=== PATIENT | female | born 1940 | race Caucasian/White ===

== ENCOUNTER → 2016-07-06 | Outpatient (CLI) | payer OTHER, BC ==
[~2016-07-06] MED LIST: ATEN-173 PO; CHOL100027 PO; COEN1CAP17 PO; DIGE1CAP10 PO; LEVO50TA6 PO; MISCCAP80 PO; MULT-506 PO; RSTOPS OPB; VITA1CAP11 PO; ZINC1CAP PO; [UNRECOGNIZED DRUG - CODE] PO; [UNRECOGNIZED DRUG - OTHER] PO
[2016-07-06 17:01] LABS: BASO % 0.8 %; BASO ABS # 0.05 K/uL (0-0.2); COMPLETE YES; EOS % 2.9 %; HEMATOCRIT 38.3 % (37-47); IG% 0.2 %; LYMPH % 19.5 %; LYMPH ABS # 1.28 K/uL (1.2-3.4); MEAN CELL VOLUME 90.3 fL (80-100); MEAN CORPUSCULAR HEMOGLOBIN 29.2 pg (25-34); MEAN CORPUSCULAR HGB CONC 32.4 g/dl (32-36); MEAN PLATELET VOLUME 9.8 fL (7.4-10.4); MONO % 15.1 %; NEUT % 61.5 %; PLATELET COUNT 394 K/uL (130-400); RED BLOOD COUNT 4.24 M/uL (4.2-5.4); WHITE BLOOD COUNT 6.56 K/uL (4.8-10.8)
[2016-07-06 17:23] LABS: ALB/GLOB RATIO 0.8 (0.9-2); ALT/SGPT 21 U/L (12-78); AST/SGOT 19 U/L (15-37); BLOOD UREA NITROGEN 15 mg/dl (7-18); BUN/CREATININE RATIO 18.8 (10-20); CALCIUM 9.3 mg/dl (8.5-10.1); CARBON DIOXIDE 30 mmol/L (21-32); CHLORIDE 106 mmol/L (98-107); CREATININE 0.82 mg/dl (0.60-1.20); GLUCOSE 83 mg/dl (70-99); MAGNESIUM 2.5 mg/dl (1.8-2.4); POTASSIUM 4.2 mmol/L (3.5-5.1); SODIUM 142 mmol/L (136-145)
[2016-07-06 17:25] LABS: ALKALINE PHOSPHATASE 103 U/L (45-117); FERRITIN 13.7 ng/ml (8.0-388.0)
== END | disposition home or self-care (01) ==
LOC: C.LABBC 14:47
PROVIDERS: ATTEND Internal Medicine
DX: K14.6 Glossodynia (principal)

== ENCOUNTER → 2016-10-31 | Outpatient (CLI) | payer OTHER, BC ==
--- NOTE | 2016-10-31 10:48 | DIAGNOSTIC IMAGING REPORT ---
ULTRASOUND BILATERAL LOWER EXTREMITY VENOUS CLINICAL HISTORY: Leg pain. Cramps. COMPARISON STUDY: Bilateral lower extremity venous ultrasound dated 07/05/2011. TECHNIQUE: Real-time, grayscale, and color Doppler sonography of the deep veins of the right and left lower extremity was performed from the inguinal crease to the calf. Compression and augmentation were utilized. FINDINGS: There is no sonographic evidence of deep venous thrombosis identified in the right or left lower extremity. The common femoral, superficial femoral, and popliteal veins are patent and normally compressible bilaterally. The greater saphenous vein and the profunda femoris vein at the junction with the common femoral vein are clear in both legs. The visualized calf veins are patent bilaterally. IMPRESSION: There is no sonographic evidence of deep venous thrombosis identified in the right or left lower extremity. Electronically signed by: Black Cancino M.D. 10/31/2016 10:47 AM Dictated Date/Time: 10/31/2016 10:46 AM
== END | disposition home or self-care (01) ==
LOC: C.ULTR 09:57
PROVIDERS: ATTEND Podiatrist
DX: I70.293 Other atherosclerosis of native arteries of extremities, bilateral legs (principal); R25.2 Cramp and spasm; M79.604 Pain in right leg; M79.605 Pain in left leg

== ENCOUNTER → 2016-11-06 | Outpatient (CLI) | payer OTHER, BC ==
--- NOTE | 2016-11-06 15:59 | DIAGNOSTIC IMAGING REPORT ---
BILATERAL LOWER EXTREMITY VENOUS DOPPLER TO EVALUATE FOR REFLUX CLINICAL HISTORY: Bilateral leg edema. COMPARISON STUDY: Bilateral lower extremity venous Doppler October 31, 2016. FINDINGS: No reflux was identified by sonography within either lower extremity. No deep venous thrombus was identified within either lower extremity. IMPRESSION: 1. No reflux identified within either lower extremity. 2. No deep venous thrombus within the bilateral lower extremities. Electronically signed by: Curtis Sanchez M.D. 11/06/2016 3:58 PM Dictated Date/Time: 11/06/2016 3:57 PM
== END | disposition home or self-care (01) ==
LOC: C.ULTR 15:03
PROVIDERS: ATTEND Internal Medicine
DX: R60.0 Localized edema (principal)

== ENCOUNTER → 2016-11-15 | Outpatient (CLI) | payer OTHER, BC ==
[2016-11-15 14:07] VITALS: BP 116/71; PULSE 72; TEMP 37.2; O2SAT 95
--- NOTE | 2016-11-15 16:36 | Radiation Oncology Follow-Up ---
Radiation Oncology Follow-Up Date of Visit Nov 15, 2016. 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 Neely in regards to the radiation cystitis. He referred her to nephrology and she has been seen and had testing performed. She has a scant amount of spotting from the perineal area. She denies any gross hematuria. She denies bleeding with bowel movements. She previously was seen by Dr. Gallo and 2014. The telangiectasia was noted. There was thickening of the anal area anterior referred her to Dr. Singh who performed a biopsy which was benign. With the finding of the telangiectasia Dr. Gallo had discussed hyperbaric oxygen therapy with her. Information was given to her for review on how this procedure is completed. She is followed by Dr. Zamudio and medical oncology. She has iron deficiency anemia and was given iron infusions. With this treatment she did feel improved with less lethargy. 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 After her last visit one year ago was recommended that she is Aquaphor on a regular basis to help protect the perianal and perineal tissue. She has been doing this and feels that she has had much less bleeding from the areas of telangiectasia. Allergies Coded Allergies: Gluten (Verified Allergy, Unknown, unknown, 03/02/16) Iodinated Contrast Media (Verified Allergy, Unknown, RASH TO "CT SCAN DYE ", 03/02/16) Ciprofloxacin (Verified Adverse Reaction, Intermediate, GI UPSET, 03/02/16 ) Home Medications Scheduled Atenolol (Tenormin), 25 MG PO DAILY Calcium W/ Magnesium (Jacky/Mag), 1 TAB PO DAILY Cholecalciferol (Vitamin D 1000 Unit), 5,000 INTER.UNIT PO DAILY Coenzyme Q10 (Ubidecarenone) (Co Q 10), 100 MG PO DAILY Cyclosporine (Restasis Eye Drops), 1 DROP OPB BID Digestive Enzymes (Digestive Enzyme), 1 PO DAILY Iodine (Iodine Strong), 2 DROP PO DAILY Levothyroxine Sodium (Levothyroxine Sodium), 50 MCG PO DAILY Multivitamin (Multivitamin), 2 TAB PO DAILY Probiotic Product (Probiotic), PO DAILY Vitamin A ([id number]), 1 CAP PO DAILY Zinc Sulfate (Zinc Sulfate), 220 MG PO HS Review of Systems Gastrointestinal: Symptoms: WNL GI Comments: Constipation is worse enemy;Takes magnesium at HS to help w/ this; Oral: Symptoms: No Problems Other Oral Symptoms: Tongue inflammed - saw oral surgeon - glossitis - mouth rinses ineffective; Respiratory: Symptoms: WNL Urinary: Symptoms: WNL Comments: Doesn't ignore urge to void;unable to go longer than 2 hrs betw'n voids; Skin: Symptoms: No Problems Other Skin Symptoms: Pt denies any skin issues in her silvia area. Physical Exam Vital Signs Date Time Temp Pulse Resp B/P (MAP) Pulse Ox O2 Delivery O2 Flow Rate FiO2 11/15/16 14:07 37.2 72 16 116/71 95 Pain: Pain Onset: few yrs Pain Duration: gets worse at times Side: Right Pain Location: ankle Patient Pain Scale: 0 - 10 Initial Pain Intensity: 0.0 Pain Description: Aching Additional Comments: has a bone spur Fatigue: None General Appearance: no apparent distress, + thin Eyes: normal inspection, EOMI ENT: normal ENT inspection, hearing grossly normal Neck: no adenopathy Respiratory/Chest: lungs clear, no respiratory distress, no accessory muscle use Cardiovascular: regular rate, rhythm, no gallop, no murmur Abdomen: normal bowel sounds, non tender, soft, no organomegaly, + pertinent finding (no adenopathy of the groins) Anal / Rectum: Perineal area reveals perianal telangiectasia. There are no open ulcerations. The telangiectasia extends to the introitus. There are no rectal masses and no rectal bleeding. Extremities: no pedal edema Neurologic/Psychiatric: no motor/sensory deficits, alert, normal mood/affect Skin: warm/dry Assessment & Plan Plan: We once again discussed using the Aquaphor on a regular basis. She should avoid toilet paper and use adult wipes to prevent irritation to the telangiectasia. She did request a referral to another urologist for discussion of the radiation cystitis. An appointment was made for her to see Dr. Caicedo. She'll see him 11/30/2016. We will await his recommendations for further follow-up or treatment. Total Time In Follow-Up I spent 25 minutes speaking to the patient performing examination. I spent 15 minutes reviewing information in completing this note. Copy To Constantine Padilla M.D.; Amaury Zamudio M.D.; Abilio Caicedo M.D.
== END | disposition home or self-care (01) ==
LOC: C.ONC 13:39
PROVIDERS: ATTEND Physician Assistant Medical
DX: Z08 Encounter for follow-up examination after completed treatment for malignant neoplasm (principal); Z92.3 Personal history of irradiation; Z85.048 Personal history of other malignant neoplasm of rectum, rectosigmoid junction, and anus

== ENCOUNTER → 2016-11-30 | Outpatient (CLI) | payer OTHER, BC | END | disposition home or self-care (01) | LOC: C.PATHSPEC 14:37 | PROVIDERS: ATTEND Urology | DX: J47.9 Bronchiectasis, uncomplicated (principal); R31.29 Other microscopic hematuria; L57.0 Actinic keratosis; R60.0 Localized edema ==

== ENCOUNTER 2016-12-06 18:35 | Emergency (ER) | payer OTHER, BC ==
[~2016-12-06] VITALS: Ht 162.6 cm; Wt 50.9 kg
[2016-12-06 18:49] VITALS: BP 147/89; PULSE 70; TEMP 36.9; O2SAT 96; Ht 162.6 cm; Wt 50.9 kg
== END 2016-12-06 19:44 | disposition left against medical advice (07) ==
LOC: C.EDB 18:37
DX: Z53.21 Procedure and treatment not carried out due to patient leaving prior to being seen by health care provider (principal)

== ENCOUNTER → 2016-12-20 | Day surgery (SDC) | payer OTHER, BC ==
[2016-12-20] VITALS (9 sets, daily range): BP systolic 84–149; BP diastolic 52–91; PULSE 55–74; TEMP 36.4; O2SAT 95–100; Ht 160 cm; Wt 50.0 kg
[~2016-12-20] VITALS: Ht 160 cm; Wt 50.0 kg
[~2016-12-20] MED LIST changes: +FENTANYL CITRATE INJ 50 MCG/1 ML 2 ML VIAL ONE; +LIDOCAINE HCL 2% 2 ML VIAL (20MG/ML) ONE; +PROPOFOL IV EMULSION 10 MG/ML 20 ML VIAL IV ONE
--- NOTE | 2016-12-20 08:27 | Discharge Instructions ---
Discharge Instructions Procedure Procedure Date: Dec 20, 2016. Reason for Visit: Mitral Valve Prolapse;* To Do*Notified Ane. Discharge Discharge Date: Dec 20, 2016. Discharge Diagnosis: Tricuspid valve lesion Last Recorded Wt (Kilograms): 50 Anesthesia Post Anesthesia Instructions: If you have had General Anesthesia or IV Sedation: * Do not drive today. * Resume driving when surgeon permits. * Do not make important decisions or sign legal documents today. * Call surgeon for: 1. Temperature elevations greater than 101 degrees F. 2. Uncontrollable pain. 3. Excessive bleeding. 4. Persistent nausea and vomiting. 5. Medication intolerance (nausea, vomiting or rash). * For nausea and vomiting use only clear liquids such as: tea, soda, bouillon until nausea subsides, then gradually increase diet as tolerated. * If you have any concerns or questions, call your surgeon's office. If physician is unavailable and it is an emergency, call 911 or go to the nearest emergency room. Instructions Activity Recommendations: limitations as noted below Recommended Home Diet: resume previous diet Allergies: Coded Allergies: Gluten (Verified Allergy, Unknown, unknown, 12/06/16) Iodinated Contrast Media (Verified Allergy, Unknown, RASH TO "CT SCAN DYE ", 12/06/16) Ciprofloxacin (Verified Adverse Reaction, Intermediate, GI UPSET, 12/06/16) Provider Instructions ACTIVITY RECOMMENDATIONS: Resume activities as tolerated with no limitations unless specified. __ No lifting over __ pounds for 24 hours. __ Do not engage in vigorous exercise, sexual activity, or sports for 24 hours. __ Do not drive or operate any motorized equipment for 24 hours. __ You may return to work/school tomorrow. __ Nothing to eat or drink until gag reflex returns. __ No HOT or WARM liquids for __ hours. __ Avoid "scratchy" foods such as potato chips or pretzels for 24 hours following procedure. SPECIAL CARE: If you experience coughing up or vomiting of blood, contact Dr Bosch Follow Up Follow-up with: Dr Bosch's office as scheduled [place] Recommendations: Call your doctor if: * Temperature above 101 degrees * Pain not relieved by pain medicine ordered * There is increased drainage or redness from any incision * You have any unanswered questions or concerns. Your Doctors Instructions noted above were prepared by provider Ash Bosch. Patient Signature Section: Patient Instructions Signature Page Maryellen Flores Patient (or Guardian) Signature/Date: I have read and understand the instructions given to me by my caregivers. Caregiver/RN/Doctor Signature/Date: The above-named patient and/or guardian has received patient instructions on this date. + Original Patient Signature Page (only) stays with chart. Please make copy for patient.
--- NOTE | 2016-12-20 09:28 | Anesthesiology Progress Note ---
Anesthesia Post Op Note Date & Time Dec 20, 2016 at 09:28 Vital Signs Pain Intensity: 0 Vital Signs Past 12 Hours Date Time Temp Pulse Resp B/P (MAP) Pulse Ox O2 Delivery O2 Flow Rate FiO2 12/20/16 09:00 60 18 146/72 (96) 97 Room Air 12/20/16 08:45 58 18 147/68 (94) 96 Room Air 12/20/16 08:35 59 18 140/69 (92) 96 Room Air 12/20/16 08:25 58 18 133/70 (91) 97 Room Air 12/20/16 08:15 60 18 138/74 (95) 97 Room Air 12/20/16 08:05 74 16 110/65 97 Room Air 12/20/16 08:05 64 18 112/69 (83) 99 Room Air 12/20/16 08:00 74 16 126/70 97 Room Air 12/20/16 07:55 57 16 84/52 99 Nasal Cannula 4 12/20/16 07:50 55 16 95/58 100 Nasal Cannula 4 12/20/16 07:45 56 16 140/73 100 Nasal Cannula 4 12/20/16 07:40 73 16 123/75 95 Nasal Cannula 4 12/20/16 07:35 71 16 147/91 100 Nasal Cannula 4 12/20/16 07:00 36.4 74 16 149/83 99 Room Air Notes Mental Status: alert / awake / arousable, participated in evaluation Pt Amnestic to Procedure: Yes Nausea / Vomiting: adequately controlled Pain: adequately controlled Airway Patency, RR, SpO2: stable & adequate BP & HR: stable & adequate Hydration State: stable & adequate Anesthetic Complications: no major complications apparent
[2016-12-20 09:41] LABS: BASO % 0.6 %; BASO ABS # 0.04 K/uL (0-0.2); HEMATOCRIT 39.2 % (37-47); IG% 0.3 %; LYMPH % 13.6 %; LYMPH ABS # 0.88 K/uL (1.2-3.4); MEAN CELL VOLUME 95.4 fL (80-100); MEAN CORPUSCULAR HEMOGLOBIN 32.8 pg (25-34); MEAN CORPUSCULAR HGB CONC 34.4 g/dl (32-36); MEAN PLATELET VOLUME 9.6 fL (7.4-10.4); MONO % 15.4 %; NEUT % 68.1 %; PLATELET COUNT 289 K/uL (130-400); RED BLOOD COUNT 4.11 M/uL (4.2-5.4); WHITE BLOOD COUNT 6.48 K/uL (4.8-10.8)
[2016-12-20 10:08] LABS: BUN/CREATININE RATIO 25.3 (10-20); CALCIUM 9.2 mg/dl (8.5-10.1); CREATININE 0.7 mg/dl (0.60-1.20); POTASSIUM 4.2 mmol/L (3.5-5.1)
[2016-12-20 10:11] LABS: ALB/GLOB RATIO 0.8 (0.9-2)
[2016-12-20 10:16] LABS: COMPLETE YES; HYPERSEGMENTED POLYS 1+; TOXIC GRANULATION 1+
--- NOTE | 2016-12-20 12:26 | TEE ---
*NOTICE TO RECEIVING [employer] This information is strictly Confidential and protected under [place] law. [place] law prohibits you from making any further disclosure of this information unless further disclosure is expressly permitted by the written consent of the person to whom it pertains or is authorized by law. A general authorization for the release of medical or other information is not sufficient for this purpose. Hospital accepts no responsibility if the information is made available to any other person, INCLUDING THE PATIENT. Interpretation Summary * Name: RAÚL RIVERA V Study Date: 12/20/2016 07:12 AM * HR: 79 * : 1940 (M/d/yyyy) Gender: Female Height: 63 in * Age: 76 yrs Ethnicity: [place] Weight: 110 lb * Ordering Physician: Ash Bosch MD, FACC * Referring Physician: Ash Bosch MD, FACC * Performed By: Yumiko Guzman RCS * * Reason For Study: Tricuspid Anomaly * BSA: 1.5 m2 * -- Conclusions -- * There is a 0.9 cm pedunculated mass attached to the atrial side of the posterior leaflet of tricuspid valve * There is mild to moderate tricuspid regurgitation. * The left ventricle is normal in size. * There is normal left ventricular wall thickness. * The left ventricular wall motion is normal. * Ejection Fraction = 60-65%. Procedure Details * The transesophageal portion of this study was personally supervised by the undersigned interpreting physician. * NEMO Probe #3 was utilized for procedure. Start Time: 0700 Probe Insert Time: 07 End Time: 0755 * The study was performed in Cardiac Catheterization Lab. * Time out was conducted by the physician, nurse, and proced tech with positive identification of patient and procedure. * Informed consent for Transesophageal Echocardiogram was obtained prior to the procedure. * An intravenous line was placed. A topical anesthetic agent was used for oropharangeal anesthesia. A bite block was inserted. * Sedation performed by the anesthesia department. * The patient's vital signs, including blood pressure, heart rate, pulse oximetry and cardiac rhythm were monitored throughout the procedure . * The posterior oropharynx was anesthetized using a topical anesthetic spray. A bite guard was inserted. * A multifrequency, multiplane transesopheageal echocardiographic endoscope was inserted and manipulated in the standard fashion to achieve multiplane views. * The transesophageal probe was passed without difficulty. * The patient tolerated the procedure well without evidence of orophangeal or esophageal trauma. * A 2D transesophageal echocardiogram with spectral and color flow Doppler was performed. * Contrast injection with agitated saline was performed. Left Ventricle * The left ventricle is normal in size. * There is normal left ventricular wall thickness. * Ejection Fraction = 60-65%. * The left ventricular wall motion is normal. Right Ventricle * There is normal right ventricular wall thickness. Atria * The left atrial size is normal. * Borderline right atrial enlargement. * The interatrial septum is intact with no evidence for an atrial septal defect. * Injection of contrast documented no interatrial shunt. Mitral Valve * The mitral valve anatomy is normal. * There is no mitral valve stenosis. * There is trace mitral regurgitation. Tricuspid Valve * There is a 0.9 cm pedunculated mass attached to the atrial side of the posterior leaflet of tricuspid valve * There is mild to moderate tricuspid regurgitation. Aortic Valve * The aortic valve is trileaflet. * No hemodynamically significant valvular aortic stenosis. * There is no significant aortic regurgitation. Pulmonic Valve * The pulmonic valve is normal in structure and function. Great Vessels * The aortic root is normal size. * Mild atherosclerotic plaque(s) in the descending aorta. Pericardium * There is no pericardial effusion. Right Ventricle * The right ventricular wall motion is normal.
== END | disposition home or self-care (01) ==
LOC: C.CATH 06:36
PROVIDERS: ATTEND Internal Medicine Cardiovascular Disease
DX: I34.1 Nonrheumatic mitral (valve) prolapse (principal); D50.9 Iron deficiency anemia, unspecified; I07.9 Rheumatic tricuspid valve disease, unspecified

== ENCOUNTER → 2017-03-12 | Outpatient (CLI) | payer OTHER, BC ==
[~2017-03-12] MED LIST changes: -CHOL100027 PO; -FENTANYL CITRATE INJ 50 MCG/1 ML 2 ML VIAL ONE; -LIDOCAINE HCL 2% 2 ML VIAL (20MG/ML) ONE; -PROPOFOL IV EMULSION 10 MG/ML 20 ML VIAL IV ONE; -VITA1CAP11 PO
[2017-03-12 10:55] LABS: ALLEN TEST POS (POS); ARTERIAL BLOOD GAS BASE EXCESS 4.3 mEq/L (-9-1.8); ARTERIAL BLOOD GAS HCO3 29 mmol/L (19-24); ARTERIAL BLOOD GAS PO2 89 mm/Hg (80-95); ARTERIAL BLOOD GAS pH 7.44 (7.35-7.45); O2 ADMINISTRATION ROOM AIR
== END | disposition home or self-care (01) ==
LOC: C.LAB 10:33
PROVIDERS: ATTEND Physician Assistant
DX: I07.9 Rheumatic tricuspid valve disease, unspecified (principal); R00.2 Palpitations; I34.1 Nonrheumatic mitral (valve) prolapse; D50.9 Iron deficiency anemia, unspecified

== ENCOUNTER → 2017-04-08 | Outpatient (CLI) | payer OTHER, BC ==
[2017-04-08 17:10] LABS: BASO % 1.4 %; BASO ABS # 0.09 K/uL (0-0.2); COMPLETE YES; EOS % 6.8 %; HEMATOCRIT 32.2 % (37-47); IG% 1.7 %; LYMPH % 18.1 %; LYMPH ABS # 1.17 K/uL (1.2-3.4); MEAN CELL VOLUME 99.1 fL (80-100); MEAN CORPUSCULAR HEMOGLOBIN 30.8 pg (25-34); MEAN CORPUSCULAR HGB CONC 31.1 g/dl (32-36); MEAN PLATELET VOLUME 9.2 fL (7.4-10.4); MONO % 19.2 %; NEUT % 52.8 %; PLATELET COUNT 739 K/uL (130-400); RED BLOOD COUNT 3.25 M/uL (4.2-5.4); WHITE BLOOD COUNT 6.45 K/uL (4.8-10.8)
[2017-04-08 17:28] LABS: BLOOD UREA NITROGEN 23 mg/dl (7-18); BUN/CREATININE RATIO 19.9 (10-20); CALCIUM 9.4 mg/dl (8.5-10.1); CARBON DIOXIDE 36 mmol/L (21-32); CHLORIDE 90 mmol/L (98-107); CREATININE 1.17 mg/dl (0.60-1.20); GLUCOSE 98 mg/dl (70-99); POTASSIUM 3.9 mmol/L (3.5-5.1); SODIUM 131 mmol/L (136-145)
== END | disposition home or self-care (01) ==
LOC: C.LABBC 15:26
PROVIDERS: ATTEND Nurse Practitioner
DX: E87.1 Hypo-osmolality and hyponatremia (principal); I34.1 Nonrheumatic mitral (valve) prolapse; I07.9 Rheumatic tricuspid valve disease, unspecified; D50.0 Iron deficiency anemia secondary to blood loss (chronic)

== ENCOUNTER → 2017-04-17 | Outpatient (CLI) | payer OTHER, BC ==
[~2017-04-17] MED LIST changes: +WARF2.5T8 PO; +WARF5TAB7 PO
[2017-04-17 16:48] LABS: BASO % 1.2 %; BASO ABS # 0.07 K/uL (0-0.2); EOS % 6.2 %; EOS ABS # 0.36 K/uL (0-0.5); HEMATOCRIT 36.9 % (37-47); HEMOGLOBIN 11.4 g/dL (12.0-16.0); IG# 0.02 K/uL (0.00-0.02); LYMPH % 18.4 %; LYMPH ABS # 1.07 K/uL (1.2-3.4); MEAN CORPUSCULAR HEMOGLOBIN 30.9 pg (25-34); MEAN CORPUSCULAR HGB CONC 30.9 g/dl (32-36); MEAN PLATELET VOLUME 9.4 fL (7.4-10.4); MONO % 12.9 %; MONO ABS # 0.75 K/uL (0.11-0.59); NEUT ABS # 3.56 K/uL (1.4-6.5); PLATELET COUNT 496 K/uL (130-400); RED CELL DISTRIBUTION WIDTH CV 15.9 % (11.5-14.5); RED CELL DISTRIBUTION WIDTH SD 57.4 fL (36.4-46.3); WHITE BLOOD COUNT 5.83 K/uL (4.8-10.8)
[2017-04-17 16:55] LABS: BLOOD UREA NITROGEN 19 mg/dl (7-18); CALCIUM 9.7 mg/dl (8.5-10.1); CARBON DIOXIDE 27 mmol/L (21-32); CREATININE 0.74 mg/dl (0.60-1.20); GLUCOSE 89 mg/dl (70-99); POTASSIUM 4.8 mmol/L (3.5-5.1); SODIUM 137 mmol/L (136-145)
== END | disposition home or self-care (01) ==
LOC: C.LABBC 12:45
PROVIDERS: ATTEND Physician Assistant Medical
DX: I48.0 Paroxysmal atrial fibrillation (principal); J84.9 Interstitial pulmonary disease, unspecified

== ENCOUNTER → 2017-04-23 | Outpatient (CLI) | payer OTHER, BC ==
[2017-04-23 18:02] LABS: BLOOD UREA NITROGEN 23 mg/dl (7-18); CALCIUM 9.5 mg/dl (8.5-10.1); CARBON DIOXIDE 31 mmol/L (21-32); CREATININE 1.08 mg/dl (0.60-1.20); GLUCOSE 105 mg/dl (70-99); POTASSIUM 4.3 mmol/L (3.5-5.1); SODIUM 137 mmol/L (136-145)
== END | disposition home or self-care (01) ==
LOC: C.LABBC 15:07
PROVIDERS: ATTEND Physician Assistant Medical
DX: I48.0 Paroxysmal atrial fibrillation (principal); J84.9 Interstitial pulmonary disease, unspecified

== ENCOUNTER → 2017-05-03 | Outpatient (CLI) | payer OTHER, BC ==
[~2017-05-03] MED LIST changes: -WARF2.5T8 PO; -WARF5TAB7 PO
[2017-05-03 17:03] LABS: BLOOD UREA NITROGEN 27 mg/dl (7-18); CALCIUM 9.5 mg/dl (8.5-10.1); CARBON DIOXIDE 30 mmol/L (21-32); GLUCOSE 100 mg/dl (70-99); POTASSIUM 4.2 mmol/L (3.5-5.1); SODIUM 138 mmol/L (136-145)
== END | disposition home or self-care (01) ==
LOC: C.LABBC 14:53
PROVIDERS: ATTEND Physician Assistant
DX: I48.0 Paroxysmal atrial fibrillation (principal)

== ENCOUNTER → 2017-08-26 | Outpatient (CLI) | payer OTHER, BC ==
[2017-08-26 13:55] LABS: ALBUMIN 3.4 gm/dl (3.4-5.0); ALT/SGPT 21 U/L (12-78); AST/SGOT 20 U/L (15-37); BLOOD UREA NITROGEN 24 mg/dl (7-18); CALCIUM 8.7 mg/dl (8.5-10.1); CARBON DIOXIDE 29 mmol/L (21-32); CREATININE 0.86 mg/dl (0.60-1.20); GLUCOSE 73 mg/dl (70-99); POTASSIUM 4.2 mmol/L (3.5-5.1); SODIUM 139 mmol/L (136-145)
[2017-08-26 14:03] LABS: ALKALINE PHOSPHATASE 75 U/L (45-117); TOTAL PROTEIN 7.5 gm/dl (6.4-8.2)
== END | disposition home or self-care (01) ==
LOC: C.LABBC 09:58
PROVIDERS: ATTEND Physician Assistant Medical
DX: E03.9 Hypothyroidism, unspecified (principal)

== ENCOUNTER → 2017-11-12 | Outpatient (CLI) | payer OTHER, BC ==
[~2017-11-12] MED LIST changes: +WARF2.5T8 PO; +WARF5TAB7 PO
[2017-11-12 14:05] VITALS: BP 117/79; PULSE 89; TEMP 36.7; O2SAT 100
--- NOTE | 2017-11-12 17:35 | Radiation Oncology Follow-Up ---
Radiation Oncology Follow-Up Date of Visit Nov 12, 2017. 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 It is felt that this is secondary to her radiation cystitis. She also has issues with frequent loose bowel movements. She did have constipation while hospitalized. This was likely due to narcotics. She recently underwent surgery for valve replacement. She had a recheck visit with gastroenterology in regards to the radiation proctitis in June. There is discussion of hyperbaric oxygen therapy. He was felt that this would likely not help with the anal stenosis. He had recommended Desitin for the perianal telangiectasia. She did not care for the smell of the Desitin. She went back to using Aquaphor. Allergies Coded Allergies: Gluten (Verified Allergy, Unknown, unknown, 09/10/17) Iodinated Contrast Media (Verified Allergy, Unknown, RASH TO "CT SCAN DYE ", 09/10/17) Ciprofloxacin (Verified Adverse Reaction, Intermediate, GI UPSET, 09/10/17) Home Medications Scheduled Atenolol (Tenormin), 25 MG PO DAILY Calcium W/ Magnesium (Jacky/Mag), 1 TAB PO DAILY Coenzyme Q10 (Ubidecarenone) (Co Q 10), 100 MG PO DAILY Cyclosporine (Restasis Eye Drops), 1 DROP OPB BID Digestive Enzymes (Digestive Enzyme), 1 PO DAILY Iodine (Iodine Strong), 2 DROP PO DAILY Levothyroxine Sodium (Levothyroxine Sodium), 50 MCG PO DAILY Multivitamin (Multivitamin), 2 TAB PO DAILY Probiotic Product (Probiotic), PO DAILY Warfarin Sod (Jantoven), 5 MG PO 2XWK Warfarin Sod (Jantoven), 2.5 MG PO 5XWK Zinc Sulfate (Zinc Sulfate), 220 MG PO HS Review of Systems Gastrointestinal: GI Comments: occ loose stools and occ consipation, occ perianal bleeding Oral: Symptoms: No Problems Respiratory: Symptoms: WNL Urinary: Symptoms: Incontinence, Nocturia Comments: urinates every 2- 3 hrs during the day, nocturia 2 - 3 Skin: Other Skin Symptoms: "lower legs have circulation problems " Physical Exam Vital Signs Date Time Temp Pulse Resp B/P (MAP) Pulse Ox O2 Delivery O2 Flow Rate FiO2 11/12/17 14:05 36.7 89 16 117/79 100 Fatigue: None General Appearance: no apparent distress Eyes: normal inspection, EOMI ENT: normal ENT inspection, hearing grossly normal Respiratory/Chest: lungs clear, no respiratory distress, no accessory muscle use Cardiovascular: regular rate, rhythm, no gallop, no murmur Abdomen: non tender, soft, no organomegaly Anal / Rectum: Perianal telangiectasia with anal stenosis. There are no anal masses. There is no anal tenderness. Extremities: no pedal edema Neurologic/Psychiatric: no motor/sensory deficits, alert, normal mood/affect Skin: warm/dry Pain Management Patient Reports Pain: No Side: Bilateral Patient Preferred Pain Scale: 0 - 10 Initial Pain Intensity: 0.0 Pain Management Plan She denies pain therefore requires no pain management. Laboratory Laboratory Results: not applicable Pathology Pathology Results: not applicable Imaging Imaging Studies: not applicable Assessment & Plan Plan: We discussed measures that can be taken to help with regularity of the bowel and to avoid constipation. I have asked her to use Metamucil one half scoop daily. If this helps it could be increased to 1 scoop per day. She will use Aquaphor or vitamin E ointment to the perianal region. We discussed the hyperbaric oxygen therapy. I will make contact with the wound care clinic to see if she would qualify. If she does qualify she will need clearance by cardiology before undergoing treatment. We discussed quality of life in regards to how these symptoms are affecting her. She stated she would consider hyperbaric oxygen therapy. She is going to first try the Metamucil to see if this helps with bowel regulation. Return to culture her after I speak with the wound care clinic in regards to hyperbaric oxygen therapy. Total Time In Follow-Up I spent 25 minutes speaking to the patient in performing examination. I spent 15 minutes reviewing information and completing this note. Copy To Shar Gallo M.D.; Constantine Padilla M.D.; Amaury Zamudio M.D.; Abilio Caicedo M.D.
== END | disposition home or self-care (01) ==
LOC: C.ONC 13:39
PROVIDERS: ATTEND Physician Assistant Medical
DX: Z08 Encounter for follow-up examination after completed treatment for malignant neoplasm (principal); Z92.3 Personal history of irradiation; Z85.048 Personal history of other malignant neoplasm of rectum, rectosigmoid junction, and anus

== ENCOUNTER 2021-06-01 05:27 | Inpatient (IN) ==
--- NOTE | 2021-06-01 05:40 | Emergency Department Note ---
Impression & Plan Hyponatremia ADMIT ED Provider Note HPI: The patient is an 80-year-old female with history of diastolic heart failure, paroxysmal atrial fibrillation, on Coumadin, who comes into the emergency department today with a chief complaint of generalized weakness and generalized illness for the past 2 to 3 days. Patient states that 3 days ago she also had an episode of vomiting. Patient is a poor historian overall, states that she has had some myalgias, generalized weakness. On arrival here to the ED the patient is hemodynamically stable, she is saturating well on room air, she is frail-appearing but in no acute distress on my initial evaluation. ROS: -General: Generalized weakness -GI: Recent episode of vomiting *10 point review systems was conducted and is otherwise negative unless stated above *Outpatient medications and allergy history reviewed PE: General: Frail-appearing, alert, NAD HEENT: Normocephalic, atraumatic Eyes: Extraocular eye movement is intact, no scleral erythema Pulmonary: Clear to auscultation bilaterally, no wheezing Cardio: Regular rate and rhythm GI: Abdomen is soft, nontender : No suprapubic tenderness MSK: No evidence of trauma or malformation of the extremities, no edema Skin: No evidence of rash Neuro: Alert, no focal deficits 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 Bilateral radiopaque renal calculi. No evidence of obstructive renal calculi or signs of dilatation. Postsurgical changes adjacent to the stomach, incompletely visualized. Suspected splenosis. No gross evidence of bowel obstruction. Consider contrast-enhanced imaging. Bilateral pleural effusions with cardiomegaly which may be due to volume overload. Given dependent bronchiectasis, most prominent in the right middle lobe, and consolidation, superimposed chronic infection is also suspected. Acute on chronic infection not excluded. Radiologist: Alexander Slade MD EKG: Rate: 78 Rhythm: Normal sinus rhythm Intervals: Within normal limits Time: 0538 ST changes: No ST elevation Medical Decision Making: Patient presented to the emergency department with generalized weakness, IV was established, lab work ordered, patient was given IV fluid bolus shortly after arrival. Lab work shows evidence of leukocytosis greater than 15,000, procalcitonin is markedly elevated at 31, chest x-ray does not show any obvious pneumonia, urinalysis does not show any evidence of infection. Hemoglobin is 11.7 which appears to be the patient's baseline, she is noted to have thrombocytopenia at 63 which also appears to be new. No acute kidney injury, patient does have an elevated BUN at 35. Blood cultures were drawn in the ED, patient was initiated on broad-spectrum antibiotics with vancomycin and cefepime given elevated white blood cell count as well as elevated procalcitonin without a obvious source. Patient's daughter later arrived at the bedside, states that the patient had some nausea and an episode of vomiting on Saturday, I did obtain CT imaging of the abdomen that does not show any evidence of any obvious acute surgical pathology, no evidence of small bowel obstruction, this had to be obtained without IV contrast secondary to contrast allergy. Patient's electrolytes are significant for hypochloremia as well as hyponatremia at 122. Patient is noted to be in torsemide. I suspect this might be the source of the patient's hyponatremia. She was given some IV fluids here in the ED. Given her generalized weakness and frailty in addition to these findings, I do think she would benefit from admission. Patient's daughter at the bedside is in agreement to this. Diagnosis: 1. Hyponatremia 2. Generalized weakness 3. Uremia 4. Nausea 5. Leukocytosis 6. Elevated procalcitonin 7. Thrombocytopenia Disposition: Admission Richard Perez DO Emergency Medicine Past Med/Surg History Medical History Anxiety H/O pericarditis (~2007) Hepatic cyst HTN (hypertension) Hx of basal cell carcinoma Hyperlipidemia LDL goal <100 Hypothyroidism Iron deficiency anemia due to chronic blood loss iron infusions currently Lipodermatosclerosis Lumbar spinal stenosis Mild cognitive impairment with memory loss Alert and oriented x3 Mitral valve prolapse syndrome Osteoporosis, unspecified Paroxysmal atrial fibrillation family unaware, denies cardioversion. Follows with Dr Bosch. 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 [facility] Weight loss Surgical History H/O basal cell carcinoma excision [facility] H/O cardiac catheterization family denies (denies any stents) H/O splenectomy r/t a large attached cyst H/O squamous cell carcinoma excision removed at the [facility] History of back surgery lumbar area History of colonoscopy History of open heart surgery (~2016) removal of tricupsid valve mass ([facility]) S/P cholecystectomy S/P splenectomy Family History Mother Cancer Colorectal cancer Father Heart disease Stroke Denies family history of Ovarian cancer Prostate cancer Myocardial infarction Breast cancer Social History (Updated 03/06/21 @ 15:21 by Hiwot Pollard) Smoking Status: Never smoker Tobacco Type: Cigarettes Second Hand Exposure: No; Hx Alcohol Use: No Hx Substance Use: No Preferred Language: Maltese Communication Ability: Effective Visual Impairment: Limited Hearing Ability: Normal Massotherapist Required: No Beliefs That Will Affect Care: None marital status: Current Living Situation: Spouse and Family current occupational status: retired How many Children do You have: 3 Feels Safe at Home: Yes Childhood Exposure to Second-Hand Smoke: No caffeine: Yes Dental Care, Regularly: Yes Physical Activity Frequency: Does not Exercise Seatbelt Use: always Sunscreen Use: No Assistive Devices: Glasses, Walker and Wheelchair Allergies Allergies Allergy/AdvReac Type Severity Reaction Status Date / Time gluten Allergy Unknown unknown Verified 06/01/21 07:36 Iodinated Contrast Media Allergy Unknown RASH TO Verified 06/01/21 07:36 "CT SCAN DYE" Cipro AdvReac Intermediate GI UPSET Verified 09/10/17 06:43 ciprofloxacin AdvReac Intermediate GI UPSET Verified 06/01/21 07:36 Home Meds Home Medications Medication Instructions Recorded Confirmed coenzyme Q10 100 mg capsule 100 mg PO QAM 11/19/18 06/01/21 Lactobacillus 1 cap PO QAM cap 01/15/19 06/01/21 acidophilus-Bifidobac.animalis 31 billion cell capsule multivitamin (Multiple Vitamins) 2 tab PO QAM tab 01/15/19 06/01/21 warfarin 2.5 mg tablet 2.5 mg PO UD tab 01/19/20 06/01/21 cholecalciferol (vitamin D3) 4,000 unit PO QAM ml 02/26/20 06/01/21 zinc sulfate 50 mg zinc (220 mg) 50 mg PO WK cap 09/01/20 06/01/21 capsule torsemide 20 mg tablet 10 - 20 mg PO QAM tab 11/17/20 06/01/21 cyanocobalamin (vitamin B-12) 2,500 mcg PO QAM 02/10/21 06/01/21 2,500 mcg chewable tablet iodine 150 mcg tablet 0 mcg PO DAILY 06/01/21 06/01/21 phytonadione (vitamin K1) 1 mg/0.5 0 mg PO DAILY 06/01/21 06/01/21 mL injection solution (vitamin K) Previous Rx's Medication Instructions Recorded levothyroxine 50 mcg tablet 50 mcg PO QAM #60 tab 02/13/21 atenolol 25 mg tablet See Rx Instructions .ROUTE 03/27/21 .COMPLEX #90 tablet Results & Data (ED) Vital Signs Vital Signs - 24 hr 06/01/21 05:59 06/01/21 06:28 06/01/21 06:57 Temperature 36.7 C Temperature Source Oral Pulse Rate 78 Pulse Rate [Finger] 78 78 Respiratory Rate 20 20 Respiratory Effort / Characteristics Non-Labored Respiratory Depth Normal Blood Pressure 113/72 Blood Pressure [Right Arm] 113/72 130/80 Blood Pressure Mean 85 Blood Pressure Mean [Right Arm] 85 96 Blood Pressure Position Sitting Blood Pressure Position [Right Arm] Sitting Lying Pulse Oximetry 94 96 96 Oxygen Delivery Method Room Air Room Air Room Air Oxygen Flow Rate 0 Sepsis Recent Fever Within 48 Hours No Sepsis New/Unexplained Change in Mental Status N/A Sepsis Action Taken by Nursing No Action Required 06/01/21 07:03 06/01/21 07:05 Temperature Temperature Source Pulse Rate Pulse Rate [Finger] 74 Respiratory Rate 20 Respiratory Effort / Characteristics Non-Labored Respiratory Depth Normal Blood Pressure Blood Pressure [Right Arm] 130/80 Blood Pressure Mean Blood Pressure Mean [Right Arm] 96 Blood Pressure Position Blood Pressure Position [Right Arm] Pulse Oximetry 96 96 Oxygen Delivery Method Room Air Room Air Oxygen Flow Rate Sepsis Recent Fever Within 48 Hours Sepsis New/Unexplained Change in Mental Status Sepsis Action Taken by Nursing Laboratory Data Result diagrams: 06/01/21 05:38 06/01/21 05:38 Lab Results 06/01/21 06/01/21 06/01/21 Range/Units 05:38 05:38 05:38 WBC 15.73 H (4.8-10.8) K/uL RBC 3.69 L (4.2-5.4) M/uL Hgb 11.7 L (12.0-16.0) g/dL Hct 33.7 L (37-47) % MCV 91.3 (80-100) fL MCH 31.7 (25-34) pg MCHC 34.7 (32-36) g/dL RDW Std Deviation 53.9 H (36.4-46.3) fL RDW Coeff of Janet 16.1 H (11.5-14.5) % Plt Count 63 L (130-400) K/uL MPV 11.2 H (7.4-10.4) fL Immature Gran % (Auto) 1.0 % Neut % (Auto) 84.0 % Lymph % (Auto) 11.4 % [place] % (Auto) 3.4 % Eos % (Auto) 0.1 % Baso % (Auto) 0.1 % Neut # (Auto) 13.22 H (1.4-6.5) K/uL Lymph # (Auto) 1.80 (1.2-3.4) K/uL [place] # (Auto) 0.54 (0.11-0.59) K/uL Eos # (Auto) 0.01 (0-0.5) K/uL Baso # (Auto) 0.01 (0-0.2) K/uL Immature Gran # (Auto) 0.15 H (0.00-0.02) K/uL Absolute Nucleated RBC 0.04 H (0-0) K/uL Nucleated RBC % (auto) 0.3 % Platelet Estimate Decreased L (Normal) Echinocytes 1+ PT 13.7 H (9.0-12.0) Seconds INR 1.4 H (0.9-1.1) APTT 38.2 H (21.0-31.0) Seconds PTT Ratio 1.5 Sodium 122 L (136-145) mmol/L Potassium 4.7 (3.5-5.1) mmol/L Chloride 87 L (98-107) mmol/L Carbon Dioxide 26 (21-32) mmol/L Anion Gap 9 (3-11) BUN 35 H (6-23) mg/dl Creatinine 0.96 (0.6-1.2) mg/dl Est Cr Clr Drug Dosing 36.1 ml/min Est GFR ( Amer) 63.8 ml/min Est GFR (Non-Af Amer) 55.1 ml/min BUN/Creatinine Ratio 36.5 H (10-20) Glucose 111 H (70-99(Fasting)) mg/dl Lactate (0.4-2.0) mmol/L Calcium 10.2 H (8.5-10.1) mg/dl Magnesium 1.8 (1.7-2.4) mg/dl Total Bilirubin 1.5 H (0.2-1.0) mg/dl AST 39 (13-39) U/L ALT 28 (7-52) U/L Alkaline Phosphatase 175 H (34-104) U/L Troponin I 0.04 (0-0.04) ng/ml Total Protein 6.7 (6.0-8.3) gm/dl Albumin 3.3 L (3.4-5.0) gm/dl Globulin 3.4 (2.5-4.0) gm/dl Albumin/Globulin Ratio 1.0 (0.9-2) Procalcitonin (0-0.5) ng/ml Urine Color Urine Appearance (Clear) Urine pH (4.5-7.5) Ur Specific [place] (1.000-1.030) Urine Protein (Negative) Urine Glucose (UA) (Negative) Urine Ketones (Negative) Urine Blood (Negative) Urine Nitrite (Negative) Urine Bilirubin (Negative) Urine Urobilinogen (Negative) Ur Leukocyte Esterase (Negative) Urine WBC (Auto) (0-5) /hpf Urine RBC (Auto) (0-4) /hpf U Hyaline Cast (Auto) (0-5) /lpf U Epithel Cells (Auto) (0-5) /lpf Urine Bacteria (Auto) (Negative) Urine Yeast SARS-CoV-2, RNA, NAAT (NEGATIVE) 06/01/21 06/01/21 06/01/21 Range/Units 05:38 05:38 07:04 WBC (4.8-10.8) K/uL RBC (4.2-5.4) M/uL Hgb (12.0-16.0) g/dL Hct (37-47) % MCV (80-100) fL MCH (25-34) pg MCHC (32-36) g/dL RDW Std Deviation (36.4-46.3) fL RDW Coeff of Janet (11.5-14.5) % Plt Count (130-400) K/uL MPV (7.4-10.4) fL Immature Gran % (Auto) % Neut % (Auto) % Lymph % (Auto) % [place] % (Auto) % Eos % (Auto) % Baso % (Auto) % Neut # (Auto) (1.4-6.5) K/uL Lymph # (Auto) (1.2-3.4) K/uL [place] # (Auto) (0.11-0.59) K/uL Eos # (Auto) (0-0.5) K/uL Baso # (Auto) (0-0.2) K/uL Immature Gran # (Auto) (0.00-0.02) K/uL Absolute Nucleated RBC (0-0) K/uL Nucleated RBC % (auto) % Platelet Estimate (Normal) Echinocytes PT (9.0-12.0) Seconds INR (0.9-1.1) APTT (21.0-31.0) Seconds PTT Ratio Sodium (136-145) mmol/L Potassium (3.5-5.1) mmol/L Chloride (98-107) mmol/L Carbon Dioxide (21-32) mmol/L Anion Gap (3-11) BUN (6-23) mg/dl Creatinine (0.6-1.2) mg/dl Est Cr Clr Drug Dosing ml/min Est GFR ( Amer) ml/min Est GFR (Non-Af Amer) ml/min BUN/Creatinine Ratio (10-20) Glucose (70-99(Fasting)) mg/dl Lactate 1.2 (0.4-2.0) mmol/L Calcium (8.5-10.1) mg/dl Magnesium (1.7-2.4) mg/dl Total Bilirubin (0.2-1.0) mg/dl AST (13-39) U/L ALT (7-52) U/L Alkaline Phosphatase (34-104) U/L Troponin I (0-0.04) ng/ml Total Protein (6.0-8.3) gm/dl Albumin (3.4-5.0) gm/dl Globulin (2.5-4.0) gm/dl Albumin/Globulin Ratio (0.9-2) Procalcitonin 31.24 H (0-0.5) ng/ml Urine Color Urine Appearance (Clear) Urine pH (4.5-7.5) Ur Specific [place] (1.000-1.030) Urine Protein (Negative) Urine Glucose (UA) (Negative) Urine Ketones (Negative) Urine Blood (Negative) Urine Nitrite (Negative) Urine Bilirubin (Negative) Urine Urobilinogen (Negative) Ur Leukocyte Esterase (Negative) Urine WBC (Auto) (0-5) /hpf Urine RBC (Auto) (0-4) /hpf U Hyaline Cast (Auto) (0-5) /lpf U Epithel Cells (Auto) (0-5) /lpf Urine Bacteria (Auto) (Negative) Urine Yeast SARS-CoV-2, RNA, NAAT NEGATIVE (NEGATIVE) 06/01/21 Range/Units Unknown WBC (4.8-10.8) K/uL RBC (4.2-5.4) M/uL Hgb (12.0-16.0) g/dL Hct (37-47) % MCV (80-100) fL MCH (25-34) pg MCHC (32-36) g/dL RDW Std Deviation (36.4-46.3) fL RDW Coeff of Janet (11.5-14.5) % Plt Count (130-400) K/uL MPV (7.4-10.4) fL Immature Gran % (Auto) % Neut % (Auto) % Lymph % (Auto) % [place] % (Auto) % Eos % (Auto) % Baso % (Auto) % Neut # (Auto) (1.4-6.5) K/uL Lymph # (Auto) (1.2-3.4) K/uL [place] # (Auto) (0.11-0.59) K/uL Eos # (Auto) (0-0.5) K/uL Baso # (Auto) (0-0.2) K/uL Immature Gran # (Auto) (0.00-0.02) K/uL Absolute Nucleated RBC (0-0) K/uL Nucleated RBC % (auto) % Platelet Estimate (Normal) Echinocytes PT (9.0-12.0) Seconds INR (0.9-1.1) APTT (21.0-31.0) Seconds PTT Ratio Sodium (136-145) mmol/L Potassium (3.5-5.1) mmol/L Chloride (98-107) mmol/L Carbon Dioxide (21-32) mmol/L Anion Gap (3-11) BUN (6-23) mg/dl Creatinine (0.6-1.2) mg/dl Est Cr Clr Drug Dosing ml/min Est GFR ( Amer) ml/min Est GFR (Non-Af Amer) ml/min BUN/Creatinine Ratio (10-20) Glucose (70-99(Fasting)) mg/dl Lactate (0.4-2.0) mmol/L Calcium (8.5-10.1) mg/dl Magnesium (1.7-2.4) mg/dl Total Bilirubin (0.2-1.0) mg/dl AST (13-39) U/L ALT (7-52) U/L Alkaline Phosphatase (34-104) U/L Troponin I (0-0.04) ng/ml Total Protein (6.0-8.3) gm/dl Albumin (3.4-5.0) gm/dl Globulin (2.5-4.0) gm/dl Albumin/Globulin Ratio (0.9-2) Procalcitonin (0-0.5) ng/ml Urine Color Yellow Urine Appearance Clear (Clear) Urine pH 5.5 (4.5-7.5) Ur Specific [place] 1.012 (1.000-1.030) Urine Protein 1+ H (Negative) Urine Glucose (UA) Negative (Negative) Urine Ketones Negative (Negative) Urine Blood 1+ H (Negative) Urine Nitrite Negative (Negative) Urine Bilirubin Negative (Negative) Urine Urobilinogen Negative (Negative) Ur Leukocyte Esterase Negative (Negative) Urine WBC (Auto) 1-5 (0-5) /hpf Urine RBC (Auto) 5-10 H (0-4) /hpf U Hyaline Cast (Auto) 1-5 (0-5) /lpf U Epithel Cells (Auto) 10-20 H (0-5) /lpf Urine Bacteria (Auto) Negative (Negative) Urine Yeast Not Reportable SARS-CoV-2, RNA, NAAT (NEGATIVE) Administered Medications Discontinued Medications Sodium Chloride (Nss 1000ml) 1,000 mls @ 999 mls/hr IV .Q1H1M [facility] Stop: 06/01/21 06:45 Last Admin: 06/01/21 05:57 Dose: 999 mls/hr Documented by: [id number] Cefepime HCl (Maxipime) 2,000 mg in 20 mls @ 5 mls/min IV NOW STA; Protocol Stop: 06/01/21 07:21 Last Admin: 06/01/21 07:59 Dose: 5 mls/min Documented by: [id number] Imaging Data Radiologist's Impression: Chest X-Ray 06/01/21 05:36 XR chest 1V portable CLINICAL HISTORY: SEPSIS COMPARISON STUDY: Chest radiograph November 29, 2020. FINDINGS: There is no pneumothorax. Small bilateral pleural effusions are noted. Moderate cardiomegaly is present. Interstitial thickening has developed. There are bibasilar opacities. S-shaped scoliosis of the thoracolumbar spine is incidentally noted. IMPRESSION: Interstitial pulmonary edema and small bilateral pleural effusions and asso ciated bibasilar opacities that likely reflect atelectasis. ACT 112: Negative or not required by law. Electronically signed by: Curtis Sanchez M.D. 06/01/2021 7:02 AM Abdomen/Pelvis CT 06/01/21 05:37 CT abd pelvis wo con CLINICAL HISTORY: eval for SBO, N/V TECHNIQUE: Helical axial images of the abdomen and pelvis were obtained. Automated dose lowering techniques and/or adjustment according to patient size were utilized for this exam. This exam was performed without intravenous contrast. COMPARISON: Comparison is made to CT abdomen pelvis 11/27/2015 FINDINGS: Lower chest: Bilateral pleural effusions are seen. Interstitial opacities are seen in the lung bases. Liver: Hepatomegaly is seen on the liver measures 17 mm at the mid clavicular line Gallbladder and biliary tree: Patient is status post cholecystectomy. No intra- or extrahepatic biliary ductal dilation. Pancreas: Unremarkable, no focal lesions. Spleen: A normal spleen is not seen. There are multiple nodular masses which may represent splenules. Adrenals: Unremarkable. Kidneys and ureters: The right kidney is again noted to be located in the right lower quadrant. A large left renal cyst is seen. A hyperdense exophytic lesion is seen on the left which may represent a proteinaceous/hemorrhagic cyst. Nonobstructive nephrolithiasis bilaterally. Bladder: Unremarkable. Reproductive organs: Unremarkable. Bowel: Postsurgical changes are seen adjacent to the stomach, incompletely visualized. There is no evidence of bowel obstruction. Lymph nodes Retroperitoneal: Unremarkable. Mesenteric: Unremarkable. Pelvic: Unremarkable. Peritoneum: Normal. Vessels: Atherosclerotic calcifications are seen. Abdominal wall: Unremarkable. Bones: Degenerative changes in the visualized spine. Scoliosis is seen in the spine. Chronic appearing compression deformity of L4. IMPRESSION: No evidence of bowel obstruction. Bilateral nonobstructive nephrolithiasis is seen. Hepatomegaly is noted. Postsurgical changes are seen, incompletely evaluated due to noncontrast technique. ACT 112: Negative or not required by law. Electronically signed by: Jm Velasquez M.D. 06/01/2021 7:[address] 06/01/21 06:56 CT head/brain wo con CLINICAL HISTORY: AMS Technique: Contiguous axial CT images of the head were acquired from the base of the skull to the vertex without intravenous contrast administration. Images were viewed in brain, subdural and bone windows. Automated dose lowering techniques and/or adjustment according to patient size were utilized for this exam. Comparison: Comparison is made to CT head 03/02/2016 Findings: Areas of decreased attenuation are present in the periventricular and sub cortical white matter bilaterally consistent with small vessel ischemic disease. Generalized cerebral atrophy with commensurate enlargement of the ventricles, sulci, and cisterns is also present. There is no acute intracranial hemorrhage or evidence of acute territorial infarction. No shift of the midline structures, mass effect, or extra-axial abnormalities are shown. Atherosclerotic calcifications are present in the intracranial segments of the internal carotid arteries. Imaged portions of the paranasal sinuses and mastoid air cells are clear. The orbits appear normal. There are no acute fractures of the calvaria or scalp swelling. Impression: No acute intracranial hemorrhage, no evidence of acute territorial infarction or other acute intracranial disease process. ACT 112: Negative or not required by law. Electronically signed by: Jm Velasquez M.D. 06/01/2021 7:56 AM Discharge Plan Visit Data Chief Complaint: Weakness Stated Complaint: GENERALIZED WEAKNESS ED Provider: Richard Perez Discharge Problem: Hyponatremia Forms Stand Alone Forms: My [facility] Prescriptions Prescriptions: No Action coenzyme Q10 100 mg capsule 100 mg PO QAM RF: 0 zinc sulfate 50 mg zinc (220 mg) capsule 50 mg PO WK RF: 0 warfarin 2.5 mg tablet 2.5 mg PO UD RF: 0 cholecalciferol (vitamin D3) 50 mcg/drop (2, 000 unit/drop) drops 4,000 unit PO QAM RF: 0 levothyroxine 50 mcg tablet 50 mcg PO QAM Qty: 60 RF: 3 atenolol 25 mg tablet See Rx Instructions .ROUTE .COMPLEX Qty: 90 RF: 3 multivitamin [Multiple Vitamins] tablet 2 tab PO QAM RF: 0 Lacto.acidophilus-Bif.animalis 31 billion cell capsule 1 cap PO QAM RF: 0 torsemide 20 mg tablet 10 - 20 mg PO QAM RF: 0 cyanocobalamin (vitamin B-12) 2,500 mcg tablet,chewable 2,500 mcg PO QAM RF: 0 vitamin K 1 mg/0.5 mL Solution 0 mg PO DAILY RF: 0 iodine 150 mcg Tablet 0 mcg PO DAILY RF: 0 Referrals Referrals: Constantine Padilla MD [Primary Care Provider] -
[2021-06-01] MEDS ORDERED: SODIUM CHLORIDE 0.9% 1000ML 1,000 ML IV SCH (05:45)
[2021-06-01 06:23] LABS: INR 1.4 (0.9-1.1); Partial Thromboplastin Ratio 1.5; Partial Thromboplastin Time 38.2 Seconds (21.0-31.0); Prothrombin Time 13.7 Seconds (9.0-12.0)
[2021-06-01 06:27] LABS: Troponin I 0.04 ng/ml (0-0.04)
[2021-06-01 06:39] LABS: Albumin Level 3.3 gm/dl (3.4-5.0); BUN Creatinine Ratio 36.5 (10-20); Bilirubin,Total 1.5 mg/dl (0.2-1.0); Calcium 10.2 mg/dl (8.5-10.1); Creatinine Clr Calc Pharmacy 36.1 ml/min; Est GFR (African American) 63.8 ml/min; Est GFR (Non-African American) 55.1 ml/min; Globulin 3.4 gm/dl (2.5-4.0); Magnesium 1.8 mg/dl (1.7-2.4); Potassium 4.7 mmol/L (3.5-5.1); Total Protein 6.7 gm/dl (6.0-8.3)
--- NOTE | 2021-06-01 07:03 | XRay Report ---
XR chest 1V portable CLINICAL HISTORY: SEPSIS COMPARISON STUDY: Chest radiograph November 29, 2020. FINDINGS: There is no pneumothorax. Small bilateral pleural effusions are noted. Moderate cardiomegal y is present. Interstitial thickening has developed. There are bibasilar opacities. S-shaped scoliosi s of the thoracolumbar spine is incidentally noted. IMPRESSION: Interstitial pulmonary edema and small bilateral pleural effusions and associated bibasilar opacities that likely reflect atelectasis. ACT 112: Negative or not required by law. Electronically signed by: Curtis Sanchez M.D. 06/01/2021 7:02 AM
[2021-06-01 07:10] LABS: Appearance Urine Clear (Clear); Bacteria Urine Automated Negative (Negative); Bilirubin Urine Negative (Negative); Blood Urine 1+ (Negative); Color Urine Yellow; Glucose Urine UA Negative (Negative); Ketones Urine Negative (Negative); Leukocyte Esterase Urine Negative (Negative); Nitrite Urine Negative (Negative); Protein Urine 1+ (Negative); Specific Gravity Urine 1.012 (1.000-1.030); Urobilinogen Urine Negative (Negative); pH Urine 5.5 (4.5-7.5)
[2021-06-01 07:11] LABS: Hematocrit (blood only) 33.7 % (37-47); Hemoglobin 11.7 g/dL (12.0-16.0); Mean Corpuscular Hemoglobin 31.7 pg (25-34); Mean Corpuscular Hgb Conc 34.7 g/dL (32-36); Mean Corpuscular Volume 91.3 fL (80-100); Mean Platelet Volume 11.2 fL (7.4-10.4); Nucleated RBC # (auto) 0.04 K/uL (0-0); Nucleated RBC % (auto) 0.3 %; Platelet Count 63 K/uL (130-400); RDW Coefficient of Variation 16.1 % (11.5-14.5); RDW Standard Deviation 53.9 fL (36.4-46.3); Red Blood Count 3.69 M/uL (4.2-5.4); White Blood Count 15.73 K/uL (4.8-10.8)
[2021-06-01 07:12] LABS: Basophils # (auto) 0.01 K/uL (0-0.2); Basophils % (auto) 0.1 %; Echinocytes 1+; Eosinophils # (auto) 0.01 K/uL (0-0.5); Eosinophils % (auto) 0.1 %; Immature Granulocytes # (auto) 0.15 K/uL (0.00-0.02); Lymphocytes % (auto) 11.4 %; Monocytes # (auto) 0.54 K/uL (0.11-0.59); Monocytes % (auto) 3.4 %; Neutrophils # (auto) 13.22 K/uL (1.4-6.5); Platelet Estimate Decreased (Normal)
[2021-06-01] MEDS ORDERED: VANCOMYCIN CONSULT ACTIVE PRN ×3 (07:18→14:14)
[2021-06-01] MEDS ORDERED: CEFEPIME 2,000 MG/20 ML VIAL IV STA (07:18)
[2021-06-01] MEDS ORDERED: VANCOMYCIN HCL 750 MG in SODIUM CHLORIDE 0.9% 500 ML IV SCH (07:30)
--- NOTE | 2021-06-01 07:40 | CT Scan Report ---
CT abd pelvis wo con CLINICAL HISTORY: eval for SBO, N/V TECHNIQUE: Helical axial images of the abdomen and pelvis were obtained. Automated dose lowering tech niques and/or adjustment according to patient size were utilized for this exam. This exam was perfor med without intravenous contrast. COMPARISON: Comparison is made to CT abdomen pelvis 11/27/2015 FINDINGS: Lower chest: Bilateral pleural effusions are seen. Interstitial opacities are seen in the lung bases . Liver: Hepatomegaly is seen on the liver measures 17 mm at the mid clavicular line Gallbladder and biliary tree: Patient is status post cholecystectomy. No intra- or extrahepatic bilia ry ductal dilation. Pancreas: Unremarkable, no focal lesions. Spleen: A normal spleen is not seen. There are multiple nodular masses which may represent splenules. Adrenals: Unremarkable. Kidneys and ureters: The right kidney is again noted to be located in the right lower quadrant. A lar ge left renal cyst is seen. A hyperdense exophytic lesion is seen on the left which may represent a p roteinaceous/hemorrhagic cyst. Nonobstructive nephrolithiasis bilaterally. Bladder: Unremarkable. Reproductive organs: Unremarkable. Bowel: Postsurgical changes are seen adjacent to the stomach, incompletely visualized. There is no ev idence of bowel obstruction. Lymph nodes Retroperitoneal: Unremarkable. Mesenteric: Unremarkable. Pelvic: Unremarkable. Peritoneum: Normal. Vessels: Atherosclerotic calcifications are seen. Abdominal wall: Unremarkable. Bones: Degenerative changes in the visualized spine. Scoliosis is seen in the spine. Chronic appearin g compression deformity of L4. IMPRESSION: No evidence of bowel obstruction. Bilateral nonobstructive nephrolithiasis is seen. Hepatomegaly is n oted. Postsurgical changes are seen, incompletely evaluated due to noncontrast technique. ACT 112: Negative or not required by law. Electronically signed by: Jm Velasquez M.D. 06/01/2021 7:39 AM
--- NOTE | 2021-06-01 07:57 | CT Scan Report ---
CT head/brain wo con CLINICAL HISTORY: AMS Technique: Contiguous axial CT images of the head were acquired from the base of the skull to the jalyn jacki without intravenous contrast administration. Images were viewed in brain, subdural and [facility]. Automated dose lowering techniques and/or adjustment according to patient size were utilized for this exam. Comparison: Comparison is made to CT head 03/02/2016 Findings: Areas of decreased attenuation are present in the periventricular and subcortical white matter bilate rally consistent with small vessel ischemic disease. Generalized cerebral atrophy with commensurate e nlargement of the ventricles, sulci, and cisterns is also present. There is no acute intracranial hem orrhage or evidence of acute territorial infarction. No shift of the midline structures, mass effect, or extra-axial abnormalities are shown. Atherosclerotic calcifications are present in the intracran ial segments of the internal carotid arteries. Imaged portions of the paranasal sinuses and mastoid air cells are clear. The orbits appear normal. There are no acute fractures of the calvaria or scalp swelling. Impression: No acute intracranial hemorrhage, no evidence of acute territorial infarction or other acute intracra nial disease process. ACT 112: Negative or not required by law. Electronically signed by: Jm Velasquez M.D. 06/01/2021 7:56 AM
--- NOTE | 2021-06-01 08:39 | History & Physical Report ---
Date of Service June 01, 2021 History of Present Illness Primary Care Provider: Constantine Padilla MD Allergies Allergy/AdvReac Type Severity Reaction Status Date / Time gluten Allergy Unknown unknown Verified 06/01/21 07:36 Iodinated Contrast Media Allergy Unknown RASH TO Verified 06/01/21 07:36 "CT SCAN DYE" Cipro AdvReac Intermediate GI UPSET Verified 09/10/17 06:43 ciprofloxacin AdvReac Intermediate GI UPSET Verified 06/01/21 07:36 Home Medications Medication Instructions Recorded Confirmed Type coenzyme Q10 100 mg capsule 100 mg PO QAM 11/19/18 06/01/21 History Lactobacillus 1 cap PO QAM cap 01/15/19 06/01/21 History acidophilus-Bifidobac.animalis 31 billion cell capsule multivitamin (Multiple Vitamins) 2 tab PO QAM tab 01/15/19 06/01/21 History warfarin 2.5 mg tablet 2.5 mg PO UD tab 01/19/20 06/01/21 History cholecalciferol (vitamin D3) 4,000 unit PO QAM ml 02/26/20 06/01/21 History zinc sulfate 50 mg zinc (220 mg) 50 mg PO WK cap 09/01/20 06/01/21 History capsule torsemide 20 mg tablet 10 - 20 mg PO QAM tab 11/17/20 06/01/21 History cyanocobalamin (vitamin B-12) 2,500 mcg PO QAM 02/10/21 06/01/21 History 2,500 mcg chewable tablet levothyroxine 50 mcg tablet 50 mcg PO QAM #60 tab 02/13/21 06/01/21 Rx atenolol 25 mg tablet See Rx Instructions .ROUTE 03/27/21 06/01/21 Rx .COMPLEX #90 tablet iodine 150 mcg tablet 0 mcg PO DAILY 06/01/21 06/01/21 History phytonadione (vitamin K1) 1 mg/0.5 0 mg PO DAILY 06/01/21 06/01/21 History mL injection solution (vitamin K) Past Med/Surg History Medical History Anxiety H/O pericarditis (~2007) Hepatic cyst HTN (hypertension) Hx of basal cell carcinoma Hyperlipidemia LDL goal <100 Hypothyroidism Iron deficiency anemia due to chronic blood loss iron infusions currently Lipodermatosclerosis Lumbar spinal stenosis Mild cognitive impairment with memory loss Alert and oriented x3 Mitral valve prolapse syndrome Osteoporosis, unspecified Paroxysmal atrial fibrillation family unaware, denies cardioversion. Follows with Dr Bosch. 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[facility] Hemphill Weight loss Surgical History H/O basal cell carcinoma excision MOHS H/O cardiac catheterization family denies (denies any stents) H/O splenectomy r/t a large attached cyst H/O squamous cell carcinoma excision removed at the [facility] History of back surgery lumbar area History of colonoscopy History of open heart surgery (~2016) removal of tricupsid valve mass ([facility]) S/P cholecystectomy S/P splenectomy Family History Mother Cancer Colorectal cancer Father Heart disease Stroke Denies family history of Ovarian cancer Prostate cancer Myocardial infarction Breast cancer Social History (Updated 03/06/21 @ 15:21 by Hiwot Pollard) Smoking Status: Never smoker Tobacco Type: Cigarettes Second Hand Exposure: No; Hx Alcohol Use: No Hx Substance Use: No Preferred Language: Polish Communication Ability: Effective Visual Impairment: Limited Hearing Ability: Normal Sales Inspector Required: No Beliefs That Will Affect Care: None marital status: Current Living Situation: Spouse and Family current occupational status: retired How many Children do You have: 3 Feels Safe at Home: Yes Childhood Exposure to Second-Hand Smoke: No caffeine: Yes Dental Care, Regularly: Yes Physical Activity Frequency: Does not Exercise Seatbelt Use: always Sunscreen Use: No Assistive Devices: Glasses, Walker and Wheelchair Results & Data Results & Data ([facility]) Vital Signs (Past 12 Hours) Vital Signs Temp Pulse Pulse Resp BP BP Pulse Ox 06/01/21 07:05 96 06/01/21 07:03 74 20 130/80 96 06/01/21 06:57 96 06/01/21 06:28 78 20 130/80 96 06/01/21 05:59 36.7 C 78 78 20 113/72 113/72 94 PG Care Time/CCT Total # of Minutes Spent Total Time Spent with Patient: Total time spent is greater than 50% in coordination of care (as documented) at patient's floor/unit and/or counseling patient: Coding
[2021-06-01 09:37] LABS: Toxic Vacuolation 1+
[2021-06-01] MEDS ORDERED: LACTATED RINGER'S 1,000 ML IV ONE (10:26)
[2021-06-01] MEDS ORDERED: VANCOMYCIN HCL 1,250 MG in SODIUM CHLORIDE 0.9% 250 ML IV STA (10:51)
--- NOTE | 2021-06-01 11:01 | History & Physical Report ---
Date of Service June 01, 2021 Assessment & Plan (1) Sepsis: Plan: Sepsis with evidence of organ dysfunction - Suspected source at this time on DDX remains ENT vs. endocarditis vs. abdominal - WBC 15, PCT 32, NLR 19:1- predominantly neutrophilia - Platelet count low with schistocytes as well as toxic vacuoles - CRP 17 - DIC labs pending - Continue Vancomycin, transition to Zosyn for anaerobic coverage until source better identified - Blood cultures pending - Urine culture pending - CT scan soft tissue neck and face evaluate for mastoid tenderness and/or tooth abscess - Crystalloid bolus x2 for euvolemia - MAPS >65 - UO >30ml/hr - follow biomarkers (2) Thrombocytopenia: Plan: Likely sepsis induced thrombocytopenia however may include ITP/TTP - with rare schistocytes on peripheral smear - D-dimer, FDP, Fibrinogen- pending - Hold anticoagulation - HGB 10.6 (baseline 11-12) - Hematology consult placed (3) Paroxysmal atrial fibrillation: Plan: Currently NSR is on Coumadin - due to her radiation proctitis she remains on low dose Coumadin and daily vitamin K 1mg - Hold for now with likely sepsis induced thrombocytopenia/DIC (4) CHF (congestive heart failure): Plan: HFpEF - not an acute exacerbation at this time - Volume resuscitate as above (5) Hyponatremia: Plan: Acute 122 - appears hypovolemic hyponatremia at this time - Continue to replete and follow (6) 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- [facility] - with tricuspid stenosis - ECHO pending read (7) Mitral regurgitation: Plan: Mitral prolapse listed in history - ECHOs perfomred noting mitral regurge- mild - as above systollic murmur - ECHO pending read (8) Radiation cystitis: Plan: Chronic - follow (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 (10) HTN (hypertension): Plan: Hold atenolol - follow hemodynamics with sepsis (11) Lumbar spinal stenosis: Plan: L4 decompression fracture chronic (12) Iron deficiency anemia: Plan: chronic - has had low ferritin and iron studies in the past requiring Venofer infusions in 2012 - She is also on B12 oral History of Present Illness Primary Care Provider: Constantine Padilla MD 80 YOF with pat medical history of: 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 She comes to the EMD accompanied by her daughter whom she lives with. The patient has generalized complaints of fatigue, weakness, nausea and vomiting, and diarrhea, discomfort behind her ear. The patient symptom of nausea occurred on Saturday following eating some yogurt, she then had a vomiting episode that she had just thrown up her yogurt, no blood and minimal bile reported by daughter. She continued to not eat much, but her daughter was able to attempt to keep her hydrated with water, sports drinks, and occasional shakes. On Saturday she experienced diarrhea x 1 episode that was brown and liquid in nature without any abdominal pain or discomfort. The patient is normally incontinent of both stool and urine chronically, so this has not been an acute change. Her daughter had also been checking her temperature periodically and noted tmax 99.5 yesterday. Patient also complaining of right sided neck/ear pain and back pain, the back pain per the daughter is normal for her and she goes to the chiropractor for this. The patient was seen at dentist ~ week ago for fracturing tooth with pain- she thinks it was tooth #16. Oral evaluation she does have discomfort at the upper left and lower left center of her mouth, without erythema, purulence, or drainage. She did not receive any abx prior or after visit. In the EMD the patient had routine labs drawn, to include blood cultures, pct, urine analysis, PT/PTT/INR, and lactate. Her laboratory workup revealed leukocytosis, with elevated NLR, Lactate of 1.2 and elevated PCT of 31.24. Bilirubin of 1.5, thrombocytopenia of 63 (normally she is 170-200). Peripheral smear was sent and was notified that she did have rare schistocytes. Added on D-dimer, FDP, fibrin split products. BMP she is hyponatremic, with mild elevation in BUN She had CXR, CT head, CT abdomen and pelvis performed. ECHO is being done at this time. This revealed enlarged liver, normal biliary duct s/p cholecystectomy, bilateral nonobstructive nephrolithiasis, and chronic L4 compression deformity. CXR with interstitial pulmonary edema and small pleural effusions. Patient meets criteria for sepsis without shock, will continue Vancomycin and add Zosyn coverage for anaerobic for empiric coverage at this until source is identified. Admit to ICU for close following of her platelet count, and infectious biomarkers, evolution of sepsis. Luque placed to assist with monitoring urine output for renal perfusion, follow her MAPS. Patient has had her COVID vaccine and her COVID test on admission is: NEGATIVE Allergies Allergy/AdvReac Type Severity Reaction Status Date / Time gluten Allergy Unknown unknown Verified 06/01/21 07:36 Iodinated Contrast Media Allergy Unknown RASH TO Verified 06/01/21 07:36 "CT SCAN DYE" Cipro AdvReac Intermediate GI UPSET Verified 09/10/17 06:43 ciprofloxacin AdvReac Intermediate GI UPSET Verified 06/01/21 07:36 Home Medications Medication Instructions Recorded Confirmed Type coenzyme Q10 100 mg capsule 100 mg PO QAM 11/19/18 06/01/21 History Lactobacillus 1 cap PO QAM cap 01/15/19 06/01/21 History acidophilus-Bifidobac.animalis 31 billion cell capsule multivitamin (Multiple Vitamins) 2 tab PO QAM tab 01/15/19 06/01/21 History warfarin 2.5 mg tablet 2.5 mg PO UD tab 01/19/20 06/01/21 History cholecalciferol (vitamin D3) 4,000 unit PO QAM ml 02/26/20 06/01/21 History zinc sulfate 50 mg zinc (220 mg) 50 mg PO WK cap 09/01/20 06/01/21 History capsule torsemide 20 mg tablet 10 - 20 mg PO QAM tab 11/17/20 06/01/21 History cyanocobalamin (vitamin B-12) 2,500 mcg PO QAM 02/10/21 06/01/21 History 2,500 mcg chewable tablet levothyroxine 50 mcg tablet 50 mcg PO QAM #60 tab 02/13/21 06/01/21 Rx atenolol 25 mg tablet See Rx Instructions .ROUTE 03/27/21 06/01/21 Rx .COMPLEX #90 tablet iodine 150 mcg tablet 0 mcg PO DAILY 06/01/21 06/01/21 History phytonadione (vitamin K1) 1 mg/0.5 0 mg PO DAILY 06/01/21 06/01/21 History mL injection solution (vitamin K) Past Med/Surg History Medical History (Updated 06/01/21 @ 16:44 by Nando Cooper MD) Anxiety Bacteremia H/O pericarditis (~2007) Hepatic cyst HTN (hypertension) Hx of basal cell carcinoma Hyperlipidemia LDL goal <100 Hypothyroidism Iron deficiency anemia due to chronic blood loss iron infusions currently Lipodermatosclerosis Lumbar spinal stenosis Mild cognitive impairment with memory loss Alert and oriented x3 Mitral valve prolapse syndrome Osteoporosis, unspecified Paroxysmal atrial fibrillation family unaware, denies cardioversion. Follows with Dr Bosch. 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 [facility] Weight loss Surgical History H/O basal cell carcinoma excision MOHS H/O cardiac catheterization family denies (denies any stents) H/O splenectomy r/t a large attached cyst H/O squamous cell carcinoma excision removed at the anus History of back surgery lumbar area History of colonoscopy History of open heart surgery (~2016) removal of tricupsid valve mass (S) S/P cholecystectomy S/P splenectomy Family History Mother Cancer Colorectal cancer Father Heart disease Stroke Denies family history of Ovarian cancer Prostate cancer Myocardial infarction Breast cancer Social History Smoking Status: Never smoker Tobacco Type: Cigarettes Second Hand Exposure: No; Hx Alcohol Use: No Hx Substance Use: No Preferred Language: Turkmen Communication Ability: Effective Visual Impairment: Limited Hearing Ability: Normal 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: No Beliefs That Will Affect Care: None marital status: Current Living Situation: Spouse and Family current occupational status: retired How many Children do You have: 3 Other Information That Helps Us Care for You: No Feels Safe at Home: Yes Safety Concerns: Feels Safe At This Time Childhood Exposure to Second-Hand Smoke: No caffeine: Yes Dental Care, Regularly: Yes Physical Activity Frequency: Does not Exercise Seatbelt Use: always Sunscreen Use: No Assistive Devices: Glasses, Walker and Wheelchair Review of Systems Review of Systems: REVIEW OF SYSTEMS: Constitutional: (+) fever, No sweats or chills Eyes: No diplopia, no worsening or blurred vision ENT:(+) tooth pain, normal hearing, no trouble swallowing Respiratory: No cough, sputum, dyspnea at rest or on exertion Cardiovascular: No chest pain, tightness or palpitations Abdomen: (+) nausea/vomitting/diarrhea, No pain, constipation Musculoskeletal: (+) back neck/joint pain, No calf pain, swelling Neurologic: (+) generalized weakness, No numbness/tingling, or balance problems Psychiatric: No anxiety or depression Skin: No rash or itch Physical Exam Physical Exam: PHYSICAL EXAM: General: awake, alert, fatigued chronically and acutely ill appearing Head: Normocephalic, atraumatic ENT: PERRLA, EOMI, mucous membranes very dry Neuro: AAO x 2, speech clear and appropriate, strength intact bilaterally 5/5, sensation intact and equal all extremities and dermatomes, she has good flexor and extensor strenght of her feet and calves, but unable to hold legs up, able to fire her quadriceps, pain left leck and mastoid Chest: equal rise and fall of the chest, no accessory muscle use, no heaves or thrills, decreased in her bases, scattered crackels Cardiac: Regular rate and rhythm, telemetry reviewed, skin warm dry, cap refill <3 seconds, peripheral pulses +2 no JVD, diastolic and systolic murmur heard best at LSB and PMI, GI: NABS x 4 quadrants, soft, nontender to palpation, no rebound, guarding or tenderness : Spontaneously incontinent, luque placed Extremities: Normal inspection, no peripheral edema or erythema, calfs nontende r to palpation Psych: Normal mood and affect Skin: old sacral healed decub and mild anal excoriation Results & Data Results & Data ([facility]) Vital Signs (Past 12 Hours) Vital Signs Temp Pulse Pulse Resp BP BP Pulse Ox 06/01/21 07:05 96 06/01/21 07:03 74 20 130/80 96 06/01/21 06:57 96 06/01/21 06:28 78 20 130/80 96 06/01/21 05:59 36.7 C 78 78 20 113/72 113/72 94 Laboratory Results Abnormal lab results 06/01/21 06/01/21 06/01/21 Range/Units 05:38 05:38 05:38 WBC 15.73 H (4.8-10.8) K/uL RBC 3.69 L (4.2-5.4) M/uL Hgb 11.7 L (12.0-16.0) g/dL Hct 33.7 L (37-47) % RDW Std Deviation 53.9 H (36.4-46.3) fL RDW Coeff of Janet 16.1 H (11.5-14.5) % Plt Count 63 L (130-400) K/uL MPV 11.2 H (7.4-10.4) fL Neut # (Auto) 13.22 H (1.4-6.5) K/uL Immature Gran # (Auto) 0.15 H (0.00-0.02) K/uL Absolute Nucleated RBC 0.04 H (0-0) K/uL Platelet Estimate Decreased L (Normal) PT 13.7 H (9.0-12.0) Seconds INR 1.4 H (0.9-1.1) APTT 38.2 H (21.0-31.0) Seconds Sodium 122 L (136-145) mmol/L Chloride 87 L (98-107) mmol/L BUN 35 H (6-23) mg/dl BUN/Creatinine Ratio 36.5 H (10-20) Glucose 111 H (70-99(Fasting)) mg/dl Calcium 10.2 H (8.5-10.1) mg/dl Total Bilirubin 1.5 H (0.2-1.0) mg/dl Alkaline Phosphatase 175 H (34-104) U/L Albumin 3.3 L (3.4-5.0) gm/dl Procalcitonin (0-0.5) ng/ml Urine Protein (Negative) Urine Blood (Negative) Urine RBC (Auto) (0-4) /hpf U Epithel Cells (Auto) (0-5) /lpf 06/01/21 06/01/21 06/01/21 Range/Units 05:38 10:59 Unknown WBC (4.8-10.8) K/uL RBC (4.2-5.4) M/uL Hgb (12.0-16.0) g/dL Hct (37-47) % RDW Std Deviation (36.4-46.3) fL RDW Coeff of Janet (11.5-14.5) % Plt Count (130-400) K/uL MPV (7.4-10.4) fL Neut # (Auto) (1.4-6.5) K/uL Immature Gran # (Auto) (0.00-0.02) K/uL Absolute Nucleated RBC 0.02 H (0-0) K/uL Platelet Estimate (Normal) PT (9.0-12.0) Seconds INR (0.9-1.1) APTT (21.0-31.0) Seconds Sodium (136-145) mmol/L Chloride (98-107) mmol/L BUN (6-23) mg/dl BUN/Creatinine Ratio (10-20) Glucose (70-99(Fasting)) mg/dl Calcium (8.5-10.1) mg/dl Total Bilirubin (0.2-1.0) mg/dl Alkaline Phosphatase (34-104) U/L Albumin (3.4-5.0) gm/dl Procalcitonin 31.24 H (0-0.5) ng/ml Urine Protein 1+ H (Negative) Urine Blood 1+ H (Negative) Urine RBC (Auto) 5-10 H (0-4) /hpf U Epithel Cells (Auto) 10-20 H (0-5) /lpf Diagnostic Findings Chest X-Ray 06/01/21 05:36 XR chest 1V portable CLINICAL HISTORY: SEPSIS COMPARISON STUDY: Chest radiograph November 29, 2020. FINDINGS: There is no pneumothorax. Small bilateral pleural effusions are noted. Moderate cardiomegaly is present. Interstitial thickening has developed. There are bibasilar opacities. S-shaped scoliosis of the thoracolumbar spine is incidentally noted. IMPRESSION: Interstitial pulmonary edema and small bilateral pleural effusions and associated bibasilar opacities that likely reflect atelectasis. ACT 112: Negative or not required by law. Electronically signed by: Curtis Sanchez M.D. 06/01/2021 7:02 AM Abdomen/Pelvis CT 06/01/21 05:37 CT abd pelvis wo con CLINICAL HISTORY: eval for SBO, N/V TECHNIQUE: Helical axial images of the abdomen and pelvis were obtained. Automated dose lowering techniques and/or adjustment according to patient size were utilized for this exam. This exam was performed without intravenous contrast. COMPARISON: Comparison is made to CT abdomen pelvis 11/27/2015 FINDINGS: Lower chest: Bilateral pleural effusions are seen. Interstitial opacities are seen in the lung bases. Liver: Hepatomegaly is seen on the liver measures 17 mm at the mid clavicular line Gallbladder and biliary tree: Patient is status post cholecystectomy. No intra- or extrahepatic biliary ductal dilation. Pancreas: Unremarkable, no focal lesions. Spleen: A normal spleen is not seen. There are multiple nodular masses which may represent splenules. Adrenals: Unremarkable. Kidneys and ureters: The right kidney is again noted to be located in the right lower quadrant. A large left renal cyst is seen. A hyperdense exophytic lesion is seen on the left which may represent a proteinaceous/hemorrhagic cyst. Nonobstructive nephrolithiasis bilaterally. Bladder: Unremarkable. Reproductive organs: Unremarkable. Bowel: Postsurgical changes are seen adjacent to the stomach, incompletely visualized. There is no evidence of bowel obstruction. Lymph nodes Retroperitoneal: Unremarkable. Mesenteric: Unremarkable. Pelvic: Unremarkable. Peritoneum: Normal. Vessels: Atherosclerotic calcifications are seen. Abdominal wall: Unremarkable. Bones: Degenerative changes in the visualized spine. Scoliosis is seen in the spine. Chronic appearing compression deformity of L4. IMPRESSION: No evidence of bowel obstruction. Bilateral nonobstructive nephrolithiasis is seen. Hepatomegaly is noted. Postsurgical changes are seen, incompletely evaluated due to noncontrast technique. ACT 112: Negative or not required by law. Electronically signed by: Jm Velasquez M.D. 06/01/2021 7:[address] 06/01/21 06:56 CT head/brain wo con CLINICAL HISTORY: AMS Technique: Contiguous axial CT images of the head were acquired from the base of the skull to the vertex without intravenous contrast administration. Images were viewed in brain, subdural and bone windows. Automated dose lowering techniques and/or adjustment according to patient size were utilized for this exam. Comparison: Comparison is made to CT head 03/02/2016 Findings: Areas of decreased attenuation are present in the periventricular and subcortical white matter bilaterally consistent with small vessel ischemic disease. Generalized cerebral atrophy with commensurate enlargement of the ventricles, sulci, and cisterns is also present. There is no acute intracranial hemorrhage or evidence of acute territorial infarction. No shift of the midline structures, mass effect, or extra-axial abnormalities are shown. Atherosclerotic calcifications are present in the intracranial segments of the internal carotid arteries. Imaged portions of the paranasal sinuses and mastoid air cells are clear. The orbits appear normal. There are no acute fractures of the calvaria or scalp swelling. Impression: No acute intracranial hemorrhage, no evidence of acute territorial infarction or other acute intracranial disease process. ACT 112: Negative or not required by law. Electronically signed by: Jm Velasquez M.D. 06/01/2021 7:56 AM Medications Administered Vancomycin HCl 1,250 mg/ (Sodium Chloride) 275 mls @ 200 mls/hr IV NOW STA Stop: 06/01/21 12:13 Last Admin: 06/01/21 11:18 Dose: 200 mls/hr Documented by: [id number] Discontinued Medications Sodium Chloride (Nss 1000ml) 1,000 mls @ 999 mls/hr IV .Q1H1M SUMMER Stop: 06/01/21 06:45 Last Infusion: 06/01/21 10:00 Dose: 0 mls/hr Documented by: [id number] Admin: 06/01/21 05:57 Dose: 999 mls/hr Documented by: [id number] Cefepime HCl (Maxipime) 2,000 mg in 20 mls @ 5 mls/min IV NOW STA; Protocol Stop: 06/01/21 07:21 Last Admin: 06/01/21 07:59 Dose: 5 mls/min Documented by: [id number] Lactated Ringer's (Lr) 1,000 mls @ 999 mls/hr IV .Q1H1M ONE Stop: 06/01/21 11:26 Last Admin: 06/01/21 10:54 Dose: 999 mls/hr Documented by: [id number] Home Medications coenzyme Q10 100 mg capsule 100 mg PO QAM 11/19/18 [History Confirmed 06/01/21] Lactobacillus acidophilus-Bifidobac.animalis 31 billion cell capsule 1 cap PO QAM cap 01/15/19 [History Confirmed 06/01/21] multivitamin (Multiple Vitamins) 2 tab PO QAM tab 01/15/19 [History Confirmed 06/01/21] warfarin 2.5 mg tablet 2.5 mg PO UD tab 01/19/20 [History Confirmed 06/01/21] cholecalciferol (vitamin D3) 4,000 unit PO QAM ml 02/26/20 [History Confirmed 06/01/21] zinc sulfate 50 mg zinc (220 mg) capsule 50 mg PO WK cap 09/01/20 [History Confirmed 06/01/21] torsemide 20 mg tablet 10 - 20 mg PO QAM tab 11/17/20 [History Confirmed 06/01/21] cyanocobalamin (vitamin B-12) 2,500 mcg chewable tablet 2,500 mcg PO QAM 02/10/21 [History Confirmed 06/01/21] levothyroxine 50 mcg tablet 50 mcg PO QAM #60 tab 02/13/21 [Rx Confirmed 06/01/21] atenolol 25 mg tablet See Rx Instructions .ROUTE .COMPLEX #90 tablet 03/27/21 [Rx Confirmed 06/01/21] iodine 150 mcg tablet 0 mcg PO DAILY 06/01/21 [History Confirmed 06/01/21] phytonadione (vitamin K1) 1 mg/0.5 mL injection solution (vitamin K) 0 mg PO DAILY 06/01/21 [History Confirmed 06/01/21] Active Medications Vancomycin HCl 1,250 mg/ (Sodium Chloride) 275 mls @ 200 mls/hr IV NOW STA Stop: 06/01/21 12:13 Last Admin: 06/01/21 11:18 Dose: 200 mls/hr Documented by: Miscellaneous Information (Vancomycin Consult Active) 1 ea N/A UD PRN PRN Reason: Consult Stop: 07/01/21 07:17 ECG Additional Comments: Normal sinus rhythm Possible Left atrial enlargement Borderline ECG When compared with ECG of 02-MAR-2016 18:10, No significant change was found Code Status & VTE Plan Code Status CODE: Full for now- daughter wants to talk with rest of family VTE: SCDS, Coumadin on hold with thrombocytopenia VTE Prophylaxis Plan VTE Prophylaxis will be ordered: Yes Supervising Physician Co-Signing Physician Notes PROPOSAL MANAGER WRITER Supervision note: I have personally seen and examined the patient and discussed and verified the ortega points of the history and physical along with the plan with NIESHA Courtney with the following exceptions and/or additions: Patient presents with weakness, one episode of nausea and vomiting, and fever. Found to have sepsis, severe hyponatremia, and thrombocytopenia, normal urinalysis, negative lactate, significantly elevated procalcitonin, mildly elevated total bilirubin, leukocytosis, on initial evaluation. Chest x-ray without pneumonia, CT abdomen/pelvis without definitive source of infection, CT head negative. She was afebrile initially, vital signs stable. Shortly after admission, her blood cultures almost immediately returned positive for gram-positive cocci growing in chains. The patient did have recent dental procedure and has severe gum disease and very poor dentition with cracked teeth. When I saw the patient, she was fairly lethargic but did wake up briefly to answer a few questions. Her son was at the bedside and did most of the talking as far as history goes. History and ROS reviewed as above. Vitals reviewed Gen: Thin, lethargic, did wake up briefly and answer a few short questions, NAD HEENT: Anicteric sclerae, EOMI CV: RRR 3/6 diastolic murmur heard at the left sternal border, nl S1S2 Pulm: Diminished at the bases bilaterally, otherwise clear Abd: +BS soft NT ND no masses or hernias Ext: No edema, 2+ DP pulses Skin: No rashes, warm/dry Neuro: Moves all extremities Laboratory values and radiology studies reviewed, ECG reviewed 80-year-old female here with sepsis without shock, septicemia, and likely with endocarditis given known mass on tricuspid valve and history of tricuspid valve annuloplasty. Also with acute metabolic encephalopathy And thrombocytopenia with likely sepsis induced coagulopathy -Admit to ICU for close monitoring -Fortunately hemodynamically stable at this time-not requiring pressors Hold home atenolol and torsemide -Not requiring oxygen, chest x-ray with mild atelectasis and pleural effusions. CT of neck and face without signs of infection, however there is a 5 mm spiculated nodule seen in the right upper lobe-we will need chest CT when more stable -Continue broad-spectrum antibiotics with IV vancomycin and Zosyn for now, follow blood cultures, repeat blood cultures in 24 hours -Will likely need NEMO -Consider infectious disease consultation -Should have oral surgery consultation after her condition stabilizes -Follow CBC, coags, await hematology consultation, but if sepsis induced coagulopathy-continue to treat sepsis as above -Hold home Coumadin and low-dose vitamin K -For hyponatremia, continue volume resuscitation with LR and serial BMPs, sodium is already rising appropriately PG Care Time/CCT Total # of Minutes Spent Total Time Spent with Patient: Total time spent is greater than 50% in coordination of care (as documented) at patient's floor/unit and/or counseling patient: Coding Level of Care Code 64797 Initial Inpt Care Lvl 3 Diagnoses Sepsis A41.9 Hyponatremia E87.1 Radiation cystitis N30.40 Radiation proctitis K62.7 HTN (hypertension) I10 Lumbar spinal stenosis M48.061 Paroxysmal atrial fibrillation I48.0 Tricuspid valve mass I07.8 Mitral regurgitation I34.0 Thrombocytopenia D69.6 CHF (congestive heart failure) I50.9 Iron deficiency anemia D50.9
[2021-06-01 11:14] LABS: Mean Corpuscular Hgb Conc 34.5 g/dL (32-36); Nucleated RBC # (auto) 0.02 K/uL (0-0); Nucleated RBC % (auto) 0.1 %
[2021-06-01 11:33] LABS: Hematocrit (blood only) 30.7 % (37-47); Hemoglobin 10.6 g/dL (12.0-16.0); Mean Corpuscular Hemoglobin 31.3 pg (25-34); Mean Corpuscular Volume 90.6 fL (80-100); Mean Platelet Volume 11.1 fL (7.4-10.4); Platelet Count 49 K/uL (130-400); RDW Coefficient of Variation 16.1 % (11.5-14.5); RDW Standard Deviation 53.5 fL (36.4-46.3); Red Blood Count 3.39 M/uL (4.2-5.4); White Blood Count 19.71 K/uL (4.8-10.8)
[2021-06-01 11:35] LABS: ALC (manual) 0.16 K/uL (1.2-3.4); ANC (manual) 18.23 K/uL (1.4-6.5); Echinocytes 1+; Lymphocytes # (manual) 0.16 K/uL (1.2-3.4); Lymphocytes % (manual) 0.8 %; Monocytes # (manual) 1.32 K/uL (0.11-0.59); Monocytes % (manual) 6.7 %; Neutrophils # (manual) 18.23 K/uL (1.4-6.5); Neutrophils % (manual) 92.5 %; Toxic Vacuolation 2+
[2021-06-01 11:37] LABS: C Reactive Protein 17.21 mg/dl (0-0.5); Calcium 9.2 mg/dl (8.5-10.1); Creatinine Clr Calc Pharmacy 43.3 ml/min; Est GFR (African American) 79.6 ml/min; Est GFR (Non-African American) 68.7 ml/min; Potassium 4.4 mmol/L (3.5-5.1)
[2021-06-01 12:20] LABS: Fibrinogen 287 mg/dl (184-400)
[2021-06-01 12:22] LABS: D Dimer 13860 ug/L FEU (0-500)
[2021-06-01] MEDS ORDERED: PIPERACILL/TAZOBAC CONSULT ACTIVE PRN ×2 (12:24→14:14)
[2021-06-01] MEDS ORDERED: PIPERACILLIN/TAZOBACTAM 3.375 GM in DEXTROSE 5% 100 ML/100 ML BAG IV STA (12:29)
[2021-06-01] MEDS ORDERED: ICU PROTOCOL FOR HYPERGLYCEMIA PRN (14:14)
[2021-06-01] MEDS ORDERED: POLYETHYLENE (MIRALAX) 17 GM PACK PO PRN (14:14)
--- NOTE | 2021-06-01 14:26 | CT Scan Report ---
CT soft tissue neck wo con CLINICAL HISTORY: eval sepsis source mandbile/teeth COMPARISON STUDY: No previous studies for comparison. CT DOSE: 251.06 mGycm TECHNIQUE: Standard CT of the Neck was performed without IV contrast. A dose lowering technique was utilized adhering to the principles of ALARA. FINDINGS: Salivary glands: Parotid and submandibular salivary glands are within normal limits. The thyroid gland is also within normal limits. Lymph nodes: There are no pathologically enlarged lymph nodes. There is no evidence for soft tissue mass within the neck bilaterally. Airway: The cervical airway is widely patent. The epiglottis and aryepiglottic folds are normal bila terally. The vocal cords are symmetric bilaterally. Vascular structures: No gross vascular abnormalities are seen. Paranasal sinuses:The imaged paranasal sinuses are clear. Osseous structures: No acute osseous abnormalities are identified. Lung apices: There is a 5 mm spiculated nodule involving the right upper lobe. CT of the entire chest is recommended for further evaluation. IMPRESSION: 1. Negative limited noncontrast CT of the soft tissues of neck. 2. However, there is evidence for a 5 mm spiculated nodule within the right upper lobe. CT of the ent adria chest is recommended for further evaluation. ACT 112: Negative or not required by law. Electronically signed by: Koko Joseph M.D. 06/01/2021 2:25 PM
--- NOTE | 2021-06-01 14:33 | CT Scan Report ---
CT facial bones wo con CLINICAL HISTORY: eval septic source. Concern for dental abscess. TECHNIQUE: Multidetector row helical CT of the maxillofacial bones was performed without administrati on of intravenous contrast, and processed with bone and soft tissue algorithms. Coronal and sagittal reformations were obtained. Automated dose lowering techniques and/or adjustment according to patient size were utilized for this exam. Comparison: None available at the time of this dictation. FINDINGS: Nasal bones are normal. The mandible is intact. Streak artifact from dental amalgam limits evaluation , however no definite periapical abscess is seen. The temporomandibular joints are anatomically align ed. Pterygoid plates are intact. Zygomatic arches are intact. The globes are normal and symmetric, without proptosis, obvious disruption or lens dislocation. Ther e is no orbital radiopaque foreign body. The orbital stevens are intact. The retrobulbar fat is without evidence of disruption. Extraocular muscles are normal and symmetric. Optic nerve sheath complexes are normal in course and caliber. Imaged portions of the paranasal sinuses and mastoid air cells are clear. IMPRESSION: Limited evaluation due to dental amalgam, however no evidence of periapical abscess is seen. ACT 112: Negative or not required by law. Electronically signed by: Jm Velasquez M.D. 06/01/2021 2:32 PM
--- NOTE | 2021-06-01 14:38 | XCELERA ---
[id number]
[2021-06-01 14:39] LABS: Mean Corpuscular Hgb Conc 34.5 g/dL (32-36); Nucleated RBC # (auto) 0.02 K/uL (0-0); Nucleated RBC % (auto) 0.1 %
[2021-06-01 14:41] LABS: Hematocrit (blood only) 29.6 % (37-47); Hemoglobin 10.2 g/dL (12.0-16.0); Mean Corpuscular Hemoglobin 31.1 pg (25-34); Mean Corpuscular Volume 90.2 fL (80-100); Mean Platelet Volume 10.9 fL (7.4-10.4); Platelet Count 44 K/uL (130-400); RDW Coefficient of Variation 15.9 % (11.5-14.5); RDW Standard Deviation 52.6 fL (36.4-46.3); Red Blood Count 3.28 M/uL (4.2-5.4); White Blood Count 18.48 K/uL (4.8-10.8)
[2021-06-01] MEDS: LACTATED RINGER'S 1,000 ML IV SCH ×2 (14:53→23:55)
[2021-06-01 14:57] LABS: BUN Creatinine Ratio 39.2 (10-20); Calcium 8.9 mg/dl (8.5-10.1); Creatinine Clr Calc Pharmacy 43.7 ml/min; Est GFR (African American) 80.8 ml/min; Est GFR (Non-African American) 69.7 ml/min; Potassium 4.4 mmol/L (3.5-5.1)
--- NOTE | 2021-06-01 15:00 | Pharmacy Report ---
Pharmacy Vanc AUC Short Note - Date of Service June 01, 2021 - Assessment & Plan Assessment 80 year old F receiving Vancomycin for treatment of sepsis (ENT vs. endocarditis vs. abdominal). Pertinent microbiologic data includes: Blood cultures growing gram positive cocci in chains. Urine culture pending. Plan Vancomycin * AUC/KARISSA is the preferred PK/PD target for vancomycin * AUC guided dosing is effective and associated with decreased risk of nephrotoxicity compared to traditional trough targets * Vanc 1250mg x 1 (~21mg/kg) * Vanc 1250mg q24h * Trough level of 15.9 mcg/mL is predicted to achieve target AUC/KARISSA of 400-600 mg/L.hr and may be associated with a 11 % risk of nephrotoxicity * Plan to check random level in 1-2 days if patient remains on Vanc. Pharmacy will continue to follow and will adjust dose/frequency as necessary. Thank you.
[2021-06-01 15:21] LABS: ALC (manual) 0.17 K/uL (1.2-3.4); ANC (manual) 16.24 K/uL (1.4-6.5); Dohle Bodies 2+; Howell-Jolly Bodies 1+; Lymphocytes # (manual) 0.17 K/uL (1.2-3.4); Lymphocytes % (manual) 0.9 %; Monocytes # (manual) 1.59 K/uL (0.11-0.59); Monocytes % (manual) 8.6 %; Myelocytes # (manual) 0.48 K/uL (0-0); Myelocytes % (manual) 2.6 %; Neutrophils # (manual) 16.24 K/uL (1.4-6.5); Neutrophils % (manual) 87.9 %; Polychromasia 1+; Schistocytes 1+; Target Cells 1+; Toxic Granulation 1+; Toxic Vacuolation 2+
--- NOTE | 2021-06-01 16:48 | Critical Care Consultation ---
Date of Consultation June 01, 2021 Assessment & Plan (1) Bacteremia: (2) Sepsis: (3) Thrombocytopenia: Neurologic: No issues at present Pulmonary: Saturating 91% on room air. Small effusions noted bilaterally. Cardiovascular: History of diastolic heart failure atrial fibrillation. Will hold anticoagulation at this time given thrombocytopenia. History of tricuspid papillary fibroblastoma which appears unchanged per cardiology based on echo from today. Gastrointestinal: N.p.o. Renal: Monitor urine output closely. Gentle hydration. Hyponatremia likely from poor p.o. intake. Infectious disease: Cultures growing gram-positive cocci. Source unclear. Concern for possible bacteremia. Continue vancomycin and Zosyn at this time. CT neck, face and abdomen without obvious signs of infectious etiology Hematologic: Thrombocytopenia likely related to sepsis coagulopathy. No evidence of DIC at this time. 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 Her son is in the room with her today in the ICU. ICU was consulted due to concerns of DIC and potential for decompensation. Patient apparently had a low-grade temperature of 99.5 yesterday. She was complaining of right-sided neck and ear pain notes that she recently fractured a tooth. Blood cultures have yielded gram-positive cocci in 4 out of 4 bottles. Currently on vancomycin and Zosyn. Allergies Allergy/AdvReac Type Severity Reaction Status Date / Time gluten Allergy Unknown unknown Verified 06/01/21 07:36 Iodinated Contrast Media Allergy Unknown RASH TO Verified 06/01/21 07:36 "CT SCAN DYE" Cipro AdvReac Intermediate GI UPSET Verified 09/10/17 06:43 ciprofloxacin AdvReac Intermediate GI UPSET Verified 06/01/21 07:36 Home Medications Medication Instructions Recorded Confirmed Type coenzyme Q10 100 mg capsule 100 mg PO QAM 11/19/18 06/01/21 History Lactobacillus 1 cap PO QAM cap 01/15/19 06/01/21 History acidophilus-Bifidobac.animalis 31 billion cell capsule multivitamin (Multiple Vitamins) 2 tab PO QAM tab 01/15/19 06/01/21 History warfarin 2.5 mg tablet 2.5 mg PO UD tab 01/19/20 06/01/21 History cholecalciferol (vitamin D3) 4,000 unit PO QAM ml 02/26/20 06/01/21 History zinc sulfate 50 mg zinc (220 mg) 50 mg PO WK cap 09/01/20 06/01/21 History capsule torsemide 20 mg tablet 10 - 20 mg PO QAM tab 11/17/20 06/01/21 History cyanocobalamin (vitamin B-12) 2,500 mcg PO QAM 02/10/21 06/01/21 History 2,500 mcg chewable tablet levothyroxine 50 mcg tablet 50 mcg PO QAM #60 tab 02/13/21 06/01/21 Rx atenolol 25 mg tablet See Rx Instructions .ROUTE 03/27/21 06/01/21 Rx .COMPLEX #90 tablet iodine 150 mcg tablet 0 mcg PO DAILY 06/01/21 06/01/21 History phytonadione (vitamin K1) 1 mg/0.5 0 mg PO DAILY 06/01/21 06/01/21 History mL injection solution (vitamin K) Patient History Medical History (Updated 06/01/21 @ 16:44 by Nando Cooper MD) Anxiety Bacteremia H/O pericarditis (~2007) Hepatic cyst HTN (hypertension) Hx of basal cell carcinoma Hyperlipidemia LDL goal <100 Hypothyroidism Iron deficiency anemia due to chronic blood loss iron infusions currently Lipodermatosclerosis Lumbar spinal stenosis Mild cognitive impairment with memory loss Alert and oriented x3 Mitral valve prolapse syndrome Osteoporosis, unspecified Paroxysmal atrial fibrillation family unaware, denies cardioversion. Follows with Dr Bosch. Radiation proctitis SBO (small bowel obstruction) hx - no surgery intervention Scoliosis deformity of spine Sepsis Sleep apnea 2lpm via n/c at HS Squamous cell carcinoma of anal skin Tricuspid valve mass (~2016) with removal at [facility] Weight loss Surgical History H/O basal cell carcinoma excision MOHS H/O cardiac catheterization family denies (denies any stents) H/O splenectomy r/t a large attached cyst H/O squamous cell carcinoma excision removed at the anus History of back surgery lumbar area History of colonoscopy History of open heart surgery (~2017) removal of tricupsid valve mass ([facility]) S/P cholecystectomy S/P splenectomy Family History Mother Cancer Colorectal cancer Father Heart disease Stroke Denies family history of Ovarian cancer Prostate cancer Myocardial infarction Breast cancer Social History Smoking Status: Never smoker Tobacco Type: Cigarettes Second Hand Exposure: No; Hx Alcohol Use: No Hx Substance Use: No Preferred Language: Kazakh Communication Ability: Effective Visual Impairment: Limited Hearing Ability: Normal Psychological Operations Specialist Required: No Beliefs That Will Affect Care: None marital status: Current Living Situation: Spouse and Family current occupational status: retired How many Children do You have: 3 Other Information That Helps Us Care for You: No Feels Safe at Home: Yes Safety Concerns: Feels Safe At This Time Childhood Exposure to Second-Hand Smoke: No caffeine: Yes Dental Care, Regularly: Yes Physical Activity Frequency: Does not Exercise Seatbelt Use: always Sunscreen Use: No Assistive Devices: Glasses, Walker and Wheelchair Review of Systems Review of Systems: All systems reviewed & are unremarkable except as noted in HPI & below Physical Exam Physical Exam: Constitutional: Elderly and frail appearing female laying in the ICU bed. No significant distress. Eyes: Pupils are equal round and reactive to light. Conjunctivae are normal. Anicteric sclera. Ears nose, mouth and throat: Oral mucosa is dry. Neck: Trachea is midline. Visual inspection is normal. Respiratory: Diminished lung sounds bilaterally. Cardiovascular: Regular rate and rhythm. No murmurs. No edema. Gastrointestinal: Normal bowel sounds, soft, nontender and nondistended. No hepatosplenomegaly noted. Musculoskeletal: No cyanosis. Patient is able to move all extremities. . Skin: No rashes, warm dry and intact. Neurologic: No obvious focal neurological deficits seen. Psychiatric: Alert and oriented x3 with a euthymic affect. Results & Data Results & Data ([facility]) Vital Signs (Past 12 Hours) Vital Signs Temp Pulse Pulse Resp BP BP Pulse Ox 06/01/21 14:30 76 20 91 06/01/21 14:19 38.8 C H 76 19 104/62 91 06/01/21 14:14 38.8 C H 76 06/01/21 14:13 104/62 06/01/21 14:10 105/67 06/01/21 12:30 81 80 23 101/70 93 06/01/21 12:00 83 25 H 92 06/01/21 11:30 82 24 95 06/01/21 11:00 83 28 H 94 06/01/21 10:30 84 25 H 95 06/01/21 10:00 82 25 H 06/01/21 09:30 82 25 H 06/01/21 09:00 83 25 H 06/01/21 08:30 83 23 94 06/01/21 08:03 86 22 90 06/01/21 07:05 96 06/01/21 07:03 74 20 130/80 96 06/01/21 06:57 96 06/01/21 06:28 78 20 130/80 96 06/01/21 05:59 36.7 C 78 78 20 113/72 113/72 94 Coding Level of Care Code 30910 Inpt Consult Level 4 Diagnoses Bacteremia R78.81 Sepsis A41.9 Thrombocytopenia D69.6
[2021-06-01] MEDS: PIPERACILLIN/TAZOBACTAM 3.375 GM in DEXTROSE 5% 100 ML IV SCH (18:13)
[2021-06-01 20:58] LABS: BUN Creatinine Ratio 34.5 (10-20); Creatinine Clr Calc Pharmacy 39.7 ml/min; Est GFR (African American) 71.9 ml/min; Potassium 4.1 mmol/L (3.5-5.1)
[2021-06-02] MEDS: PIPERACILLIN/TAZOBACTAM 3.375 GM in DEXTROSE 5% 100 ML IV SCH ×2 (01:26→10:48)
[2021-06-02] MEDS: LEVOTHYROXINE SODIUM 50 MCG TABLET PO SCH (05:51)
[2021-06-02 06:36] LABS: Mean Corpuscular Hgb Conc 34.5 g/dL (32-36)
[2021-06-02 07:04] LABS: Albumin Level 2.6 gm/dl (3.4-5.0); BUN Creatinine Ratio 34.1 (10-20); Bilirubin Direct 0.6 mg/dl (0-0.2); Bilirubin,Total 1.6 mg/dl (0.2-1.0); C Reactive Protein 16.47 mg/dl (0-0.5); Calcium 8.5 mg/dl (8.5-10.1); Creatinine Clr Calc Pharmacy 42.1 ml/min; Est GFR (African American) 77.2 ml/min; Est GFR (Non-African American) 66.6 ml/min; Magnesium 1.6 mg/dl (1.7-2.4); Total Protein 5.5 gm/dl (6.0-8.3)
[2021-06-02 07:15] LABS: Hematocrit (blood only) 30.4 % (37-47); Hemoglobin 10.5 g/dL (12.0-16.0); Mean Corpuscular Hemoglobin 31.3 pg (25-34); Mean Corpuscular Volume 90.5 fL (80-100); Platelet Count 49 K/uL (130-400); RDW Standard Deviation 52.8 fL (36.4-46.3); Red Blood Count 3.36 M/uL (4.2-5.4); White Blood Count 18.25 K/uL (4.8-10.8)
[2021-06-02 07:32] LABS: ALC (manual) 0.31 K/uL (1.2-3.4); ANC (manual) 16.17 K/uL (1.4-6.5); Acanthocytes 1+; Basophils # (manual) 0.16 K/uL (0-0.2); Basophils % (manual) 0.9 %; Lymphocytes # (manual) 0.31 K/uL (1.2-3.4); Lymphocytes % (manual) 1.7 %; Metamyelocytes # (manual) 0.16 K/uL (0-0); Metamyelocytes % (manual) 0.9 %; Monocytes # (manual) 1.28 K/uL (0.11-0.59); Myelocytes # (manual) 0.16 K/uL (0-0); Myelocytes % (manual) 0.9 %; Neutrophils # (manual) 16.17 K/uL (1.4-6.5); Neutrophils % (manual) 88.6 %; Target Cells 1+
[2021-06-02 08:11] LABS: INR 1.6 (0.9-1.1)
[2021-06-02] MEDS: LACTATED RINGER'S 1,000 ML IV SCH ×3 (08:50→23:06)
--- NOTE | 2021-06-02 09:02 | Consultation Report ---
HEMATOLOGY CONSULTATION DATE OF SERVICE: 06/02/2021. REASON FOR CONSULTATION: Thrombocytopenia. HISTORY OF PRESENT ILLNESS: The patient is a pleasant 80-year-old female with remote history of squa mous cell carcinoma of the anus, status post chemoradiation in 2006, now has a multitude of other med ical problems including cardiac and hematologic issues, particularly chronic anemia. The patient had complained of fatigue, weakness, nausea and vomiting with associated diarrhea. She had been consumi ng yogurt on the day of admission, which resulted in a vomiting episode. The patient had also underg one pretty extensive dental procedure about a week prior to admission to hospital. Upon presentation , there was great suspicion for underlying sepsis without shock. She was started on broad spectrum a ntibiotics. Apparently yesterday she had become more obtunded and confused. Her platelet count had dropped precipitously with concern of perhaps DIC or TTP. I reviewed smears from both yesterday and this morning and really could appreciate 1 or 2 schistocytes, but certainly not consistent with overt TTP. Blood cultures are positive for bacteria (gram-positive cocci). The patient follows with Dr. Amaury Zamudio at [facility] for remote history of squamous cell carcinoma of the anus as well as chronic anemia. PAST MEDICAL HISTORY: Significant for squamous cell carcinoma of the anus, obstructive sleep apnea, scoliosis, radiation proctitis, paroxysmal atrial fibrillation, osteoporosis, mitral valve prolapse, mild cognitive impairment with memory loss. Lumbar spinal stenosis, iron deficiency anemia due to ch ronic blood loss, hypothyroidism, hyperlipidemia, history of basal cell carcinoma of skin, hypertensi on, history of pericarditis, anxiety and prior history of bacteremia. PAST SURGICAL HISTORY: Includes splenectomy, cholecystectomy, open heart surgery in 2017 to remove t ricuspid valve mass, history of colonoscopy, history of back surgery, cardiac catheterization. MEDICATIONS PRIOR TO ADMISSION: Include coenzyme Q10 100 mg p.o. daily, multivitamin 2 tablets p.o. q.a.m., warfarin 2.5 mg p.o. as directed, cholecalciferol 4000 units p.o. daily, zinc sulfate 50 mg p .o. q. weekly, torsemide 10-20 mg p.o. daily, levothyroxine 50 mcg p.o. q.a.m., atenolol 25 mg p.o. d aily. ALLERGIES: CIPROFLOXACIN AND IV CONTRAST DYE WELL GLUTEN. FAMILY HISTORY: Mother suffered from colorectal cancer. Father of cardiovascular disease. SOCIAL HISTORY: The patient lives with her spouse. She is , retired. Nonsmoker. Negative f or alcohol or illicit drugs. REVIEW OF SYSTEMS: As per HPI. PHYSICAL EXAMINATION: GENERAL: Very pleasant 80-year-old female, awake, alert and appropriate, in no acute distress. VITAL SIGNS: Temperature 36.5, pulse 78, respiratory rate 16, blood pressure 101/61. SKIN: Warm, dry, noncyanotic without petechia, rash or ecchymosis. HEENT: Atraumatic, normocephalic. Eyes: PERRLA, EOMI. Nares: Patent without rhinorrhea or dischar ge. Throat is clear. Tongue is midline. Dentition in very poor repair. NECK: Supple without JVD or thyromegaly. HEART: Regular rate and rhythm. No clicks, rubs, murmurs or gallops. LUNGS: Clear to auscultation bilaterally. ABDOMEN: Soft, nontender, nondistended. EXTREMITIES: No clubbing, cyanosis or edema. NEUROLOGIC: She is awake, alert and oriented x3. Cranial nerves grossly intact. LABORATORY DATA: WBC count 18,250, hemoglobin 10.5, platelet count 49,000, absolute neutrophils 16,1 70. D-dimer 13,860. Sodium 128, potassium 4.0, chloride 96, carbon dioxide 22, creatinine 0.82, BUN 28, total bilirubin 1.6, magnesium 1.6, direct bilirubin 0.6. C-reactive protein 16.47, albumin 2.6 . IMPRESSION: 1. Thrombocytopenia. 2. Bacteremia/sepsis. 3. Altered mental status. 4. Chronic normocytic, normochromic anemia. PLAN: I have been asked to consult on this patient, who is a very pleasant 80-year-old female who pr esented with septic-like symptomatology. Blood cultures are positive for gram-positive cocci and it yet to be identified. The patient remains on broad-spectrum antibiotics. Apparently yesterday she w as admitted, she was quite obtunded and there was concern for possible TTP. Peripheral smear x2 were reviewed, both yesterday's and today's. Could not appreciate an abundance of schistocytes. She has a very high D-dimer, which is indeterminate. There is no radiographic evidence of thrombosis at pre sent. Her platelet count not surprisingly fell precipitously; however, believe has hit dar, yester day 46,000, today 49,000. Her mental status was actually quite good at bedside today and trust with further appropriate antibiotics and general care, she will recover spontaneously. The patient has ch ronic anemia and sees Dr. Amaury Zamudio as an outpatient with history of squamous cell carcinoma of th e anus. Perhaps arrange for an expedient post-hospital followup with him upon discharge. Monitor pe ripheral counts daily until discharge. Continue medical care as prescribed, otherwise. Thank you very much for allowing me to participate in her care. If you have any questions or concern s, I will be diamond driller over the weekend. Job ID: [id number]
[2021-06-02] MEDS: VANCOMYCIN HCL 1,250 MG in SODIUM CHLORIDE 0.9% 250 ML IV SCH (10:49)
[2021-06-02 11:04] LABS: Howell-Jolly Bodies Occasional
--- NOTE | 2021-06-02 11:06 | Hospitalist Progress Note ---
Date of Service June 02, 2021 Assessment & Plan (1) Septicemia: Plan: Presented with fevers, leukocytosis, generalized weakness, and shortly after admission started growing Streptococcus species in her blood cultures Blood pressures remained stable Also with sepsis induced thrombocytopenia and coagulopathy With very poor dentition and recent dental procedure 1 week prior to admission- likely source of bacteremia With large known tricuspid mass and history of tricuspid valvular annuloplasty- at risk for infective endocarditis CT face and neck without evidence of abscess or infection Procalcitonin and CRP markedly elevated and now trending downward -Initially treated with vancomycin and Zosyn-now transition to vancomycin along with ceftriaxone as per ID recommendations -Follow repeat blood cultures every 48 hours until negative -Check MRI of the brain for septic emboli -Check CT of the chest given spiculated nodule seen on CT of the face and neck as well as to look for septic emboli -Consult cardiology to see about NEMO as recommended by ID-cardiology does not recommend NEMO unless cultures are persistently positive -Daughter also reports patient has a history of not being able to undergo a NEMO at the [facility] as they were unable to pass the probe -Could treat empirically for infective endocarditis For 6 weeks with IV antibiotics -Consult OMFS to see about dental extractions while here on IV antibiotics, start chlorhexidine mouthwash twice daily -Continue to monitor for metastatic complications of infective endocarditis -Tylenol as needed for fevers -Continue LR at 100 mL/h for volume resuscitation -Continue to monitor labs with CBC, CMP, magnesium, phosphorus, CRP, procalcitonin (2) Thrombocytopenia: Plan: Likely sepsis induced thrombocytopenia, have since ruled out ITP/TTP - with rare schistocytes on peripheral smear - D-dimer elevated, FDP elevated, Fibrinogen normal, INR elevated Platelets nadired at 46 and are now increasing -Continue to hold home anticoagulation Appreciate hematology consultation Follow CBC -Continue to treat sepsis as above (3) Hyponatremia: Plan: Acute 122 on arrival now improved up to 128 with volume resuscitation - appears hypovolemic hyponatremia at this time -Continue LR Follow BMP Holding home torsemide (4) CHF (congestive heart failure): Plan: HFpEF - not an acute exacerbation at this time - Volume resuscitate as above (5) Hypomagnesemia: Plan: Magnesium low at 1.6 Replaced with 3 g IV magnesium sulfate Follow level in the morning (6) Paroxysmal atrial fibrillation: Plan: Currently NSR is on Coumadin - due to her radiation proctitis she remains on low dose Coumadin and daily vitamin K 1mg - Hold for now with likely sepsis induced thrombocytopenia/DIC (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- [facility] - ECHO with tricuspid mass unchanged from previous in size Appreciate cardiology consultation (8) Mitral regurgitation: Plan: Mitral prolapse listed in history - ECHOs performed noting mitral regurg- mild (9) Radiation cystitis: Plan: Chronic - follow (10) Radiation proctitis: Plan: Chronic as above (11) HTN (hypertension): Plan: Hold atenolol - follow hemodynamics with sepsis (12) Lumbar spinal stenosis: Plan: L4 decompression fracture chronic (13) Iron deficiency anemia: Plan: chronic - has had low ferritin and iron studies in the past requiring Venofer infusions in 2012 - She is also on B12 oral -Follows with hematology/oncology, Dr. Zamudio at [facility] (14) Hypothyroidism: Plan: TSH normal 2.9 in 02/2021 -Continue home levothyroxine Plan: DVT prophylaxis-SCDs, holding home Coumadin for thrombocytopenia and coagu lopathy, follow INR Disposition-downgrade from ICU to PCU Admission and Anticipated Discharge Date Admission Date: June 01, 2021 Subjective Patient is out of bed to chair and more alert today but still fairly lethargic. She does respond to questioning but remains somewhat confused. She did require use of soft restraints last night as she was pulling at her lines. She is able to tell me where she is and oriented to year, month, but not correct on the day. She understands and repeats back to me that she has sepsis and bacteria in her blood. She denies headache. Denies chest pain or shortness of breath. I discussed her care with the manager harbor as well as the electric screw driver operator and the air conditioning supervisor. There is no evidence of bleeding from anywhere. Review of Systems Review of Systems: All systems reviewed & are unremarkable except as noted in HPI & below denies headache; says zamzam green neck pain but that is a salvage determiner issue Physical Exam Constitutional: WD/WN, vitals as above Eyes: PERRL, conjunctivae normal, anicteric sclerae ENMT: Mouth: + gingival abnormality, + poor dentition and + chipped teeth Neck: trachea midline, no thyromegaly Respiratory: normal respiratory effort, lungs clear to auscultation Cardiovascular: Rate/Rhythm: regular rate and regular rhythm Heart Sounds: + murmur (3/6 diastolic murmur at left border) Chest (Breasts): Chest: normal inspection of chest Gastrointestinal (Abdomen): normal bowel sounds, soft, nontender, no hepatosplenomegaly Musculoskeletal: Extremities: extremities normal to inspection; no cyanosis and no clubbing Skin: no rashes, warm and dry (no splinter hemorrhages) Neurologic: moves all extremities and awake; no focal motor deficits Psychiatric: Orientation: alert, oriented to person, oriented to place ([facility] oriented to time (year and month, but not date) and cooperative Eye Contact: + fair eye contact is confused at times, slow to speak and answer questions Genitourinary: Chilel in place Lymphatic: no lymphedema Results & Data Results & Data ([facility]) Vital Signs (Past 12 Hours) Vital Signs Temp Pulse Resp BP Pulse Ox 06/02/21 08:00 37.1 C 81 92 06/02/21 04:00 78 16 101/61 91 06/02/21 03:30 75 23 95 06/02/21 03:00 76 25 H 123/60 90 06/02/21 02:30 80 21 89 L 06/02/21 02:00 79 23 107/60 93 06/02/21 01:30 81 29 H 92 06/02/21 01:00 83 14 113/65 94 06/02/21 00:30 83 25 H 92 06/02/21 00:00 86 26 H 108/65 94 06/01/21 23:30 36.5 C 85 24 94 06/01/21 23:07 88 25 H 126/69 93 Laboratory Results 06/02/21 06/02/21 06/02/21 Range/Units 17:35 06:06 05:51 WBC (4.8-10.8) K/uL RBC (4.2-5.4) M/uL Hgb (12.0-16.0) g/dL Hct (37-47) % MCV (80-100) fL MCH (25-34) pg MCHC (32-36) g/dL RDW Std Deviation (36.4-46.3) fL RDW Coeff of Janet (11.5-14.5) % Plt Count (130-400) K/uL Neutrophils % (Manual) % Lymphocytes % (Manual) % Monocytes % (Manual) % Basophils % (Manual) % Metamyelocytes % (Man) % Myelocytes % (Man) % Neutrophils # (Manual) (1.4-6.5) K/uL Total Absolute Neuts (1.4-6.5) K/uL Lymphocytes # (Manual) (1.2-3.4) K/uL Total Abs Lymphocytes (1.2-3.4) K/uL Monocytes # (Manual) (0.11-0.59) K/uL Basophils # (Manual) (0-0.2) K/uL Metamyelocytes # (Man) (0-0) K/uL Myelocytes # (Manual) (0-0) K/uL Target Cells Lobo-Olar Bodies Acanthocytes (Spur) PT (9.0-12.0) Seconds INR (0.9-1.1) Sodium 126 L 128 L (136-145) mmol/L Potassium 3.6 4.0 (3.5-5.1) mmol/L Chloride 96 L 96 L (98-107) mmol/L Carbon Dioxide 23 22 (21-32) mmol/L Anion Gap 7 10 (3-11) BUN 26 H 28 H (6-23) mg/dl Creatinine 0.77 0.82 (0.6-1.2) mg/dl Est Cr Clr Drug Dosing 44.8 42.1 ml/min Est GFR ( Amer) 83.3 77.2 ml/min Est GFR (Non-Af Amer) 71.9 66.6 ml/min BUN/Creatinine Ratio 33.8 H 34.1 H (10-20) Glucose 161 H 94 (70-99(Fasting)) mg/dl Calcium 8.5 8.5 (8.5-10.1) mg/dl Magnesium 1.6 L (1.7-2.4) mg/dl Total Bilirubin 1.6 H (0.2-1.0) mg/dl Direct Bilirubin 0.6 H (0-0.2) mg/dl AST 25 (13-39) U/L ALT 19 (7-52) U/L Alkaline Phosphatase 127 H (34-104) U/L C-Reactive Protein 16.47 H (0-0.5) mg/dl Total Protein 5.5 L (6.0-8.3) gm/dl Albumin 2.6 L (3.4-5.0) gm/dl Procalcitonin 13.27 H (0-0.5) ng/ml 06/02/21 06/02/21 06/01/21 Range/Units 05:51 05:51 10:59 WBC 18.25 H (4.8-10.8) K/uL RBC 3.36 L (4.2-5.4) M/uL Hgb 10.5 L (12.0-16.0) g/dL Hct 30.4 L (37-47) % MCV 90.5 (80-100) fL MCH 31.3 (25-34) pg MCHC 34.5 (32-36) g/dL RDW Std Deviation 52.8 H (36.4-46.3) fL RDW Coeff of Janet 16.0 H (11.5-14.5) % Plt Count 49 L (130-400) K/uL Neutrophils % (Manual) 88.6 % Lymphocytes % (Manual) 1.7 % Monocytes % (Manual) 7.0 % Basophils % (Manual) 0.9 % Metamyelocytes % (Man) 0.9 % Myelocytes % (Man) 0.9 % Neutrophils # (Manual) 16.17 H (1.4-6.5) K/uL Total Absolute Neuts 16.17 H (1.4-6.5) K/uL Lymphocytes # (Manual) 0.31 L (1.2-3.4) K/uL Total Abs Lymphocytes 0.31 L (1.2-3.4) K/uL Monocytes # (Manual) 1.28 H (0.11-0.59) K/uL Basophils # (Manual) 0.16 (0-0.2) K/uL Metamyelocytes # (Man) 0.16 H (0-0) K/uL Myelocytes # (Manual) 0.16 H (0-0) K/uL Target Cells 1+ Lobo-Olar Bodies Occasional Acanthocytes (Spur) 1+ PT 16.0 H (9.0-12.0) Seconds INR 1.6 H (0.9-1.1) Sodium (136-145) mmol/L Potassium (3.5-5.1) mmol/L Chloride (98-107) mmol/L Carbon Dioxide (21-32) mmol/L Anion Gap (3-11) BUN (6-23) mg/dl Creatinine (0.6-1.2) mg/dl Est Cr Clr Drug Dosing ml/min Est GFR ( Amer) ml/min Est GFR (Non-Af Amer) ml/min BUN/Creatinine Ratio (10-20) Glucose (70-99(Fasting)) mg/dl Calcium (8.5-10.1) mg/dl Magnesium (1.7-2.4) mg/dl Total Bilirubin (0.2-1.0) mg/dl Direct Bilirubin (0-0.2) mg/dl AST (13-39) U/L ALT (7-52) U/L Alkaline Phosphatase (34-104) U/L C-Reactive Protein (0-0.5) mg/dl Total Protein (6.0-8.3) gm/dl Albumin (3.4-5.0) gm/dl Procalcitonin (0-0.5) ng/ml PG Care Time/CCT Total # of Minutes Spent Total Time Spent with Patient: Total time spent is greater than 50% in coordination of care (as documented) at patient's floor/unit and/or counseling patient: Coding Level of Care Code 31567 Subseq Hosp Care Lvl 3 Diagnoses Thrombocytopenia D69.6 Paroxysmal atrial fibrillation I48.0 CHF (congestive heart failure) I50.9 Hyponatremia E87.1 Tricuspid valve mass I07.8 Mitral regurgitation I34.0 Radiation cystitis N30.40 Radiation proctitis K62.7 HTN (hypertension) I10 Lumbar spinal stenosis M48.061 Iron deficiency anemia D50.9 Septicemia A41.9 Hypothyroidism E03.9 Hypomagnesemia E83.42
--- NOTE | 2021-06-02 11:08 | Cardiology Consultation ---
Date of Consultation June 02, 2021 Assessment & Plan (1) Sepsis: (2) Bacteremia: (3) Squamous cell carcinoma of perianal region: (4) Radiation cystitis: (5) Tricuspid valve mass: The patient is currently clinically stable. She has plenty of sources for a strep bacteremia. As outlined in the HPI, I reviewed her hospital echocardiogram as well as her previous echocardiogram completed in 2020 through our clinic. The tricuspid valve mass is essentially unchanged. I do not believe any additional imaging would provide any additional information. Obviously she needs to be on antibiotics long-term. If she continues to spike fevers and/or has positive blood cultures well being treated with antibiotics then a transesophageal echocardiogram or other imaging may be helpful. Given the complexity of her case, you may want to consider a telemedicine ID consult. History of Present Illness Attending Physician: Marium Pratt MD History of Present Illness This is a very complex 80-year-old female who was admitted with sepsis with blood cultures growing out streptococcal species. 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 She has a history of a tricuspid valve annular mass that was resected in 2016 with placement of a tricuspid annuloplasty ring. 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 Also according to our records there is clear evidence of a reoccurrence of this mass which was clearly identified on a transthoracic echocardiogram completed through our clinic in 2020. The patient had an echocardiogram completed here which again shows the tricuspid annular mass which is quite impressive and mobile. It does suggest a vegetation however, I reviewed this echocardiogram as well as the one completed in 2020, the appearance of this mobile mass around the tricuspid annulus is frankly unchanged. The remainder the echocardiogram is also essentially unchanged. 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 Surgery complicated by hepatic laceration requiring 2nd surgery repair 2.Cardiac catheterization July 2014 with normal coronaries, normal pulmonary pressures. 3.History of right ventricular fistula. 4.Chronic iron-deficiency anemia, chronic rectal bleeding on anticoagulation 5.History of rectal carcinoma status post partial small bowel obstructions September and November 2015. 6.Kyphoscoliosis. 7. Recurrent tricuspid valve annular mass 8. Right heart failure , chronic venous stasis secondary to tricuspid valve stenosis/ insufficiency 9. History of paroxysmal atrial fibrillation Allergies Allergy/AdvReac Type Severity Reaction Status Date / Time gluten Allergy Unknown unknown Verified 06/01/21 07:36 Iodinated Contrast Media Allergy Unknown RASH TO Verified 06/01/21 07:36 "CT SCAN DYE" Cipro AdvReac Intermediate GI UPSET Verified 09/10/17 06:43 ciprofloxacin AdvReac Intermediate GI UPSET Verified 06/01/21 07:36 Home Medications Medication Instructions Recorded Confirmed Type coenzyme Q10 100 mg capsule 100 mg PO QAM 11/19/18 06/01/21 History Lactobacillus 1 cap PO QAM cap 01/15/19 06/01/21 History acidophilus-Bifidobac.animalis 31 billion cell capsule multivitamin (Multiple Vitamins) 2 tab PO QAM tab 01/15/19 06/01/21 History warfarin 2.5 mg tablet 2.5 mg PO UD tab 01/19/20 06/01/21 History cholecalciferol (vitamin D3) 4,000 unit PO QAM ml 02/26/20 06/01/21 History zinc sulfate 50 mg zinc (220 mg) 50 mg PO WK cap 09/01/20 06/01/21 History capsule torsemide 20 mg tablet 10 - 20 mg PO QAM tab 11/17/20 06/01/21 History cyanocobalamin (vitamin B-12) 2,500 mcg PO QAM 02/10/21 06/01/21 History 2,500 mcg chewable tablet levothyroxine 50 mcg tablet 50 mcg PO QAM #60 tab 02/13/21 06/01/21 Rx atenolol 25 mg tablet See Rx Instructions .ROUTE 03/27/21 06/01/21 Rx .COMPLEX #90 tablet iodine 150 mcg tablet 0 mcg PO DAILY 06/01/21 06/01/21 History phytonadione (vitamin K1) 1 mg/0.5 0 mg PO DAILY 06/01/21 06/01/21 History mL injection solution (vitamin K) Patient History Medical History Anxiety Bacteremia H/O pericarditis (~2007) Hepatic cyst HTN (hypertension) Hx of basal cell carcinoma Hyperlipidemia LDL goal <100 Hypothyroidism Iron deficiency anemia due to chronic blood loss iron infusions currently Lipodermatosclerosis Lumbar spinal stenosis Mild cognitive impairment with memory loss Alert and oriented x3 Mitral valve prolapse syndrome Osteoporosis, unspecified Paroxysmal atrial fibrillation family unaware, denies cardioversion. Follows with Dr Bosch. 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 [facility] [place] Weight loss Surgical History H/O basal cell carcinoma excision MOHS H/O cardiac catheterization family denies (denies any stents) H/O splenectomy r/t a large attached cyst H/O squamous cell carcinoma excision removed at the anus History of back surgery lumbar area History of colonoscopy History of open heart surgery (~2016) removal of tricupsid valve mass ([facility]) S/P cholecystectomy S/P splenectomy Family History Mother Cancer Colorectal cancer Father Heart disease Stroke Denies family history of Ovarian cancer Prostate cancer Myocardial infarction Breast cancer Social History Smoking Status: Never smoker Tobacco Type: Cigarettes Second Hand Exposure: No; Hx Alcohol Use: No Hx Substance Use: No Preferred Language: Venezuelan Communication Ability: Effective Visual Impairment: Limited Hearing Ability: Normal 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 All other 10 point review of systems are negative. Physical Exam Physical Exam: General: no acute distress and stated age Head: normocephalic, no masses, lesions, tenderness or abnormalities Eyes: conjunctiva are pink and non-injected, sclera clear Neck: supple, no adenopathy, no bruits, normal jugular venous pulse, no hepatojugular reflux Chest: normal shape and normal respiratory effort Lungs: clear to auscultation and percussion Cardiac Exam: - regular rate & rhythm, no murmurs gallops or rubs - normal S1, normal S2 Pulses: 2(+) throughout Abdomen: abdomen soft, non-tender, no abnormal masses and no hepatosplenomegaly Musculoskeletal: no gait disturbance, no joint inflammation, no deforming arthritis Extremities: no edema and no cyanosis Neuro: grossly normal exam Results & Data ([facility]) Vital Signs (Past 12 Hours) Vital Signs Temp Pulse Resp BP Pulse Ox 06/02/21 08:00 37.1 C 81 92 06/02/21 04:00 78 16 101/61 91 06/02/21 03:30 75 23 95 06/02/21 03:00 76 25 H 123/60 90 06/02/21 02:30 80 21 89 L 06/02/21 02:00 79 23 107/60 93 06/02/21 01:30 81 29 H 92 06/02/21 01:00 83 14 113/65 94 06/02/21 00:30 83 25 H 92 06/02/21 00:00 86 26 H 108/65 94 06/01/21 23:30 36.5 C 85 24 94 Laboratory Results Laboratory Results - last 24 hr 06/01/21 06/01/21 06/01/21 10:59 11:41 11:41 WBC RBC Hgb Hct MCV MCH MCHC RDW Std Deviation RDW Coeff of Janet Plt Count MPV Absolute Nucleated RBC Nucleated RBC % (auto) Neutrophils % (Manual) Lymphocytes % (Manual) Monocytes % (Manual) Basophils % (Manual) Metamyelocytes % (Man) Myelocytes % (Man) Neutrophils # (Manual) Total Absolute Neuts Lymphocytes # (Manual) Total Abs Lymphocytes Monocytes # (Manual) Basophils # (Manual) Metamyelocytes # (Man) Myelocytes # (Manual) Toxic Granulation Toxic Vacuolation Dohle Bodies Polychromasia Target Cells Lobo-[place] Bodies Occasional Acanthocytes (Spur) Schistocytes Haptoglobin PT INR Fibrinogen 287 Fibrin Degrad Products >40 H D-Dimer 61886 H* Sodium Potassium Chloride Carbon Dioxide Anion Gap BUN Creatinine Est Cr Clr Drug Dosing Est GFR ( Amer) Est GFR (Non-Af Amer) BUN/Creatinine Ratio Glucose Lactate Calcium Magnesium Total Bilirubin Direct Bilirubin AST ALT Alkaline Phosphatase Lactate Dehydrogenase C-Reactive Protein Total Protein Albumin Procalcitonin Nasal Screen MRSA (PCR) Blood Type Antibody Screen 06/01/21 06/01/21 06/01/21 14:18 14:18 14:18 WBC RBC Hgb Hct MCV MCH MCHC RDW Std Deviation RDW Coeff of Janet Plt Count MPV Absolute Nucleated RBC Nucleated RBC % (auto) Neutrophils % (Manual) Lymphocytes % (Manual) Monocytes % (Manual) Basophils % (Manual) Metamyelocytes % (Man) Myelocytes % (Man) Neutrophils # (Manual) Total Absolute Neuts Lymphocytes # (Manual) Total Abs Lymphocytes Monocytes # (Manual) Basophils # (Manual) Metamyelocytes # (Man) Myelocytes # (Manual) Toxic Granulation Toxic Vacuolation Dohle Bodies Polychromasia Target Cells [place]obo-[place] Bodies Acanthocytes (Spur) Schistocytes Haptoglobin Pending PT INR Fibrinogen Fibrin Degrad Products D-Dimer Sodium Potassium Chloride Carbon Dioxide Anion Gap BUN Creatinine Est Cr Clr Drug Dosing Est GFR ( Amer) Est GFR (Non-Af Amer) BUN/Creatinine Ratio Glucose Lactate 0.8 Calcium Magnesium Total Bilirubin Direct Bilirubin AST ALT Alkaline Phosphatase Lactate Dehydrogenase C-Reactive Protein Total Protein Albumin Procalcitonin Nasal Screen MRSA (PCR) Blood Type A Positive Antibody Screen NEGATIVE 06/01/21 06/01/21 06/01/21 14:24 14:24 14:24 WBC 18.48 H RBC 3.28 L Hgb 10.2 L Hct 29.6 L MCV 90.2 MCH 31.1 MCHC 34.5 RDW Std Deviation 52.6 H RDW Coeff of Janet 15.9 H Plt Count 44 L MPV 10.9 H Absolute Nucleated RBC 0.02 H Nucleated RBC % (auto) 0.1 Neutrophils % (Manual) 87.9 Lymphocytes % (Manual) 0.9 Monocytes % (Manual) 8.6 Basophils % (Manual) Metamyelocytes % (Man) Myelocytes % (Man) 2.6 Neutrophils # (Manual) 16.24 H Total Absolute Neuts 16.24 H Lymphocytes # (Manual) 0.17 L Total Abs Lymphocytes 0.17 L Monocytes # (Manual) 1.59 H Basophils # (Manual) Metamyelocytes # (Man) Myelocytes # (Manual) 0.48 H Toxic Granulation 1+ Toxic Vacuolation 2+ Dohle Bodies 2+ Polychromasia 1+ Target Cells 1+ Lobo-[place] Bodies 1+ Acanthocytes (Spur) Schistocytes 1+ Haptoglobin PT INR Fibrinogen Fibrin Degrad Products D-Dimer Sodium 126 L Potassium 4.4 Chloride 95 L Carbon Dioxide 26 Anion Gap 5 BUN 31 H Creatinine 0.79 Est Cr Clr Drug Dosing 43.7 Est GFR ( Amer) 80.8 Est GFR (Non-Af Amer) 69.7 BUN/Creatinine Ratio 39.2 H Glucose 105 H Lactate Calcium 8.9 Magnesium Total Bilirubin Direct Bilirubin AST ALT Alkaline Phosphatase Lactate Dehydrogenase 253 H C-Reactive Protein Total Protein Albumin Procalcitonin Nasal Screen MRSA (PCR) Blood Type Antibody Screen 06/01/21 06/01/21 06/02/21 14:36 20:21 05:51 WBC 18.25 H RBC 3.36 L Hgb 10.5 L Hct 30.4 L MCV 90.5 MCH 31.3 MCHC 34.5 RDW Std Deviation 52.8 H RDW Coeff of Janet 16.0 H Plt Count 49 L MPV Absolute Nucleated RBC Nucleated RBC % (auto) Neutrophils % (Manual) 88.6 Lymphocytes % (Manual) 1.7 Monocytes % (Manual) 7.0 Basophils % (Manual) 0.9 Metamyelocytes % (Man) 0.9 Myelocytes % (Man) 0.9 Neutrophils # (Manual) 16.17 H Total Absolute Neuts 16.17 H Lymphocytes # (Manual) 0.31 L Total Abs Lymphocytes 0.31 L Monocytes # (Manual) 1.28 H Basophils # (Manual) 0.16 Metamyelocytes # (Man) 0.16 H Myelocytes # (Manual) 0.16 H Toxic Granulation Toxic Vacuolation Dohle Bodies Polychromasia Target Cells 1+ [place]obo-[place] Bodies Acanthocytes (Spur) 1+ Schistocytes Haptoglobin PT INR Fibrinogen Fibrin Degrad Products D-Dimer Sodium 126 L Potassium 4.1 Chloride 93 L Carbon Dioxide 26 Anion Gap 7 BUN 30 H Creatinine 0.87 Est Cr Clr Drug Dosing 39.7 Est GFR ( Amer) 71.9 Est GFR (Non-Af Amer) 62.0 BUN/Creatinine Ratio 34.5 H Glucose 100 H Lactate Calcium 9.0 Magnesium Total Bilirubin Direct Bilirubin AST ALT Alkaline Phosphatase Lactate Dehydrogenase C-Reactive Protein Total Protein Albumin Procalcitonin Nasal Screen MRSA (PCR) Negative Blood Type Antibody Screen 06/02/21 06/02/21 06/02/21 05:51 05:51 06:06 WBC RBC Hgb Hct MCV MCH MCHC RDW Std Deviation RDW Coeff of Janet Plt Count MPV Absolute Nucleated RBC Nucleated RBC % (auto) Neutrophils % (Manual) Lymphocytes % (Manual) Monocytes % (Manual) Basophils % (Manual) Metamyelocytes % (Man) Myelocytes % (Man) Neutrophils # (Manual) Total Absolute Neuts Lymphocytes # (Manual) Total Abs Lymphocytes Monocytes # (Manual) Basophils # (Manual) Metamyelocytes # (Man) Myelocytes # (Manual) Toxic Granulation Toxic Vacuolation Dohle Bodies Polychromasia Target Cells [place]obo-[place] Bodies Acanthocytes (Spur) Schistocytes Haptoglobin PT 16.0 H INR 1.6 H Fibrinogen Fibrin Degrad Products D-Dimer Sodium 128 L Potassium 4.0 Chloride 96 L Carbon Dioxide 22 Anion Gap 10 BUN 28 H Creatinine 0.82 Est Cr Clr Drug Dosing 42.1 Est GFR ( Amer) 77.2 Est GFR (Non-Af Amer) 66.6 BUN/Creatinine Ratio 34.1 H Glucose 94 Lactate Calcium 8.5 Magnesium 1.6 L Total Bilirubin 1.6 H Direct Bilirubin 0.6 H AST 25 ALT 19 Alkaline Phosphatase 127 H Lactate Dehydrogenase C-Reactive Protein 16.47 H Total Protein 5.5 L Albumin 2.6 L Procalcitonin 13.27 H Nasal Screen MRSA (PCR) Blood Type Antibody Screen Medications Administered Current Inpatient Medications Acetaminophen (Acetaminophen 325 Mg Tab) 650 mg PO Q4H PRN PRN Reason: Pain or Fever Stop: 07/01/21 14:13 Chlorhexidine Gluconate (Chlorhexidine Gluconate 0.12% 480 Ml) 15 ml MT BID [facility] Stop: 07/02/21 11:14 Lactated Ringer's (Lr) 1,000 mls @ 100 mls/hr IV .Q10H [facility] Stop: 07/01/21 13:14 Last Admin: 06/02/21 08:50 Dose: 100 mls/hr Documented by: Vancomycin HCl 1,250 mg/ (Sodium Chloride) 275 mls @ 200 mls/hr IV Q24H [facility]; Protocol Stop: 06/04/21 09:59 Last Admin: 06/02/21 10:49 Dose: 200 mls/hr Documented by: Magnesium Sulfate/Dextrose (Magnesium Sulfate / D5w) 1 gm in 100 mls @ 50 mls/hr IV Q2H [facility] Stop: 06/02/21 16:44 Levothyroxine Sodium (Levothyroxine Sodium 50 Mcg Tablet) 50 mcg PO DAILYBB [facility] Stop: 07/02/21 06:29 Last Admin: 06/02/21 05:51 Dose: 50 mcg Documented by: Miscellaneous Information (Vancomycin Consult Active) 1 ea N/A UD PRN PRN Reason: Consult Stop: 07/01/21 14:13 Polyethylene Glycol (Polyethylene (Miralax) 17 Gm Pack) 17 gm PO DAILY PRN PRN Reason: Constipation Stop: 07/01/21 14:13
--- NOTE | 2021-06-02 11:11 | Critical Care Progress Note ---
Date of Service June 02, 2021 Assessment & Plan (1) Bacteremia: (2) Sepsis: (3) Thrombocytopenia: Plan: Neurologic: No issues at present Pulmonary: Saturating 91% on room air. Small effusions noted bilaterally. Cardiovascular: History of diastolic heart failure atrial fibrillation. Will hold anticoagulation at this time given thrombocytopenia. History of tricuspid papillary fibroblastoma which appears unchanged per cardiology based on echo from today. Gastrointestinal: Advance diet as tolerated. Renal: Monitor urine output closely. Gentle hydration. Hyponatremia likely from poor p.o. intake. Infectious disease: Cultures growing gram-positive cocci. Source unclear. Concern for possible bacteremia. Continue vancomycin and Zosyn at this time. CT neck, face and abdomen without obvious signs of infectious etiology. Possible endocarditis. Hematologic: Thrombocytopenia likely related to sepsis coagulopathy. No evidence of DIC at this time. Thrombocytopenia improving. Endocrine: Monitor for signs of hypoglycemia and hyperglycemia VTE prophylaxis: SCDs CODE STATUS: Full Discussed on multidisciplinary rounds. Disposition: Downgrade to telemetry bed. Admission and Anticipated Discharge Date Admission Date: June 01, 2021 Subjective No issues overnight. Hemodynamically stable. Review of Systems Review of Systems: All systems reviewed & are unremarkable except as noted in HPI & below Physical Exam Physical Exam: Constitutional: Elderly and frail appearing female laying in the ICU bed. No significant distress. Eyes: Pupils are equal round and reactive to light. Conjunctivae are normal. Anicteric sclera. Ears nose, mouth and throat: Oral mucosa is dry. Neck: Trachea is midline. Visual inspection is normal. Respiratory: Diminished lung sounds bilaterally. Cardiovascular: Regular rate and rhythm. No murmurs. No edema. Gastrointestinal: Normal bowel sounds, soft, nontender and nondistended. No hepatosplenomegaly noted. Musculoskeletal: No cyanosis. Patient is able to move all extremities. . Skin: No rashes, warm dry and intact. Neurologic: No obvious focal neurological deficits seen. Psychiatric: Alert and oriented x3 with a euthymic affect. Results & Data Results & Data ([facility]) Vital Signs (Past 12 Hours) Vital Signs Temp Pulse Resp BP Pulse Ox 06/02/21 08:00 37.1 C 81 92 06/02/21 04:00 78 16 101/61 91 06/02/21 03:30 75 23 95 06/02/21 03:00 76 25 H 123/60 90 06/02/21 02:30 80 21 89 L 06/02/21 02:00 79 23 107/60 93 06/02/21 01:30 81 29 H 92 06/02/21 01:00 83 14 113/65 94 06/02/21 00:30 83 25 H 92 06/02/21 00:00 86 26 H 108/65 94 06/01/21 23:30 36.5 C 85 24 94 Coding Level of Care Code 08238 Subseq Hosp Care Lvl 2 Diagnoses Bacteremia R78.81 Sepsis A41.9 Thrombocytopenia D69.6
[2021-06-02] MEDS: MAGNESIUM SULFATE / D5W 1 GM/100 ML BAG IV SCH ×3 (12:11→16:15)
[2021-06-02] MEDS ORDERED: PIPERACILL/TAZOBAC CONSULT ACTIVE PRN (12:25)
[2021-06-02] MEDS: CHLORHEXIDINE GLUCONATE 0.12% 480 ML MT SCH ×2 (13:15→21:01)
[2021-06-02] MEDS ORDERED: cefTRIAXone SODIUM 1,000 MG in DEXTROSE 5% 50 ML IV SCH (18:00)
[2021-06-02 18:03] LABS: BUN Creatinine Ratio 33.8 (10-20); Calcium 8.5 mg/dl (8.5-10.1); Creatinine Clr Calc Pharmacy 44.8 ml/min; Est GFR (African American) 83.3 ml/min; Est GFR (Non-African American) 71.9 ml/min; Potassium 3.6 mmol/L (3.5-5.1)
--- NOTE | 2021-06-02 18:06 | CT Scan Report ---
CT chest diagnostic wo con CLINICAL HISTORY: lung nodule,endocarditis TECHNIQUE: Multidetector row helical CT of the chest was performed. Coronal and sagittal reformations were obtained. Automated dose lowering techniques and/or adjustment according to patient size were u tilized for this exam. Comparison: Comparison is made to CT chest 06/25/2014 FINDINGS: Lungs and pleura: Moderate bilateral pleural effusions are seen with underlying atelectasis. No suspi cious pulmonary nodules are seen. Heart and pericardium: There is cardiomegaly without evidence of pericardial effusion. Vessels: The ascending aorta is dilated measuring 47 mm. Mediastinum and ekaterina: Unremarkable. Chest wall and lower neck: Unremarkable. Abdomen: Unremarkable. Bones: Unremarkable. IMPRESSION: 1. Bilateral pleural effusions with underlying atelectasis. No evidence of abnormal nodule or septic embolus in this patient with history of endocarditis. 2. Cardiomegaly is seen. Ascending aortic aneurysm is unchanged. ACT 112: Negative or not required by law. Electronically signed by: Jm Velasquez M.D. 06/02/2021 6:04 PM
[2021-06-02] MEDS ORDERED: GADOBUTROL 65ML VIAL IV ONE (20:39)
--- NOTE | 2021-06-02 21:02 | Magnetic Resonance Report ---
MR brain wo/w con CLINICAL HISTORY: endocarditis, assess for septic emboli to brain TECHNIQUE: Multiplanar and multisequence MR images of the brain were obtained prior to and following administration of gadolinium contrast. Comparison: None available at the time of this dictation. FINDINGS: No abnormal restricted diffusion is identified. Foci of T2 and FLAIR hyperintensity are noted in the paraventricular areas consistent with chronic small vessel ischemic disease. Ex vacuo ventriculomegal y and sulcal enlargement is noted compatible with diffuse encephalomalacia. There is no evidence of a cute intraparenchymal hemorrhage. No extra axial fluid collections are seen. There are no masses, mas s effect, or midline shift. No abnormal enhancement is seen. The corpus callosum, pituitary gland, a nd cerebellar tonsils appear grossly unremarkable. Flow voids of the major intracranial arterial vessels are identified. No septic emboli are seen. IMPRESSION: No acute abnormalities. ACT 112: Negative or not required by law. Electronically signed by: Jm Velasquez M.D. 06/02/2021 9:01 PM
[2021-06-02] MEDS: ACETAMINOPHEN 325 MG TAB PO PRN (23:06)
--- NOTE | 2021-06-02 23:53 | Electrocardiogram Report ---
Test Reason : Blood Pressure : / mmHG Vent. Rate : 078 BPM Atrial Rate : 078 BPM P-R Int : 184 ms QRS Dur : 082 ms QT Int : 366 ms P-R-T Axes : 074 061 075 degrees QTc Int : 417 ms Normal sinus rhythm Possible Left atrial enlargement Borderline ECG When compared with ECG of 02-MAR-2016 18:10, No significant change was found Confirmed by Daniel Wells ([id number]) on 06/02/2021 11:52:28 PM Referred By: REFERRED SELF Confirmed By:Daniel Wells
[2021-06-03] MEDS: LEVOTHYROXINE SODIUM 50 MCG TABLET PO SCH (05:31)
[2021-06-03 08:53] LABS: Prothrombin Time 19.2 Seconds (9.0-12.0)
[2021-06-03 09:04] LABS: Hematocrit (blood only) 30.5 % (37-47); Hemoglobin 10.8 g/dL (12.0-16.0); Mean Corpuscular Hemoglobin 31.3 pg (25-34); Mean Corpuscular Hgb Conc 35.4 g/dL (32-36); Mean Corpuscular Volume 88.4 fL (80-100); Mean Platelet Volume 11.4 fL (7.4-10.4); Platelet Count 75 K/uL (130-400); RDW Coefficient of Variation 15.8 % (11.5-14.5); RDW Standard Deviation 51.2 fL (36.4-46.3); Red Blood Count 3.45 M/uL (4.2-5.4); White Blood Count 23.83 K/uL (4.8-10.8)
[2021-06-03 09:05] LABS: ANC (manual) 20.92 K/uL (1.4-6.5); Acanthocytes 1+; Basophils # (manual) 0.21 K/uL (0-0.2); Basophils % (manual) 0.9 %; Howell-Jolly Bodies 1+; Metamyelocytes # (manual) 0.21 K/uL (0-0); Metamyelocytes % (manual) 0.9 %; Monocytes # (manual) 1.86 K/uL (0.11-0.59); Monocytes % (manual) 7.8 %; Myelocytes # (manual) 0.62 K/uL (0-0); Myelocytes % (manual) 2.6 %; Neutrophils # (manual) 20.92 K/uL (1.4-6.5); Neutrophils % (manual) 87.8 %; Target Cells 1+
[2021-06-03 09:19] LABS: Albumin Level 2.7 gm/dl (3.4-5.0); BUN Creatinine Ratio 33.3 (10-20); Bilirubin Direct 0.3 mg/dl (0-0.2); Bilirubin,Total 1.2 mg/dl (0.2-1.0); C Reactive Protein 12.3 mg/dl (0-0.5); Calcium 8.5 mg/dl (8.5-10.1); Creatinine Clr Calc Pharmacy 51.3 ml/min; Est GFR (Non-African American) 81.1 ml/min; Magnesium 2.1 mg/dl (1.7-2.4); Potassium 3.7 mmol/L (3.5-5.1); Total Protein 5.6 gm/dl (6.0-8.3)
[2021-06-03] MEDS: LACTATED RINGER'S 1,000 ML IV SCH (09:25)
--- NOTE | 2021-06-03 09:52 | Oral/Maxillofacial Consult ---
Date of Consultation June 03, 2021 Assessment & Plan (1) Periodontal pocketing: (2) Poor oral hygiene: History of Present Illness Reason for Consultation: evaluate teeth as source of infection Attending Physician: Juan M Pedroza MD History of Present Illness Oral Maxillofacial Surgery Exam Present Complaint: Evaluate mouth for dental issues and possible intervention ie extractions of # 15 and 16 80-year-old female here with sepsis without shock, septicemia, and likely with endocarditis given known mass on tricuspid valve and history of tricuspid valve annuloplasty. Also with acute metabolic encephalopathy And thrombocytopenia with likely sepsis induced coagulopathy On broad-spectrum antibiotics with IV vancomycin and Zosyn , follow blood cultures, repeat blood cultures in 24 hr Should have oral surgery consultation after her condition stabilizes Oral Exam: Finding--No tender gingival tissues noted, no swelling, no dental pain, loose or abscessed teeth. She does have significant periodontal pathology which is chronic in nature with deep pocket formation and bone loss.By history she went to her dentist last week for an examination. The dentist noted bone loss associated with # 15 and 16, was refereed to oral surgeon Dr Hernandez for extraction. The appointment is for early June. Imaging: I reviewed the CT scan and noted the bone loss. No bony lesions or evidence of any root cysts --general periodontal dx. Sinus clear Soft tissue: floor of the mouth, tongue, hard/soft palate, posterior pharyngeal area all with in normal limits, no pathology or abnormal findings noted. No lesions noted that require follow up or Bx. Oral Care: Overall oral care is very poor I would strongly suggest that Mrs Flores be given a tooth brush and accommodations for her to brush her teeth at bedside at least 2 x a day. She will need some supervision from staff to accomplish this. The use of Peridex 2 x a day is also suggested. Occlusion: Class I TMJ exam: No pop, clicking, pain, good ROM, No history of TMJ injury or dysfunction Periodontal exam: Chronic gingival tissue is present with food accumulation. Strong evidence of chronic periodontal pathology with bone loss and deep pockets.. Head/Neck exam: Neck is supple, some what limited ROM, Able to extend and flex neck with some difficulty, no masses, no abnormalities, no airway issues, no evidence of sleep apnea. Treatment Plan: She has a consult with Dr Hernandez Juwan for evaluation in early June. The plan is at least extraction of 15 and 16. I would be more then happy to preform these extractions while she is in the hospital once her medical condition is stable. This can be done in the OR with anesthesia. Depending on her response to current therapy the decision would be to extract the indicated teeth while in the hospital vs her getting this done as an outpatient. PLEASE LET ME KNOW IF YOU FEEL GETTING THE EXTRACTIONS DONE ONCE SHE IS STABLE IS PREFERRED OVER DISCHARGE AND HAVING THE TREATMENT IN THE FUTURE AN OUTPATIENT. Allergies Allergy/AdvReac Type Severity Reaction Status Date / Time gluten Allergy Unknown unknown Verified 06/01/21 07:36 Iodinated Contrast Media Allergy Unknown RASH TO Verified 06/01/21 07:36 "CT SCAN DYE" Cipro AdvReac Intermediate GI UPSET Verified 09/10/17 06:43 ciprofloxacin AdvReac Intermediate GI UPSET Verified 06/01/21 07:36 Home Medications Medication Instructions Recorded Confirmed Type coenzyme Q10 100 mg capsule 100 mg PO QAM 11/19/18 06/01/21 History Lactobacillus 1 cap PO QAM cap 01/15/19 06/01/21 History acidophilus-Bifidobac.animalis 31 billion cell capsule multivitamin (Multiple Vitamins) 2 tab PO QAM tab 01/15/19 06/01/21 History warfarin 2.5 mg tablet 2.5 mg PO UD tab 01/19/20 06/01/21 History cholecalciferol (vitamin D3) 4,000 unit PO QAM ml 02/26/20 06/01/21 History zinc sulfate 50 mg zinc (220 mg) 50 mg PO WK cap 09/01/20 06/01/21 History capsule torsemide 20 mg tablet 10 - 20 mg PO QAM tab 11/17/20 06/01/21 History cyanocobalamin (vitamin B-12) 2,500 mcg PO QAM 02/10/21 06/01/21 History 2,500 mcg chewable tablet levothyroxine 50 mcg tablet 50 mcg PO QAM #60 tab 02/13/21 06/01/21 Rx atenolol 25 mg tablet See Rx Instructions .ROUTE 03/27/21 06/01/21 Rx .COMPLEX #90 tablet iodine 150 mcg tablet 0 mcg PO DAILY 06/01/21 06/01/21 History phytonadione (vitamin K1) 1 mg/0.5 0 mg PO DAILY 06/01/21 06/01/21 History mL injection solution (vitamin K) Patient History Medical History Anxiety Bacteremia H/O pericarditis (~2007) Hepatic cyst HTN (hypertension) Hx of basal cell carcinoma Hyperlipidemia LDL goal <100 Hypothyroidism Iron deficiency anemia due to chronic blood loss iron infusions currently Lipodermatosclerosis Lumbar spinal stenosis Mild cognitive impairment with memory loss Alert and oriented x3 Mitral valve prolapse syndrome Osteoporosis, unspecified Paroxysmal atrial fibrillation family unaware, denies cardioversion. Follows with Dr Bosch. 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 [facility] [place] Weight loss Surgical History H/O basal cell carcinoma excision MOHS H/O cardiac catheterization family denies (denies any stents) H/O splenectomy r/t a large attached cyst H/O squamous cell carcinoma excision removed at the anus History of back surgery lumbar area History of colonoscopy History of open heart surgery (~2016) removal of tricupsid valve mass ([facility]) S/P cholecystectomy S/P splenectomy Family History Mother Cancer Colorectal cancer Father Heart disease Stroke Denies family history of Ovarian cancer Prostate cancer Myocardial infarction Breast cancer Social History Smoking Status: Never smoker Tobacco Type: Cigarettes Second Hand Exposure: No; Hx Alcohol Use: No Hx Substance Use: No Preferred Language: Bruneian Communication Ability: Effective Visual Impairment: Limited Hearing Ability: Normal Jive Developer Required: No Beliefs That Will Affect Care: None marital status: Current Living Situation: Spouse and Family current occupational status: retired How many Children do You have: 3 Other Information That Helps Us Care for You: No Feels Safe at Home: Yes Safety Concerns: Feels Safe At This Time Childhood Exposure to Second-Hand Smoke: No caffeine: Yes Dental Care, Regularly: Yes Physical Activity Frequency: Does not Exercise Seatbelt Use: always Sunscreen Use: No Assistive Devices: Glasses and Oxygen - Continuous Results & Data ([facility]) Vital Signs (Past 12 Hours) Vital Signs Temp Pulse Pulse Resp BP Pulse Ox 06/03/21 08:07 36.6 C 79 20 118/67 90 06/03/21 03:37 36.3 C L 76 20 98/59 L 91 06/03/21 00:34 36.6 C 93 H 20 101/65 93 06/03/21 00:00 81 PG Care Time/CCT Total # of Minutes Spent Total Time Spent with Patient: Total time spent is greater than 50% in coordination of care (as documented) at patient's floor/unit and/or counseling patient: reviewed the chart, CT scan Coding Level of Care Code 84467 Initial Inpt Care Lvl 3 Diagnoses Periodontal pocketing K05.5 Poor oral hygiene Z91.89
[2021-06-03] MEDS: CHOLECALCIFEROL 1,000 UNITS 25 MCG TAB PO SCH (10:11)
[2021-06-03] MEDS: ADVANCED PROBIOTIC 1250 MG CAPSULE PO SCH (10:11)
[2021-06-03] MEDS: CYANOCOBALAMIN (B-12) 2,500 MCG TABLET SCH (10:11)
[2021-06-03] MEDS: MULTIVITAMIN TAB PO SCH (10:11)
[2021-06-03] MEDS: CHLORHEXIDINE GLUCONATE 0.12% 480 ML MT SCH ×2 (10:12→20:20)
[2021-06-03] MEDS: cefTRIAXone SODIUM 1,000 MG in DEXTROSE 5% 50 ML IV SCH ×2 (11:45→20:20)
[2021-06-03] MEDS: ACETAMINOPHEN 325 MG TAB PO PRN ×2 (12:35→20:26)
[2021-06-03] MEDS: VANCOMYCIN HCL 1,250 MG in SODIUM CHLORIDE 0.9% 250 ML IV SCH (12:35)
--- NOTE | 2021-06-03 12:35 | Hospitalist Progress Note ---
Date of Service June 03, 2021 Assessment & Plan (1) Septicemia: Plan: Suspected early stye risk for infective endocarditis with known tricuspid mass with group B strep blood cultures Presented with fevers, leukocytosis, generalized weakness Blood pressures remained stable Also with sepsis induced thrombocytopenia and coagulopathy With very poor dentition and recent dental procedure 1 week prior to admission- likely source of bacteremia With large known tricuspid mass and history of tricuspid valvular annuloplasty- at risk for infective endocarditis CT face and neck without evidence of abscess or infection Procalcitonin and CRP markedly elevated and now trending downward -Initially treated with vancomycin and Zosyn-now transition to vancomycin along with ceftriaxone as per ID recommendations - increased ceftriaxone dose today to cover for infective endocarditis -Follow repeat blood cultures every 48 hours until negative -Brain MRI with no acute abnormalities -Repeat CT chest without contrast showing no abnormal nodule or septic emboli -Appreciate cardiology consult, discussed with Dr. Sanchez and not recommending NEMO at this time but will empirically treat for infective endocarditis for 6 weeks of IV antibiotics -Appreciate OMS consult and performing tooth extraction during inpatient admission while on IV antibiotics appears reasonable however will need to see if insurance authorization able to approve this - stop IV fluids and patient eating and drinking well and usually on torsemide at home therefore at risk of pulmonary edema (2) Thrombocytopenia: Plan: Likely sepsis induced thrombocytopenia, have since ruled out ITP/TTP - with rare schistocytes on peripheral smear - D-dimer elevated, FDP elevated, Fibrinogen normal, INR elevated Platelets nadired at 46 and are now increasing -Continue to hold home anticoagulation Appreciate hematology consultation Follow CBC -Continue to treat sepsis as above (3) Hyponatremia: Plan: Acute 122 on arrival now improved up to 131 with volume resuscitation - appears hypovolemic hyponatremia at this time ?secondary to torsemide use in setting of infective endocarditis Follow BMP Holding home torsemide (4) CHF (congestive heart failure): Plan: HFpEF - not an acute exacerbation at this time - Volume resuscitate as above (5) Hypomagnesemia: Plan: Magnesium low at 1.6 Replaced with 3 g IV magnesium sulfate Resolved (6) Paroxysmal atrial fibrillation: Plan: Currently NSR is on Coumadin - due to her radiation proctitis she remains on low dose Coumadin and daily vitamin K 1mg - Hold for now with likely sepsis induced thrombocytopenia/DIC - repeat INR daily (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- [facility] - ECHO with tricuspid mass unchanged from previous in size Appreciate cardiology consultation (8) Mitral regurgitation: Plan: Mitral prolapse listed in history - ECHOs performed noting mitral regurg- mild (9) Radiation cystitis: Plan: Chronic - follow (10) Radiation proctitis: Plan: Chronic as above (11) HTN (hypertension): Plan: Hold atenolol in setting of low normal BP - follow hemodynamics with sepsis (12) Lumbar spinal stenosis: Plan: L4 decompression fracture chronic (13) Iron deficiency anemia: Plan: chronic - has had low ferritin and iron studies in the past requiring Venofer infusions in 2012 - She is also on B12 oral -Follows with hematology/oncology, Dr. Zamudio at [facility] (14) Hypothyroidism: Plan: TSH normal 2.9 in 02/2021 -Continue home levothyroxine Plan: DVT prophylaxis-SCDs, holding home Coumadin for thrombocytopenia and coagulopathy, follow INR Disposition-continue on med/tele Admission and Anticipated Discharge Date Admission Date: June 01, 2021 Subjective Patient seen in the morning and afternoon. In the morning she was sitting in the chair having a lot of back pain especially in her neck and left chest She reports having this intermittently chronically. Worse on palpation. No radiation. She has been working with physical therapy this morning and she relates it to this. In the afternoon she appeared much more relaxed. No pain. Discussed care with her son. Group B strep growing in aerobic and anaerobic bottles 2 out of 2 on admission. No growth and repeat cultures after 24 hours. Afebrile. Discussed with Dr. Sanchez and recommending covering for infective endocarditis due to known vegetation she is at high risk. NEMO would only be needed to assess whether she requires surgery and she is a poor surgical candidate in general therefore recommend antibiotic therapy regardless. Review of Systems Review of Systems: All systems reviewed & are unremarkable except as noted in Subjective Physical Exam Constitutional: WD/WN, vitals as above ENMT: Mouth: + gingival abnormality, + poor dentition and + chipped teeth Neck: trachea midline, no thyromegaly Respiratory: normal respiratory effort, lungs clear to auscultation Cardiovascular: Rate/Rhythm: regular rate and regular rhythm Heart Sounds: + murmur (diastolic) Gastrointestinal (Abdomen): normal bowel sounds, soft, nontender, no hepatosplenomegaly Musculoskeletal: Extremities: extremities normal to inspection; no cyanosis and no clubbing Skin: no rashes, warm and dry (no splinter hemorrhages) Neurologic: moves all extremities and awake; no focal motor deficits Psychiatric: Orientation: alert, oriented to person, oriented to place, oriented to time (year and month) and cooperative Results & Data Results & Data ([facility]) Vital Signs (Past 12 Hours) Vital Signs Temp Pulse Pulse Resp BP Pulse Ox Pulse Ox 06/03/21 12:18 36.5 C 89 20 116/69 90 06/03/21 11:04 73 06/03/21 08:07 36.6 C 79 20 118/67 90 06/03/21 08:00 91 06/03/21 03:37 36.3 C L 76 20 98/59 L 91 PG Care Time/CCT Total # of Minutes Spent Total Time Spent with Patient: Total time spent is greater than 50% in coordination of care (as documented) at patient's floor/unit and/or counseling patient: Coding Level of Care Code 41184 Subseq Hosp Care Lvl 2 Diagnoses Septicemia A41.9 Thrombocytopenia D69.6 Hyponatremia E87.1 CHF (congestive heart failure) I50.9 Hypomagnesemia E83.42 Paroxysmal atrial fibrillation I48.0 Tricuspid valve mass I07.8 Mitral regurgitation I34.0 Radiation cystitis N30.40 Radiation proctitis K62.7 HTN (hypertension) I10 Lumbar spinal stenosis M48.061 Iron deficiency anemia D50.9 Hypothyroidism E03.9
--- NOTE | 2021-06-03 15:48 | Cardiology Progress Note ---
Date of Service June 03, 2021 Assessment & Plan (1) Septicemia: (2) Tricuspid valve mass: Plan: Patient with history of tricuspid valve repair, annuloplasty ring, removal of tricuspid valve papillary fibroelastoma (pathology report describing papillary fibroelastoma findings dated 03/19/2017 in the [facility] medical record, reviewed personally today, 06/03/2021). In 2018, on repeat surveillance transthoracic study she had been found to have a recurrent mobile tricuspid valve mass adherent to the septal aspect of the annuloplasty ring. At the time this was observed, blood cultures x2 were obtained within the [facility] system (08/24/2017, with no growth). The patient has been treated with anticoagulation in the meantime with thoughts that the echodensity was a recurrent fibroblastoma or thrombus. Is been difficult to maintain adequate anticoagulation however due to recurrent rectal bleeding, with recent INR measurements performed from March, until 05/23/2021 in the range of 1.36-1.7. Patient now presents with sepsis syndrome, group B beta strep noted on 2 of 2 blood cultures 06/01/2021. Possible oral source with 2 questionable teeth. Patient is currently on Rocephin and vancomycin. Sensitivities suggest that the bacteria is sensitive to both of these agents. Repeat cultures drawn 06/02/2021 - thus far. Urine cultures negative. The patient's transthoracic echocardiogram reveals findings similar to her past transesophageal echocardiogram performed at this institution in 2018 and serial transthoracic studies. She has also had repeat studies at [facility]. At present, I do not think that proceeding with a NEMO would change our treatment, as I would recommend that long-term antibiotic therapy likely indicated because of her predisposing heart valve condition. She is not a candidate for repeat surgical intervention. Agree with plan to proceed with extraction of teeth 15 and 16 when stabilized, and her platelet count has trended up from 49K yesterday to 75K today which is good news. Coumadin on hold, INR currently 2. At present, if at all feasible we will try to continue her anticoagulation. Although contraindicated with left-sided endocarditis, given her history, I think would be prudent to continue anticoagulation when her platelet count allows. Case discussed with Dr Pedroza by phone. Admission and Anticipated Discharge Date Admission Date: June 01, 2021 Subjective Patient seen in follow up. Patient's primary orderlies teacher is Dr Bosch of our practice, however, I am acquainted with her case, as I had performed a transesophageal echocardiogram on the patient in 2018, shortly after the recurrent tricuspid valve mass was noted on follow-up transthoracic echocardiogram. The patient is frail and weak. At the time of my assessment at the bedside, a nurse was actually brushing her teeth for her as she was unable to use her arm sufficiently to maneuver the toothbrush. Physical Exam Physical Exam: Temp Pulse Resp BP Pulse Ox 36.4 C L 78 20 110/71 98 06/03/21 15:23 06/03/21 15:23 06/03/21 15:23 06/03/21 15:23 06/03/21 15:23 Constitutional: + ill appearing and + cachectic Respiratory: normal respiratory effort, lungs clear to auscultation Cardiovascular: Rate/Rhythm: regular rhythm Heart Sounds: no murmur Extremities: no edema Gastrointestinal (Abdomen): normal bowel sounds, soft, nontender, no hepatosplenomegaly Results & Data ([facility]) Vital Signs (Past 12 Hours) Vital Signs Temp Pulse Pulse Resp BP Pulse Ox Pulse Ox 06/03/21 15:23 36.4 C L 78 20 110/71 98 06/03/21 12:18 36.5 C 89 20 116/69 90 06/03/21 11:04 73 06/03/21 08:07 36.6 C 79 20 118/67 90 06/03/21 08:00 91
[2021-06-04] MEDS: ACETAMINOPHEN 325 MG TAB PO PRN ×3 (06:01→18:30)
[2021-06-04] MEDS: LEVOTHYROXINE SODIUM 50 MCG TABLET PO SCH (06:02)
[2021-06-04] MEDS: ADVANCED PROBIOTIC 1250 MG CAPSULE PO SCH (07:59)
[2021-06-04] MEDS: CHOLECALCIFEROL 1,000 UNITS 25 MCG TAB PO SCH (07:59)
[2021-06-04] MEDS: MULTIVITAMIN TAB PO SCH (07:59)
[2021-06-04] MEDS: CHLORHEXIDINE GLUCONATE 0.12% 480 ML MT SCH ×2 (07:59→20:37)
[2021-06-04] MEDS: CYANOCOBALAMIN (B-12) 2,500 MCG TABLET SCH (07:59)
[2021-06-04] MEDS ORDERED: VANCOMYCIN TROUGH ONE (09:30)
[2021-06-04] MEDS: cefTRIAXone SODIUM 1,000 MG in DEXTROSE 5% 50 ML IV SCH ×2 (09:49→22:48)
[2021-06-04] MEDS: VANCOMYCIN HCL 1,250 MG in SODIUM CHLORIDE 0.9% 250 ML IV SCH (10:22)
[2021-06-04 10:29] LABS: Prothrombin Time 19.3 Seconds (9.0-12.0)
[2021-06-04 10:36] LABS: Hematocrit (blood only) 30.8 % (37-47); Hemoglobin 10.7 g/dL (12.0-16.0); Mean Corpuscular Hemoglobin 31.1 pg (25-34); Mean Corpuscular Hgb Conc 34.7 g/dL (32-36); Mean Corpuscular Volume 89.5 fL (80-100); Mean Platelet Volume 11.4 fL (7.4-10.4); Platelet Count 130 K/uL (130-400); RDW Coefficient of Variation 15.9 % (11.5-14.5); RDW Standard Deviation 51.9 fL (36.4-46.3); Red Blood Count 3.44 M/uL (4.2-5.4); White Blood Count 25.14 K/uL (4.8-10.8)
[2021-06-04 10:44] LABS: BUN Creatinine Ratio 37.7 (10-20); Calcium 8.6 mg/dl (8.5-10.1); Est GFR (African American) 97.8 ml/min; Est GFR (Non-African American) 84.4 ml/min; Magnesium 1.9 mg/dl (1.7-2.4); Potassium 3.9 mmol/L (3.5-5.1)
[2021-06-04 10:59] LABS: ALC (manual) 0.23 K/uL (1.2-3.4); ANC (manual) 23.58 K/uL (1.4-6.5); Eosinophils # (manual) 0.23 K/uL (0-0.5); Eosinophils % (manual) 0.9 %; Howell-Jolly Bodies Occasional; Lymphocytes # (manual) 0.23 K/uL (1.2-3.4); Lymphocytes % (manual) 0.9 %; Metamyelocytes # (manual) 0.23 K/uL (0-0); Metamyelocytes % (manual) 0.9 %; Monocytes # (manual) 0.88 K/uL (0.11-0.59); Monocytes % (manual) 3.5 %; Neutrophils # (manual) 23.58 K/uL (1.4-6.5); Neutrophils % (manual) 93.8 %; Target Cells 1+
--- NOTE | 2021-06-04 13:01 | Hospitalist Progress Note ---
Date of Service June 04, 2021 Assessment & Plan (1) Septicemia: Plan: Suspected early stye risk for infective endocarditis with known tricuspid mass with group B strep blood cultures Presented with fevers, leukocytosis, generalized weakness Blood pressures remained stable Also with sepsis induced thrombocytopenia and coagulopathy With very poor dentition and recent dental procedure 1 week prior to admission- likely source of bacteremia With large known tricuspid mass and history of tricuspid valvular annuloplasty- at risk for infective endocarditis CT face and neck without evidence of abscess or infection Procalcitonin and CRP markedly elevated and now trending downward -Initially treated with vancomycin and Zosyn-now transition to vancomycin along with ceftriaxone as per ID recommendations - increased ceftriaxone dose to cover for infective endocarditis -Brain MRI with no acute abnormalities -Repeat CT chest without contrast showing no abnormal nodule or septic emboli -Appreciate cardiology consult, discussed with Dr. Sanchez and not recommending NEMO at this time but will empirically treat for infective endocarditis for 6 weeks of IV antibiotics -Appreciate OMS consult and performing tooth extraction during inpatient admission while on IV antibiotics appears reasonable however will need to see if insurance authorization able to approve this -Neck pain concerning for meningitis however multiple days of antibiotics at this point and given intermittent nature and no confusion this appears unlikely. -Repeat blood cultures negative. Plan on PICC vs. US guided line tomorrow depending on final course of antibiotics (no ID cover today). (2) Thrombocytopenia: Plan: Likely sepsis induced thrombocytopenia, have since ruled out ITP/TTP - with rare schistocytes on peripheral smear - D-dimer elevated, FDP elevated, Fibrinogen normal, INR elevated Platelets nadired at 46 and are now increasing -Continue to hold home anticoagulation Appreciate hematology consultation Follow CBC -Continue to treat sepsis as above (3) Hyponatremia: Plan: Acute 122 on arrival now improved up to 131 with volume resuscitation - appears hypovolemic hyponatremia at this time ?secondary to torsemide use in setting of infective endocarditis Follow BMP Holding home torsemide (4) CHF (congestive heart failure): Plan: HFpEF - not an acute exacerbation at this time - Volume resuscitate as above (5) Hypomagnesemia: Plan: Magnesium low at 1.6 Replaced with 3 g IV magnesium sulfate Resolved (6) Paroxysmal atrial fibrillation: Plan: Currently NSR is on Coumadin - due to her radiation proctitis she remains on low dose Coumadin and daily vitamin K 1mg - Hold for now with likely sepsis induced thrombocytopenia/DIC - repeat INR daily (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- [facility] - ECHO with tricuspid mass unchanged from previous in size Appreciate cardiology consultation (8) Mitral regurgitation: Plan: Mitral prolapse listed in history - ECHOs performed noting mitral regurg- mild (9) Radiation cystitis: Plan: Chronic - follow (10) Radiation proctitis: Plan: Chronic as above (11) HTN (hypertension): Plan: Hold atenolol in setting of low normal BP - follow hemodynamics with sepsis (12) Lumbar spinal stenosis: Plan: L4 decompression fracture chronic (13) Iron deficiency anemia: Plan: chronic - has had low ferritin and iron studies in the past requiring Venofer infusions in 2012 - She is also on B12 oral -Follows with hematology/oncology, Dr. Zamudio at [facility] (14) Hypothyroidism: Plan: TSH normal 2.9 in 02/2021 -Continue home levothyroxine Plan: VTE prophylaxis-SCDs, holding home Coumadin for thrombocytopenia and coagulopathy, follow INR Disposition-continue on med/tele Admission and Anticipated Discharge Date Admission Date: June 01, 2021 Subjective Having a lot of neck pain today in the afternoon. Previously told me she has had this for years but on discussion with her daughter today this appears to related to her current illness. No associated headache. Associated left shoulder pain but not radiating down all limbs. Appears to be intermittent. No fever or chills. Review of Systems Review of Systems: All systems reviewed & are unremarkable except as noted in Subjective Physical Exam Constitutional: WD/WN, vitals as above ENMT: Mouth: + gingival abnormality, + poor dentition and + chipped teeth Neck: trachea midline, no thyromegaly Respiratory: normal respiratory effort, lungs clear to auscultation Cardiovascular: Rate/Rhythm: regular rate and regular rhythm Heart Sounds: + murmur (diastolic) Gastrointestinal (Abdomen): normal bowel sounds, soft, nontender, no hepatosplenomegaly Musculoskeletal: Extremities: extremities normal to inspection; no cyanosis and no clubbing Skin: no rashes, warm and dry (no splinter hemorrhages) Neurologic: moves all extremities and awake; no focal motor deficits Psychiatric: Orientation: alert, oriented to person, oriented to place, oriented to time (year and month) and cooperative Results & Data Results & Data ([facility]) Vital Signs (Past 12 Hours) Vital Signs Temp Pulse Pulse Resp BP Pulse Ox 06/04/21 12:18 36.5 C 89 18 118/66 93 06/04/21 10:01 87 06/04/21 06:59 36.4 C L 86 18 102/60 96 06/04/21 04:00 37.1 C 87 22 108/69 92 PG Care Time/CCT Total # of Minutes Spent Total Time Spent with Patient: Total time spent is greater than 50% in coordination of care (as documented) at patient's floor/unit and/or counseling patient: Coding Level of Care Code 22914 Subseq Hosp Care Lvl 2 Diagnoses Septicemia A41.9 Thrombocytopenia D69.6 Hyponatremia E87.1 CHF (congestive heart failure) I50.9 Hypomagnesemia E83.42 Paroxysmal atrial fibrillation I48.0 Tricuspid valve mass I07.8 Mitral regurgitation I34.0 Radiation cystitis N30.40 Radiation proctitis K62.7 HTN (hypertension) I10 Lumbar spinal stenosis M48.061 Iron deficiency anemia D50.9 Hypothyroidism E03.9
--- NOTE | 2021-06-04 13:35 | Cardiology Progress Note ---
Date of Service June 04, 2021 Assessment & Plan (1) Septicemia: (2) Tricuspid valve mass: Plan: Patient with history of tricuspid valve repair, annuloplasty ring, removal of tricuspid valve papillary fibroelastoma (pathology report describing papillary fibroelastoma findings dated 03/19/2017 in the [facility] medical record, reviewed personally today, 06/03/2021). In 2018, on repeat surveillance transthoracic study she had been found to have a recurrent mobile tricuspid valve mass adherent to the septal aspect of the annuloplasty ring. At the time this was observed, blood cultures x2 were obtained within the [facility] system (08/24/2017, with no growth). Remains on Rocephin and vancomycin. Recommend empiric terminal clerk antibiotic therapy. Pt not an operative candidate for repeat TV surgical intervention. Admission and Anticipated Discharge Date Admission Date: June 01, 2021 Pa Graves is seen in cardiology follow up. Ongoing generalized weakness noted. Telemetry reveals SR in the 70s. Physical Exam Physical Exam: Temp Pulse Resp BP Pulse Ox 36.5 C 89 18 118/66 93 06/04/21 12:18 06/04/21 12:18 06/04/21 12:18 06/04/21 12:18 06/04/21 12:18 Constitutional: + cachectic Respiratory: normal respiratory effort, lungs clear to auscultation Cardiovascular: Rate/Rhythm: regular rate and regular rhythm Heart Sounds: no murmur Extremities: no edema Gastrointestinal (Abdomen): normal bowel sounds, soft, nontender, no hepatosplenomegaly Neurologic: Generalized weakness, no focal deficist Results & Data ([facility]) Vital Signs (Past 12 Hours) Vital Signs Temp Pulse Pulse Resp BP Pulse Ox 06/04/21 12:18 36.5 C 89 18 118/66 93 06/04/21 10:01 87 06/04/21 06:59 36.4 C L 86 18 102/60 96 06/04/21 04:00 37.1 C 87 22 108/69 92 Laboratory Results Coagulation INR 2.0 06/04/21 Range/Units 09:48 PT 19.3 H (9.0-12.0) Seconds CBC 06/04/21 Range/Units 09:48 WBC 25.14 H (4.8-10.8) K/uL RBC 3.44 L (4.2-5.4) M/uL Hgb 10.7 L (12.0-16.0) g/dL Hct 30.8 L (37-47) % Plt Count 130 D (130-400) K/uL Comprehensive Metabolic Panel 06/04/21 Range/Units 09:48 Sodium 132 L (136-145) mmol/L Potassium 3.9 (3.5-5.1) mmol/L Chloride 101 (98-107) mmol/L Carbon Dioxide 25 (21-32) mmol/L BUN 23 (6-23) mg/dl Creatinine 0.61 (0.6-1.2) mg/dl Glucose 116 H (70-99(Fasting)) mg/dl Calcium 8.6 (8.5-10.1) mg/dl Intake and Output 06/03/21 06/04/21 06/04/21 22:59 06:59 14:59 Intake Total 175 / 1687.167 100 / 1687.167 325 / 325 Balance 175 / 1687.167 100 / 1687.167 325 / 325 Intake: IV 75 / 1097.167 50 / 1097.167 325 / 325 Vancomycin HCl 1,250 mg In 75 / 275 275 / 275 Sodium Chloride 0.9% 250 ml @ 200 mls/hr IV Q24H [facility] Rx#: [id number] cefTRIAXone SODIUM 1,000 mg In 50 / 100 50 / 50 Dextrose 5% 50 ml @ 100 mls/hr IV Q12H [facility] Rx#:[id number] Oral 100 / 590 50 / 590 Other: Weight 61 kg Diagnostic Findings Repeat Blood cultures 06/02/20, no growth thus far
--- NOTE | 2021-06-04 13:44 | Pharmacy Report ---
Pharmacy Vanc AUC Short Note - Date of Service June 04, 2021 - Assessment & Plan Assessment 80 year old F receiving vancomycin and ceftriaxone for the treatment of penicillin susceptible group B beta strep bacteremia, possible endocarditis. * history of tricuspid valvular annuloplasty * ID consulted * Day # 4 of antimicrobial therapy Plan Vancomycin * Current dose : 1250 mg IV q24h * Trough level drawn today resulted at 14.2 mcg/mL. AUC/KARISSA estimated to be ~450 mg/L.hr * Will slightly increase dose to achieve AUC/KARISSA at higher end of target range (400-600) for IE * Start 1500 mg IV q 24h * Estimated AUC/KARISSA at steady state: 543 mg/L.hr * Estimated trough at steady state: 15 mg/L * Probability of nephrotoxicity: 10% * If continued, will repeat level in 48-72 hours Ceftriaxone - continue 1g IV every 12 hours (can likely transition to 2g IV q24h on discharge) Pharmacy will continue to follow and will adjust dose/frequency as necessary. Thank you.
[2021-06-04] MEDS: LIDOCAINE 5% 1 PATCH TD SCH (17:23)
[2021-06-05] MEDS: LEVOTHYROXINE SODIUM 50 MCG TABLET PO SCH (05:58)
[2021-06-05] MEDS: LIDOCAINE 5% 1 PATCH TD SCH (07:51)
[2021-06-05] MEDS: ADVANCED PROBIOTIC 1250 MG CAPSULE PO SCH (07:51)
[2021-06-05] MEDS: CYANOCOBALAMIN (B-12) 2,500 MCG TABLET SCH (07:51)
[2021-06-05] MEDS: MULTIVITAMIN TAB PO SCH (07:51)
[2021-06-05] MEDS: ACETAMINOPHEN 325 MG TAB PO PRN (07:51)
[2021-06-05] MEDS: CHOLECALCIFEROL 1,000 UNITS 25 MCG TAB PO SCH (07:52)
[2021-06-05] MEDS: CHLORHEXIDINE GLUCONATE 0.12% 480 ML MT SCH ×2 (07:52→21:31)
[2021-06-05] MEDS: VANCOMYCIN HCL 1,500 MG in SODIUM CHLORIDE 0.9% 500 ML IV SCH (07:59)
[2021-06-05 08:11] LABS: Hematocrit (blood only) 30.6 % (37-47); Hemoglobin 10.6 g/dL (12.0-16.0); Mean Corpuscular Hemoglobin 31.3 pg (25-34); Mean Corpuscular Hgb Conc 34.6 g/dL (32-36); Mean Corpuscular Volume 90.3 fL (80-100); Platelet Count 188 K/uL (130-400); RDW Coefficient of Variation 15.7 % (11.5-14.5); RDW Standard Deviation 50.3 fL (36.4-46.3); Red Blood Count 3.39 M/uL (4.2-5.4)
[2021-06-05 08:33] LABS: BUN Creatinine Ratio 31.7 (10-20); Basophils # (auto) 0.04 K/uL (0-0.2); Basophils % (auto) 0.1 %; C Reactive Protein 18.71 mg/dl (0-0.5); Calcium 8.4 mg/dl (8.5-10.1); Creatinine Clr Calc Pharmacy 57.7 ml/min; Eosinophils # (auto) 0.07 K/uL (0-0.5); Eosinophils % (auto) 0.3 %; Est GFR (African American) 98.4 ml/min; Est GFR (Non-African American) 84.9 ml/min; Immature Granulocytes # (auto) 1.22 K/uL (0.00-0.02); Immature Granulocytes % (auto) 4.4 %; Lymphocytes # (auto) 0.73 K/uL (1.2-3.4); Lymphocytes % (auto) 2.6 %; Monocytes # (auto) 1.76 K/uL (0.11-0.59); Monocytes % (auto) 6.4 %; Neutrophils # (auto) 23.78 K/uL (1.4-6.5); Neutrophils % (auto) 86.2 %; Potassium 4.4 mmol/L (3.5-5.1); Target Cells 2+
[2021-06-05] MEDS: cefTRIAXone SODIUM 1,000 MG in DEXTROSE 5% 50 ML IV SCH ×2 (11:51→21:36)
--- NOTE | 2021-06-05 16:53 | Hospitalist Progress Note ---
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 Prior history of tricuspid valve fibroelastoma resection several years ago with history of tricuspid valve annuloplasty With very poor dentition and recent dental procedure 1 week prior to admission- likely source of bacteremia CT face and neck without evidence of abscess or infection Now on vancomycin and Rocephin. Brain MRI with no acute abnormalities Repeat CT chest without contrast showing no abnormal nodule or septic emboli Appreciate cardiology consult. Discussed with Dr. Sanchez and not recommending NEMO at this time but will empirically treat for infective endocarditis for 6 weeks of IV antibiotics Appreciate maxillofacial surgery consult and they will perform tooth extraction during this inpatient admission while on IV antibiotics under general anesthesia. Blood cultures are now negative. (2) Thrombocytopenia: Plan: Likely sepsis induced thrombocytopenia, have since ruled out ITP/TTP Now resolved. Monitor serial lab studies Appreciate hematology consultation (3) Hyponatremia: Plan: Acute 122 on arrival now improved up to 131 with volume resuscitation. Appeared to be hypovolemic hyponatremia on admission possibly secondary to torsemide use in setting of infective endocarditis Follow BMP Holding home torsemide (4) CHF (congestive heart failure): Plan: HFpEF - not an acute exacerbation at this time -Monitor intake and output. (5) Hypomagnesemia: Plan: Magnesium low at 1.6 on admission Replaced with IV magnesium sulfate Resolved (6) Paroxysmal atrial fibrillation: Plan: Currently NSR is on Coumadin - due to her radiation proctitis she has been on a regimen of low dose Coumadin and daily vitamin K 1mg - repeat INR daily (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- [facility] - ECHO with tricuspid mass unchanged from previous in size. Could be infected vegetation consistent with endocarditis. Appreciate cardiology consultation (8) Mitral regurgitation: Plan: Mitral prolapse listed in history. ECHOs performed noting mitral regurg- mild (9) Radiation cystitis: Plan: Chronic - follow (10) Radiation proctitis: Plan: Chronic as above (11) HTN (hypertension): Plan: Held atenolol on admission in setting of low normal BP on admission - follow hemodynamics with sepsis (12) Lumbar spinal stenosis: Plan: L4 decompression fracture chronic. Supportive care (13) Iron deficiency anemia: Plan: chronic - has had low ferritin and iron studies in the past requiring Venofer infusions in 2012 - She is also on B12 oral -Follows with hematology/oncology, Dr. Zamudio at [facility] (14) Hypothyroidism: Plan: TSH normal 2.9 in 02/2021 -Continue home levothyroxine Plan: VTE prophylaxis-Coumadin therapy. Disposition: To be determined. Probable SNF placement at dischargee Admission and Anticipated Discharge Date Admission Date: June 01, 2021 Subjective Somnolent but arousable and oriented. Daughter is at the bedside and lengthy discussion ensued. The patient has consented to PICC line placement for ongoing intravenous antibiotic therapy for suspected tricuspid valve endocarditis. The tricuspid valve mass seen on echo could however be recurrence of fibroelastoma that was removed several years ago. Appreciate maxillofacial surgery consultation. She will probably undergo fractured tooth extraction this admission under general anesthesia. She remains on Coumadin. INR was 2.0 at last check. Blood cultures done on June 01 are positive and blood cultures done June 02 are negative. Case discussed with cardiology. Intravenous antibiotics will be administered for 6 weeks. She has consented to PICC line placement. She currently is on Rocephin and vancomycin. Review of Systems Review of Systems: Constitutional-no fever or chills ENT-no blurred vision, no double vision, no epistaxis, no sore throat Respiratory-no cough, no wheezing, no shortness of breath Cardiac-no palpitations, no chest pain, no syncope GI-no nausea, vomiting, diarrhea, melena, hematochezia -no urinary retention, no urinary incontinence, no dysuria, no hematuria Musculoskeletal-no joint pain, no muscle tenderness Skin-no bruising, no rashes, no pruritus Neuro-no isolated weakness, no paresthesia. Generalized weakness Psych-no depression, no anxiety Physical Exam Physical Exam: General-somnolent but arousable. No fevers, no chills HEENT-head atraumatic and normocephalic, TMs intact bilaterally, pupils equal and reactive to light, extraocular muscles intact Neck-no lymphadenopathy or thyromegaly, trachea midline Chest-bilateral adventitious respiratory noise. No wheezing Cardiac-regular rate and rhythm, normal S1 and S2, no murmurs Abdomen-normal bowel sounds, nontender, no hepatosplenomegaly Extremities-no cyanosis, clubbing, or edema Neuro-cranial nerves II through XII intact, motor and sensory function within normal limits, strength symmetrical with generalized weakness, no focal deficits Psych-depressed affect Results & Data Results & Data ([facility]) Vital Signs (Past 12 Hours) Vital Signs Temp Pulse Resp BP Pulse Ox 06/05/21 15:16 36.8 C 94 H 16 130/77 94 06/05/21 11:12 36.7 C 87 18 118/70 94 06/05/21 07:22 36.8 C 97 H 18 142/82 H 98 Laboratory Results 06/05/21 07:38 06/05/21 07:38 PG Care Time/CCT Total # of Minutes Spent Total Time Spent with Patient: Total time spent is greater than 50% in coordination of care (as documented) at patient's floor/unit and/or counseling patient: Coding Level of Care Code 49451 Subseq Hosp Care Lvl 3 Diagnoses Septicemia A41.9 Thrombocytopenia D69.6 Hyponatremia E87.1 CHF (congestive heart failure) I50.9 Hypomagnesemia E83.42 Paroxysmal atrial fibrillation I48.0 Tricuspid valve mass I07.8 Mitral regurgitation I34.0 Radiation cystitis N30.40 Radiation proctitis K62.7 HTN (hypertension) I10 Lumbar spinal stenosis M48.061 Iron deficiency anemia D50.9 Hypothyroidism E03.9
--- NOTE | 2021-06-05 18:41 | Cardiology Progress Note ---
Date of Service June 05, 2021 Assessment & Plan (1) Septicemia: (2) Tricuspid valve mass: Plan: Patient with history of tricuspid valve repair, annuloplasty ring, removal of tricuspid valve papillary fibroelastoma (pathology report describing papillary fibroelastoma findings dated 03/19/2017 in the [facility] medical record. In 2018, on repeat surveillance transthoracic study she had been found to have a recurrent mobile tricuspid valve mass adherent to the septal aspect of the annuloplasty ring. At the time this was observed, blood cultures x2 were obtained within the [facility] system (08/24/2017, with no growth). Remains on Rocephin and vancomycin. Recommend empiric detention antibiotic therapy. Pt not an operative candidate for repeat TV surgical intervention. I discussed case with her primary farm general manager, Dr. Bosch by phone today. Since the initial diagnosis of the recurrent tricuspid valve mass in 2018, the patient has been followed by [facility] as well as being followed locally. She was turned down for repeat surgical intervention due to progressive overall decline in her health with thoughts that she was a poor surgical candidate. Admission and Anticipated Discharge Date Admission Date: June 01, 2021 Subjective Patient seen earlier today. Generalized weakness noted. Afebrile. Physical Exam Constitutional: + cachectic Respiratory: normal respiratory effort, lungs clear to auscultation Cardiovascular: RRR, no murmur, no edema Gastrointestinal (Abdomen): normal bowel sounds, soft, nontender, no hepatosplenomegaly Neurologic: Conversant, moves all 4 extremities on command Results & Data ([facility]) Vital Signs (Past 12 Hours) Vital Signs Temp Pulse Resp BP Pulse Ox 06/05/21 15:16 36.8 C 94 H 16 130/77 94 06/05/21 11:12 36.7 C 87 18 118/70 94 06/05/21 07:22 36.8 C 97 H 18 142/82 H 98
--- NOTE | 2021-06-05 18:51 | XRay Report ---
XR chest 1V portable HISTORY: 80 years-old Female PICC Line Placement status post placement of a left-sided PICC COMPARISON: Chest radiograph 06/01/2021, chest CT 06/02/2021 TECHNIQUE: Portable AP view of the chest FINDINGS: The cardiac silhouette is enlarged. Atherosclerosis of the thoracic aorta. A left-sided PICC is noted with distal tip projected over the superior cavoatrial junction. Increased size of the layering pleu ral effusions with bibasilar consolidation. No pneumothorax. Pulmonary vascular congestion with worse hank interstitial coarsening. Degenerative changes of the shoulders and spine. IMPRESSION: 1. Left-sided PICC distal tip projects over the superior cavoatrial junction. No pneumothorax. 2. Cardiomegaly with worsening pulmonary edema. 3. Increased size of the layering pleural effusions with progressive bibasilar consolidation. ACT 112: Negative or not required by law. The above report was generated using voice recognition software. It may contain grammatical, syntax o r spelling errors. Electronically signed by: Duane Cedeno M.D. 06/05/2021 6:50 PM
[2021-06-06 06:20] LABS: Mean Corpuscular Hemoglobin 31.6 pg (25-34); Mean Corpuscular Hgb Conc 34.5 g/dL (32-36); Mean Corpuscular Volume 91.8 fL (80-100); Mean Platelet Volume 10.7 fL (7.4-10.4); Nucleated RBC # (auto) 0.05 K/uL (0-0); Nucleated RBC % (auto) 0.2 %; Platelet Count 208 K/uL (130-400); RDW Coefficient of Variation 15.7 % (11.5-14.5); RDW Standard Deviation 51.8 fL (36.4-46.3); Red Blood Count 3.16 M/uL (4.2-5.4); White Blood Count 24.08 K/uL (4.8-10.8)
[2021-06-06] MEDS: LEVOTHYROXINE SODIUM 50 MCG TABLET PO SCH (06:22)
[2021-06-06 06:31] LABS: INR 1.7 (0.9-1.1); Prothrombin Time 16.2 Seconds (9.0-12.0)
[2021-06-06 06:44] LABS: BUN Creatinine Ratio 26.8 (10-20); Calcium 8.4 mg/dl (8.5-10.1); Creatinine Clr Calc Pharmacy 63.8 ml/min; Est GFR (African American) 100.6 ml/min; Est GFR (Non-African American) 86.8 ml/min; Potassium 4.3 mmol/L (3.5-5.1)
[2021-06-06 07:09] LABS: Basophils # (auto) 0.05 K/uL (0-0.2); Basophils % (auto) 0.2 %; Eosinophils # (auto) 0.11 K/uL (0-0.5); Eosinophils % (auto) 0.5 %; Immature Granulocytes # (auto) 0.82 K/uL (0.00-0.02); Immature Granulocytes % (auto) 3.4 %; Lymphocytes % (auto) 3.3 %; Monocytes # (auto) 2.04 K/uL (0.11-0.59); Monocytes % (auto) 8.5 %; Neutrophils # (auto) 20.26 K/uL (1.4-6.5); Neutrophils % (auto) 84.1 %
[2021-06-06 07:14] LABS: Hypochromasia Present; Target Cells 1+
[2021-06-06] MEDS: VANCOMYCIN HCL 1,500 MG in SODIUM CHLORIDE 0.9% 500 ML IV SCH (08:09)
[2021-06-06] MEDS: CHOLECALCIFEROL 1,000 UNITS 25 MCG TAB PO SCH (08:10)
[2021-06-06] MEDS: CYANOCOBALAMIN (B-12) 2,500 MCG TABLET SCH (08:10)
[2021-06-06] MEDS: CHLORHEXIDINE GLUCONATE 0.12% 480 ML MT SCH ×2 (08:10→22:19)
[2021-06-06] MEDS: MULTIVITAMIN TAB PO SCH (08:10)
[2021-06-06] MEDS: ADVANCED PROBIOTIC 1250 MG CAPSULE PO SCH (08:10)
[2021-06-06] MEDS: LIDOCAINE 5% 1 PATCH TD SCH (08:10)
[2021-06-06] MEDS: cefTRIAXone SODIUM 1,000 MG in DEXTROSE 5% 50 ML IV SCH ×2 (10:54→22:21)
--- NOTE | 2021-06-06 14:21 | Hospitalist Progress Note ---
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 Prior history of tricuspid valve fibroelastoma resection several years ago with history of tricuspid valve annuloplasty With very poor dentition and recent dental procedure 1 week prior to admission which is ikely source of bacteremia CT face and neck without evidence of abscess or infection Now on vancomycin and Rocephin. Brain MRI with no acute abnormalities Repeat CT chest without contrast showing no abnormal nodule or septic emboli Appreciate cardiology consult. Discussed with Dr. Sanchez and not recommending NEMO at this time but will empirically treat for infective endocarditis for 6 weeks of IV antibiotics Appreciate maxillofacial surgery consult and they will perform tooth extraction during this inpatient admission while on IV antibiotics under general anesthesia. Hopefully this can be done tomorrow, June 07 Blood cultures are now negative. (2) Thrombocytopenia: Plan: Likely sepsis induced thrombocytopenia, have since ruled out ITP/TTP Now resolved. Monitor serial lab studies Appreciate hematology consultation (3) Hyponatremia: Plan: Acute 122 on arrival now improved with volume resuscitation. Appeared to be hypovolemic hyponatremia on admission possibly secondary to torsemide use in setting of infective endocarditis Follow [facility] Holding home torsemide (4) CHF (congestive heart failure): Plan: HFpEF - not in acute exacerbation at this time -Monitor intake and output. (5) Hypomagnesemia: Plan: Magnesium low at 1.6 on admission Replaced with IV magnesium sulfate Resolved (6) Paroxysmal atrial fibrillation: Plan: Currently NSR is on Coumadin - due to her radiation proctitis she has been on a regimen of low dose Coumadin and daily vitamin K 1mg - repeat INR daily (7) 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- [facility] - ECHO with tricuspid mass unchanged from previous in size. Could be infected vegetation consistent with endocarditis or recurrent fibroelastoma. Appreciate cardiology consultation (8) Mitral regurgitation: Plan: Mitral prolapse listed in history. ECHOs performed noting mitral regurg- mild (9) Radiation cystitis: Plan: Chronic - follow (10) Radiation proctitis: Plan: Chronic as above (11) HTN (hypertension): Plan: Held atenolol on admission in setting of low normal BP on admission - follow hemodynamics with sepsis (12) Lumbar spinal stenosis: Plan: L4 decompression fracture chronic. Supportive care (13) Iron deficiency anemia: Plan: chronic - has had low ferritin and iron studies in the past requiring Venofer infusions in 2012 - She is also on B12 oral -Follows with hematology/oncology, Dr. Zamudio at [facility] (14) Hypothyroidism: Plan: TSH normal 2.9 in 02/2021 -Continue home levothyroxine Plan: VTE prophylaxis-Coumadin therapy. Disposition: To be determined. Probable SNF placement at discharge with 6 weeks IV antibiotic therapy Admission and Anticipated Discharge Date Admission Date: June 01, 2021 Subjective Alert but weak and she seems to be depressed. I spoke with her daughter, Dodie, by phone and gave her an update. Dr. Suarez will hopefully be able to perform tooth extraction tomorrow under general anesthesia, June 07. Blood cultures from June 02 remain negative. INR today, June 06, is 1.7. Left upper arm PICC line was placed June 05. She remains on Rocephin and vancomycin. Review of Systems Review of Systems: Constitutional-no fever or chills ENT-no blurred vision, no double vision, no epistaxis, no sore throat Respiratory-no cough, no wheezing, no shortness of breath Cardiac-no palpitations, no chest pain, no syncope GI-no nausea, vomiting, diarrhea, melena, hematochezia -no urinary retention, no urinary incontinence, no dysuria, no hematuria Musculoskeletal-no joint pain, no muscle tenderness Skin-no bruising, no rashes, no pruritus Neuro-no isolated weakness, no paresthesia, no weakness Psych-appears depressed Physical Exam Physical Exam: General-alert and oriented x3, no fevers, no chills HEENT-head atraumatic and normocephalic, TMs intact bilaterally, pupils equal and reactive to light, extraocular muscles intact Neck-no lymphadenopathy or thyromegaly, trachea midline Chest-clear to auscultation percussion. No rales wheezing or rhonchi Cardiac-regular rate and rhythm, normal S1 and S2, no murmurs Abdomen-normal bowel sounds, nontender, no hepatosplenomegaly Extremities-no cyanosis, clubbing, or edema Neuro-cranial nerves II through XII intact, motor and sensory function within normal limits, strength symmetrical, generalized weakness, no focal deficits Psych-appears to be depressed Results & Data Results & Data ([facility]) Vital Signs (Past 12 Hours) Vital Signs Temp Pulse Resp BP Pulse Ox 06/06/21 11:00 36.4 C L 95 H 18 129/74 97 06/06/21 07:00 36.7 C 94 H 19 128/71 95 06/06/21 02:45 36.6 C 101 H 18 120/68 93 Laboratory Results 06/06/21 06:04 06/06/21 06:04 PG Care Time/CCT Total # of Minutes Spent Total Time Spent with Patient: Total time spent is greater than 50% in coordination of care (as documented) at patient's floor/unit and/or counseling patient: Coding Level of Care Code 31755 Subseq Hosp Care Lvl 3 Diagnoses Septicemia A41.9 Thrombocytopenia D69.6 Hyponatremia E87.1 CHF (congestive heart failure) I50.9 Hypomagnesemia E83.42 Paroxysmal atrial fibrillation I48.0 Tricuspid valve mass I07.8 Mitral regurgitation I34.0 Radiation cystitis N30.40 Radiation proctitis K62.7 HTN (hypertension) I10 Lumbar spinal stenosis M48.061 Iron deficiency anemia D50.9 Hypothyroidism E03.9
[2021-06-06] MEDS ORDERED: PHYTONADIONE 10 MG in DEXTROSE 5% 50 ML IV STA (15:07)
--- NOTE | 2021-06-06 15:20 | Cardiology Progress Note ---
Date of Service June 06, 2021 Assessment & Plan (1) Septicemia: (2) Tricuspid valve mass: Plan: Remains on Rocephin and vancomycin. Recommend empiric shelter antibiotic therapy. Pt not an operative candidate for repeat TV surgical intervention. Admission and Anticipated Discharge Date Admission Date: June 01, 2021 Subjective Resting comfortably at the time of my assessment this morning. Ill in appearance Physical Exam Constitutional: + ill appearing and + cachectic Respiratory: normal respiratory effort, lungs clear to auscultation Cardiovascular: RRR, no murmur, no edema Rate/Rhythm: regular rate and regular rhythm Heart Sounds: no murmur Extremities: no edema Gastrointestinal (Abdomen): normal bowel sounds, soft, nontender, no hepatosplenomegaly Results & Data ([facility]) Vital Signs (Past 12 Hours) Vital Signs Temp Pulse Resp BP Pulse Ox 06/06/21 11:00 36.4 C L 95 H 18 129/74 97 06/06/21 07:00 36.7 C 94 H 19 128/71 95
[2021-06-06] MEDS: THIAMINE HCL 100 MG TAB PO SCH (16:01)
[2021-06-06] MEDS ORDERED: METOPROLOL TARTRATE 1 MG/ML VIAL IV STA (16:58)
[2021-06-06] MEDS ORDERED: METOPROLOL TARTRATE 1 MG/ML VIAL IV ONE (17:02)
--- NOTE | 2021-06-06 19:24 | Oral/Maxillofacial Progress Nt ---
Date of Service June 06, 2021 Assessment & Plan (1) Abscess of pulp of tooth: Admission and Anticipated Discharge Date Admission Date: June 01, 2021 Subjective I was able to get her recent dental x rays and treatment plan from her dentist. Tooth # 15 and # 16 are extensively carious with a necrotic nerve. Based on the dental X Rays extraction of these 2 teeth is medically necessary EMILIA. I reviewed the case with Dr Anand--Mrs. Flores is now medically stable for the GA and extraction of these 2 very difficult teeth. We will need to adjust the INR to 1.5 or lower to prevent a post op bleed. I will have her NPO tonight and set up the procedures in the OR tomorrow --- time TBD by OR in the AM. I discussed the case with her daughter and the family and Dr Anand are all in agreement that the extraction need to be done to prevent another bacterial infection. Consent to be signed before the surgery. Results & Data ([facility]) Vital Signs (Past 12 Hours) Vital Signs Temp Pulse Pulse Pulse Resp BP BP 06/06/21 17:04 111 H 134/85 06/06/21 16:33 36.8 C 177 H 20 136/89 06/06/21 16:25 36.6 C 72 20 06/06/21 16:06 36.6 C 125 H 18 06/06/21 16:00 36.5 C 99 H 106 H 20 137/88 06/06/21 11:00 36.4 C L 95 H 18 BP Pulse Ox 06/06/21 17:04 06/06/21 16:33 94 06/06/21 16:25 123/73 95 06/06/21 16:06 153/90 H 95 06/06/21 16:00 06/06/21 11:00 129/74 97 PG Care Time/CCT Total # of Minutes Spent Total Time Spent with Patient: Total time spent is greater than 50% in coordination of care (as documented) at patient's floor/unit and/or counseling patient: Coding Level of Care Code None Diagnoses Abscess of pulp of tooth K04.01
[2021-06-07] MEDS: ACETAMINOPHEN 325 MG TAB PO PRN ×3 (00:14→18:36)
[2021-06-07] MEDS: LEVOTHYROXINE SODIUM 50 MCG TABLET PO SCH (05:35)
[2021-06-07 07:25] LABS: Mean Corpuscular Hgb Conc 34.1 g/dL (32-36); Mean Platelet Volume 10.5 fL (7.4-10.4); Nucleated RBC % (auto) 0.5 %; Platelet Count 225 K/uL (130-400)
[2021-06-07 07:45] LABS: INR 1.2 (0.9-1.1); Prothrombin Time 11.8 Seconds (9.0-12.0)
[2021-06-07 07:54] LABS: BUN Creatinine Ratio 31.5 (10-20); Calcium 8.2 mg/dl (8.5-10.1); Creatinine Clr Calc Pharmacy 65.9 ml/min; Est GFR (African American) 101.9 ml/min; Est GFR (Non-African American) 87.9 ml/min; Potassium 4.1 mmol/L (3.5-5.1)
[2021-06-07 08:00] LABS: ALC (manual) 1.07 K/uL (1.2-3.4); ANC (manual) 18.09 K/uL (1.4-6.5); Acanthocytes 1+; Basophils # (manual) 0.18 K/uL (0-0.2); Basophils % (manual) 0.9 %; Eosinophils # (manual) 0.18 K/uL (0-0.5); Eosinophils % (manual) 0.9 %; Hematocrit (blood only) 27.6 % (37-47); Hemoglobin 9.4 g/dL (12.0-16.0); Howell-Jolly Bodies 1+; Hypochromasia Present; Lymphocytes # (manual) 1.07 K/uL (1.2-3.4); Lymphocytes % (manual) 5.3 %; Mean Corpuscular Hemoglobin 31.4 pg (25-34); Mean Corpuscular Volume 92.3 fL (80-100); Monocytes # (manual) 0.36 K/uL (0.11-0.59); Monocytes % (manual) 1.8 %; Myelocytes # (manual) 0.36 K/uL (0-0); Myelocytes % (manual) 1.8 %; Neutrophils # (manual) 18.09 K/uL (1.4-6.5); Neutrophils % (manual) 89.3 %; Polychromasia 1+; RDW Coefficient of Variation 15.9 % (11.5-14.5); RDW Standard Deviation 52.6 fL (36.4-46.3); Red Blood Count 2.99 M/uL (4.2-5.4); Target Cells 1+; Toxic Granulation 1+; White Blood Count 20.26 K/uL (4.8-10.8)
[2021-06-07] MEDS: VANCOMYCIN HCL 1,500 MG in SODIUM CHLORIDE 0.9% 500 ML IV SCH (08:13)
[2021-06-07] MEDS: CYANOCOBALAMIN (B-12) 2,500 MCG TABLET SCH ×2 (08:29→08:46)
[2021-06-07] MEDS: THIAMINE HCL 100 MG TAB PO SCH ×2 (08:29→08:46)
[2021-06-07] MEDS: CHOLECALCIFEROL 1,000 UNITS 25 MCG TAB PO SCH ×2 (08:29→08:46)
[2021-06-07] MEDS: ADVANCED PROBIOTIC 1250 MG CAPSULE PO SCH ×2 (08:30→08:46)
[2021-06-07] MEDS: LIDOCAINE 5% 1 PATCH TD SCH (08:30)
[2021-06-07] MEDS: MULTIVITAMIN TAB PO SCH ×2 (08:30→08:46)
[2021-06-07] MEDS: CHLORHEXIDINE GLUCONATE 0.12% 480 ML MT SCH ×2 (08:40→20:32)
[2021-06-07] MEDS ORDERED: LIDOCAINE/EPINEPHRINE 1.7 ML CTR ONE (09:35)
[2021-06-07] MEDS ORDERED: KETAMINE 50 MG/5 ML SYRINGE ONE (09:37)
--- NOTE | 2021-06-07 09:43 | Anesthesiology Consultation ---
Date of Service June 07, 2021 Assessment & Plan (1) Encounter for pre-operative examination: Chart Review Chart Review: Acceptable Risk for Surgery and Patient NOT seen in Pre Admission Testing covid neg 06/01/21 Consults Requested none History Surgery Operation Date: 06/07/21 11:15 Proposed Procedures p Incision and Drainage, Removal of Teeth 15 and 16 - Heath Suarez, DMD Height/Weight Height: 5 ft Weight: 61.6 kg Allergies Allergy/AdvReac Type Severity Reaction Status Date / Time gluten Allergy Unknown unknown Verified 06/01/21 07:36 Iodinated Contrast Media Allergy Unknown RASH TO Verified 06/01/21 07:36 "CT SCAN DYE" Cipro AdvReac Intermediate GI UPSET Verified 09/10/17 06:43 ciprofloxacin AdvReac Intermediate GI UPSET Verified 06/01/21 07:36 Medications Home Medications Medication Instructions Recorded Confirmed Last Taken coenzyme Q10 100 mg capsule 100 mg PO QAM 11/19/18 06/01/21 02/15/21 Lactobacillus 1 cap PO QAM cap 01/15/19 06/01/21 02/15/21 acidophilus-Bifidobac.animalis 31 billion cell capsule multivitamin (Multiple Vitamins) 2 tab PO QAM tab 01/15/19 06/01/21 02/15/21 warfarin 2.5 mg tablet 2.5 mg PO UD tab 01/19/20 06/01/21 02/15/21 cholecalciferol (vitamin D3) 4,000 unit PO QAM ml 02/26/20 06/01/21 02/15/21 zinc sulfate 50 mg zinc (220 mg) 50 mg PO WK cap 09/01/20 06/01/21 02/15/21 capsule torsemide 20 mg tablet 10 - 20 mg PO QAM tab 11/17/20 06/01/21 02/15/21 cyanocobalamin (vitamin B-12) 2,500 mcg PO QAM 02/10/21 06/01/21 02/15/21 2,500 mcg chewable tablet levothyroxine 50 mcg tablet 50 mcg PO QAM #60 tab 02/13/21 06/01/21 02/16/21 06:20 atenolol 25 mg tablet See Rx Instructions .ROUTE 03/27/21 06/01/21 Unknown .COMPLEX #90 tablet iodine 150 mcg tablet 0 mcg PO DAILY 06/01/21 06/01/21 Unknown phytonadione (vitamin K1) 1 mg/0.5 0 mg PO DAILY 06/01/21 06/01/21 Unknown mL injection solution (vitamin K) Active Medications Generic Name Dose Route Start Last Admin Trade Name Freq PRN Reason Stop Dose Admin Acetaminophen 650 mg 06/01/21 14:14 06/07/21 09:10 Acetaminophen 325 Mg Tab PO 07/01/21 14:13 650 mg Q4H PRN Administration Pain or Fever Chlorhexidine Gluconate 15 ml 06/02/21 11:15 06/07/21 08:40 Chlorhexidine Gluconate 0.12% 480 Ml MT 07/02/21 11:14 Not Given BID [facility]MER Cyanocobalamin 2,500 mcg 06/03/21 10:00 06/07/21 08:46 Cyanocobalamin (Vitamin B-12) 2,500 Mcg Tab.Subl NA 07/03/21 09:59 Not Give n QAM [facility] Heparin Sodium (Beef Lung) 5 ml 06/05/21 19:23 06/06/21 22:55 Heparin 10 Unit/Ml 5 Ml Flush FLUSH 07/05/21 19:22 5 ml PRN PRN Administration Flush Ceftriaxone Sodium 1,000 mg/ 50 mls @ 100 mls/hr 06/03/21 10:00 06/06/21 22:55 Dextrose IV 06/16/21 17:59 Infused Q12H [facility] Infusion Protocol Vancomycin HCl 1,500 mg/ 530 mls @ 200 mls/hr 06/05/21 08:00 06/07/21 08:13 Sodium Chloride IV 06/16/21 07:59 200 mls/hr Q24H [facility] Administration Lactobacillus Acidophilus 2 cap 06/03/21 09:15 06/07/21 08:46 Advanced Probiotic 1250 Mg Capsule PO 07/03/21 09:14 Not Given DAILY [facility] Levothyroxine Sodium 50 mcg 06/02/21 06:30 06/07/21 05:35 Levothyroxine Sodium 50 Mcg Tablet PO 07/02/21 06:29 50 mcg DAILYBB [facility] Administration Lidocaine 1 patch 06/04/21 16:45 06/07/21 08:30 Lidocaine 5% 1 Patch TD 07/04/21 16:44 Not Given QAM [facility] Miscellaneous 1 ea 06/04/21 21:00 06/06/21 22:19 Remove Lidoderm Patch N/A 07/04/21 20:59 1 ea DAILY@2100 [facility] Administration Multivitamins 1 tab 06/03/21 10:00 06/07/21 08:46 Multivitamin Tab PO 07/03/21 09:59 Not Given QAM [facility] Thiamine HCl 100 mg 06/06/21 14:15 06/07/21 08:46 Thiamine Hcl 100 Mg Tab PO 07/06/21 14:14 Not Given QAM [facility] Vitamin D 4,000 units 06/03/21 10:00 06/07/21 08:46 Cholecalciferol 1,000 Units 25 Mcg Tab PO 07/03/21 09:59 Not Given QAM SUMMER Past Medical History Medical History Anxiety Bacteremia H/O pericarditis (~2007) Hepatic cyst HTN (hypertension) Hx of basal cell carcinoma Hyperlipidemia LDL goal <100 Hypothyroidism Iron deficiency anemia due to chronic blood loss iron infusions currently Lipodermatosclerosis Lumbar spinal stenosis Mild cognitive impairment with memory loss Alert and oriented x3 Mitral valve prolapse syndrome Osteoporosis, unspecified Paroxysmal atrial fibrillation family unaware, denies cardioversion. Follows with Dr Bosch. 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 [facility] Weight loss Past Family History Family History Mother Cancer Colorectal cancer Father Heart disease Stroke Denies family history of Ovarian cancer Prostate cancer Myocardial infarction Breast cancer Past Surgical History Surgical History H/O basal cell carcinoma excision MOHS H/O cardiac catheterization family denies (denies any stents) H/O splenectomy r/t a large attached cyst H/O squamous cell carcinoma excision removed at the anus History of back surgery lumbar area History of colonoscopy History of open heart surgery (~2016) removal of tricupsid valve mass (S) S/P cholecystectomy S/P splenectomy Social History Smoking Status: Never smoker Hx Alcohol Use: No Hx Substance Use: No Physical Exam Vital Signs Last Vital Signs Temp 36.7 C 06/07/21 07:42 Pulse 90 06/07/21 07:42 Resp 18 06/07/21 07:42 BP 137/76 06/07/21 07:42 Pulse Ox 92 06/07/21 07:42 Testing Laboratory Results 06/07/21 06:42 06/07/21 06:42 PT 11.8 Seconds (9.0-12.0) 06/07/21 06:42 INR 1.2 (0.9-1.1) H 06/07/21 06:42 APTT 38.2 Seconds (21.0-31.0) H 06/01/21 05:38 Urine Color Yellow 06/01/21 Unknown Urine Appearance Clear (Clear) 06/01/21 Unknown Urine pH 5.5 (4.5-7.5) 06/01/21 Unknown Ur Specific [place] 1.012 (1.000-1.030) 06/01/21 Unknown Urine Protein 1+ (Negative) H 06/01/21 Unknown Urine Glucose (UA) Negative (Negative) 06/01/21 Unknown Urine Ketones Negative (Negative) 06/01/21 Unknown Urine Nitrite Negative (Negative) 06/01/21 Unknown Ur Leukocyte Esterase Negative (Negative) 06/01/21 Unknown Urine WBC (Auto) 1-5 /hpf (0-5) 06/01/21 Unknown Urine RBC (Auto) 5-10 /hpf (0-4) H 06/01/21 Unknown U Hyaline Cast (Auto) 1-5 /lpf (0-5) 06/01/21 Unknown U Epithel Cells (Auto) 10-20 /lpf (0-5) H 06/01/21 Unknown Urine Bacteria (Auto) Negative (Negative) 06/01/21 Unknown Blood Type A Positive 06/01/21 14:18 Antibody Screen NEGATIVE 06/01/21 14:18 06/02/21 05:51 Aerobic Blood Culture - Final Blood No growth in Aerobic bottle after 5 days. Anaerobic Blood Culture - Final No growth in Anaerobic bottle after 5 days. 06/02/21 05:59 Aerobic Blood Culture - Final Blood No growth in Aerobic bottle after 5 days. Anaerobic Blood Culture - Final No growth in Anaerobic bottle after 5 days. 06/01/21 05:38 Aerobic Blood Culture - Final Blood Group B Beta Strep Anaerobic Blood Culture - Final Group B Beta Strep 06/01/21 05:38 Aerobic Blood Culture - Final Blood Group B Beta Strep Anaerobic Blood Culture - Final Group B Beta Strep 06/01/21 12:51 Urine Culture - Final Urine,Clean Catch No growth - less than 1,000 colonies/mL. 06/01/21 Unknown Urine Culture - Final Urine,Clean Catch No growth - less than 1,000 colonies/mL. Electrocardiogram Date: 06/06/21 HR 101. Sinus tachycardia with Premature atrial complexes Low voltage QRS Nonspecific T wave abnormality Abnormal ECG When compared with ECG of 01-JUN-2021 05:38, Premature atrial complexes are now Present Nonspecific T wave abnormality now evident in Inferior leads Nonspecific T wave abnormality, worse in Anterolateral leads Chest X-Ray Date: 06/01/21 XR chest 1V portable HISTORY: 80 years-old Female PICC Line Placement status post placement of a left-sided PICC COMPARISON: Chest radiograph 06/01/2021, chest CT 06/02/2021 TECHNIQUE: Portable AP view of the chest FINDINGS: The cardiac silhouette is enlarged. Atherosclerosis of the thoracic aorta. A left-sided PICC is noted with distal tip projected over the superior cavoatrial junction. Increased size of the layering pleural effusions with bibasilar consolidation. No pneumothorax. Pulmonary vascular congestion with worsening interstitial coarsening. Degenerative changes of the shoulders and spine. IMPRESSION: 1. Left-sided PICC distal tip projects over the superior cavoatrial junction. No pneumothorax. 2. Cardiomegaly with worsening pulmonary edema. 3. Increased size of the layering pleural effusions with progressive bibasilar consolidation. Echocardiogram Date: 06/01/21 Normal LV systolic function and size. EF 60-65%. No RWMA. No LVH. SEVERE RIGHT ATRIAL DILATION. LARGE (2.2 X 1/4CM) HIGHLY MOBILE MASS INVOLVING TRICUSPID VALVE VS ANNULOPLASTY RING, WHICH OSCILLATES BETWEEN RIGHT ATRIUM AND VENTRICLE. Severe Tricuspid valve stenosis. Tricuspid valve annuloplasty ring. Normal RV systolic pressures Very small pericardial effusion. When compared to echo from 07/12/20, transvalvular tricuspid gradient has increased from 8.2 to 12.[address] chest diagnostic wo con CLINICAL HISTORY: lung nodule,endocarditis TECHNIQUE: Multidetector row helical CT of the chest was performed. Coronal and sagittal reformations were obtained. Automated dose lowering techniques and/or adjustment according to patient size were utilized for this exam. Comparison: Comparison is made to CT chest 06/25/2014 FINDINGS: Lungs and pleura: Moderate bilateral pleural effusions are seen with underlying atelectasis. No suspicious pulmonary nodules are seen. Heart and pericardium: There is cardiomegaly without evidence of pericardial effusion. Vessels: The ascending aorta is dilated measuring 47 mm. Mediastinum and ekaterina: Unremarkable. Chest wall and lower neck: Unremarkable. Abdomen: Unremarkable. Bones: Unremarkable. IMPRESSION: 1. Bilateral pleural effusions with underlying atelectasis. No evidence of abnormal nodule or septic embolus in this patient with history of endocarditis. 2. Cardiomegaly is seen. Ascending aortic aneurysm is unchanged.
[2021-06-07] MEDS ORDERED: DexMEDEtomidine HCL IV 100 MCG/ML VIAL ONE (09:47)
--- NOTE | 2021-06-07 10:38 | History & Physical Bridge Note ---
Date of Service June 07, 2021 History & Physical Bridge Note I have examined the patient, reviewed the History & Physical and in the interval since the performance of the History & Physical I have noted the following changes of clinical significance: no changes noted. we will plan surg ext of # 15 an d16 with sedation and local Reviewed with anesthesia OK for procedure
[2021-06-07] MEDS ORDERED: ESMOLOL HCL INJ 10 MG/ML 10ML VIAL IV ONE (10:50)
[2021-06-07] MEDS ORDERED: BUPIVACAINE/EPINEPHRINE 0.5% 1:200,000 1.8 ML CARP ONE (10:59)
[2021-06-07] MEDS: cefTRIAXone SODIUM 1,000 MG in DEXTROSE 5% 50 ML IV SCH (11:19)
--- NOTE | 2021-06-07 11:31 | Operative Report ---
PG Post Operative Report Pre & Post Diagnosis Operation Date: 06/07/21 11:15 Pre-Op Diagnosis: Abscess of pulp of tooth Post-Op Diagnosis: Abscess of pulp of tooth I identified the patient and participated in the time-out.: Yes Procedure Operation Date: 06/07/21 11:15 Actual Procedures p Incision and Drainage, Removal of Teeth 15 and 16 - Heath Suarez, MAXWELL Surgeon Heath Suarez, MAXWELL Mercerizer none Estimated Blood Loss 0 Findings Consistent with Post-Op Diagnosis grossly infected teeth # 16 and 15 Specimens none Drains none Anesthesia Type MAC Complications none Indications infected teeth Description of Procedure Pre-op= infected teeth # 15,16 Once cleared for surgery and IV sedation anesthesia was achieved, the eyes were covered from the light. A time out was take for patient ID, antibiotics, equipment and position verification once all agreed the procedure began. Local anesthesia infiltration was was given using 3% Carbocaine 1 ml + Articaine 4% 1.8 and at the end of the case Marcaine with a vasoconstrictor ( 1 ml ). A throat pack was placed after the oral cavity was irrigated with saline. Once IV sedation anesthesia was obtained and the local anesthesia was given time for the blocks the surgery was started. I turned my attention to the upper left teeth15 and 16 Upper carious and infected teeth# 15 and 16 An Incision was made over the tuberosity. The full thickness flap was reflected, bone removed with a rongeur and dental drill, the tooth was visualized, it was close to the sinus and grossly decayed. The palatal root was necrotic with infected gingival tissue.Using forceps and elevators # 16 was removed, the more difficult # 15 required root section and removal. The Bony margins were trimmed, smoothed. Surgical packing was placed after the area was curetted and irrigated. Then sutured closed with a 2-0 chromic . There was no sinus involvement. When all the teeth were removed I inspected the sites to insure all bleeding was controlled. I removed the throat pack and suctioned the throat. A left gauze pressure dressings was placed. All instrument and sponge count was correct. the patient was allowed to awake from the anesthesia. Once full awake the anesthesia tube was removed and the patient was taken to the recovery room with all vital sign stable. The patient tolerated the surgery very well. I will follow if needed. Post op instructions will be given upon discharge. I called was placed to her daughter I attest to the content of the Intraoperative Record and any orders documented therein. Any exceptions are noted below.
[2021-06-07] MEDS ORDERED: MEPIVACAINE ONE (11:45)
[2021-06-07] MEDS ORDERED: [UNRECOGNIZED DRUG - MIXTURE] ONE (11:50)
--- NOTE | 2021-06-07 12:30 | Anesthesiology Progress Note ---
Date of Service June 07, 2021 Anesthesia Post Procedure Vital Signs Vital Signs: Temp Pulse Pulse Pulse Pulse Resp BP 06/07/21 12:25 37.2 C 87 18 06/07/21 12:15 89 18 06/07/21 12:05 86 20 06/07/21 11:55 84 18 06/07/21 11:45 84 18 06/07/21 11:35 84 18 06/07/21 11:25 87 18 06/07/21 11:14 37 C 84 20 06/07/21 09:59 36.5 C 89 20 06/07/21 08:00 85 06/07/21 07:42 36.7 C 90 18 06/07/21 04:45 36.6 C 90 20 06/06/21 23:48 36.8 C 98 H 18 06/06/21 19:00 36.8 C 66 18 06/06/21 17:04 111 H 134/85 06/06/21 16:33 36.8 C 177 H 20 06/06/21 16:25 36.6 C 72 20 06/06/21 16:06 36.6 C 125 H 18 06/06/21 16:00 36.5 C 99 H 106 H 20 BP BP Pulse Ox 06/07/21 12:25 116/66 95 06/07/21 12:15 123/68 94 06/07/21 12:05 133/72 92 06/07/21 11:55 127/93 94 06/07/21 11:45 129/79 94 06/07/21 11:35 136/79 95 06/07/21 11:25 128/81 95 06/07/21 11:14 128/81 93 06/07/21 09:59 121/81 96 06/07/21 08:00 06/07/21 07:42 137/76 92 06/07/21 04:45 110/74 94 06/06/21 23:48 137/63 91 06/06/21 19:00 141/74 H 97 06/06/21 17:04 06/06/21 16:33 136/89 94 06/06/21 16:25 123/73 95 06/06/21 16:06 153/90 H 95 06/06/21 16:00 137/88 Pain Intensity Posterior Neck: Pain Intensity: 8 Transfer of Care Handoff Completed per policy Notes Mental Status: alert / awake / arousable and participated in evaluation Patient Amnestic to Procedure: Yes Nausea / Vomiting: adequately controlled Pain: improving with treatment Airway Patency, RR, SpO2: stable & adequate BP & HR: stable & adequate Hydration State: stable & adequate Anesthetic Complications: no major complications apparent and Pt Satisfied with anesthetic care
[2021-06-07] MEDS ORDERED: cefTRIAXone SODIUM 2,000 MG in DEXTROSE 5% 50 ML IV SCH ×2 (13:36→14:00)
--- NOTE | 2021-06-07 13:56 | Hospitalist Progress Note ---
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 Group B strep isolated in blood cultures. Prior history of tricuspid valve fibroelastoma resection several years ago with history of tricuspid valve annuloplasty With very poor dentition and recent dental procedure 1 week prior to admission which is ikely source of bacteremia CT face and neck without evidence of abscess or infection Treated with vancomycin and Rocephin. Case discussed with infectious disease today, June 07. We will proceed with Rocephin alone 2 g IV daily for the next 6 weeks. Vancomycin discontinued Brain MRI with no acute abnormalities Repeat CT chest without contrast showing no abnormal nodule or septic emboli Appreciate cardiology consult. Discussed with Dr. Sanchez and not recommending NEMO at this time but will empirically treat for infective endocarditis for 6 weeks of IV antibiotics Appreciate maxillofacial surgery consult and they have performed left maxillary tooth extraction today, June 07. Blood cultures are now negative. (2) Thrombocytopenia: Plan: Likely sepsis induced thrombocytopenia, have since ruled out ITP/TTP Now resolved. Monitor serial lab studies Appreciate hematology consultation (3) Hyponatremia: Plan: Acute 122 on arrival now improved with volume resuscitation. Appeared to be hypovolemic hyponatremia on admission possibly secondary to torsemide use in se tting of infective endocarditis Follow BMP Held home torsemide on admission. Will restart (4) CHF (congestive heart failure): Plan: HFpEF - not in acute exacerbation at this time -Monitor intake and output. Restart diuretic today, June 07 (5) Hypomagnesemia: Plan: Magnesium low on admission Replaced with IV magnesium sulfate Resolved (6) Paroxysmal atrial fibrillation: Plan: Currently NSR . Takes Coumadin chronically - due to her radiation proctitis she has been on a regimen of low dose Coumadin. 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 Could be infected vegetation consistent with endocarditis but recurrent fibroelastoma is more lik forest Appreciate cardiology consultation (8) Mitral regurgitation: Plan: Mitral prolapse listed in history. 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 Restarted (12) Lumbar spinal stenosis: Plan: L4 decompression fracture chronic. Supportive care (13) Iron deficiency anemia: Plan: chronic - has had low ferritin and iron studies in the past requiring Venofer infusions in 2012 - She is also on B12 oral -Follows with hematology/oncology, Dr. Zamudio at [facility] (14) Hypothyroidism: Plan: TSH normal 2.9 in 02/2021 -Continue home levothyroxine Plan: VTE prophylaxis-Coumadin therapy. Disposition: SNF placement at discharge with 6 weeks IV antibiotic therapy ( Rocephin 2 gm IV daily for 6 weeks) Admission and Anticipated Discharge Date Admission Date: June 01, 2021 Subjective The patient was seen postoperatively after extraction of fractured tooth in the left maxillary area. Coumadin was reversed with vitamin K and INR was 1.2 this morning. Coumadin will be restarted this evening. Case discussed with Rossana cardozo infectious disease. She will be treated with Rocephin 2 g IV daily for the next 6 weeks. Vancomycin discontinued. She is medically stable for discharge to SNF facility tomorrow or Saturday whenever arrangements are finalized Review of Systems Review of Systems: Constitutional-no fever or chills ENT-no blurred vision, no double vision, no epistaxis, no sore throat Respiratory-no cough, no wheezing, no shortness of breath Cardiac-no palpitations, no chest pain, no syncope GI-no nausea, vomiting, diarrhea, melena, hematochezia -no urinary retention, no urinary incontinence, no dysuria, no hematuria Musculoskeletal-no joint pain, no muscle tenderness Skin-no bruising, no rashes, no pruritus Neuro-no isolated weakness, no paresthesia, no weakness Psych-no depression, no anxiety Physical Exam Physical Exam: General-alert and oriented x3, no fevers, no chills HEENT-head atraumatic and normocephalic, TMs intact bilaterally, pupils equal and reactive to light, extraocular muscles intact. Dental extraction left maxillary area with packing Neck-no lymphadenopathy or thyromegaly, trachea midline Chest-clear to auscultation percussion. No rales wheezing or rhonchi Cardiac-regular rate and rhythm, normal S1 and S2, no murmurs Abdomen-normal bowel sounds, nontender, no hepatosplenomegaly Extremities-no cyanosis, clubbing, or edema Neuro-cranial nerves II through XII intact, motor and sensory function within normal limits, strength symmetrical with generalized weakness, no focal deficits Psych-normal affect, normal mood Results & Data Results & Data ([facility]) Vital Signs (Past 12 Hours) Vital Signs Temp Pulse Pulse Pulse Pulse Resp BP 06/07/21 13:12 36.4 C L 113 H 18 06/07/21 13:00 36.5 C 106 H 18 06/07/21 12:45 36.4 C L 111 H 18 06/07/21 12:25 37.2 C 87 18 06/07/21 12:15 89 18 06/07/21 12:05 86 20 06/07/21 11:55 84 18 06/07/21 11:45 84 18 06/07/21 11:35 84 18 06/07/21 11:25 87 18 06/07/21 11:14 37 C 84 20 06/07/21 09:59 36.5 C 89 20 121/81 06/07/21 08:00 85 06/07/21 07:42 36.7 C 90 18 137/76 06/07/21 04:45 36.6 C 90 20 BP Pulse Ox 06/07/21 13:12 124/79 95 06/07/21 13:00 121/81 94 06/07/21 12:45 131/80 94 06/07/21 12:25 116/66 95 06/07/21 12:15 123/68 94 06/07/21 12:05 133/72 92 06/07/21 11:55 127/93 94 06/07/21 11:45 129/79 94 06/07/21 11:35 136/79 95 06/07/21 11:25 128/81 95 06/07/21 11:14 128/81 93 06/07/21 09:59 96 06/07/21 08:00 06/07/21 07:42 92 06/07/21 04:45 110/74 94 Laboratory Results 06/07/21 06:42 06/07/21 06:42 PG Care Time/CCT Total # of Minutes Spent Total Time Spent with Patient: Total time spent is greater than 50% in coordination of care (as documented) at patient's floor/unit and/or counseling patient: Coding Level of Care Code 29301 Subseq Hosp Care Lvl 3 Diagnoses Septicemia A41.9 Thrombocytopenia D69.6 Hyponatremia E87.1 CHF (congestive heart failure) I50.9 Hypomagnesemia E83.42 Paroxysmal atrial fibrillation I48.0 Tricuspid valve mass I07.8 Mitral regurgitation I34.0 Radiation cystitis N30.40 Radiation proctitis K62.7 HTN (hypertension) I10 Lumbar spinal stenosis M48.061 Iron deficiency anemia D50.9 Hypothyroidism E03.9
--- NOTE | 2021-06-07 13:58 | Electrocardiogram Report ---
Test Reason : Blood Pressure : / mmHG Vent. Rate : 101 BPM Atrial Rate : 101 BPM P-R Int : 200 ms QRS Dur : 072 ms QT Int : 308 ms P-R-T Axes : 063 025 155 degrees QTc Int : 399 ms Sinus tachycardia with Premature atrial complexes Low voltage QRS Nonspecific T wave abnormality Abnormal ECG When compared with ECG of 01-JUN-2021 05:38, Premature atrial complexes are now Present Nonspecific T wave abnormality now evident in Inferior leads Nonspecific T wave abnormality, worse in Anterolateral leads Confirmed by Gurjit Hyman ([id number]) on 06/07/2021 1:58:24 PM Referred By: REFERRED SELF Confirmed By:Gurjit Hyman
[2021-06-07] MEDS ORDERED: ATENOLOL 25 MG TABLET PO SCH (14:15)
[2021-06-07] MEDS ORDERED: AMIODARONE / D5W 150 MG/100 ML BAG IV STA (15:10)
[2021-06-07] MEDS ORDERED: STAT IV Infusion **Titration per Protocol STA (15:10)
[2021-06-07] MEDS ORDERED: AMIODARONE IV BOLUS & DRIP IV STA (15:10)
--- NOTE | 2021-06-07 15:11 | Cardiology Progress Note ---
Date of Service June 07, 2021 Assessment & Plan (1) Bacteremia: (2) Tricuspid valve mass: (3) Atrial fibrillation with rapid ventricular response: Plan: s/p excision of infected teeth # 15,16 am of 06/07/21. Onset on AF, RVR 14:32. EKG 1500 reveals AF ventricular rate 159 bpm. Has h/o PAF. INR 1.2 today after receiving vitamin K for oral surgery. Best option is to proceed with amiodarone infusion for rate / rhythm control Continue atenolol Coumadin already ordered for today. Admission and Anticipated Discharge Date Admission Date: June 01, 2021 Subjective Pt seen in follow up. AF noted on telemetry, onset 06/07/21 14:32. Pt without acute distress. Family at bedside. Physical Exam Physical Exam: Temp Pulse Resp BP Pulse Ox 36.4 C L 111 H 20 131/84 96 06/07/21 14:15 06/07/21 14:15 06/07/21 14:15 06/07/21 14:15 06/07/21 14:15 Constitutional: + ill appearing and + cachectic Respiratory: normal respiratory effort, lungs clear to auscultation Cardiovascular: RRR, no murmur, no edema Rate/Rhythm: regular rate and regular rhythm Heart Sounds: no murmur Extremities: no edema Gastrointestinal (Abdomen): normal bowel sounds, soft, nontender, no hepatosplenomegaly Results & Data ([facility]) Vital Signs (Past 12 Hours) Vital Signs Temp Pulse Pulse Pulse Pulse Resp BP 06/07/21 14:15 36.4 C L 111 H 20 06/07/21 13:45 36.4 C L 112 H 18 06/07/21 13:12 36.4 C L 113 H 18 06/07/21 13:00 36.5 C 106 H 18 06/07/21 12:45 36.4 C L 111 H 18 06/07/21 12:25 37.2 C 87 18 06/07/21 12:15 89 06/07/21 12:05 86 06/07/21 11:55 84 06/07/21 11:45 84 06/07/21 11:35 84 06/07/21 11:25 87 06/07/21 11:14 37 C 84 06/07/21 09:59 36.5 C 89 20 121/81 06/07/21 08:00 85 06/07/21 07:42 36.7 C 90 18 137/76 06/07/21 04:45 36.6 C 90 20 BP Pulse Ox 06/07/21 14:15 131/84 96 06/07/21 13:45 134/81 96 06/07/21 13:12 124/79 95 06/07/21 13:00 121/81 94 06/07/21 12:45 131/80 94 06/07/21 12:25 116/66 95 06/07/21 12:15 123/68 94 06/07/21 12:05 133/72 92 06/07/21 11:55 127/93 94 06/07/21 11:45 129/79 94 06/07/21 11:35 136/79 95 06/07/21 11:25 128/81 95 06/07/21 11:14 128/81 93 06/07/21 09:59 96 06/07/21 08:00 06/07/21 07:42 92 06/07/21 04:45 110/74 94 Laboratory Results Coagulation 06/07/21 Range/Units 06:42 PT 11.8 (9.0-12.0) Seconds CBC 06/07/21 Range/Units 06:42 WBC 20.26 H (4.8-10.8) K/uL RBC 2.99 L (4.2-5.4) M/uL Hgb 9.4 L (12.0-16.0) g/dL Hct 27.6 L (37-47) % Plt Count 225 (130-400) K/uL Comprehensive Metabolic Panel 06/07/21 Range/Units 06:42 Sodium 134 L (136-145) mmol/L Potassium 4.1 (3.5-5.1) mmol/L Chloride 104 (98-107) mmol/L Carbon Dioxide 25 (21-32) mmol/L BUN 17 (6-23) mg/dl Creatinine 0.54 L (0.6-1.2) mg/dl Glucose 99 (70-99(Fasting)) mg/dl Calcium 8.2 L (8.5-10.1) mg/dl Intake and Output 06/07/21 06/07/21 06/07/21 06:59 14:59 22:59 Intake Total 0 / 881 880 / 880 Output Total 305 / 407 Balance -305 / 474 879 / 879 Intake: IV 580 / 580 Vancomycin HCl 1,500 mg In 530 / 530 Sodium Chloride 0.9% 500 ml @ 200 mls/hr IV Q24H [facility] Rx#: [id number] cefTRIAXone SODIUM 1,000 mg In 50 / 50 Dextrose 5% 50 ml @ 100 mls/hr IV Q12H [facility] Rx#:[id number] IV Perioperative 300 / 300 Oral 0 / 200 Output: Urine 300 / 300 Estimated Blood Loss # Bowel Movements Other: Other Intake Source SIPS/BITES npo # Unmeasured Voids 3 Weight 61.6 kg 61.6 kg Weight Measurement Method Built in [facility] Patient Weight 06/08/21 06:59 Weight 61.6 kg
[2021-06-07] MEDS ORDERED: 0.2 MICRON FILTER SET 1 EA IV ONE (15:30)
[2021-06-07] MEDS ORDERED: AMIODARONE / D5W 360 MG/200 ML BAG IV ONE (15:30)
[2021-06-07] MEDS: WARFARIN SOD 2.5 MG TAB PO SCH (17:40)
[2021-06-07] MEDS: MENTHOL-ZINC OXIDE 360 APPLN/120 GM TUBE EXT SCH ×2 (17:40→20:32)
[2021-06-07] MEDS: TORSEMIDE 10 MG TAB PO SCH (17:40)
--- NOTE | 2021-06-07 19:45 | Communication Note ---
Date of Service: June 07, 2021 Night resident note Was notified by RN that patient experienced a 3.2s pause, during which patient was asymptomatic and vitals were stable. Discussed with the overnight attending - we decided to stop patient's amio drip, hold patient's atenolol, and continue to monitor for arrhythmia and hypotension. Ordered pacer pads to be present in patient's room, ready to use if needed. 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
[2021-06-07] MEDS ORDERED: AMIODARONE / D5W 360 MG/200 ML BAG IV SCH (21:15)
[2021-06-08] MEDS: ACETAMINOPHEN 325 MG TAB PO PRN ×2 (02:14→20:48)
[2021-06-08] MEDS: LEVOTHYROXINE SODIUM 50 MCG TABLET PO SCH (05:59)
[2021-06-08] MEDS ORDERED: VANCOMYCIN TROUGH ONE (07:30)
[2021-06-08 07:56] LABS: Hematocrit (blood only) 28.6 % (37-47); Hemoglobin 9.8 g/dL (12.0-16.0); Mean Corpuscular Hemoglobin 31.2 pg (25-34); Mean Corpuscular Hgb Conc 34.3 g/dL (32-36); Mean Corpuscular Volume 91.1 fL (80-100); Mean Platelet Volume 10.8 fL (7.4-10.4); Nucleated RBC # (auto) 0.08 K/uL (0-0); Nucleated RBC % (auto) 0.5 %; Platelet Count 260 K/uL (130-400); RDW Coefficient of Variation 15.6 % (11.5-14.5); RDW Standard Deviation 51.1 fL (36.4-46.3); Red Blood Count 3.14 M/uL (4.2-5.4); White Blood Count 15.61 K/uL (4.8-10.8)
[2021-06-08 08:08] LABS: INR 1.2 (0.9-1.1); Prothrombin Time 11.7 Seconds (9.0-12.0)
[2021-06-08 08:15] LABS: Albumin Level 2.6 gm/dl (3.4-5.0); BUN Creatinine Ratio 29.7 (10-20); Bilirubin Direct 0.2 mg/dl (0-0.2); Bilirubin,Total 0.6 mg/dl (0.2-1.0); Calcium 8.3 mg/dl (8.5-10.1); Creatinine Clr Calc Pharmacy 55.5 ml/min; Est GFR (African American) 96.3 ml/min; Est GFR (Non-African American) 83.1 ml/min; Potassium 3.7 mmol/L (3.5-5.1); Total Protein 5.6 gm/dl (6.0-8.3)
[2021-06-08 08:31] LABS: Basophils # (auto) 0.04 K/uL (0-0.2); Basophils % (auto) 0.3 %; Eosinophils # (auto) 0.24 K/uL (0-0.5); Eosinophils % (auto) 1.5 %; Immature Granulocytes % (auto) 2.6 %; Lymphocytes % (auto) 4.5 %; Monocytes # (auto) 1.31 K/uL (0.11-0.59); Monocytes % (auto) 8.4 %; Neutrophils # (auto) 12.92 K/uL (1.4-6.5); Neutrophils % (auto) 82.7 %; Target Cells 1+
[2021-06-08] MEDS: CHOLECALCIFEROL 1,000 UNITS 25 MCG TAB PO SCH (08:53)
[2021-06-08] MEDS: TORSEMIDE 10 MG TAB PO SCH (08:53)
[2021-06-08] MEDS: THIAMINE HCL 100 MG TAB PO SCH (08:53)
[2021-06-08] MEDS: MULTIVITAMIN TAB PO SCH (08:53)
[2021-06-08] MEDS: CYANOCOBALAMIN (B-12) 2,500 MCG TABLET SCH (08:53)
[2021-06-08] MEDS: ADVANCED PROBIOTIC 1250 MG CAPSULE PO SCH (08:53)
[2021-06-08] MEDS: CHLORHEXIDINE GLUCONATE 0.12% 480 ML MT SCH ×2 (08:54→19:51)
[2021-06-08] MEDS: LIDOCAINE 5% 1 PATCH TD SCH (08:54)
[2021-06-08] MEDS: MENTHOL-ZINC OXIDE 360 APPLN/120 GM TUBE EXT SCH ×3 (08:55→19:52)
--- NOTE | 2021-06-08 08:58 | Electrocardiogram Report ---
Test Reason : Blood Pressure : / mmHG Vent. Rate : 127 BPM Atrial Rate : 111 BPM P-R Int : 000 ms QRS Dur : 072 ms QT Int : 282 ms P-R-T Axes : 000 017 167 degrees QTc Int : 409 ms Atrial fibrillation with rapid ventricular response Low voltage QRS Diffuse Nonspecific T wave abnormality Abnormal ECG When compared with ECG of 02-MAR-2016 18:10, Atrial fibrillation has replaced Sinus rhythm Vent. rate has increased BY 59 BPM Nonspecific T wave abnormality now present Confirmed by Sterling Coulter ([id number]) on 06/08/2021 8:58:15 AM Referred By: REFERRED SELF Confirmed By:Sterling Coulter
--- NOTE | 2021-06-08 09:01 | Electrocardiogram Report ---
Test Reason : Blood Pressure : / mmHG Vent. Rate : 159 BPM Atrial Rate : 100 BPM P-R Int : 000 ms QRS Dur : 072 ms QT Int : 286 ms P-R-T Axes : 000 040 209 degrees QTc Int : 465 ms Atrial fibrillation with rapid ventricular response Low voltage QRS Diffuse Nonspecific T wave abnormality Abnormal ECG When compared with ECG of 06-JUN-2021 16:42, Atrial fibrillation has replaced Sinus rhythm Vent. rate has increased BY 58 BPM Confirmed by Sterling Coulter ([id number]) on 06/08/2021 9:00:59 AM Referred By: REFERRED SELF Confirmed By:Sterling Coulter
[2021-06-08] MEDS: cefTRIAXone SODIUM 2,000 MG in DEXTROSE 5% 50 ML IV SCH (09:18)
[2021-06-08] MEDS ORDERED: ACETAMINOPHEN 325 MG TAB PO PRN (10:18)
--- NOTE | 2021-06-08 12:30 | Oral/Maxillofacial Progress Nt ---
Date of Service June 08, 2021 Assessment & Plan Admission and Anticipated Discharge Date Admission Date: June 01, 2021 Subjective POST OP NOTE:at 24 hours The patient is doing very well post operatively regarding the recent dental surgery, There is no swelling, no bleeding and sutures are in place. No sinus or nerve complications noted Excellent ROM Reviewed oral care=brushing and use of Peridex, avoid eating left side for a few days No follow up on part needed. May be considered for transfer/discharge from oral surgery point of view Excellent response from recent oral surgery. Results & Data ([facility]) Vital Signs (Past 12 Hours) Vital Signs Temp Pulse Pulse Pulse Resp BP Pulse Ox 06/08/21 11:02 36.4 C L 75 18 117/68 91 06/08/21 08:00 65 06/08/21 07:04 36.5 C 67 18 105/59 L 92 06/08/21 03:43 36.4 C L 66 16 103/63 92 PG Care Time/CCT Total # of Minutes Spent Total Time Spent with Patient: Total time spent is greater than 50% in coordination of care (as documented) at patient's floor/unit and/or counseling patient: Coding Level of Care Code None
--- NOTE | 2021-06-08 12:44 | Cardiology Progress Note ---
Date of Service June 08, 2021 Assessment & Plan (1) Bacteremia: (2) Tricuspid valve mass: (3) Atrial fibrillation with rapid ventricular response: Plan: s/p excision of infected teeth # 15,16 am of 06/07/21. Oral source to her bacteremia probable, and Dr Suarez's assistance much appreciate in terms of source control. Patient with subtle progressive generalized improvement in her energy levels over the last few days, but still remains markedly weak, frail. To BC count is trending toward improvement. INR still subtherapeutic at 1.2, having had a supratherapeutic INR, and received vitamin K prior to oral surgery. Agree with plan to continue Coumadin load to allow her INR to rise slowly status post oral surgery. Amiodarone infusion discontinued overnight last night, having converted from atrial fibrillation back to sinus rhythm at 1906 on 06/07/2021. Resume outpatient treatment with atenolol 25 mg daily. As noted, 6 weeks of empiric antibiotic IV therapy recommended. Anticipate need for rehab. Would recommend COVID-19 vaccination with regards to facilitating placement and for her overall health, as if she was to develop SARS-CoV-2 infection, she would in my opinion be at high risk for complicated course. Admission and Anticipated Discharge Date Admission Date: June 01, 2021 Subjective Charissa Flores is seen in cardiology follow-up of chronic tricuspid valve mass, concerns for strep bacteremia and possible superimposed bacterial endocarditis, paroxysmal atrial fibrillation. Has documented yesterday, patient had reverted to atrial fibrillation afternoon of 06/07/2021, she was transferred to PCU/telemetry, and an amiodarone infusion was initiated, she converted to sinus rhythm on 06/07/2021 at 1906 with noted asymptomatic 3.2-second conversion pause. She is remained in sinus rhythm in the 70s today. Physical Exam Constitutional: + ill appearing and + cachectic Respiratory: normal respiratory effort, lungs clear to auscultation Cardiovascular: RRR, no murmur, no edema Rate/Rhythm: regular rate and regular rhythm Heart Sounds: no murmur Extremities: no edema Gastrointestinal (Abdomen): normal bowel sounds, soft, nontender, no hepatosplenomegaly Results & Data ([facility]) Vital Signs (Past 12 Hours) Vital Signs Temp Pulse Pulse Pulse Resp BP Pulse Ox 06/08/21 11:02 36.4 C L 75 18 117/68 91 06/08/21 08:00 65 06/08/21 07:04 36.5 C 67 18 105/59 L 92 06/08/21 03:43 36.4 C L 66 16 103/63 92 Laboratory Results Cardiac Enzymes 06/08/21 Range/Units 07:39 AST 21 (13-39) U/L Coagulation 06/08/21 Range/Units 07:39 PT 11.7 (9.0-12.0) Seconds CBC 06/08/21 Range/Units 07:39 WBC 15.61 H (4.8-10.8) K/uL RBC 3.14 L (4.2-5.4) M/uL Hgb 9.8 L (12.0-16.0) g/dL Hct 28.6 L (37-47) % Plt Count 260 (130-400) K/uL Neut # (Auto) 12.92 H (1.4-6.5) K/uL Lymph # (Auto) 0.70 L (1.2-3.4) K/uL [place] # (Auto) 1.31 H (0.11-0.59) K/uL Eos # (Auto) 0.24 (0-0.5) K/uL Baso # (Auto) 0.04 (0-0.2) K/uL Comprehensive Metabolic Panel 06/08/21 Range/Units 07:39 Sodium 135 L (136-145) mmol/L Potassium 3.7 (3.5-5.1) mmol/L Chloride 104 (98-107) mmol/L Carbon Dioxide 25 (21-32) mmol/L BUN 19 (6-23) mg/dl Creatinine 0.64 (0.6-1.2) mg/dl Glucose 100 H (70-99(Fasting)) mg/dl Calcium 8.3 L (8.5-10.1) mg/dl Direct Bilirubin 0.2 (0-0.2) mg/dl AST 21 (13-39) U/L ALT 13 (7-52) U/L Alkaline Phosphatase 115 H (34-104) U/L Total Protein 5.6 L (6.0-8.3) gm/dl Albumin 2.6 L (3.4-5.0) gm/dl
[2021-06-08] MEDS: ATENOLOL 25 MG TABLET PO SCH (13:27)
--- NOTE | 2021-06-08 13:27 | Hospitalist Progress Note ---
Date of Service June 08, 2021 Assessment & Plan (1) Septicemia: Plan: Bacteremia with concern for tricuspid infective endocarditis, known tricuspid mass GBS and blood cultures Poor dentition and dental procedure prior to admission likely source Underwent incision and drainage, removal of teeth [address] Suarez 06/07/2021, doing well Treat empirically with Vanco and Rocephin, narrowed to Rocephin after discussing with ID 06/07 Continue Rocephin 2 g IV daily x6 weeks, left PICC in place MRIB no acute abnormalities CTsee without nodules or septic emboli Cardiology consulted, no NEMO, treating empirically for infective endocarditis Surveillance cultures negative Leukocytosis downtrending PT/OT pending, suspect will need rehab. Pt remains frail and deconditioned. (2) Thrombocytopenia: Plan: Likely sepsis induced thrombocytopenia, have since ruled out ITP/TTP Now resolved. Monitor serial lab studies Previously discussed with hematology (3) Hyponatremia: Plan: Acute 122 on arrival now improved with volume resuscitation. Appeared to be hypovolemic hyponatremia on admission possibly secondary to torsemide use Improved to 135 Follow BMP Torsemide resumed (4) CHF (congestive heart failure): Plan: HFpEF - not in acute exacerbation at this time -Monitor intake and output. Torsemide resumed 06/07 Creatinine stable (5) Hypomagnesemia: Plan: Magnesium low on admission Replaced with IV magnesium sulfate Resolved (6) Paroxysmal atrial fibrillation: Plan: - Currently NSR . Takes Coumadin chronically - due to her radiation proctitis she has been on a regimen of low dose Coumadin. 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 Restarted (12) Lumbar spinal stenosis: Plan: L4 decompression fracture chronic. Supportive care (13) Iron deficiency anemia: Plan: chronic - has had low ferritin and iron studies in the past requiring Venofer infusions in 2012 - She is also on B12 oral -Follows with hematology/oncology, Dr. Zamudio at [facility] Hemoglobin uptrending 06/08 after dental surgery (14) Hypothyroidism: Plan: TSH normal 2.9 in 02/2021 -Continue home levothyroxine Plan: VTE prophylaxis-Coumadin therapy. Disposition: SNF placement at discharge with 6 weeks IV antibiotic therapy ( Rocephin 2 gm IV daily for 6 weeks). Pt high risk for COVID complications, recomended vaccination Admission and Anticipated Discharge Date Admission Date: June 01, 2021 Subjective Seen at bedside, patient is oriented to place and name. Frail-appearing. Fatigued, answers questions appropriately and follows commands appropriately but offers little spontaneous speech. Denies pain. Denies dental pain at time of assessment. Denies chest pain, chest pressure, shortness of breath. Endorses decreased appetite, but no nausea/vomiting. Review of Systems Review of Systems: All systems reviewed & are unremarkable except as noted in Subjective Physical Exam Physical Exam: General: Oriented to name and place. Frail-appearing, cachectic. HEENT: Atraumatic, normocephalic. Pulm diminished without overt wheezes rales or rhonchi. Symmetrical chest rise. No increase in work of breathing. No respiratory distress. Cardiac: RRR, -mrg. Radial pulses intact and symmetrical. Abdominal: Nontender, nondistended, soft. BS present. Extremities: Warm, dry, without edema Results & Data Results & Data ([facility]) Vital Signs (Past 12 Hours) Vital Signs Temp Pulse Pulse Pulse Resp BP Pulse Ox 06/08/21 11:02 36.4 C L 75 18 117/68 91 06/08/21 08:00 65 06/08/21 07:04 36.5 C 67 18 105/59 L 92 06/08/21 03:43 36.4 C L 66 16 103/63 92 PG Care Time/CCT Total # of Minutes Spent Total Time Spent with Patient: Total time spent is greater than 50% in coordination of care (as documented) at patient's floor/unit and/or counseling patient: Coding Level of Care Code 63732 Subseq Hosp Care Lvl 2 Diagnoses Septicemia A41.9 Thrombocytopenia D69.6 Hyponatremia E87.1 CHF (congestive heart failure) I50.9 Hypomagnesemia E83.42 Paroxysmal atrial fibrillation I48.0 Tricuspid valve mass I07.8 Mitral regurgitation I34.0 Radiation cystitis N30.40 Radiation proctitis K62.7 HTN (hypertension) I10 Lumbar spinal stenosis M48.061 Iron deficiency anemia D50.9 Hypothyroidism E03.9
[2021-06-08] MEDS ORDERED: LOPERAMIDE HCL 2 MG CAP PO ONE (13:57)
[2021-06-08] MEDS: WARFARIN SOD 2.5 MG TAB PO SCH (17:19)
[2021-06-08] MEDS ORDERED: OLANZAPINE 2.5 MG TAB PO STA (21:32)
[2021-06-09] MEDS: LEVOTHYROXINE SODIUM 50 MCG TABLET PO SCH (05:41)
[2021-06-09 06:27] LABS: Basophils # (auto) 0.04 K/uL (0-0.2); Basophils % (auto) 0.3 %; Eosinophils # (auto) 0.25 K/uL (0-0.5); Eosinophils % (auto) 1.7 %; Hemoglobin 9.2 g/dL (12.0-16.0); Immature Granulocytes # (auto) 0.31 K/uL (0.00-0.02); Immature Granulocytes % (auto) 2.1 %; Lymphocytes # (auto) 0.71 K/uL (1.2-3.4); Lymphocytes % (auto) 4.9 %; Mean Corpuscular Hemoglobin 31.4 pg (25-34); Mean Corpuscular Hgb Conc 34.1 g/dL (32-36); Mean Corpuscular Volume 92.2 fL (80-100); Mean Platelet Volume 10.6 fL (7.4-10.4); Neutrophils # (auto) 11.63 K/uL (1.4-6.5); Nucleated RBC # (auto) 0.07 K/uL (0-0); Nucleated RBC % (auto) 0.5 %; Platelet Count 265 K/uL (130-400); RDW Coefficient of Variation 15.7 % (11.5-14.5); RDW Standard Deviation 51.1 fL (36.4-46.3); Red Blood Count 2.93 M/uL (4.2-5.4); White Blood Count 14.54 K/uL (4.8-10.8)
[2021-06-09 06:39] LABS: INR 1.2 (0.9-1.1); Prothrombin Time 12.3 Seconds (9.0-12.0)
[2021-06-09 06:50] LABS: BUN Creatinine Ratio 30.6 (10-20); Calcium 8.3 mg/dl (8.5-10.1); Creatinine Clr Calc Pharmacy 57.4 ml/min; Est GFR (African American) 97.3 ml/min; Potassium 3.6 mmol/L (3.5-5.1)
[2021-06-09] MEDS: CYANOCOBALAMIN (B-12) 2,500 MCG TABLET SCH (07:56)
[2021-06-09] MEDS: ATENOLOL 25 MG TABLET PO SCH (07:57)
[2021-06-09] MEDS: THIAMINE HCL 100 MG TAB PO SCH (07:57)
[2021-06-09] MEDS: CHOLECALCIFEROL 1,000 UNITS 25 MCG TAB PO SCH (07:57)
[2021-06-09] MEDS: ADVANCED PROBIOTIC 1250 MG CAPSULE PO SCH (07:58)
[2021-06-09] MEDS: MULTIVITAMIN TAB PO SCH (07:58)
[2021-06-09] MEDS: MENTHOL-ZINC OXIDE 360 APPLN/120 GM TUBE EXT SCH ×3 (07:58→19:37)
[2021-06-09] MEDS: LIDOCAINE 5% 1 PATCH TD SCH (08:00)
[2021-06-09] MEDS: CHLORHEXIDINE GLUCONATE 0.12% 480 ML MT SCH ×2 (08:00→19:37)
[2021-06-09] MEDS: TORSEMIDE 10 MG TAB PO SCH (08:02)
[2021-06-09] MEDS: cefTRIAXone SODIUM 2,000 MG in DEXTROSE 5% 50 ML IV SCH (11:50)
--- NOTE | 2021-06-09 13:03 | Hospitalist Progress Note ---
Date of Service June 09, 2021 Assessment & Plan (1) Septicemia: Plan: Dispo: Per CM: [facility] can not accept pt.Radha (daughter) updated. She would likes referrals to the [facility], [facility], and [facility]. Composing Machine Operator to fax referrals. Pt is medicare so no auth needed. Case management to follow with pt.recommend Covid vaccination. 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 Suarez 06/07/2021, doing well Treat empirically with Vanco and Rocephin, narrowed to Rocephin after discussing with ID 06/07 Continue Rocephin 2 g IV daily x6 weeks, left PICC in place (06/08/21-07/20/21) MRIB no acute abnormalities CTsee without nodules or septic emboli Cardiology consulted, no NEMO, treating empirically for infective endocarditis Surveillance cultures negative Leukocytosis downtrending Placement pending as above (2) Thrombocytopenia: Plan: Likely sepsis induced thrombocytopenia, have since ruled out ITP/TTP Now resolved. Monitor serial lab studies Previously discussed with hematology (3) Hyponatremia: Plan: Acute 122 on arrival now improved with volume resuscitation. Appeared to be hypovolemic hyponatremia on admission possibly secondary to torsemide use Improved to 135 Follow BMP Torsemide resumed (4) CHF (congestive heart failure): Plan: HFpEF - not in acute exacerbation at this time -Monitor intake and output. Torsemide resumed 06/07 Creatinine stable (5) Hypomagnesemia: Plan: Magnesium low on admission Replaced with IV magnesium sulfate Resolved (6) Paroxysmal atrial fibrillation: Plan: - Currently NSR . Takes Coumadin chronically - due to her radiation proctitis she has been on a regimen of low dose Coumadin. 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 Restarted (12) Lumbar spinal stenosis: Plan: L4 decompression fracture chronic. Supportive care (13) Iron deficiency anemia: Plan: chronic - has had low ferritin and iron studies in the past requiring Venofer infusions in 2012 - She is also on B12 oral -Follows with hematology/oncology, Dr. Zamudio at [facility] Hemoglobin uptrending 06/08 after dental surgery (14) Hypothyroidism: Plan: TSH normal 2.9 in 02/2021 -Continue home levothyroxine Plan: VTE prophylaxis-Coumadin therapy. Disposition: SNF placement at discharge with 6 weeks IV antibiotic therapy ( Rocephin 2 gm IV daily for 6 weeks). Pt high risk for COVID complications, recommended vaccination Admission and Anticipated Discharge Date Admission Date: June 01, 2021 Subjective Seen at bedside. No palpitations, no syncope, no chest pain, no presyncope. Has not had fever/chills/sweats overnight. Is anxious to the plan moving forward, and when she can leave the hospital otherwise no acute questions or concerns. Denies shortness of breath. Denies rash. Review of Systems Review of Systems: All systems reviewed & are unremarkable except as noted in Subjective Physical Exam Physical Exam: General: Oriented to name and place. Frail-appearing, cachectic. HEENT: Atraumatic, normocephalic. Pulm diminished without overt wheezes rales or rhonchi. Symmetrical chest rise. No increase in work of breathing. No respiratory distress. Cardiac: RRR, -mrg. Radial pulses intact and symmetrical. Abdominal: Nontender, nondistended, soft. BS present. Extremities: Warm, dry, without edema Results & Data Results & Data ([facility]) Vital Signs (Past 12 Hours) Vital Signs Temp Pulse Pulse Pulse Resp BP BP 06/09/21 12:36 36.3 C L 82 20 113/68 06/09/21 08:45 36.7 C 79 18 105/61 06/09/21 07:45 75 06/09/21 03:29 36.3 C L 70 15 102/66 Pulse Ox 06/09/21 12:36 94 06/09/21 08:45 91 06/09/21 07:45 06/09/21 03:29 93 PG Care Time/CCT Total # of Minutes Spent Total Time Spent with Patient: Total time spent is greater than 50% in coordination of care (as documented) at patient's floor/unit and/or counseling patient: Coding Level of Care Code 03134 Subseq Hosp Care Lvl 2 Diagnoses Septicemia A41.9 Thrombocytopenia D69.6 Hyponatremia E87.1 CHF (congestive heart failure) I50.9 Hypomagnesemia E83.42 Paroxysmal atrial fibrillation I48.0 Tricuspid valve mass I07.8 Mitral regurgitation I34.0 Radiation cystitis N30.40 Radiation proctitis K62.7 HTN (hypertension) I10 Lumbar spinal stenosis M48.061 Iron deficiency anemia D50.9 Hypothyroidism E03.9
[2021-06-09] MEDS ORDERED: WARFARIN SOD 2.5 MG TAB PO ONE (16:00)
[2021-06-09] MEDS: WARFARIN SOD 2.5 MG TAB PO SCH (16:26)
--- NOTE | 2021-06-09 16:41 | Cardiology Progress Note ---
Date of Service June 09, 2021 Assessment & Plan (1) Bacteremia: (2) Tricuspid valve mass: (3) Atrial fibrillation with rapid ventricular response: Plan: s/p excision of infected teeth # 15,16 am of 06/07/21. Oral source of her bacteremia probable, and Dr Suarez's assistance much appreciate in terms of source control. Remains markedly weak, frail. Has history of paroxysmal atrial fibrillation, but was in sinus rhythm earlier this hospital stay, reverted to rapid atrial fibrillation shortly after oral surgery on 06/07/2021, and converted back to sinus rhythm on amiodarone infusion, has been in sinus rhythm since 06/08/2021. WBC count is trending toward improvement. INR still subtherapeutic at 1.2, having had a supratherapeutic INR, and received vitamin K prior to oral surgery. Agree with plan to continue Coumadin load to allow her INR to rise slowly status post oral surgery. Extra dose administered 06/09/21 for a today of 5 mg today. Resume outpatient treatment with atenolol 25 mg daily. As noted, 6 weeks of empiric antibiotic IV therapy recommended. Anticipate need for rehab. Would recommend COVID-19 vaccination with regards to facilitating placement and for her overall health, as if she was to develop SARS-CoV-2 infection, she would in my opinion be at high risk for complicated course. Admission and Anticipated Discharge Date Admission Date: June 01, 2021 Subjective Patient seen in cardiology follow-up. Resting comfortably. Daughter at the bedside, both of us agree the patient remains lethargic. Telemetry reveals sinus rhythm in the 70s with occasional artifact, no additional atrial fibrillation. INR 1.2 today. Results & Data ([facility]) Vital Signs (Past 12 Hours) Vital Signs Temp Pulse Pulse Resp BP Pulse Ox 06/09/21 16:10 36.6 C 87 18 157/103 H 93 06/09/21 12:36 36.3 C L 82 20 113/68 94 06/09/21 08:45 36.7 C 79 18 105/61 91 06/09/21 07:45 75
[2021-06-10 06:11] LABS: Basophils # (auto) 0.06 K/uL (0-0.2); Basophils % (auto) 0.4 %; Eosinophils # (auto) 0.12 K/uL (0-0.5); Eosinophils % (auto) 0.8 %; Hemoglobin 9.1 g/dL (12.0-16.0); Immature Granulocytes # (auto) 0.26 K/uL (0.00-0.02); Immature Granulocytes % (auto) 1.7 %; Lymphocytes # (auto) 0.73 K/uL (1.2-3.4); Lymphocytes % (auto) 4.8 %; Mean Corpuscular Hemoglobin 31.1 pg (25-34); Mean Corpuscular Hgb Conc 33.7 g/dL (32-36); Mean Corpuscular Volume 92.2 fL (80-100); Mean Platelet Volume 10.3 fL (7.4-10.4); Monocytes # (auto) 1.88 K/uL (0.11-0.59); Monocytes % (auto) 12.5 %; Neutrophils # (auto) 12.05 K/uL (1.4-6.5); Neutrophils % (auto) 79.8 %; Nucleated RBC # (auto) 0.09 K/uL (0-0); Nucleated RBC % (auto) 0.6 %; Platelet Count 269 K/uL (130-400); RDW Coefficient of Variation 15.4 % (11.5-14.5); RDW Standard Deviation 50.9 fL (36.4-46.3); Red Blood Count 2.93 M/uL (4.2-5.4)
[2021-06-10 06:22] LABS: INR 1.5 (0.9-1.1); Prothrombin Time 14.8 Seconds (9.0-12.0)
[2021-06-10 06:41] LABS: Calcium 8.2 mg/dl (8.5-10.1); Creatinine Clr Calc Pharmacy 49.8 ml/min; Est GFR (African American) 90.4 ml/min; Potassium 3.8 mmol/L (3.5-5.1)
[2021-06-10] MEDS: LEVOTHYROXINE SODIUM 50 MCG TABLET PO SCH (08:58)
[2021-06-10] MEDS: CYANOCOBALAMIN (B-12) 2,500 MCG TABLET SCH (08:58)
[2021-06-10] MEDS: MULTIVITAMIN TAB PO SCH (08:58)
[2021-06-10] MEDS: TORSEMIDE 10 MG TAB PO SCH (08:58)
[2021-06-10] MEDS: ADVANCED PROBIOTIC 1250 MG CAPSULE PO SCH (08:58)
[2021-06-10] MEDS: ATENOLOL 25 MG TABLET PO SCH (08:58)
[2021-06-10] MEDS: CHLORHEXIDINE GLUCONATE 0.12% 480 ML MT SCH ×2 (08:58→20:38)
[2021-06-10] MEDS: THIAMINE HCL 100 MG TAB PO SCH (08:58)
[2021-06-10] MEDS: CHOLECALCIFEROL 1,000 UNITS 25 MCG TAB PO SCH (08:58)
[2021-06-10] MEDS: MENTHOL-ZINC OXIDE 360 APPLN/120 GM TUBE EXT SCH ×3 (08:59→20:38)
[2021-06-10] MEDS: cefTRIAXone SODIUM 2,000 MG in DEXTROSE 5% 50 ML IV SCH (09:04)
[2021-06-10] MEDS: LIDOCAINE 5% 1 PATCH TD SCH (09:17)
[2021-06-10] MEDS: WARFARIN SOD 2.5 MG TAB PO SCH (15:48)
[2021-06-10] MEDS: ACETAMINOPHEN 325 MG TAB PO PRN (20:38)
--- NOTE | 2021-06-10 20:41 | Hospitalist Progress Note ---
Date of Service June 10, 2021 Assessment & Plan (1) Septicemia: Plan: Dispo: Per CM: [facility] can not accept pt.Radha (daughter) updated. She would likes referrals to the [facility], [facility], and [place]. Cone Tender to fax referrals. Pt is medicare so no auth needed. Case management to follow with pt.recommend Covid vaccination. 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 Suarez 06/07/2021, doing well Treat empirically with Vanco and Rocephin, narrowed to Rocephin after discussing with ID 06/07 Continue Rocephin 2 g IV daily x6 weeks, left PICC in place (06/08/21-07/20/21) MRIB no acute abnormalities CTsee without nodules or septic emboli Cardiology consulted, no NEMO, treating empirically for infective endocarditis Surveillance cultures negative Leukocytosis downtrending Placement pending as above updated daughter at bedside. concerned about transport at discharge (2) Thrombocytopenia: Plan: Likely sepsis induced thrombocytopenia, have since ruled out ITP/TTP Now resolved. Monitor serial lab studies Previously discussed with hematology (3) Hyponatremia: Plan: Acute 122 on arrival now improved with volume resuscitation. Appeared to be hypovolemic hyponatremia on admission possibly secondary to torsemide use Improved to 135 Follow BMP Torsemide resumed (4) CHF (congestive heart failure): Plan: HFpEF - not in acute exacerbation at this time -Monitor intake and output. Torsemide resumed 06/07 Creatinine stable (5) Hypomagnesemia: Plan: Magnesium low on admission Replaced with IV magnesium sulfate Resolved (6) Paroxysmal atrial fibrillation: Plan: - Currently NSR . Takes Coumadin chronically - due to her radiation proctitis she has been on a regimen of low dose Coumadin. 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 Restarted (12) Lumbar spinal stenosis: Plan: L4 decompression fracture chronic. Supportive care (13) Iron deficiency anemia: Plan: chronic - has had low ferritin and iron studies in the past requiring Venofer infusions in 2012 - She is also on B12 oral -Follows with hematology/oncology, Dr. Zamudio at [facility] Hemoglobin uptrending 06/08 after dental surgery (14) Hypothyroidism: Plan: TSH normal 2.9 in 02/2021 -Continue home levothyroxine Plan: VTE prophylaxis-Coumadin therapy. Disposition: SNF placement at discharge with 6 weeks IV antibiotic therapy ( Rocephin 2 gm IV daily for 6 weeks). Pt high risk for COVID complications, recommended vaccination Admission and Anticipated Discharge Date Admission Date: June 01, 2021 Subjective Patient reports no new symptoms. Review of Systems Review of Systems: All systems reviewed & are unremarkable except as noted in HPI & below Physical Exam Physical Exam: General: Oriented to name and place. Frail-appearing, cachectic. HEENT: Atraumatic, normocephalic. Pulm diminished without overt wheezes rales or rhonchi. Symmetrical chest rise. No increase in work of breathing. No respiratory distress. Cardiac: RRR, -mrg. Radial pulses intact and symmetrical. Abdominal: Nontender, nondistended, soft. BS present. Extremities: Warm, dry, without edema Results & Data Results & Data ([facility]) Vital Signs (Past 12 Hours) Vital Signs Temp Pulse Pulse Pulse Resp BP Pulse Ox 06/10/21 19:00 37.0 C 91 H 16 137/74 98 06/10/21 15:28 87 06/10/21 15:09 36.5 C 81 18 106/58 L 92 06/10/21 12:01 36.5 C 88 20 128/69 96 PG Care Time/CCT Total # of Minutes Spent Total Time Spent with Patient: Total time spent is greater than 50% in coordination of care (as documented) at patient's floor/unit and/or counseling patient: Coding Level of Care Code 02736 Subseq Hosp Care Lvl 2 Diagnoses Septicemia A41.9 Thrombocytopenia D69.6 Hyponatremia E87.1 CHF (congestive heart failure) I50.9 Hypomagnesemia E83.42 Paroxysmal atrial fibrillation I48.0 Tricuspid valve mass I07.8 Mitral regurgitation I34.0 Radiation cystitis N30.40 Radiation proctitis K62.7 HTN (hypertension) I10 Lumbar spinal stenosis M48.061 Iron deficiency anemia D50.9 Hypothyroidism E03.9 Time Spent (min) 25
[2021-06-11] MEDS: LEVOTHYROXINE SODIUM 50 MCG TABLET PO SCH (05:43)
[2021-06-11 06:09] LABS: Hematocrit (blood only) 26.1 % (37-47); Mean Corpuscular Hemoglobin 32.4 pg (25-34); Mean Corpuscular Hgb Conc 34.5 g/dL (32-36); Mean Corpuscular Volume 93.9 fL (80-100); Mean Platelet Volume 10.1 fL (7.4-10.4); Nucleated RBC # (auto) 0.09 K/uL (0-0); Nucleated RBC % (auto) 0.5 %; Platelet Count 269 K/uL (130-400); RDW Coefficient of Variation 15.7 % (11.5-14.5); RDW Standard Deviation 52.4 fL (36.4-46.3); Red Blood Count 2.78 M/uL (4.2-5.4); White Blood Count 17.23 K/uL (4.8-10.8)
[2021-06-11 06:33] LABS: BUN Creatinine Ratio 23.2 (10-20); Calcium 8.2 mg/dl (8.5-10.1); Creatinine Clr Calc Pharmacy 43.5 ml/min; Est GFR (African American) 77.2 ml/min; Est GFR (Non-African American) 66.6 ml/min; Potassium 3.4 mmol/L (3.5-5.1)
[2021-06-11] MEDS: ADVANCED PROBIOTIC 1250 MG CAPSULE PO SCH (08:15)
[2021-06-11] MEDS: CHOLECALCIFEROL 1,000 UNITS 25 MCG TAB PO SCH (08:15)
[2021-06-11] MEDS: MULTIVITAMIN TAB PO SCH (08:15)
[2021-06-11] MEDS: TORSEMIDE 10 MG TAB PO SCH (08:15)
[2021-06-11] MEDS: CYANOCOBALAMIN (B-12) 2,500 MCG TABLET SCH (08:15)
[2021-06-11] MEDS: THIAMINE HCL 100 MG TAB PO SCH (08:15)
[2021-06-11] MEDS: CHLORHEXIDINE GLUCONATE 0.12% 480 ML MT SCH ×2 (08:16→20:49)
[2021-06-11] MEDS: LIDOCAINE 5% 1 PATCH TD SCH (08:16)
[2021-06-11] MEDS: ATENOLOL 25 MG TABLET PO SCH (08:16)
[2021-06-11] MEDS: MENTHOL-ZINC OXIDE 360 APPLN/120 GM TUBE EXT SCH ×3 (08:17→20:49)
[2021-06-11] MEDS: cefTRIAXone SODIUM 2,000 MG in DEXTROSE 5% 50 ML IV SCH (10:56)
[2021-06-11] MEDS: ACETAMINOPHEN 325 MG TAB PO PRN ×2 (15:31→23:42)
[2021-06-11] MEDS: WARFARIN SOD 2.5 MG TAB PO SCH (15:31)
--- NOTE | 2021-06-11 19:52 | Hospitalist Progress Note ---
Date of Service June 11, 2021 Assessment & Plan (1) Septicemia: Plan: Dispo: Per CM: [facility] can not accept pt.Radha (daughter) updated. She would likes referrals to the [facility], [facility], and [place]. 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 Pt is medicare so no auth needed. Case management to follow with pt.recommend Covid vaccination. 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 Suarez 06/07/2021, doing well Treat empirically with Vanco and Rocephin, narrowed to Rocephin after discussing with ID 06/07 Continue Rocephin 2 g IV daily x6 weeks, left PICC in place (06/08/21-07/20/21) MRIB no acute abnormalities CTsee without nodules or septic emboli Cardiology consulted, no NEMO, treating empirically for infective endocarditis Surveillance cultures negative Leukocytosis now increasing: however no signs of sepsis; likely reactive -will check inflammatory markers, procal in am. Placement pending as above updated daughter at bedside. concerned about transport at discharge (2) Thrombocytopenia: Plan: Likely sepsis induced thrombocytopenia, have since ruled out ITP/TTP Now resolved. Monitor serial lab studies Previously discussed with hematology (3) Hyponatremia: Plan: Acute 122 on arrival now improved with volume resuscitation. Appeared to be hypovolemic hyponatremia on admission possibly secondary to torsemide use Improved to 135 Follow BMP Torsemide resumed (4) CHF (congestive heart failure): Plan: HFpEF - not in acute exacerbation at this time -Monitor intake and output. Torsemide resumed 06/07 Creatinine stable (5) Hypomagnesemia: Plan: Magnesium low on admission Replaced with IV magnesium sulfate Resolved (6) Paroxysmal atrial fibrillation: Plan: - Currently NSR . Takes Coumadin chronically - due to her radiation proctitis she has been on a regimen of low dose Coumadin. 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 Restarted (12) Lumbar spinal stenosis: Plan: L4 decompression fracture chronic. Supportive care (13) Iron deficiency anemia: Plan: chronic - has had low ferritin and iron studies in the past requiring Venofer infusions in 2012 - She is also on B12 oral -Follows with hematology/oncology, Dr. Zamudio at [facility] Hemoglobin uptrending 06/08 after dental surgery (14) Hypothyroidism: Plan: TSH normal 2.9 in 02/2021 -Continue home levothyroxine Plan: VTE prophylaxis-Coumadin therapy. Disposition: SNF placement at discharge with 6 weeks IV antibiotic therapy ( Rocephin 2 gm IV daily for 6 weeks). Pt high risk for COVID complications, recommended vaccination Admission and Anticipated Discharge Date Admission Date: June 01, 2021 Subjective Patient reports no new symptoms. Review of Systems Review of Systems: All systems reviewed & are unremarkable except as noted in HPI & below Physical Exam Physical Exam: General: Oriented to name and place. Frail-appearing, cachectic. HEENT: Atraumatic, normocephalic. Pulm diminished without overt wheezes rales or rhonchi. Symmetrical chest rise. No increase in work of breathing. No respiratory distress. Cardiac: RRR, -mrg. Radial pulses intact and symmetrical. Abdominal: Nontender, nondistended, soft. BS present. Extremities: Warm, dry, without edema Results & Data Results & Data ([facility]) Vital Signs (Past 12 Hours) Vital Signs Temp Pulse Pulse Resp BP BP Pulse Ox 06/11/21 19:02 36.6 C 73 16 96/60 L 94 06/11/21 15:46 36.9 C 74 13 106/68 98 06/11/21 11:12 36.7 C 73 14 96/59 L 97 PG Care Time/CCT Total # of Minutes Spent Total Time Spent with Patient: Total time spent is greater than 50% in coordination of care (as documented) at patient's floor/unit and/or counseling patient: Coding Level of Care Code 79950 Subseq Hosp Care Lvl 2 Diagnoses Septicemia A41.9 Thrombocytopenia D69.6 Hyponatremia E87.1 CHF (congestive heart failure) I50.9 Hypomagnesemia E83.42 Paroxysmal atrial fibrillation I48.0 Tricuspid valve mass I07.8 Mitral regurgitation I34.0 Radiation cystitis N30.40 Radiation proctitis K62.7 HTN (hypertension) I10 Lumbar spinal stenosis M48.061 Iron deficiency anemia D50.9 Hypothyroidism E03.9
[2021-06-12 06:02] LABS: Hematocrit (blood only) 25.2 % (37-47); Hemoglobin 8.3 g/dL (12.0-16.0); Mean Corpuscular Hgb Conc 32.9 g/dL (32-36); Mean Platelet Volume 10.5 fL (7.4-10.4); Nucleated RBC # (auto) 0.08 K/uL (0-0); Nucleated RBC % (auto) 0.5 %; Platelet Count 293 K/uL (130-400); RDW Coefficient of Variation 15.7 % (11.5-14.5); RDW Standard Deviation 51.7 fL (36.4-46.3); Red Blood Count 2.68 M/uL (4.2-5.4); White Blood Count 14.22 K/uL (4.8-10.8)
[2021-06-12] MEDS: LEVOTHYROXINE SODIUM 50 MCG TABLET PO SCH (06:04)
[2021-06-12 06:29] LABS: Basophils # (auto) 0.04 K/uL (0-0.2); Basophils % (auto) 0.3 %; Eosinophils % (auto) 1.4 %; Immature Granulocytes # (auto) 0.16 K/uL (0.00-0.02); Immature Granulocytes % (auto) 1.1 %; Lymphocytes # (auto) 0.74 K/uL (1.2-3.4); Lymphocytes % (auto) 5.2 %; Monocytes # (auto) 1.68 K/uL (0.11-0.59); Monocytes % (auto) 11.8 %; Neutrophils % (auto) 80.2 %; Polychromasia 1+; Target Cells 1+
[2021-06-12 06:30] LABS: Albumin Globulin Ratio 0.7 (0.9-2); Albumin Level 2.2 gm/dl (3.4-5.0); BUN Creatinine Ratio 24.1 (10-20); Bilirubin,Total 0.5 mg/dl (0.2-1.0); C Reactive Protein 13.86 mg/dl (0-0.5); Calcium 8.1 mg/dl (8.5-10.1); Creatinine Clr Calc Pharmacy 42.6 ml/min; Est GFR (African American) 76.1 ml/min; Est GFR (Non-African American) 65.7 ml/min; Globulin 3.2 gm/dl (2.5-4.0); Potassium 3.7 mmol/L (3.5-5.1); Total Protein 5.4 gm/dl (6.0-8.3)
[2021-06-12] MEDS: CYANOCOBALAMIN (B-12) 2,500 MCG TABLET SCH (08:38)
[2021-06-12] MEDS: TORSEMIDE 10 MG TAB PO SCH (08:38)
[2021-06-12] MEDS: THIAMINE HCL 100 MG TAB PO SCH (08:39)
[2021-06-12] MEDS: MULTIVITAMIN TAB PO SCH (08:39)
[2021-06-12] MEDS: CHOLECALCIFEROL 1,000 UNITS 25 MCG TAB PO SCH (08:40)
[2021-06-12] MEDS: ADVANCED PROBIOTIC 1250 MG CAPSULE PO SCH (08:40)
[2021-06-12] MEDS: ATENOLOL 25 MG TABLET PO SCH (08:41)
[2021-06-12] MEDS: MENTHOL-ZINC OXIDE 360 APPLN/120 GM TUBE EXT SCH ×3 (08:42→20:53)
[2021-06-12] MEDS: LIDOCAINE 5% 1 PATCH TD SCH (08:43)
[2021-06-12] MEDS: CHLORHEXIDINE GLUCONATE 0.12% 480 ML MT SCH ×2 (08:44→20:52)
[2021-06-12] MEDS: cefTRIAXone SODIUM 2,000 MG in DEXTROSE 5% 50 ML IV SCH (10:41)
[2021-06-12] MEDS: ACETAMINOPHEN 325 MG TAB PO PRN ×2 (12:44→18:27)
[2021-06-12 16:09] LABS: INR 2.5 (0.9-1.1)
[2021-06-12] MEDS: WARFARIN SOD 2.5 MG TAB PO SCH (17:40)
--- NOTE | 2021-06-12 19:55 | Hospitalist Progress Note ---
Date of Service June 12, 2021 Assessment & Plan (1) Septicemia: Plan: Dispo: Per CM: [facility] can not accept pt.Radha (daughter) updated. She [facility] [place]. 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 Pt is medicare so no auth needed. Case management to follow with pt.recommend Covid vaccination. 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 Suarez 06/07/2021, doing well Treat empirically with Vanco and Rocephin, narrowed to Rocephin after discussing with ID 06/07 Continue Rocephin 2 g IV daily x6 weeks, left PICC in place (06/08/21-07/20/21) MRIB no acute abnormalities CTsee without nodules or septic emboli Cardiology consulted, no NEMO, treating empirically for infective endocarditis Surveillance cultures negative Leukocytosis again improving. -procal negative Placement pending as above updated daughter at bedside. concerned about transport at discharge (2) Thrombocytopenia: Plan: Likely sepsis induced thrombocytopenia, have since ruled out ITP/TTP Now resolved. Monitor serial lab studies Previously discussed with hematology (3) Hyponatremia: Plan: Acute 122 on arrival now improved with volume resuscitation. Appeared to be hypovolemic hyponatremia on admission possibly secondary to torsemide use Improved to 135 Follow BMP Torsemide resumed (4) CHF (congestive heart failure): Plan: HFpEF - not in acute exacerbation at this time -Monitor intake and output. Torsemide resumed 06/07 Creatinine stable (5) Hypomagnesemia: Plan: Magnesium low on admission Replaced with IV magnesium sulfate Resolved (6) Paroxysmal atrial fibrillation: Plan: - Currently NSR . Takes Coumadin chronically - due to her radiation proctitis she has been on a regimen of low dose Coumadin. 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 Restarted (12) Lumbar spinal stenosis: Plan: L4 decompression fracture chronic. Supportive care (13) Iron deficiency anemia: Plan: chronic - has had low ferritin and iron studies in the past requiring Venofer infusions in 2012 - She is also on B12 oral -Follows with hematology/oncology, Dr. Zamudio at [facility] Hemoglobin uptrending 06/08 after dental surgery (14) Hypothyroidism: Plan: TSH normal 2.9 in 02/2021 -Continue home levothyroxine Plan: VTE prophylaxis-Coumadin therapy. Disposition: SNF placement at discharge with 6 weeks IV antibiotic therapy ( Rocephin 2 gm IV daily for 6 weeks). Pt high risk for COVID complications, recommended vaccination Admission and Anticipated Discharge Date Admission Date: June 01, 2021 Subjective 80 yo female reports no new symptoms Review of Systems Review of Systems: All systems reviewed & are unremarkable except as noted in HPI & below Physical Exam Physical Exam: General: Oriented to name and place. Frail-appearing, cachectic. HEENT: Atraumatic, normocephalic. Pulm diminished without overt wheezes rales or rhonchi. Symmetrical chest rise. No increase in work of breathing. No respiratory distress. Cardiac: RRR, -mrg. Radial pulses intact and symmetrical. Abdominal: Nontender, nondistended, soft. BS present. Extremities: Warm, dry, without edema Results & Data Results & Data ([facility]) Vital Signs (Past 12 Hours) Vital Signs Temp Pulse Pulse Pulse Resp BP BP 06/12/21 19:13 36.5 C 84 18 110/66 06/12/21 16:48 80 06/12/21 16:42 69 06/12/21 15:28 36.4 C L 90 16 93/58 L 06/12/21 13:10 36.7 C 84 14 109/71 Pulse Ox 06/12/21 19:13 95 06/12/21 16:48 06/12/21 16:42 06/12/21 15:28 93 06/12/21 13:10 96 PG Care Time/CCT Total # of Minutes Spent Total Time Spent with Patient: Total time spent is greater than 50% in coordination of care (as documented) at patient's floor/unit and/or counseling patient: Coding Level of Care Code 20669 Subseq Hosp Care Lvl 2 Diagnoses Septicemia A41.9 Thrombocytopenia D69.6 Hyponatremia E87.1 CHF (congestive heart failure) I50.9 Hypomagnesemia E83.42 Paroxysmal atrial fibrillation I48.0 Tricuspid valve mass I07.8 Mitral regurgitation I34.0 Radiation cystitis N30.40 Radiation proctitis K62.7 HTN (hypertension) I10 Lumbar spinal stenosis M48.061 Iron deficiency anemia D50.9 Hypothyroidism E03.9 Time Spent (min) 25
[2021-06-13 06:00] LABS: Hematocrit (blood only) 26.7 % (37-47); Hemoglobin 8.8 g/dL (12.0-16.0); Mean Platelet Volume 10.1 fL (7.4-10.4); Nucleated RBC # (auto) 0.05 K/uL (0-0); Nucleated RBC % (auto) 0.4 %; Platelet Count 307 K/uL (130-400); RDW Coefficient of Variation 15.9 % (11.5-14.5); Red Blood Count 2.84 M/uL (4.2-5.4)
[2021-06-13] MEDS: LEVOTHYROXINE SODIUM 50 MCG TABLET PO SCH (06:08)
[2021-06-13] MEDS: ACETAMINOPHEN 325 MG TAB PO PRN ×3 (07:56→22:04)
[2021-06-13] MEDS: THIAMINE HCL 100 MG TAB PO SCH (08:54)
[2021-06-13] MEDS: MULTIVITAMIN TAB PO SCH (08:54)
[2021-06-13] MEDS: TORSEMIDE 10 MG TAB PO SCH (08:54)
[2021-06-13] MEDS: ADVANCED PROBIOTIC 1250 MG CAPSULE PO SCH (08:54)
[2021-06-13] MEDS: CHOLECALCIFEROL 1,000 UNITS 25 MCG TAB PO SCH (08:55)
[2021-06-13] MEDS: ATENOLOL 25 MG TABLET PO SCH (08:55)
[2021-06-13] MEDS: CHLORHEXIDINE GLUCONATE 0.12% 480 ML MT SCH ×2 (08:56→20:40)
[2021-06-13] MEDS: CYANOCOBALAMIN (B-12) 2,500 MCG TABLET SCH (08:57)
[2021-06-13] MEDS: MENTHOL-ZINC OXIDE 360 APPLN/120 GM TUBE EXT SCH ×3 (08:58→20:40)
[2021-06-13] MEDS: cefTRIAXone SODIUM 2,000 MG in DEXTROSE 5% 50 ML IV SCH (10:04)
[2021-06-13] MEDS: LIDOCAINE 5% 1 PATCH TD SCH (10:26)
[2021-06-13] MEDS: WARFARIN SOD 2.5 MG TAB PO SCH (15:09)
--- NOTE | 2021-06-13 20:43 | Hospitalist Progress Note ---
Date of Service June 13, 2021 Assessment & Plan (1) Septicemia: Plan: Dispo: Per CM: [facility] can not accept pt.Radha (daughter) updated. She would likes referrals to the [facility], [facility], and [place]. 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 Pt is medicare so no auth needed. Case management to follow with pt.recommend Covid vaccination. 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 Suarez 06/07/2021, doing well Treat empirically with Vanco and Rocephin, narrowed to Rocephin after discussing with ID 06/07 Continue Rocephin 2 g IV daily x6 weeks, left PICC in place (06/08/21-07/20/21) MRIB no acute abnormalities CTsee without nodules or septic emboli Cardiology consulted, no NEMO, treating empirically for infective endocarditis Surveillance cultures negative Leukocytosis again improving. -procal negative Placement pending as above -will consult wound care for possible grade 1 decubitus ulcer- nurse applying cream updated daughter at bedside. concerned about transport at discharge (2) Thrombocytopenia: Plan: Likely sepsis induced thrombocytopenia, have since ruled out ITP/TTP Now resolved. Monitor serial lab studies Previously discussed with hematology (3) Hyponatremia: Plan: Acute 122 on arrival now improved with volume resuscitation. Appeared to be hypovolemic hyponatremia on admission possibly secondary to torsemide use Improved to 135 Follow BMP Torsemide resumed (4) CHF (congestive heart failure): Plan: HFpEF - not in acute exacerbation at this time -Monitor intake and output. Torsemide resumed 06/07 Creatinine stable (5) Hypomagnesemia: Plan: Magnesium low on admission Replaced with IV magnesium sulfate Resolved (6) Paroxysmal atrial fibrillation: Plan: - Currently NSR . Takes Coumadin chronically - due to her radiation proctitis she has been on a regimen of low dose Coumadin. 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 Restarted (12) Lumbar spinal stenosis: Plan: L4 decompression fracture chronic. Supportive care (13) Iron deficiency anemia: Plan: chronic - has had low ferritin and iron studies in the past requiring Venofer infusions in 2012 - She is also on B12 oral -Follows with hematology/oncology, [facility] Zamud[facility] at [facility] Hemoglobin uptrending 06/08 after dental surgery (14) Hypothyroidism: Plan: TSH normal 2.9 in 02/2021 -Continue home levothyroxine Plan: VTE prophylaxis-Coumadin therapy. Disposition: SNF placement at discharge with 6 weeks IV antibiotic therapy ( Rocephin 2 gm IV daily for 6 weeks). Pt high risk for COVID complications, recommended vaccination Admission and Anticipated Discharge Date Admission Date: June 01, 2021 Subjective Patient has no new complaints. Review of Systems Review of Systems: Unobtainable due to cognitive status Physical Exam Physical Exam: General: Oriented to name and place. Frail-appearing, cachectic. HEENT: Atraumatic, normocephalic. Pulm diminished without overt wheezes rales or rhonchi. Symmetrical chest rise. No increase in work of breathing. No respiratory distress. Cardiac: RRR, -mrg. Radial pulses intact and symmetrical. Abdominal: Nontender, nondistended, soft. BS present. Extremities: Warm, dry, without edema, excoriation on gluteal cleft, no fluctuance noted Results & Data Results & Data ([facility]) Vital Signs (Past 12 Hours) Vital Signs Temp Pulse Resp BP Pulse Ox 06/13/21 20:01 36.8 C 84 16 112/64 94 06/13/21 16:05 36.7 C 79 17 111/67 99 06/13/21 11:31 36.5 C 81 16 90/52 L 98 PG Care Time/CCT Total # of Minutes Spent Total Time Spent with Patient: Total time spent is greater than 50% in coordination of care (as documented) at patient's floor/unit and/or counseling patient: Coding Level of Care Code 51325 Subseq Hosp Care Lvl 2 Diagnoses Septicemia A41.9 Thrombocytopenia D69.6 Hyponatremia E87.1 CHF (congestive heart failure) I50.9 Hypomagnesemia E83.42 Paroxysmal atrial fibrillation I48.0 Tricuspid valve mass I07.8 Mitral regurgitation I34.0 Radiation cystitis N30.40 Radiation proctitis K62.7 HTN (hypertension) I10 Lumbar spinal stenosis M48.061 Iron deficiency anemia D50.9 Hypothyroidism E03.9
[2021-06-14] MEDS: LEVOTHYROXINE SODIUM 50 MCG TABLET PO SCH (05:46)
[2021-06-14] MEDS: MENTHOL-ZINC OXIDE 360 APPLN/120 GM TUBE EXT SCH ×3 (05:46→20:37)
[2021-06-14 05:49] LABS: Hematocrit (blood only) 26.4 % (37-47); Hemoglobin 8.6 g/dL (12.0-16.0); Mean Corpuscular Hemoglobin 30.9 pg (25-34); Mean Corpuscular Hgb Conc 32.6 g/dL (32-36); Mean Platelet Volume 9.9 fL (7.4-10.4); Nucleated RBC # (auto) 0.05 K/uL (0-0); Nucleated RBC % (auto) 0.4 %; Platelet Count 301 K/uL (130-400); RDW Coefficient of Variation 15.9 % (11.5-14.5); RDW Standard Deviation 53.4 fL (36.4-46.3); Red Blood Count 2.78 M/uL (4.2-5.4)
[2021-06-14 05:59] LABS: INR 3.5 (0.9-1.1)
[2021-06-14 06:12] LABS: BUN Creatinine Ratio 24.6 (10-20); Calcium 8.6 mg/dl (8.5-10.1); Creatinine Clr Calc Pharmacy 51.4 ml/min; Est GFR (Non-African American) 81.1 ml/min; Potassium 3.7 mmol/L (3.5-5.1)
[2021-06-14] MEDS: TORSEMIDE 10 MG TAB PO SCH (09:51)
[2021-06-14] MEDS: THIAMINE HCL 100 MG TAB PO SCH (09:51)
[2021-06-14] MEDS: MULTIVITAMIN TAB PO SCH (09:51)
[2021-06-14] MEDS: LIDOCAINE 5% 1 PATCH TD SCH (09:51)
[2021-06-14] MEDS: ADVANCED PROBIOTIC 1250 MG CAPSULE PO SCH (09:52)
[2021-06-14] MEDS: ATENOLOL 25 MG TABLET PO SCH (09:53)
[2021-06-14] MEDS: CHOLECALCIFEROL 1,000 UNITS 25 MCG TAB PO SCH (09:53)
[2021-06-14] MEDS: CYANOCOBALAMIN (B-12) 2,500 MCG TABLET SL SCH (09:53)
[2021-06-14] MEDS: CHLORHEXIDINE GLUCONATE 0.12% 480 ML MT SCH ×2 (09:53→20:36)
[2021-06-14] MEDS: ACETAMINOPHEN 325 MG TAB PO PRN ×3 (11:02→23:06)
[2021-06-14] MEDS: cefTRIAXone SODIUM 2,000 MG in DEXTROSE 5% 50 ML IV SCH (11:04)
[2021-06-14] MEDS: WARFARIN SOD 2.5 MG TAB PO SCH ×2 (16:08→16:35)
--- NOTE | 2021-06-14 20:38 | Hospitalist Progress Note ---
Date of Service June 14, 2021 Assessment & Plan (1) Septicemia: Plan: Dispo: Per CM: [facility] can not accept pt.Radha (daughter) updated. She would likes referrals to the [facility], [facility], and [facility]. [employer] to fax referrals. Pt is medicare so no auth needed. Case management to follow with pt.recommend Covid vaccination. 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 Suarez 06/07/2021, doing well Treat empirically with Vanco and Rocephin, narrowed to Rocephin after discussing with ID 06/07 Continue Rocephin 2 g IV daily x6 weeks, left PICC in place (06/08/21-07/20/21) MRIB no acute abnormalities CTsee without nodules or septic emboli Cardiology consulted, no NEMO, treating empirically for infective endocarditis Surveillance cultures negative Leukocytosis again improving. -procal negative Placement pending as above --discharge held as SNF did not have appropriate guten free diet available. updated daughter at bedside. (2) Thrombocytopenia: Plan: Likely sepsis induced thrombocytopenia, have since ruled out ITP/TTP Now resolved. Monitor serial lab studies Previously discussed with hematology (3) Hyponatremia: Plan: Acute 122 on arrival now improved with volume resuscitation. Appeared to be hypovolemic hyponatremia on admission possibly secondary to torsemide use resolved Torsemide resumed (4) CHF (congestive heart failure): Plan: HFpEF - not in acute exacerbation at this time -Monitor intake and output. Torsemide resumed 06/07 Creatinine stable (5) Hypomagnesemia: Plan: Magnesium low on admission Replaced with IV magnesium sulfate Resolved (6) Paroxysmal atrial fibrillation: Plan: - Currently NSR . Takes Coumadin chronically - due to her radiation proctitis she has been on a regimen of low dose Coumadin. 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 Could be infected vegetation consistent with endocarditis but recurrent fibroelastoma is more likely Cardiology consulted, management as above, treating empirically for endocar ditis (8) Mitral regurgitation: Plan: Mitral prolapse listed in history. 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 Restarted (12) Lumbar spinal stenosis: Plan: L4 decompression fracture chronic. Supportive care (13) Iron deficiency anemia: Plan: chronic - has had low ferritin and iron studies in the past requiring Venofer infusions in 2012 - She is also on B12 oral -Follows with hematology/oncology, Dr. Zamudio at [facility] Hemoglobin uptrending 06/08 after dental surgery (14) Hypothyroidism: Plan: TSH normal 2.9 in 02/2021 -Continue home levothyroxine Plan: VTE prophylaxis-Coumadin therapy. Disposition: SNF placement at discharge with 6 weeks IV antibiotic therapy ( Rocephin 2 gm IV daily for 6 weeks). Pt high risk for COVID complications, recommended vaccination Admission and Anticipated Discharge Date Admission Date: June 01, 2021 Subjective Patient has no new complaints. Updated daughter at bedside. Daughter explained that INR target is 1.8-2.0 as she had history of rectal bleeding in the past. Daughter was informed of discharge being cancelled due to her gluten free diet Review of Systems Review of Systems: All systems reviewed & are unremarkable except as noted in HPI & below Physical Exam Physical Exam: General: Oriented to name and place. Frail-appearing, cachectic. HEENT: Atraumatic, normocephalic. Pulm diminished without overt wheezes rales or rhonchi. Symmetrical chest rise. No increase in work of breathing. No respiratory distress. Cardiac: RRR, -mrg. Radial pulses intact and symmetrical. Abdominal: Nontender, nondistended, soft. BS present. Extremities: Warm, dry, without edema, excoriation on gluteal cleft, no fluctuance noted Results & Data Results & Data ([facility]) Vital Signs (Past 12 Hours) Vital Signs Temp Pulse Pulse Pulse Resp BP BP 06/14/21 19:48 36.6 C 77 17 98/60 L 06/14/21 14:17 73 06/14/21 11:26 37.0 C 77 17 123/79 06/14/21 10:32 Pulse Ox 06/14/21 19:48 95 06/14/21 14:17 06/14/21 11:26 98 06/14/21 10:32 96 PG Care Time/CCT Total # of Minutes Spent Total Time Spent with Patient: Total time spent is greater than 50% in coordination of care (as documented) at patient's floor/unit and/or counseling patient: Coding Level of Care Code 65778 Subseq Hosp Care Lvl 2 Diagnoses Septicemia A41.9 Thrombocytopenia D69.6 Hyponatremia E87.1 CHF (congestive heart failure) I50.9 Hypomagnesemia E83.42 Paroxysmal atrial fibrillation I48.0 Tricuspid valve mass I07.8 Mitral regurgitation I34.0 Radiation cystitis N30.40 Radiation proctitis K62.7 HTN (hypertension) I10 Lumbar spinal stenosis M48.061 Iron deficiency anemia D50.9 Hypothyroidism E03.9 Time Spent (min) 25
[2021-06-15] MEDS: LEVOTHYROXINE SODIUM 50 MCG TABLET PO SCH (06:26)
[2021-06-15 06:51] LABS: INR 3.5 (0.9-1.1)
[2021-06-15] MEDS: ADVANCED PROBIOTIC 1250 MG CAPSULE PO SCH ×2 (08:50→09:54)
[2021-06-15] MEDS: CHOLECALCIFEROL 1,000 UNITS 25 MCG TAB PO SCH (08:51)
[2021-06-15] MEDS: THIAMINE HCL 100 MG TAB PO SCH (08:51)
[2021-06-15] MEDS: ATENOLOL 25 MG TABLET PO SCH (08:51)
[2021-06-15] MEDS: CYANOCOBALAMIN (B-12) 2,500 MCG TABLET SL SCH (08:51)
[2021-06-15] MEDS: CHLORHEXIDINE GLUCONATE 0.12% 480 ML MT SCH ×2 (08:52→20:27)
[2021-06-15] MEDS: TORSEMIDE 10 MG TAB PO SCH (08:52)
[2021-06-15] MEDS: MULTIVITAMIN TAB PO SCH (08:52)
[2021-06-15] MEDS: MENTHOL-ZINC OXIDE 360 APPLN/120 GM TUBE EXT SCH ×3 (08:53→20:27)
[2021-06-15] MEDS: cefTRIAXone SODIUM 2,000 MG in DEXTROSE 5% 50 ML IV SCH (09:00)
[2021-06-15] MEDS ORDERED: Nursing to Pharmacy Communication SCH (09:15)
[2021-06-15] MEDS: ACETAMINOPHEN 325 MG TAB PO PRN ×2 (13:43→20:27)
--- NOTE | 2021-06-15 18:02 | Hospitalist Progress Note ---
Date of Service June 15, 2021 Assessment & Plan (1) Septicemia: Plan: Dispo: Per CM: [facility] checking on peds, awaiting callback. [facility] sent an update, pending callback. Placement pending, CM following. 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 Suarez 06/07/2021, doing well Treat empirically with Vanco and Rocephin, narrowed to Rocephin after discussing with ID 06/07 Continue Rocephin 2 g IV daily x6 weeks, left PICC in place (06/08/21-07/20/21) MRIB no acute abnormalities CTsee without nodules or septic emboli Cardiology consulted, no NEMO, treating empirically for infective endocarditis Surveillance cultures negative Leukocytosis again improving. -procal negative Placement pending as above -discharge held as SNF did not have appropriate guten free diet available. (2) Thrombocytopenia: Plan: Likely sepsis induced thrombocytopenia, have since ruled out ITP/TTP Now resolved. Monitor serial lab studies Previously discussed with hematology (3) Hyponatremia: Plan: Acute 122 on arrival now improved with volume resuscitation. Appeared to be hypovolemic hyponatremia on admission possibly secondary to torsemide use resolved Torsemide resumed (4) CHF (congestive heart failure): Plan: HFpEF - not in acute exacerbation at this time -Monitor intake and output. Torsemide resumed 06/07 Creatinine stable (5) Hypomagnesemia: Plan: Magnesium low on admission Replaced with IV magnesium sulfate Resolved (6) Paroxysmal atrial fibrillation: Plan: - Currently NSR . Takes Coumadin chronically - due to her radiation proctitis she has been on a regimen of low dose Coumadin. - INR goal is 1.8-2.0 due to rectal proctitis INR supratherapeutic 3.5 06/14 and 06/15. 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 Could be infected vegetation consistent with endocarditis but recurrent fibroelastoma is more like ly Cardiology consulted, management as above, treating empirically for endocarditis (8) Mitral regurgitation: Plan: Mitral prolapse listed in history. 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 Restarted (12) Lumbar spinal stenosis: Plan: L4 decompression fracture chronic. Supportive care (13) Iron deficiency anemia: Plan: chronic - has had low ferritin and iron studies in the past requiring Venofer infusions in 2012 - She is also on B12 oral -Follows with hematology/oncology, Dr. Zamudio at [facility] Hemoglobin uptrending 06/08 after dental surgery (14) Hypothyroidism: Plan: TSH normal 2.9 in 02/2021 -Continue home levothyroxine Plan: VTE prophylaxis-Coumadin therapy. Disposition: SNF placement at discharge with 6 weeks IV antibiotic therapy ( Rocephin 2 gm IV daily for 6 weeks). Pt high risk for COVID complications, recommended vaccination Admission and Anticipated Discharge Date Admission Date: June 01, 2021 Subjective Seen at bedside. Sleeping comfortably, arouses easily before falling back asleep after exam. Reports she feels unchanged, denies pain, no acute questions or concerns. Denies fever, chills, sweats, chest pain, chest pressure. Aware that SNF delayed, pending placement. No additional questions or concerns at bedside. Review of Systems Review of Systems: All systems reviewed & are unremarkable except as noted in Subjective Physical Exam Physical Exam: General: Oriented to name and place. Sleeping, awakens easily. Cachectic. HEENT: Atraumatic, normocephalic. Visual acuity and hearing grossly intact Pulm diminished without overt wheezes rales or rhonchi. Symmetrical chest rise. No increase in work of breathing. No respiratory distress. Cardiac: RRR, -mrg. Radial pulses intact and symmetrical. Abdominal: Nontender, nondistended, soft. BS present. Extremities: Warm, dry, without edema, excoriation on gluteal cleft, no fluctuance noted Results & Data Results & Data ([facility]) Vital Signs (Past 12 Hours) Vital Signs Temp Pulse Pulse Resp BP BP Pulse Ox 06/15/21 15:41 36.4 C L 74 18 111/62 96 06/15/21 14:48 72 06/15/21 11:00 36.5 C 75 16 121/75 100 06/15/21 08:15 81 06/15/21 07:18 36.6 C 72 16 117/68 96 PG Care Time/CCT Total # of Minutes Spent Total Time Spent with Patient: Total time spent is greater than 50% in coordination of care (as documented) at patient's floor/unit and/or counseling patient: Coding Level of Care Code 97963 Subseq Hosp Care Lvl 1 Diagnoses Septicemia A41.9 Thrombocytopenia D69.6 Hyponatremia E87.1 CHF (congestive heart failure) I50.9 Hypomagnesemia E83.42 Paroxysmal atrial fibrillation I48.0 Tricuspid valve mass I07.8 Mitral regurgitation I34.0 Radiation cystitis N30.40 Radiation proctitis K62.7 HTN (hypertension) I10 Lumbar spinal stenosis M48.061 Iron deficiency anemia D50.9 Hypothyroidism E03.9
[2021-06-16 06:15] LABS: Basophils # (auto) 0.05 K/uL (0-0.2); Basophils % (auto) 0.4 %; Eosinophils # (auto) 0.17 K/uL (0-0.5); Eosinophils % (auto) 1.3 %; Hematocrit (blood only) 26.3 % (37-47); Hemoglobin 8.6 g/dL (12.0-16.0); Immature Granulocytes # (auto) 0.09 K/uL (0.00-0.02); Immature Granulocytes % (auto) 0.7 %; Lymphocytes % (auto) 7.1 %; Mean Corpuscular Hemoglobin 31.2 pg (25-34); Mean Corpuscular Hgb Conc 32.7 g/dL (32-36); Mean Corpuscular Volume 95.3 fL (80-100); Mean Platelet Volume 10.1 fL (7.4-10.4); Monocytes # (auto) 1.42 K/uL (0.11-0.59); Monocytes % (auto) 11.2 %; Neutrophils # (auto) 10.02 K/uL (1.4-6.5); Neutrophils % (auto) 79.3 %; Platelet Count 313 K/uL (130-400); RDW Coefficient of Variation 15.8 % (11.5-14.5); Red Blood Count 2.76 M/uL (4.2-5.4); White Blood Count 12.65 K/uL (4.8-10.8)
[2021-06-16] MEDS: LEVOTHYROXINE SODIUM 50 MCG TABLET PO SCH (06:17)
[2021-06-16] MEDS: ACETAMINOPHEN 325 MG TAB PO PRN ×4 (06:22→22:38)
[2021-06-16 06:34] LABS: INR 3.3 (0.9-1.1); Prothrombin Time 30.2 Seconds (9.0-12.0)
[2021-06-16 06:49] LABS: BUN Creatinine Ratio 27.6 (10-20); Calcium 8.7 mg/dl (8.5-10.1); Creatinine Clr Calc Pharmacy 59.7 ml/min; Est GFR (African American) 99.5 ml/min; Est GFR (Non-African American) 85.8 ml/min
[2021-06-16] MEDS: MULTIVITAMIN TAB PO SCH (09:00)
[2021-06-16] MEDS: ADVANCED PROBIOTIC 1250 MG CAPSULE PO SCH (09:01)
[2021-06-16] MEDS: THIAMINE HCL 100 MG TAB PO SCH (09:01)
[2021-06-16] MEDS: CYANOCOBALAMIN (B-12) 2,500 MCG TABLET SL SCH (09:01)
[2021-06-16] MEDS: CHOLECALCIFEROL 1,000 UNITS 25 MCG TAB PO SCH (09:01)
[2021-06-16] MEDS: TORSEMIDE 10 MG TAB PO SCH (09:01)
[2021-06-16] MEDS: CHLORHEXIDINE GLUCONATE 0.12% 480 ML MT SCH ×2 (09:02→20:07)
[2021-06-16] MEDS: MENTHOL-ZINC OXIDE 360 APPLN/120 GM TUBE EXT SCH ×3 (09:02→20:13)
[2021-06-16] MEDS: ATENOLOL 25 MG TABLET PO SCH (09:02)
[2021-06-16] MEDS: cefTRIAXone SODIUM 2,000 MG in DEXTROSE 5% 50 ML IV SCH (09:03)
--- NOTE | 2021-06-16 13:01 | Hospitalist Progress Note ---
Date of Service June 16, 2021 Assessment & Plan (1) Septicemia: Plan: Dispo: Per CM: [facility] able to accept tomorrow. 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 Suarez 06/07/2021, doing well Treat empirically with Vanco and Rocephin, narrowed to Rocephin after discussing with ID 06/07 Continue Rocephin 2 g IV daily x6 weeks, left PICC in place (06/08/21-07/20/21) MRIB no acute abnormalities CTsee without nodules or septic emboli Cardiology consulted, no NEMO, treating empirically for infective endocarditis Surveillance cultures negative -procal negative Placement pending as above (2) Thrombocytopenia: Plan: Likely sepsis induced thrombocytopenia, have since ruled out ITP/TTP Now resolved. Monitor serial lab studies Previously discussed with hematology (3) Hyponatremia: Plan: Acute 122 on arrival now improved with volume resuscitation. Appeared to be hypovolemic hyponatremia on admission possibly secondary to torsemide use resolved Torsemide resumed (4) Edema: Plan: Bilateral leg edema, some hand edema Likely third spacing with nutritional deficiency and hypoalbuminemia, to 2.2 at last check Improving p.o. nutrition. Dietary consulted, patient doing better with chocolate shake supplements CMP daily No pulmonary edema, continue torsemide (5) CHF (congestive heart failure): Plan: HFpEF - not in acute exacerbation at this time -Monitor intake and output. Torsemide resumed 06/07 Creatinine stable (6) Hypomagnesemia: Plan: Magnesium low on admission Replaced with IV magnesium sulfate Resolved (7) Paroxysmal atrial fibrillation: Plan: - Currently NSR . Takes Coumadin chronically - due to her radiation proctitis she has been on a regimen of low dose Coumadin. - INR goal is 1.8-2.0 due to rectal proctitis INR supratherapeutic 3.5 06/14 and 06/15. 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 Could be infected vegetation consistent with endocarditis but recurrent fibroelastoma is more likely Cardiology consulted, management as above, treating empirically for endocarditis (9) Mitral regurgitation: Plan: Mitral prolapse listed in history. ECHOs performed noting mitral regurg- mild (10) Radiation cystitis: Plan: Chronic - follow (11) Radiation proctitis: Plan: Chronic as above (12) HTN (hypertension): Plan: Held atenolol on admission in setting of low normal BP on admission. Restarted (13) Lumbar spinal stenosis: Plan: L4 decompression fracture chronic. Supportive care (14) Iron deficiency anemia: Plan: chronic - has had low ferritin and iron studies in the past requiring Venofer infusions in 2012 - She is also on B12 oral -Follows with hematology/oncology, Dr. Zamudio at [facility] Hemoglobin uptrending 06/08 after dental surgery (15) Hypothyroidism: Plan: TSH normal 2.9 in 02/2021 -Continue home levothyroxine Plan: VTE prophylaxis-Coumadin therapy. Disposition: SNF placement at discharge with 6 weeks IV antibiotic therapy ( Rocephin 2 gm IV daily for 6 weeks). Pt high risk for COVID complications, recommended vaccination Admission and Anticipated Discharge Date Admission Date: June 01, 2021 Subjective Patient seen at the bedside. Was revisited in the afternoon with her daughter present. Sleepy, awakens transiently for exam before going back to sleep. Has had some loose bowels but not liquid while on antibiotics. Does have excoriation of her bottom. No fevers, chills, sweats, chest pain, chest pressure, shortness of breath, difficulty breathing. Does have leg edema with some pain with PT, this is chronic. Was seen by nutrition and is working with boost to built-up protein/nutrition with third spacing from hypoalbuminemia. Update given to daughter, no additional questions at time of exam Physical Exam Physical Exam: General: Oriented to name and place. Sleeping, awakens easily. Cachectic. HEENT: Atraumatic, normocephalic. Visual acuity and hearing grossly intact Pulm: diminished without overt wheezes rales or rhonchi. Symmetrical chest rise. No increase in work of breathing. No respiratory distress. Cardiac: RRR, -mrg. Radial pulses intact and symmetrical. Abdominal: Nontender, nondistended, soft. BS present. Extremities: Warm, dry, with edema, excoriation on gluteal cleft, no fluctuance noted Results & Data Results & Data ([facility]) Vital Signs (Past 12 Hours) Vital Signs Temp Pulse Pulse Resp BP BP Pulse Ox 06/16/21 11:45 36.5 C 86 14 132/72 94 06/16/21 09:59 80 06/16/21 07:09 36.8 C 74 16 97/60 L 97 06/16/21 04:03 36.5 C 80 22 124/70 95 PG Care Time/CCT Total # of Minutes Spent Total Time Spent with Patient: Total time spent is greater than 50% in coordination of care (as documented) at patient's floor/unit and/or counseling patient: Coding Level of Care Code 32299 Subseq Hosp Care Lvl 2 Diagnoses Septicemia A41.9 Thrombocytopenia D69.6 Hyponatremia E87.1 CHF (congestive heart failure) I50.9 Hypomagnesemia E83.42 Paroxysmal atrial fibrillation I48.0 Tricuspid valve mass I07.8 Mitral regurgitation I34.0 Radiation cystitis N30.40 Radiation proctitis K62.7 HTN (hypertension) I10 Lumbar spinal stenosis M48.061 Iron deficiency anemia D50.9 Hypothyroidism E03.9 Edema R60.9
[2021-06-16] MEDS ORDERED: HYDROCORTISONE HC 2.5% CRM 30GM TUBE EXT PRN (13:19)
--- NOTE | 2021-06-16 14:57 | Ultrasound Report ---
BILATERAL LOWER EXTREMITY VENOUS DOPPLER HISTORY: Bilateral calf pain COMPARISON STUDY: None. FINDINGS: There is normal compressibility, flow, and augmentation within the bilateral lower extremit y deep venous systems. IMPRESSION: No DVT within the right or left lower extremity. ACT 112: Negative or not required by law. Electronically signed by: Orlando Cash M.D. 06/16/2021 2:56 PM
[2021-06-17] MEDS: ACETAMINOPHEN 325 MG TAB PO PRN ×2 (03:15→12:07)
[2021-06-17] MEDS: LEVOTHYROXINE SODIUM 50 MCG TABLET PO SCH (05:42)
[2021-06-17 08:28] LABS: Basophils # (auto) 0.06 K/uL (0-0.2); Basophils % (auto) 0.5 %; Eosinophils % (auto) 1.7 %; Hematocrit (blood only) 27.5 % (37-47); Hemoglobin 8.8 g/dL (12.0-16.0); Immature Granulocytes # (auto) 0.07 K/uL (0.00-0.02); Immature Granulocytes % (auto) 0.6 %; Lymphocytes # (auto) 0.96 K/uL (1.2-3.4); Mean Corpuscular Hemoglobin 30.6 pg (25-34); Mean Corpuscular Volume 95.5 fL (80-100); Mean Platelet Volume 9.9 fL (7.4-10.4); Monocytes # (auto) 1.29 K/uL (0.11-0.59); Monocytes % (auto) 10.7 %; Neutrophils # (auto) 9.48 K/uL (1.4-6.5); Neutrophils % (auto) 78.5 %; Platelet Count 349 K/uL (130-400); RDW Coefficient of Variation 15.6 % (11.5-14.5); Red Blood Count 2.88 M/uL (4.2-5.4); White Blood Count 12.06 K/uL (4.8-10.8)
[2021-06-17 09:04] LABS: Albumin Globulin Ratio 0.7 (0.9-2); Albumin Level 2.5 gm/dl (3.4-5.0); BUN Creatinine Ratio 26.9 (10-20); Bilirubin,Total 0.4 mg/dl (0.2-1.0); Calcium 8.7 mg/dl (8.5-10.1); Creatinine Clr Calc Pharmacy 66.3 ml/min; Est GFR (African American) 103.1 ml/min; Globulin 3.8 gm/dl (2.5-4.0); Potassium 4.2 mmol/L (3.5-5.1); Total Protein 6.3 gm/dl (6.0-8.3)
[2021-06-17] MEDS: cefTRIAXone SODIUM 2,000 MG in DEXTROSE 5% 50 ML IV SCH (09:27)
[2021-06-17] MEDS: MULTIVITAMIN TAB PO SCH (09:28)
[2021-06-17] MEDS: THIAMINE HCL 100 MG TAB PO SCH (09:28)
[2021-06-17] MEDS: TORSEMIDE 10 MG TAB PO SCH (09:28)
[2021-06-17] MEDS: ATENOLOL 25 MG TABLET PO SCH (09:29)
[2021-06-17] MEDS: CYANOCOBALAMIN (B-12) 2,500 MCG TABLET SL SCH (09:29)
[2021-06-17] MEDS: CHOLECALCIFEROL 1,000 UNITS 25 MCG TAB PO SCH (09:29)
[2021-06-17] MEDS: CHLORHEXIDINE GLUCONATE 0.12% 480 ML MT SCH (09:29)
[2021-06-17] MEDS: ADVANCED PROBIOTIC 1250 MG CAPSULE PO SCH (09:29)
[2021-06-17] MEDS: MENTHOL-ZINC OXIDE 360 APPLN/120 GM TUBE EXT SCH ×2 (10:17→13:43)
[2021-06-17 10:30] LABS: INR 2.6 (0.9-1.1); Prothrombin Time 24.5 Seconds (9.0-12.0)
[2021-06-17 12:27] VITALS: BP 122/70; PULSE 71; TEMP 97.5; O2SAT 99
--- NOTE | 2021-06-17 13:31 | Discharge Summary ---
Date of Service June 17, 2021 Principal Diagnosis Bacteremia with group B strep, odontogenic infection of teeth 15 and 16 Discharge Exam General: A&Ox3. NAD. Cooperative. HEENT: Atraumatic, normocephalic. Status post extraction of teeth 15 and 16. No bleeding at gumline. Poor dentition. Pulm: Diminished with bibasilar crackles but no rales or wheezes. Symmetrical chest rise. No increase in work of breathing. No respiratory distress. Cardiac: RRR, -mrg. Radial pulses intact and symmetrical. Abdominal: Nontender, nondistended, soft. BS present. Extremities: Left PICC in place, extremities warm and dry. Bilateral lower extremity edema, hand edema present. Discharge Data Allergies Allergy/AdvReac Type Severity Reaction Status Date / Time gluten Allergy Unknown unknown Verified 06/01/21 07:36 Iodinated Contrast Media Allergy Unknown RASH TO Verified 06/01/21 07:36 "CT SCAN DYE" Cipro AdvReac Intermediate GI UPSET Verified 09/10/17 06:43 ciprofloxacin AdvReac Intermediate GI UPSET Verified 06/01/21 07:36 Consultations 06/01/21 08:37 ED Decision to Admit Stat 06/01/21 12:19 Consult Hematology Routine 06/01/21 14:14 Consult Journal Entry Audit Clerk Routine 06/02/21 10:01 Consult Cardiology Routine Consult Infectious Diseases Routine 06/02/21 17:24 Consult Oromaxillofacial Surgery Routine Procedures Performed Operation Date: 06/07/21 11:15 Actual Procedures p Incision and Drainage, Removal of Teeth 15 and 16 - Heath Suarez, MAXWELL Ordered Studies 06/01/21 05:37 CT abd pelvis wo con Urgent 06/01/21 06:56 CT head/brain wo con Stat 06/01/21 12:10 CT facial bones wo con Stat CT soft tissue neck wo con Stat 06/02/21 17:28 MR brain wo/w con Urgent 06/02/21 17:29 CT chest diagnostic wo con Urgent 06/16/21 14:30 US venous doppler LE Urgent Hospital Course (1) Septicemia: To do as outpatient: 1. Close follow-up of INR and careful titration of warfarin. Patient on Rocephin with supratherapeutic INR, warfarin in therapeutic range at discharge and warfarin dose reduced to 2.0 mg. Should have a INR check within 48 hours and further adjustments as needed. Patient does have a history of proctitis with bleeding when supratherapeutic. 2. Complete 6 weeks of Rocephin 2 g IV daily for GBS bacteremia, course complete 07/20/2021 3. detention with rehab 4. Follow-up with primary care 5. Follow-up with oral surgery 6. Weekly CBC/CMP while on antibiotics to be drawn by PCP 7. Continue nutrition follow-up, protein supplements as tolerated. Patient edematous with hypoalbuminemia and third spacing Dispo: Per CM: [facility] likely able to accept tomorrow. 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 Suarez , doing well Treat empirically with Vanco and Rocephin, narrowed to Rocephin after discussing with ID 06/07 Continue Rocephin 2 g IV daily x6 weeks, left PICC in place (06/08/21-07/20/21) MRIB no acute abnormalities CTsee without nodules or septic emboli Cardiology consulted, no NEMO, treating empirically for infective endocarditis Surveillance cultures negative -procal negative Discharge to SNF (2) Thrombocytopenia: Likely sepsis induced thrombocytopenia, have since ruled out ITP/TTP Now resolved. Monitor serial lab studies Previously discussed with hematology (3) Hyponatremia: Acute 122 on arrival now improved with volume resuscitation. Appeared to be hypovolemic hyponatremia on admission possibly secondary to torsemide use resolved Torsemide resumed (4) Edema: Bilateral leg edema, some hand edema Likely third spacing with nutritional deficiency and hypoalbuminemia, to 2.2 improving on day of discharge Improving p.o. nutrition. Dietary consulted, patient doing better with chocolate shake supplements No pulmonary edema, continue torsemide (5) CHF (congestive heart failure): HFpEF - not in acute exacerbation at this time -Monitor intake and output. Torsemide resumed 06/07 Creatinine stable (6) Hypomagnesemia: Magnesium low on admission Replaced with IV magnesium sulfate Resolved (7) Paroxysmal atrial fibrillation: - Currently NSR . Takes Coumadin chronically - due to her radiation proctitis she has been on a regimen of low dose Coumadin. - INR goal is 1.8-2.0 due to rectal proctitis INR supratherapeutic 3.5 . 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 Could be infected vegetation consistent with endocarditis but recurrent fibroelastoma is more likely Cardiology consulted, management as above, treating empirically for endocarditis (9) Mitral regurgitation: Mitral prolapse listed in history. 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 Restarted (13) Lumbar spinal stenosis: L4 decompression fracture chronic. Supportive care (14) Iron deficiency anemia: chronic - has had low ferritin and iron studies in the past requiring Venofer infusions in 2012 - She is also on B12 oral -Follows with hematology/oncology, Dr. Zamudio at [facility] Hemoglobin uptrending 06/08 after dental surgery (15) Hypothyroidism: TSH normal 2.9 in 02/2021 -Continue home levothyroxine VTE prophylaxis-Coumadin therapy. Disposition: SNF placement at discharge with 6 weeks IV antibiotic therapy ( Rocephin 2 gm IV daily for 6 weeks). Pt high risk for COVID complications, recommended vaccination Total Time Total Time Spent Total Time Spent (In Minutes): Time spend day of discharge 35 minutes including direct patient care, documentation, review of labs and images, and coordination of care. Discharge Plan Discharge Items Patient Disposition: Transfer [facility] Care [facility] Reason For Visit: INFECTION/SIRS/SIC Discharge Diagnosis: GBS bacteremia Activity: Per Instructions section Non-emergency contact: Surgeon Call non-emergency contact if: you have any medication questions, your symptoms worsen, your pain is not controlled, your pain is worsening, your pain is unusual for you and you have a fever Follow-up/Referrals: Constantine Padilla MD [Primary Care Provider] - Heath Suarez DMD [Physician] - Diet: Gluten Free Diet Comment: Minced and Moist, Gluten Free Addtl Attending Provider Instructions: You were seen in the hospital for bacteremia with a dental abscess. You had an incision and drainage and removal of teeth 15 and 16 performed on 06/07/2021. You were found to have group B Step bacteria in your bloodstream, which also puts you at high risk for endocarditis. As result you have been recommended to continue IV antibiotics as noted below until 07/20/2021. You are being discharged to rehab at a longterm facility. You have been prescribed an antibiotic, Rocephin. Please take Rocephin 2 g by IV once daily until 07/20/2021. While on this antibiotic you should have a weekly CBC and BMP (blood work) drawn by your primary care physician. During admission you had an MRI of the brain and a CAT scan which did not show any acute abnormalities or evidence of septic emboli. You had experienced bilateral leg edema and some hand edema. Evaluation for blood clots did not show evidence of blood clots in the leg. This is likely due to third spacing as you are nutritionally depleted with a low albumin, this should improve as your strength and nutrition improves. Your albumin was increasing at time of discharge, but was not yet normal. Please continue your regular dose of torsemide and follow-up with your primary care physician for additional care. While on antibiotics your warfarin dose will likely need to be reduced, as antibiotics commonly cause INR to become elevated. Your INR was elevated during admission. At discharge your INR was 2.6. Your warfarin dose was temporarily been changed/decreased, please take warfarin 2 mg daily and have an INR check within 48 hours and close follow-up as you may need additional adjustments. If you develop any new or worsening symptoms including fever, chills, sweats, chest pain, chest pressure, difficulty breathing, uncontrolled nausea/vomiting, rash, wheezing, passing out or nearly passing out, bleeding, black/bloody bowel movements, or other new or concerning symptoms please call your primary care p marlon, or call 911 for re-evaluation in the emergency department if you are very concerned. ADDITIONAL ACTIVITY RECOMMENDATIONS: * Sanders teeth after every meal. It is very important to keep your mouth clean to prevent infection. * Starting tonight rinse with the Peridex as directed then 2 x a day * it is very important to keep well hydrated, this prevents fever and possible dry socket pain * gauze pressure to upper left area will control any oozing. * do to taking blood thinners please avoid eating hard foods SPECIAL CARE INSTRUCTIONS: *It is not uncommon that between day 2-4 that your swelling will be at its worst this is very normal, do not be alarmed. * Some swelling is common. It should gradually decrease within 4-5 days. * A certain amount of bleeding is to be expected. It is often possible to control mild oozing by placing folded gauze over the area and biting down for 30 minutes. If you are unable to control excessive bleeding, call Dr Suarez at [phone] * NO Return to the office is needed unless you are having any problems from the extraction site * office address--[facility] [address] phone # [phone] Pending Studies at Discharge: Yes (requires weekly CBC/BMP, and INR within 48 hours) Stand-Alone Forms: [facility] [employer], Smoking Cessation Skilled Items Patient informed of condition?: Yes DNR: Yes Discharge Level of Care: Skilled Communicable Disease: No Discharge Prognosis: Stable Lines: None Urinary Catheter: Yes Medications and DC Order Prescriptions: New ceftriaxone 2 gram recon soln 2 g IV DAILY Qty: 33 RF: 0 warfarin 2 mg tablet 2 mg PO DAILY 30 Days Qty: 30 RF: 0 Continued coenzyme Q10 100 mg capsule 100 mg PO QAM RF: 0 zinc sulfate 50 mg zinc (220 mg) capsule 50 mg PO WK RF: 0 cholecalciferol (vitamin D3) 50 mcg/drop (2, 000 unit/drop) drops 4,000 unit PO QAM RF: 0 levothyroxine 50 mcg tablet 50 mcg PO QAM Qty: 60 RF: 3 atenolol 25 mg tablet See Rx Instructions .ROUTE .COMPLEX Qty: 90 RF: 3 multivitamin [Multiple Vitamins] tablet 2 tab PO QAM RF: 0 Lacto.acidophilus-Bif.animalis 31 billion cell capsule 1 cap PO QAM RF: 0 torsemide 20 mg tablet 10 - 20 mg PO QAM RF: 0 cyanocobalamin (vitamin B-12) 2,500 mcg tablet,chewable 2,500 mcg PO QAM RF: 0 vitamin K 1 mg/0.5 mL Solution 0 mg PO DAILY RF: 0 iodine 150 mcg Tablet 0 mcg PO DAILY RF: 0 Discontinued warfarin 2.5 mg tablet 2.5 mg PO UD RF: 0 Discharge Orders: Discharge Order (Routine); Ordered 06/17/21 Ordered By: Constantine Tanner Admission Data Admit Date/Time: 06/01/21 12:07 Attending Provider: Constantine Tanner Admit Provider: Marium Pratt Primary Care Provider: Constantine Padilla Other Providers: Angel Carnes [place] ; Carmen Fan [facility] ; Marium Pratt ; Jacob Ford V. ; Nando Cooper ; Ash Bosch ; Dae Jang ; Sharon Dennis ; Blaise Jimenez I. ; Bienvenido Peter II ; Jacqui Johnson ; Richard Kyle ; Javy Zarate ; Heath Suarez Other Interventions: Discharge Summary Assessment (RN) Last Done: 06/17/21 12:55 Coding Level of Care Code D/C DAY MANAGEMENT >30 MINS Diagnoses Septicemia A41.9 Thrombocytopenia D69.6 Hyponatremia E87.1 Edema R60.9 CHF (congestive heart failure) I50.9 Hypomagnesemia E83.42 Paroxysmal atrial fibrillation I48.0 Tricuspid valve mass I07.8 Mitral regurgitation I34.0 Radiation cystitis N30.40 Radiation proctitis K62.7 HTN (hypertension) I10 Lumbar spinal stenosis M48.061 Iron deficiency anemia D50.9 Hypothyroidism E03.9
== END 2021-06-17 14:04 | DRG 871 ==
LOC: ED 05:27 → SUATTDRO 12:07 → 1E 12:07 → 2W 06-02 22:03 → 2S 06-07 15:45

== ENCOUNTER 2022-02-23 21:03 | Observation (INO) ==
[2022-02-23] MEDS ORDERED: ACETAMINOPHEN 1,000 MG/100 ML VIAL IV STA (21:37)
[2022-02-23] MEDS ORDERED: ONDANSETRON INJ 2 MG/ML 2 ML VIAL IV STA (21:37)
[2022-02-23 21:51] LABS: Basophils # (auto) 0.06 K/uL (0-0.2); Basophils % (auto) 0.7 %; Eosinophils # (auto) 0.06 K/uL (0-0.50); Eosinophils % (auto) 0.7 %; Hematocrit (blood only) 31.8 % (34.1-44.9); Hemoglobin 10.7 g/dl (12.0-16.0); Immature Granulocytes # (auto) 0.03 K/uL (0.00-0.02); Immature Granulocytes % (auto) 0.3 %; Lymphocytes # (auto) 0.74 K/uL (1.2-3.4); Lymphocytes % (auto) 8.6 %; Mean Corpuscular Hgb Conc 33.6 g/dL (32.0-36.0); Mean Corpuscular Volume 89.1 fL (80.0-100.0); Mean Platelet Volume 10.6 fL (9.4-12.3); Monocytes # (auto) 1.33 K/uL (0.24-0.82); Monocytes % (auto) 15.5 %; Neutrophils # (auto) 6.38 K/uL (1.4-6.5); Neutrophils % (auto) 74.2 %; Platelet Count 202 K/uL (130-400); RDW Coefficient of Variation 14.4 % (11.5-14.5); RDW Standard Deviation 46.7 fL (36.4-46.3); Red Blood Count 3.57 M/uL (3.93-5.22)
[2022-02-23 22:01] LABS: INR 1.8 (0.9-1.1); Partial Thromboplastin Ratio 1.3; Partial Thromboplastin Time 36.5 Seconds (21.0-31.0); Prothrombin Time 18.9 Seconds (9.0-12.0)
[2022-02-23 22:14] LABS: Albumin Level 4.1 gm/dl (3.4-5.0); BUN Creatinine Ratio 20.7 (10-20); Bilirubin,Total 0.6 mg/dl (0.2-1.0); Calcium 10.2 mg/dl (8.5-10.1); Est GFR (African American) 71.4 ml/min; Est GFR (Non-African American) 61.6 ml/min; Potassium 4.5 mmol/L (3.5-5.1); Total Protein 8.1 gm/dl (6.0-8.3)
[2022-02-23 22:16] LABS: Troponin I High Sensitivity 10.2 pg/ml (0-14)
--- NOTE | 2022-02-23 23:15 | CT Scan Report ---
CT OF THE ABDOMEN AND PELVIS WITHOUT CONTRAST CLINICAL HISTORY: Left flank pain. COMPARISON STUDY: CT of the abdomen pelvis October 21, 2021. TECHNIQUE: Axial images of the abdomen and pelvis were obtained without IV contrast. Images were revi ewed in the axial, sagittal, and coronal planes. Automated exposure control was utilized for the gena dy. A dose lowering technique was utilized adhering to the principles of ALARA. FINDINGS: Small right and trace left pleural effusions are noted. Mild dilatation of visualized porti ons of the ascending aorta is unchanged. No pneumatosis, free air or portal venous gas is present. Se veral bilateral renal calculi measure up to 5 mm. There is mild to moderate left hydronephrosis of un certain etiology. No ureteral calculi are identified. The ureteral calculi shown on CT of October 21 are no longer identified. Pelvic calcifications reflect phleboliths. Evaluation of the remainder of the abdomen and pelvis is suboptimal on this unenhanced exam. Water attenuation lesion within the up per pole of the left knee favors a cyst. Evaluation of the remainder of the abdomen and pelvis is sub optimal on this unenhanced exam. Water attenuation hepatic lesions are unchanged. These favor cysts. Spleen is not visualized. The adrenal glands and pancreas are unremarkable. There is no evidence for a bowel obstruction. No lymphadenopathy or ascites. Dextroscoliosis of the lumbar spine is noted. Mul tilevel degenerative changes within lumbar spine are present. L1 and L4 compression fractures are not ed previously shown on prior exam. Schmorl's node along the inferior endplate of T12 are also old. Mi ld ossified of L5 is unchanged. No acute lumbar spine fracture is identified. IMPRESSION: 1. Mild to moderate left hydronephrosis of uncertain etiology. No ureteral calculi. Ureteral calculi on CT of October 21, 2021 are no longer identified. 2. Bilateral nephrolithiasis. 3. No bowel obstruction. 4. Several lumbar spine compression fractures, similar to prior CT. No acute lumbar spine fracture. D extroscoliosis of the lumbar spine and multilevel degenerative changes within the lumbar spine. ACT 112: Negative or not required by law. Electronically signed by: Curtis Sanchez M.D. 02/23/2022 11:12 PM
[2022-02-24 01:11] LABS: Appearance Urine Clear (Clear); Bacteria Urine Automated Negative (Negative); Bilirubin Urine Negative (Negative); Blood Urine Negative (Negative); Color Urine Dark Yellow; Epithelial Cell Urine Auto 20-30 /lpf (0-5); Glucose Urine UA Negative (Negative); Ketones Urine Negative (Negative); Leukocyte Esterase Urine 1+ (Negative); Nitrite Urine Negative (Negative); Protein Urine Trace (Negative); RBC Urine Automated 0-4 /hpf (0-4); Specific Gravity Urine 1.016 (1.000-1.030); Urobilinogen Urine Negative (Negative); pH Urine 5.5 (4.5-7.5)
--- NOTE | 2022-02-24 01:30 | History & Physical Report ---
Date of Service February 24, 2022 Assessment & Plan (1) Acute left flank pain: Plan: 81 y/o female w/ PMHx of kidney stones, right-sided CHF, MAGGI, rectal cancer, parox afib on warfarin, and memory impairment who presents via EMS w/ 20 hours of left sided back and back pain. - considered atraumatic rib fracture, UTI, muscle strain, kidney stone, shingles - xr L rib series to r/o fracture. exquisitely ttp left anterior/lat ribs. no cva ttp. no abd ttp. family prefers defer ct chest for now; await radiology read. per my read, chronic appearing pathological left floating / lower ribs. depending on result, consider ortho consult vs onc - no obstructing ureteral stone on ct abd though has had hx of on prior imaging. false neg possible. unexplained left hydronephrosis; could be from UTI also - pain control w/ ice pack and scheduled IV tylenol. avoid nsaids given hx of rectal bleed and on warfarin. avoid narcotics given low threshold for delirium - PT/OT evals as tolerated. frail. lives w/ and daughter's family at home. uses walker. (2) Urinary symptom or sign: Plan: - UA w/o hematuria (less likely stone). UA w/ 1+ leuk esterase and wbc. w/ epithelial cells however (considered contaminated sample) - in context of dysuria noted in ED, considered UTI. hydronephrosis also noted on ct abd on left - patient and daughter prefers deferring abx at this time given hx of diarrhea from abx. given stable vitals, will monitor for further urinary symptoms (3) Paroxysmal atrial fibrillation: Plan: - on chronic warfarin. followed by Dr. Hiro Jeff cardiology. states goal INR 1.8-2.0, hx of rectal bleed. hold dose until plan regarding possible rib fractures clarified (4) Hyperlipidemia LDL goal <100: Plan: - continue home regimen (5) Hypothyroidism: Plan: - continue home regimen (6) CHF (congestive heart failure): Plan: - noted. follow Is/Os. Continue home regimen (7) Sleep apnea: Plan: - home 2L O2 qhs Plan low Na diet. No iv fluids SCDs. holding home warfarin for now (follow INR when resume) full code med surg History of Present Illness Chief Complaint: left sided back and flank pain Primary Care Provider: Constantine Padilla MD 81 y/o female w/ PMHx of kidney stones, chronic back pain (back surgery ~1998( right-sided CHF, MAGGI, rectal cancer in remission, parox afib on warfarin, and memory impairment who presents via EMS w/ left flank and low back pain, onset 8AM yesterday. It is stabbing. worse w/ movement. 10/10 at worse. 5/10 constant. denies hx similar. Fell and had rib fractures in 2019. Overall weaker since 05/2021 admission for sepsis. + some dysuria noted while providing urine sample in ED, none prior. denies hematuria. Hx obtained in conjunction from daughter and son-in-law at bedside. ED course: IV tylenol. VSS. No leukocytosis. Hb 10.7, stable. INR 1.8. Na 131. Ca 10.2. lipase 112. UA 1+ leuk esterase. CT abd w/ mild-mod hydronephrosis of uncertain etiology. Bilateral nephrolithiasis. Allergies Allergy/AdvReac Type Severity Reaction Status Date / Time gluten Allergy Unknown unknown Verified 02/24/22 02:39 Iodinated Contrast Media Allergy Unknown RASH TO Verified 02/24/22 02:39 "CT SCAN DYE" Cipro AdvReac Intermediate GI UPSET Verified 09/10/17 06:43 ciprofloxacin AdvReac Intermediate GI UPSET Verified 02/24/22 02:39 Home Medications Medication Instructions Recorded Confirmed Type Lactobacillus 1 cap PO QAM 01/15/19 02/24/22 History acidophilus-Bifidobac.animalis 31 billion cell capsule multivitamin (Multiple Vitamins 2 tab PO QAM 01/15/19 02/24/22 History tablet) cholecalciferol (vitamin D3) 50 4,000 unit PO QAM 02/26/20 02/24/22 History mcg/drop (2,000 unit/drop) oral drops zinc sulfate 50 mg zinc (220 mg) 50 mg PO WK 09/01/20 02/24/22 History capsule cyanocobalamin (vitamin B-12) 2,500 mcg PO QAM 02/10/21 02/24/22 History 2,500 mcg chewable tablet iodine 150 mcg tablet 0 mcg PO DAILY 06/01/21 02/24/22 History warfarin 2 mg tablet 2 mg PO DAILY 08/29/21 02/24/22 History atenolol 25 mg tablet 25 mg PO DAILY 10/21/21 02/24/22 History vitamin K2 40 mcg tablet 120 mcg PO DAILY 10/21/21 02/24/22 History levothyroxine 50 mcg tablet 50 mcg PO QAM #90 tabs 01/22/22 02/24/22 Rx Coq-10 Gummies 50 mg PO TID 02/24/22 02/24/22 History torsemide 10 mg tablet 10 - 15 mg PO QAM 02/24/22 02/24/22 History Past Med/Surg History Medical History Anxiety Bacteremia H/O pericarditis (~2007) Hepatic cyst HTN (hypertension) Hx of basal cell carcinoma Hyperlipidemia LDL goal <100 Hypothyroidism Iron deficiency anemia due to chronic blood loss iron infusions currently Lipodermatosclerosis Lumbar spinal stenosis Mild cognitive impairment with memory loss Alert and oriented x3 Mitral valve prolapse syndrome Osteoporosis, unspecified Paroxysmal atrial fibrillation family unaware, denies cardioversion. Follows with Dr Bosch. 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 [facility] Weight loss Surgical History H/O basal cell carcinoma excision [facility] H/O cardiac catheterization family denies (denies any stents) H/O splenectomy r/t a large attached cyst H/O squamous cell carcinoma excision removed at the anus History of back surgery lumbar area History of colonoscopy History of open heart surgery (~2016) removal of tricupsid valve mass ([facility]) Hx of oral surgery (06/07/21) Incision and Drainage, Removal of Teeth 15 and 16 - Heath Suarez, MAXWELL 06/07/2021 S/P cholecystectomy S/P splenectomy Family History Mother Cancer Colorectal cancer Father Heart disease Stroke Denies family history of Ovarian cancer Prostate cancer Myocardial infarction Breast cancer Social History Smoking Status: Never smoker Tobacco Type: Cigarettes Second Hand Exposure: No; Hx Alcohol Use: No Hx Substance Use: No Preferred Language: Macedonian Communication Ability: Effective Visual Impairment: Limited Hearing Ability: Normal Chemistry Technician Required: No Beliefs That Will Affect Care: None marital status: Current Living Situation: Spouse current occupational status: retired How many Children do You have: 3 Feels Safe at Home: Yes Childhood Exposure to Second-Hand Smoke: No caffeine: Yes Dental Care, Regularly: Yes Physical Activity Frequency: Does not Exercise Seatbelt Use: always Sunscreen Use: No Assistive Devices: Glasses, Oxygen - at Night and Walker Review of Systems Review of Systems: All systems reviewed & are unremarkable except as noted in HPI & below Physical Exam Physical Exam: General: Grossly A&O. NAD. Cooperative. Frail appearing. Slow to respond, hard of hearing. HEENT: Atraumatic, normocephalic. EOMI Pulm: CTAB. -wheezes, -rales, -rhonchi. No respiratory distress. Cardiac: RRR, -mrg. 1 to 2+ BLE edema; palpated over stockings. Abdominal: Nontender, nondistended, soft. Msk: L flank, focal exquisite ttp to light touch at one spot, appears at anterolateral rib. no cva ttp. Results & Data Results & Data ([facility]) Vital Signs (Past 12 Hours) Vital Signs Temp Pulse Pulse Resp BP BP Pulse Ox 02/24/22 01:00 69 18 143/82 H 96 02/24/22 00:30 71 16 136/76 95 02/24/22 00:00 69 18 138/77 97 02/23/22 23:30 70 18 125/69 97 02/23/22 23:00 74 22 133/81 98 02/23/22 21:36 87 18 100 02/23/22 21:07 36.6 C 84 18 171/96 H 100 02/23/22 21:07 36.6 C 84 18 171/96 H 100 O2 Del Method 02/24/22 01:00 Room Air 02/24/22 00:30 Room Air 02/24/22 00:00 Room Air 02/23/22 23:30 Room Air 02/23/22 23:00 Room Air 02/23/22 21:36 Room Air 02/23/22 21:07 Room Air 02/23/22 21:07 Room Air Laboratory Results Cardiac Enzymes 02/23/22 02/23/22 Range/Units 21:15 23:33 AST 37 (13-39) U/L Troponin I High Sens 10.2 9.2 (0-14) pg/ml Coagulation 02/23/22 Range/Units 21:15 PT 18.9 H (9.0-12.0) Seconds APTT 36.5 H (21.0-31.0) Seconds CBC 02/23/22 Range/Units 21:15 WBC 8.60 (4.8-10.8) K/ul RBC 3.57 L (3.93-5.22) M/uL Hgb 10.7 L (12.0-16.0) g/dl Hct 31.8 L (34.1-44.9) % Plt Count 202 (130-400) K/uL Neut # (Auto) 6.38 (1.4-6.5) K/uL Lymph # (Auto) 0.74 L (1.2-3.4) K/uL Ida # (Auto) 1.33 H (0.24-0.82) K/uL Eos # (Auto) 0.06 (0-0.50) K/uL Baso # (Auto) 0.06 (0-0.2) K/uL Comprehensive Metabolic Panel 02/23/22 Range/Units 21:15 Sodium 131 L (136-145) mmol/L Potassium 4.5 (3.5-5.1) mmol/L Chloride 94 L (98-107) mmol/L Carbon Dioxide 29 (21-32) mmol/L BUN 18 (6-23) mg/dl Creatinine 0.87 (0.6-1.2) mg/dl Glucose 120 H (70-99(Fasting)) mg/dl Calcium 10.2 H (8.5-10.1) mg/dl AST 37 (13-39) U/L ALT 21 (7-52) U/L Alkaline Phosphatase 117 H (34-104) U/L Total Protein 8.1 (6.0-8.3) gm/dl Albumin 4.1 (3.4-5.0) gm/dl Intake and Output 02/23/22 02/23/22 02/24/22 14:59 22:59 06:59 Intake Total 100 / 100 Balance 100 / 100 Intake: IV 100 / 100 Acetaminophen 1,000 mg In 100 100 / 100 ml @ 400 mls/hr IV NOW STA Rx#: [id number] Other: Weight 52.1 kg Weight Measurement Method Built in [facility] Patient Weight 02/24/22 06:59 Weight 52.1 kg Diagnostic Findings Abdomen/Pelvis CT 02/23/22 21:37 CT OF THE ABDOMEN AND PELVIS WITHOUT CONTRAST CLINICAL HISTORY: Left flank pain. COMPARISON STUDY: CT of the abdomen pelvis October 21, 2021. TECHNIQUE: Axial images of the abdomen and pelvis were obtained without IV contrast. Images were reviewed in the axial, sagittal, and coronal planes. Automated exposure control was utilized for the study. A dose lowering technique was utilized adhering to the principles of ALARA. FINDINGS: Small right and trace left pleural effusions are noted. Mild dilatation of visualized portions of the ascending aorta is unchanged. No pneumatosis, free air or portal venous gas is present. Several bilateral renal calculi measure up to 5 mm. There is mild to moderate left hydronephrosis of uncertain etiology. No ureteral calculi are identified. The ureteral calculi shown on CT of October 21, 2021 are no longer identified. Pelvic calcifications reflect phleboliths. Evaluation of the remainder of the abdomen and pelvis is suboptimal on this unenhanced exam. Water attenuation lesion within the upper pole of the left knee favors a cyst. Evaluation of the remainder of the abdomen and pelvis is suboptimal on this unenhanced exam. Water attenuation hepatic lesions are unchanged. These favor cysts. Spleen is not visualized. The adrenal glands and pancreas are unremarkable. There is no evidence for a bowel obstruction. No lymphadenopathy or ascites. Dextroscoliosis of the lumbar spine is noted. Multilevel degenerative changes within lumbar spine are present. L1 and L4 compression fractures are noted previously shown on prior exam. Schmorl's node along the inferior endplate of T12 are also old. Mild ossified of L5 is unchanged. No acute lumbar spine fracture is identified. IMPRESSION: 1. Mild to moderate left hydronephrosis of uncertain etiology. No ureteral calculi. Ureteral calculi on CT of October 21, 2021 are no longer identified. 2. Bilateral nephrolithiasis. 3. No bowel obstruction. 4. Several lumbar spine compression fractures, similar to prior CT. No acute lumbar spine fracture. Dextroscoliosis of the lumbar spine and multilevel degenerative changes within the lumbar spine. ACT 112: Negative or not required by law. Electronically signed by: Curtis Sanchez M.D. 02/23/2022 11:12 PM Code Status & VTE Plan Code Status full VTE Prophylaxis Plan VTE Prophylaxis will be ordered: Yes Supervising Physician Co-Signing Physician Notes Patient seen and examined, chart reviewed, case discussed with Dr. Valdes and I agree with the assessment and plan. Patient is a frail 81yo female presenting with left sided pain. Was using a gait belt earlier today - possibly injured herself putting it on and taking it off Dysuria as well On exam she is frail, elderly female +S1/S2, regular with ectopy, no m/r/g Lungs - CTA - patient is taking short, shallow breaths and splinting due to left sided pain Skin - no zoster Tender to palpation of left ribs Abd soft, NT/ND Ext warm Labs and images reviewed Assesment/plan - ?rib fractures, ?lytic appearing lesions on rib radiograph -pain control -scheduled tylenol, heat -Incentive spirometry and flutter valve -encourage ambulation with help as needed Resident Activity Tracking Resident Involvement: Resident Care Provided Care Provided: Adult Hospital Medicine
--- NOTE | 2022-02-24 02:02 | Emergency Department Note ---
History of Present Illness General Chief complaint: Abdominal Pain Stated complaint: BACK/ABDOMINAL PAIN Time Seen by Provider: 02/23/22 21:27 History of Present Illness Maximum Pain Intensity: 4 This 81-year-old presents to the ER complaining of back and abdominal pain today Location: Back and abdomen Quality: Painful Severity: Severe Duration: Today Timing: Today Context: Family was concerned and brought the patient in Modifying factors: better with rest; worse with movement Patient denies fall, numbness, tingling, chest pain, vomiting, diarrhea, urinary symptoms. She states most of her pains on her left flank and mid abdomen. Home Medications Medication Instructions Recorded Confirmed Type Lactobacillus 1 cap PO QAM 01/15/19 02/24/22 History acidophilus-Bifidobac.animalis 31 billion cell capsule multivitamin (Multiple Vitamins 2 tab PO QAM 01/15/19 02/24/22 History tablet) cholecalciferol (vitamin D3) 50 4,000 unit PO QAM 02/26/20 02/24/22 History mcg/drop (2,000 unit/drop) oral drops zinc sulfate 50 mg zinc (220 mg) 50 mg PO WK 09/01/20 02/24/22 History capsule cyanocobalamin (vitamin B-12) 2,500 mcg PO QAM 02/10/21 02/24/22 History 2,500 mcg chewable tablet iodine 150 mcg tablet 0 mcg PO DAILY 06/01/21 02/24/22 History warfarin 2 mg tablet 2 mg PO DAILY 08/29/21 02/24/22 History atenolol 25 mg tablet 25 mg PO DAILY 10/21/21 02/24/22 History vitamin K2 40 mcg tablet 120 mcg PO DAILY 10/21/21 02/24/22 History levothyroxine 50 mcg tablet 50 mcg PO QAM #90 tabs 01/22/22 02/24/22 Rx Coq-10 Gummies 50 mg PO TID 02/24/22 02/24/22 History torsemide 10 mg tablet 10 - 15 mg PO QAM 02/24/22 02/24/22 History Allergies Allergy/AdvReac Type Severity Reaction Status Date / Time gluten Allergy Unknown unknown Verified 02/24/22 02:39 Iodinated Contrast Media Allergy Unknown RASH TO Verified 02/24/22 02:39 "CT SCAN DYE" Cipro AdvReac Intermediate GI UPSET Verified 09/10/17 06:43 ciprofloxacin AdvReac Intermediate GI UPSET Verified 02/24/22 02:39 Past Med/Surg History Medical History Anxiety Bacteremia H/O pericarditis (~2007) Hepatic cyst HTN (hypertension) Hx of basal cell carcinoma Hyperlipidemia LDL goal <100 Hypothyroidism Iron deficiency anemia due to chronic blood loss iron infusions currently Lipodermatosclerosis Lumbar spinal stenosis Mild cognitive impairment with memory loss Alert and oriented x3 Mitral valve prolapse syndrome Osteoporosis, unspecified Paroxysmal atrial fibrillation family unaware, denies cardioversion. Follows with Dr Bosch. 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 [facility] Weight loss Surgical History H/O basal cell carcinoma excision MOHS H/O cardiac catheterization family denies (denies any stents) H/O splenectomy r/t a large attached cyst H/O squamous cell carcinoma excision removed at the anus History of back surgery lumbar area History of colonoscopy History of open heart surgery (~2016) removal of tricupsid valve mass ([facility]) Hx of oral surgery (06/07/21) Incision and Drainage, Removal of Teeth 15 and 16 - Heath Suarez, DMD 06/07/2021 S/P cholecystectomy S/P splenectomy Family History Mother Cancer Colorectal cancer Father Heart disease Stroke Denies family history of Ovarian cancer Prostate cancer Myocardial infarction Breast cancer Social History Smoking Status: Never smoker Tobacco Type: Cigarettes Second Hand Exposure: No; Hx Alcohol Use: No Hx Substance Use: No Preferred Language: Slovak Communication Ability: Effective Visual Impairment: Limited Hearing Ability: Normal 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 Required: No Beliefs That Will Affect Care: None marital status: Current Living Situation: Spouse current occupational status: retired How many Children do You have: 3 Feels Safe at Home: Yes Childhood Exposure to Second-Hand Smoke: No caffeine: Yes Dental Care, Regularly: Yes Physical Activity Frequency: Does not Exercise Seatbelt Use: always Sunscreen Use: No Assistive Devices: Glasses, Oxygen - at Night and Walker Review of Systems A total of 10 systems reviewed and were otherwise negative Physical Exam Vital Signs Vital Signs - 24 hr 02/23/22 21:07 02/23/22 21:07 02/23/22 21:36 Temperature 36.6 C 36.6 C Temperature Source Oral Oral Pulse Rate 84 87 Pulse Rate [Finger] 84 Pulse Rate from SpO2 Sensor Respiratory Rate 18 18 18 Blood Pressure 171/96 H Blood Pressure [Right Arm] 171/96 H Blood Pressure Mean 121 Blood Pressure Mean [Right Arm] 121 Pulse Oximetry 100 100 100 Oxygen Delivery Method Room Air Room Air Room Air Sepsis Recent Fever Within 48 Hours No Sepsis New/Unexplained Change in Mental Status No Sepsis Action Taken by Nursing No Action Required 02/23/22 23:00 02/23/22 23:30 02/24/22 00:00 Temperature Temperature Source Pulse Rate 74 70 69 Pulse Rate [Finger] Pulse Rate from SpO2 Sensor Respiratory Rate 22 18 18 Blood Pressure 133/81 125/69 138/77 Blood Pressure [Right Arm] Blood Pressure Mean 98 87 97 Blood Pressure Mean [Right Arm] Pulse Oximetry 98 97 97 Oxygen Delivery Method Room Air Room Air Room Air Sepsis Recent Fever Within 48 Hours Sepsis New/Unexplained Change in Mental Status Sepsis Action Taken by Nursing 02/24/22 00:30 02/24/22 01:00 02/24/22 01:31 Temperature Temperature Source Pulse Rate 71 69 66 Pulse Rate [Finger] Pulse Rate from SpO2 Sensor Respiratory Rate 16 18 16 Blood Pressure 136/76 143/82 H 133/71 Blood Pressure [Right Arm] Blood Pressure Mean 96 102 91 Blood Pressure Mean [Right Arm] Pulse Oximetry 95 96 97 Oxygen Delivery Method Room Air Room Air Room Air Sepsis Recent Fever Within 48 Hours Sepsis New/Unexplained Change in Mental Status Sepsis Action Taken by Nursing 02/24/22 02:30 Temperature Temperature Source Pulse Rate Pulse Rate [Finger] Pulse Rate from SpO2 Sensor 73 Respiratory Rate 24 Blood Pressure 133/75 Blood Pressure [Right Arm] Blood Pressure Mean 94 Blood Pressure Mean [Right Arm] Pulse Oximetry 97 Oxygen Delivery Method Room Air Sepsis Recent Fever Within 48 Hours Sepsis New/Unexplained Change in Mental Status Sepsis Action Taken by Nursing VITALS: Vitals are noted on the nurse's note and reviewed by myself. Vital signs stable. GENERAL: Elderly female who appears in pain, in no acute distress, nondiaphoretic, well-developed well-nourished. SKIN: The skin was without rashes, erythema, edema, or bruising. There is no tenting of the skin. Capillary reflex less than 2 seconds. HEAD: Normocephalic atraumatic. EARS: External auditory canals clear, EYES: Pupils equal round and reactive to light and accommodation. Conjunctivae without injection, sclerae without icterus. Extraocular movements intact. NOSE: Patent, turbinates without inflammation or discharge. MOUTH: Mucous membranes moist. Pharynx without erythema or exudate. Uvula midline. Airway patent. Tongue does not deviate. NECK: Supple without nuchal rigidity. No lymphadenopathy. No thyromegaly. Cer vical spine is nontender. No JVD. HEART: Regular rate and rhythm LUNGS: Clear to auscultation bilaterally without wheezes, rales or rhonchi. No retractions or accessory muscle use. ABDOMEN: Positive bowel sounds x 4. Normal tympanic percussion. Soft, tender to palpation mid abdomen,, without masses or organomegaly. Ha sign negative. No guarding or rebound tenderness. No CVA tenderness MUSCULOSKELETAL: No muscle atrophy, erythema, or edema noted. No thoracic or lumbar tenderness NEURO: Patient was alert and oriented to person place and time. Normal sensation to light and sharp touch. No focal neurological deficits. Course Administered Medications Discontinued Medications Acetaminophen (Ofirmev) 1,000 mg in 100 mls @ 400 mls/hr IV NOW STA Stop: 02/23/22 21:51 Last Infusion: 02/23/22 22:40 Dose: 0 mls/hr Documented By: Admin: 02/23/22 21:47 Dose: 400 mls/hr Documented By: QGV Ondansetron HCl (Ondansetron Inj 2 Mg/Ml 2 Ml Vial) 4 mg IV NOW STA Stop: 02/23/22 21:38 Last Admin: 02/23/22 22:41 Dose: Not Given Documented By: QGV Medical Decision Making Medical Records Attestation: I reviewed the patient's medical records. Home Medications Current Medication List: was personally reviewed by me Laboratory Data Attestation: I reviewed the patient's lab results. Result diagrams: 02/23/22 21:15 11/04/22 21:15 Lab Results 02/23/22 02/23/22 02/23/22 Range/Units 21:15 21:15 21:15 WBC 8.60 (4.8-10.8) K/ul RBC 3.57 L (3.93-5.22) M/uL Hgb 10.7 L (12.0-16.0) g/dl Hct 31.8 L (34.1-44.9) % MCV 89.1 (80.0-100.0) fL MCH 30.0 (25.0-34.0) pg MCHC 33.6 (32.0-36.0) g/dL RDW Std Deviation 46.7 H (36.4-46.3) fL RDW Coeff of Janet 14.4 (11.5-14.5) % Plt Count 202 (130-400) K/uL MPV 10.6 (9.4-12.3) fL Immature Gran % (Auto) 0.3 % Neut % (Auto) 74.2 % Lymph % (Auto) 8.6 % Tripp % (Auto) 15.5 % Eos % (Auto) 0.7 % Baso % (Auto) 0.7 % Neut # (Auto) 6.38 (1.4-6.5) K/uL Lymph # (Auto) 0.74 L (1.2-3.4) K/uL Tripp # (Auto) 1.33 H (0.24-0.82) K/uL Eos # (Auto) 0.06 (0-0.50) K/uL Baso # (Auto) 0.06 (0-0.2) K/uL Immature Gran # (Auto) 0.03 H (0.00-0.02) K/uL PT 18.9 H (9.0-12.0) Seconds INR 1.8 H (0.9-1.1) APTT 36.5 H (21.0-31.0) Seconds PTT Ratio 1.3 Sodium 131 L (136-145) mmol/L Potassium 4.5 (3.5-5.1) mmol/L Chloride 94 L (98-107) mmol/L Carbon Dioxide 29 (21-32) mmol/L Anion Gap 8 (3-11) BUN 18 (6-23) mg/dl Creatinine 0.87 (0.6-1.2) mg/dl Est Cr Clr Drug Dosing 37.0 ml/min Est GFR ( Amer) 71.4 ml/min Est GFR (Non-Af Amer) 61.6 ml/min BUN/Creatinine Ratio 20.7 H (10-20) Glucose 120 H (70-99(Fasting)) mg/dl Lactate (0.4-2.0) mmol/L Calcium 10.2 H (8.5-10.1) mg/dl Total Bilirubin 0.6 (0.2-1.0) mg/dl AST 37 (13-39) U/L ALT 21 (7-52) U/L Alkaline Phosphatase 117 H (34-104) U/L Troponin I High Sens 10.2 (0-14) pg/ml Total Protein 8.1 (6.0-8.3) gm/dl Albumin 4.1 (3.4-5.0) gm/dl Globulin 4.0 (2.5-4.0) gm/dl Albumin/Globulin Ratio 1.0 (0.9-2) Lipase 112 H (11-82) U/L Urine Color Urine Appearance (Clear) Urine pH (4.5-7.5) Ur Specific Alto (1.000-1.030) Urine Protein (Negative) Urine Glucose (UA) (Negative) Urine Ketones (Negative) Urine Blood (Negative) Urine Nitrite (Negative) Urine Bilirubin (Negative) Urine Urobilinogen (Negative) Ur Leukocyte Esterase (Negative) Urine WBC (Auto) (0-5) /hpf Urine RBC (Auto) (0-4) /hpf U Hyaline Cast (Auto) (0-5) /lpf U Epithel Cells (Auto) (0-5) /lpf Urine Bacteria (Auto) (Negative) Urine Crystals Calcium Oxalate Crystal (None Prsent) SARS-CoV-2, RNA, NAAT (NEGATIVE) 02/23/22 02/23/22 02/23/22 Range/Units 21:48 21:57 23:33 WBC (4.8-10.8) K/ul RBC (3.93-5.22) M/uL Hgb (12.0-16.0) g/dl Hct (34.1-44.9) % MCV (80.0-100.0) fL MCH (25.0-34.0) pg MCHC (32.0-36.0) g/dL RDW Std Deviation (36.4-46.3) fL RDW Coeff of Janet (11.5-14.5) % Plt Count (130-400) K/uL MPV (9.4-12.3) fL Immature Gran % (Auto) % Neut % (Auto) % Lymph % (Auto) % Tripp % (Auto) % Eos % (Auto) % Baso % (Auto) % Neut # (Auto) (1.4-6.5) K/uL Lymph # (Auto) (1.2-3.4) K/uL Tripp # (Auto) (0.24-0.82) K/uL Eos # (Auto) (0-0.50) K/uL Baso # (Auto) (0-0.2) K/uL Immature Gran # (Auto) (0.00-0.02) K/uL PT (9.0-12.0) Seconds INR (0.9-1.1) APTT (21.0-31.0) Seconds PTT Ratio Sodium (136-145) mmol/L Potassium (3.5-5.1) mmol/L Chloride (98-107) mmol/L Carbon Dioxide (21-32) mmol/L Anion Gap (3-11) BUN (6-23) mg/dl Creatinine (0.6-1.2) mg/dl Est Cr Clr Drug Dosing ml/min Est GFR ( Amer) ml/min Est GFR (Non-Af Amer) ml/min BUN/Creatinine Ratio (10-20) Glucose (70-99(Fasting)) mg/dl Lactate 0.9 (0.4-2.0) mmol/L Calcium (8.5-10.1) mg/dl Total Bilirubin (0.2-1.0) mg/dl AST (13-39) U/L ALT (7-52) U/L Alkaline Phosphatase (34-104) U/L Troponin I High Sens 9.2 (0-14) pg/ml Total Protein (6.0-8.3) gm/dl Albumin (3.4-5.0) gm/dl Globulin (2.5-4.0) gm/dl Albumin/Globulin Ratio (0.9-2) Lipase (11-82) U/L Urine Color Urine Appearance (Clear) Urine pH (4.5-7.5) Ur Specific Alto (1.000-1.030) Urine Protein (Negative) Urine Glucose (UA) (Negative) Urine Ketones (Negative) Urine Blood (Negative) Urine Nitrite (Negative) Urine Bilirubin (Negative) Urine Urobilinogen (Negative) Ur Leukocyte Esterase (Negative) Urine WBC (Auto) (0-5) /hpf Urine RBC (Auto) (0-4) /hpf U Hyaline Cast (Auto) (0-5) /lpf U Epithel Cells (Auto) (0-5) /lpf Urine Bacteria (Auto) (Negative) Urine Crystals Calcium Oxalate Crystal (None Prsent) SARS-CoV-2, RNA, NAAT NEGATIVE (NEGATIVE) 02/24/22 Range/Units 00:50 WBC (4.8-10.8) K/ul RBC (3.93-5.22) M/uL Hgb (12.0-16.0) g/dl Hct (34.1-44.9) % MCV (80.0-100.0) fL MCH (25.0-34.0) pg MCHC (32.0-36.0) g/dL RDW Std Deviation (36.4-46.3) fL RDW Coeff of Janet (11.5-14.5) % Plt Count (130-400) K/uL MPV (9.4-12.3) fL Immature Gran % (Auto) % Neut % (Auto) % Lymph % (Auto) % Tripp % (Auto) % Eos % (Auto) % Baso % (Auto) % Neut # (Auto) (1.4-6.5) K/uL Lymph # (Auto) (1.2-3.4) K/uL Tripp # (Auto) (0.24-0.82) K/uL Eos # (Auto) (0-0.50) K/uL Baso # (Auto) (0-0.2) K/uL Immature Gran # (Auto) (0.00-0.02) K/uL PT (9.0-12.0) Seconds INR (0.9-1.1) APTT (21.0-31.0) Seconds PTT Ratio Sodium (136-145) mmol/L Potassium (3.5-5.1) mmol/L Chloride (98-107) mmol/L Carbon Dioxide (21-32) mmol/L Anion Gap (3-11) BUN (6-23) mg/dl Creatinine (0.6-1.2) mg/dl Est Cr Clr Drug Dosing ml/min Est GFR ( Amer) ml/min Est GFR (Non-Af Amer) ml/min BUN/Creatinine Ratio (10-20) Glucose (70-99(Fasting)) mg/dl Lactate (0.4-2.0) mmol/L Calcium (8.5-10.1) mg/dl Total Bilirubin (0.2-1.0) mg/dl AST (13-39) U/L ALT (7-52) U/L Alkaline Phosphatase (34-104) U/L Troponin I High Sens (0-14) pg/ml Total Protein (6.0-8.3) gm/dl Albumin (3.4-5.0) gm/dl Globulin (2.5-4.0) gm/dl Albumin/Globulin Ratio (0.9-2) Lipase (11-82) U/L Urine Color Dark Yellow Urine Appearance Clear (Clear) Urine pH 5.5 (4.5-7.5) Ur Specific Alto 1.016 (1.000-1.030) Urine Protein Trace H (Negative) Urine Glucose (UA) Negative (Negative) Urine Ketones Negative (Negative) Urine Blood Negative (Negative) Urine Nitrite Negative (Negative) Urine Bilirubin Negative (Negative) Urine Urobilinogen Negative (Negative) Ur Leukocyte Esterase 1+ H (Negative) Urine WBC (Auto) 10-30 H (0-5) /hpf Urine RBC (Auto) 0-4 (0-4) /hpf U Hyaline Cast (Auto) 10-30 H (0-5) /lpf U Epithel Cells (Auto) 20-30 H (0-5) /lpf Urine Bacteria (Auto) Negative (Negative) Urine Crystals Not Reportable Calcium Oxalate Crystal Present A (None Prsent) SARS-CoV-2, RNA, NAAT (NEGATIVE) Imaging Data Attestation: I personally reviewed and interpreted this imaging study as follows: MDM Narrative Prior records/ancillary studies reviewed. Triage Nursing notes reviewed. Additional history obtained from family. The patient's history was concerning for flank and abdominal pain. Differential diagnosis: Etiologies such as appendicitis, diverticulitis, PUD, biliary pathology, UTI, pancreatitis, obstruction, mesenteric ischemia, aortic pathology, infections, inflammatory bowel disease, renal colic, as well as others were entertained. Physical examination findings: As above. ER treatment provided: An order was placed for continuous cardiac monitoring. The monitor shows a rate of 60-100 with a sinus rhythm. Tylenol On reassessment the patient felt better. Diagnostics interpreted by me: The labs revealed mild anemia Imaging studies: As above Consultation: A consultation was placed with the hospitalist. The case was discussed and diagnostics were reviewed. The patient was evaluated in the ER for further treatment. Exam and history seem consistent with recently passed kidney stone with intractable abdomen and back pain. Medicine was consulted. She will be evaluated for possible admission. By the evaluation outlined above emergent etiologies such as appendicitis, diverticulitis, PUD, biliary pathology, pancreatitis, obstruction, mesenteric ischemia, aortic pathology, inflammatory bowel disease, as well as others were deemed relatively unlikely. The pt informed about the findings as listed above. All questions were answered and pleased with the treatment The chart was completed utilizing [employer] Speech voice recognition software. Grammatical errors, random word insertions, pronoun errors, and incomplete sentences are an occassional consequence of this system due to software limitations, ambient noise, and hardware issues. Any formal questions or concerns about the content, text, or information contained within the body of this dictation should be directly addressed to the physician engineer second assistant for clarification. Impression & Plan Acute left flank pain Discharge Plan Visit Data Chief Complaint: Abdominal Pain Stated Complaint: BACK/ABDOMINAL PAIN ED Provider: Richard Perez ED Midlevel Provider: Susana Person Discharge Problem: Acute left flank pain Patient Disposition: Admitted As Inpatient Condition: Fair Discharge Instructions Interventions: ED Discharge Assessment Last Done: 02/24/22 05:02
[2022-02-24 02:27] LABS: Calcium Oxalate Crystals Urine Present (None Prsent)
--- NOTE | 2022-02-24 05:14 | Billing Data ---
Date of Service February 24, 2022 Coding Level of Care Code INT OBSERVATION CARE 50M LVL 2
[2022-02-24] MEDS ORDERED: ACETAMINOPHEN IV SCH (07:15)
[2022-02-24] MEDS ORDERED: ONDANSETRON INJ 2 MG/ML 2 ML VIAL IV PRN (07:16)
[2022-02-24 07:50] LABS: Basophils # (auto) 0.06 K/uL (0-0.2); Basophils % (auto) 0.8 %; Eosinophils # (auto) 0.07 K/uL (0-0.50); Eosinophils % (auto) 0.9 %; Hematocrit (blood only) 29.2 % (34.1-44.9); Hemoglobin 10.2 g/dl (12.0-16.0); Immature Granulocytes # (auto) 0.02 K/uL (0.00-0.02); Immature Granulocytes % (auto) 0.3 %; Lymphocytes # (auto) 0.68 K/uL (1.2-3.4); Lymphocytes % (auto) 9.2 %; Mean Corpuscular Hemoglobin 30.3 pg (25.0-34.0); Mean Corpuscular Hgb Conc 34.9 g/dL (32.0-36.0); Mean Corpuscular Volume 86.6 fL (80.0-100.0); Mean Platelet Volume 10.5 fL (9.4-12.3); Monocytes # (auto) 1.21 K/uL (0.24-0.82); Monocytes % (auto) 16.4 %; Neutrophils # (auto) 5.33 K/uL (1.4-6.5); Neutrophils % (auto) 72.4 %; Platelet Count 181 K/uL (130-400); RDW Coefficient of Variation 14.5 % (11.5-14.5); RDW Standard Deviation 46.2 fL (36.4-46.3); Red Blood Count 3.37 M/uL (3.93-5.22); White Blood Count 7.37 K/ul (4.8-10.8)
[2022-02-24 08:11] LABS: Prothrombin Time 20.6 Seconds (9.0-12.0)
[2022-02-24 08:49] LABS: Albumin Globulin Ratio 1.1 (0.9-2); Albumin Level 3.7 gm/dl (3.4-5.0); BUN Creatinine Ratio 21.1 (10-20); Bilirubin,Total 0.8 mg/dl (0.2-1.0); Calcium 9.6 mg/dl (8.5-10.1); Creatinine Clr Calc Pharmacy 42.3 ml/min; Est GFR (African American) 84.1 ml/min; Est GFR (Non-African American) 72.5 ml/min; Globulin 3.5 gm/dl (2.5-4.0); Magnesium 1.9 mg/dl (1.7-2.4); Potassium 4.2 mmol/L (3.5-5.1); Total Protein 7.2 gm/dl (6.0-8.3)
[2022-02-24] MEDS: ACETAMINOPHEN 325 MG TAB PO SCH ×3 (09:01→23:17)
[2022-02-24] MEDS: POLYETHYLENE (MIRALAX) 17 GM PACK PO SCH (09:02)
[2022-02-24] MEDS: ATENOLOL 25 MG TABLET PO SCH (09:02)
[2022-02-24] MEDS: LEVOTHYROXINE SODIUM 50 MCG TABLET PO SCH (09:02)
--- NOTE | 2022-02-24 09:31 | Hospitalist Progress Note ---
Date of Service February 24, 2022 Assessment & Plan (1) Acute left flank pain: Plan: 81 y/o female w/ PMHx of kidney stones, right-sided CHF, MAGGI, rectal cancer, paroxysmal AF on warfarin, and memory impairment who presents via EMS w/ 20 hours of left sided back and back pain. - considered atraumatic rib fracture, UTI, muscle strain, kidney stone, shingles - XR ribs- no acute fractures per radiology read -Concern for chondrocalcinosis which may be contributing to pain - Continue pain control with ice, Tylenol, avoiding NSAIDs/opioids currently - PT/OT ordered, evaluations pending -Suspect pt may benefit from rehab stay, does live with daughter's family and at home, uses walker at baseline (2) Urinary symptom or sign: Plan: - UA w/o hematuria (less likely stone). UA w/ 1+ leuk esterase and WBC, w/ epithelial cells. Pt also complained of dysuria in ED - CTAP indicates L sided hydronephrosis - Initiated treatment with ceftriaxone 1g daily (3) Paroxysmal atrial fibrillation: Plan: - on chronic warfarin. followed by Dr. Hiro Jeff cardiology. states goal INR 1.8-2.0, hx of rectal bleed. Warfarin held on admission. -Currently sinus rhythm, rate-controlled -Will resume home warfarin 2 mg tomorrow (4) Hyperlipidemia LDL goal <100: Plan: - continue home regimen (5) Hypothyroidism: Plan: - continue home regimen (6) CHF (congestive heart failure): Plan: - noted. follow Is/Os. Continue home atenolol - Euvolemic at this time (7) Sleep apnea: Plan: - home 2L O2 qhs Plan Diet- low Na DVT- SCDs, home warfarin held on admission due to concern for bleeding Code- full code Disposition- medical/surgical Admission and Anticipated Discharge Date Admission Date: February 24, 2022 Supervising Physician Co-Signing Physician Notes Patient seen and examined independently of PGY-2 Dr. Tavarez. Agree with history, exam findings, assessment and plan of care as outlined with the following updates: In brief, Maryellen is an 81 year old female with history of dementia, prior nephrolithiasis, pAF, anemia, tricuspid valve mass (s/p removal) and HFpEF admitted with severe L flank pain. This afternoon, flank pain has resolved. She is not nauseated. She is eating lunch. Daughter, Radha, is at the bedside. VS and nursing notes reviewed. She is well appearing. Heart with regular rate and rhythm. Lungs are clear to auscultation. Abdomen is soft, nontender. No CVA tenderness. No tenderness over the left ribs or flank. Labs and imaging reviewed. 1. Left flank pain. Pain is resolved. In the setting of mild hydronephrosis, suspect that she passed a renal stone. 2. Hydronephrosis. Likely secondary to recent nephrolithiasis. 3. Dysuria. UA without bacteria. Urine culture pending. 4. pAF. AC with coumadin. Goal INR 1.8 to 2. Continue atenolol for rate control. 5. Anemia. Chronic. Secondary to radiation proctitis and cystitis. Follows with [facility]. Dispo: with flank pain improved, suspect that she will be able to be discharged home tomorrow. Subjective No acute events overnight. Interview somewhat limited by pt's mental status due to baseline dementia. She does endorse some continued L flank pain, states the pain occasionally limits deep breathing. Otherwise denies pain at rest. No fever, chest pain or other acute complaints. Review of Systems Review of Systems: Per subjective Physical Exam Physical Exam: General: Occasionally wincing from L flank pain. Cooperative. Frail appearing. Slow to respond, hard of hearing. Appears distracted at times. HEENT: Atraumatic, normocephalic, mildly dry mucous membranes Pulm: CTAB. -wheezes, -rales, -rhonchi. No respiratory distress. Cardiac: RRR, normal S1 and S2. Trace peripheral edema b/l Abdominal: Nontender, nondistended, soft MSK: Tender to palpation of L flank and along L inferior rib margin, questionable CVA tenderness Results & Data Results & Data ([facility]) Vital Signs (Past 12 Hours) Vital Signs Temp Pulse Pulse Resp BP BP Pulse Ox 02/24/22 07:17 36.3 C L 69 18 131/74 97 02/24/22 06:32 02/24/22 05:22 36.6 C 76 16 159/75 H 95 02/24/22 04:36 67 24 145/84 H 93 02/24/22 02:30 24 133/75 97 02/24/22 01:31 66 16 133/71 97 02/24/22 01:00 69 18 143/82 H 96 02/24/22 00:30 71 16 136/76 95 02/24/22 00:00 69 18 138/77 97 02/23/22 23:30 70 18 125/69 97 02/23/22 23:00 74 22 133/81 98 02/23/22 21:36 87 18 100 O2 Del Method 02/24/22 07:17 Room Air 02/24/22 06:32 Room Air 02/24/22 05:22 Room Air 02/24/22 04:36 Room Air 02/24/22 02:30 Room Air 02/24/22 01:31 Room Air 02/24/22 01:00 Room Air 02/24/22 00:30 Room Air 02/24/22 00:00 Room Air 02/23/22 23:30 Room Air 02/23/22 23:00 Room Air 02/23/22 21:36 Room Air Resident Activity Tracking Resident Involvement: Resident Care Provided Care Provided: Adult Hospital Medicine
--- NOTE | 2022-02-24 11:09 | Communication Note ---
Date of Service: February 24, 2022 Per discussion w/ daughter at bedside during admission this morning, she would like to be the primary contact for updates. She is currently listed as the secondary contact in the chart. She plans to ask for this change to be reflected in the EMR though this has not yet happened.
[2022-02-24] MEDS ORDERED: cefTRIAXone SODIUM 1,000 MG in DEXTROSE 5% 50 ML IV SCH (12:00)
--- NOTE | 2022-02-24 12:38 | XRay Report ---
XR ribs LT min 2V w CXR1V CLINICAL HISTORY: r/o rib fracture. ttp at left flank TECHNIQUE: 3 views of the left ribs were obtained. Single frontal view of the chest was obtained. Comparison: Comparison is made to chest radiograph 10/21/2021 CT abdomen pelvis 02/23/2022 FINDINGS: No fractures are seen. Postsurgical changes are seen in the left upper quadrant of the abdomen. Calcified aortic knob is seen. Interstitial lung disease is noted. No evidence of pleural effusion or pneumothorax. IMPRESSION: No evidence of acute fracture or other acute abnormalities in the visualized portions of the chest. ACT 112: Negative or not required by law. Electronically signed by: Jm Velasquez M.D. 02/24/2022 12:35 PM
--- NOTE | 2022-02-24 12:59 | Electrocardiogram Report ---
Test Reason : Blood Pressure : / mmHG Vent. Rate : 076 BPM Atrial Rate : 076 BPM P-R Int : 172 ms QRS Dur : 074 ms QT Int : 406 ms P-R-T Axes : 087 -11 092 degrees QTc Int : 456 ms Sinus rhythm with frequent Premature ventricular complexes Low voltage QRS Poor R wave progression, consider anterior MS vs. lead placement vs. LVH Nonspecific T wave abnormality Abnormal ECG When compared with ECG of 21-OCT-2021 15:53, Premature ventricular complexes are now Present [place] interval has decreased T wave inversion less evident in Anterior leads Confirmed by Leonel Juan ([id number]) on 02/24/2022 12:59:40 PM Referred By: REFERRED SELF Confirmed By:Leonel Juan
[2022-02-24] MEDS ORDERED: WARFARIN SOD 2 MG TAB PO SCH (16:00)
[2022-02-24] MEDS: FLUTICASONE PROPIONATE NA SPR 16 GM BTL SCH (23:18)
[2022-02-25 02:17] VITALS: O2SAT 96
[2022-02-25 06:13] LABS: Hematocrit (blood only) 29.6 % (34.1-44.9); Hemoglobin 10.3 g/dl (12.0-16.0); Mean Corpuscular Hemoglobin 29.9 pg (25.0-34.0); Mean Corpuscular Hgb Conc 34.8 g/dL (32.0-36.0); Mean Corpuscular Volume 85.8 fL (80.0-100.0); Mean Platelet Volume 10.9 fL (9.4-12.3); Platelet Count 179 K/uL (130-400); RDW Coefficient of Variation 14.1 % (11.5-14.5); RDW Standard Deviation 43.4 fL (36.4-46.3); Red Blood Count 3.45 M/uL (3.93-5.22); White Blood Count 6.16 K/ul (4.8-10.8)
[2022-02-25] MEDS: ACETAMINOPHEN 325 MG TAB PO SCH (06:18)
[2022-02-25] MEDS: LEVOTHYROXINE SODIUM 50 MCG TABLET PO SCH (06:18)
[2022-02-25 06:42] LABS: BUN Creatinine Ratio 21.2 (10-20); Calcium 9.2 mg/dl (8.5-10.1); Creatinine Clr Calc Pharmacy 37.8 ml/min; Est GFR (African American) 73.4 ml/min; Est GFR (Non-African American) 63.4 ml/min; Potassium 4.5 mmol/L (3.5-5.1)
[2022-02-25 07:16] VITALS: BP 147/82; PULSE 63; TEMP 97.3
[2022-02-25] MEDS ORDERED: ACETAMINOPHEN 325 MG TAB PO PRN (08:04)
[2022-02-25] MEDS: POLYETHYLENE (MIRALAX) 17 GM PACK PO SCH (08:46)
[2022-02-25] MEDS: ATENOLOL 25 MG TABLET PO SCH (08:46)
[2022-02-25] MEDS: FLUTICASONE PROPIONATE NA SPR 16 GM BTL SCH (08:46)
[2022-02-25] MEDS ORDERED: LORATADINE 10 MG TAB PO SCH (09:00)
--- NOTE | 2022-02-25 11:17 | Discharge Summary ---
Date of Service February 25, 2022 Admission HPI Per Admitting Provider 81 y/o female w/ PMHx of kidney stones, chronic back pain (back surgery ~1998( right-sided CHF, MAGGI, rectal cancer in remission, parox afib on warfarin, and memory impairment who presents via EMS w/ left flank and low back pain, onset 8AM yesterday. It is stabbing. worse w/ movement. 10/10 at worse. 5/10 constant. denies hx similar. Fell and had rib fractures in 2019. Overall weaker since 05/2021 admission for sepsis. + some dysuria noted while providing urine sample in ED, none prior. denies hematuria. Hx obtained in conjunction from daughter and son-in-law at bedside. ED course: IV tylenol. VSS. No leukocytosis. Hb 10.7, stable. INR 1.8. Na 131. Ca 10.2. lipase 112. UA 1+ leuk esterase. CT abd w/ mild-mod hydronephrosis of uncertain etiology. Bilateral nephrolithiasis. Admission Exam Per Admitting Provider General: Grossly A&O. NAD. Cooperative. Frail appearing. Slow to respond, hard of hearing. HEENT: Atraumatic, normocephalic. EOMI Pulm: CTAB. -wheezes, -rales, -rhonchi. No respiratory distress. Cardiac: RRR, -mrg. 1 to 2+ BLE edema; palpated over stockings. Abdominal: Nontender, nondistended, soft. Msk: L flank, focal exquisite ttp to light touch at one spot, appears at anterolateral rib. no cva ttp. Principal Diagnosis Left flank pain- likely passed kidney stone Discharge Exam General: Comfortable, cooperative. Frail appearing. HEENT: Atraumatic, normocephalic, moist mucous membranes Pulm: CTAB. -wheezes, -rales, -rhonchi. No respiratory distress. Cardiac: RRR, normal S1 and S2. No peripheral edema Abdominal: Nontender, nondistended, soft, no suprapubic tenderness MSK: Less tender to palpation of L flank and along L inferior rib margin, no CVA tenderness Discharge Data Allergies Allergy/AdvReac Type Severity Reaction Status Date / Time gluten Allergy Unknown unknown Verified 02/24/22 02:39 Iodinated Contrast Media Allergy Unknown RASH TO Verified 02/24/22 02:39 "CT SCAN DYE" Cipro AdvReac Intermediate GI UPSET Verified 09/10/17 06:43 ciprofloxacin AdvReac Intermediate GI UPSET Verified 02/24/22 02:39 Consultations 02/24/22 01:17 ED Decision to Admit Stat Ordered Studies 02/23/22 21:37 CT abd pelvis wo con Stat Hospital Course (1) Acute left flank pain: 81 y/o female w/ PMHx of kidney stones, right-sided CHF, MAGGI, rectal cancer, paroxysmal AF on warfarin, and memory impairment who presents via EMS w/ 20 hours of left sided back and back pain. - XR ribs- no acute fractures per radiology read -Concern for chondrocalcinosis which may be contributing to pain - Pain control achieved with ice, Tylenol - Resolved by time of discharge -Likely due to passed calculus- there was low suspicion for active infection - Pt discharged home in stable condition on 02/25, advised to maintain oral hydration (2) Urinary symptom or sign: - UA w/o hematuria, w/ 1+ leukocyte esterase and WBC, w/ epithelial cells. Pt also complained of dysuria in ED - CTAP indicates L sided hydronephrosis - Pt did not have further dysuria during stay, afebrile- antibiotic therapy was deferred - UCx grew three types of organisms, all moderate count- recommended repeat collection (3) Paroxysmal atrial fibrillation: - on chronic warfarin. followed by Dr. Hiro Jeff cardiology. states goal INR 1.8-2.0, hx of rectal bleed. Warfarin held on admission -Currently sinus rhythm, rate-controlled at time of discharge -Continued home atenolol -Resumed home warfarin on discharge, INR 2.0 on 02/24 (4) Hyperlipidemia LDL goal <100: - continued home regimen (5) Hypothyroidism: - continued home regimen (6) CHF (congestive heart failure): - Euvolemic at time of discharge (7) Sleep apnea: - home 2L O2 Hs during stay Total Time Total Time Spent Total Time Spent (In Minutes): 30 Discharge Plan Discharge Items Patient Disposition: Home - Self-Care Reason For Visit: LEFT FLANK PAIN Discharge Diagnosis: Left flank pain likely due to passed calculus Condition on Discharge: Fair Activity: Resume your previous activity Non-emergency contact: Primary Care Provider Call non-emergency contact if: you have any medication questions, your symptoms worsen, your pain is worsening and you have a fever Follow-up/Referrals: Constantine Padilla MD [Primary Care Provider] - Diet: Low Sodium (2gm) Addtl Attending Provider Instructions: You were admitted to the hospital for left flank pain. Our workup did not reveal any rib fractures but there was some mild swelling of your left kidney and some kidney stones there too. The fact that your pain resolved without any signif icant intervention means it was likely a kidney stone that passed in the urine. Thankfully there was no concern for urinary tract infection. You can reduce risk of kidney stones in the future by maintaining adequate hydration but be careful not to drink too much as this can also worsen heart failure. Please discuss with your PCP what is a safe amount of water to drink in balance. A discharge summary will be sent to your primary care physician to ensure continuity of care. Please bring this discharge summary with you to your next office appointment so that your provider can review it at that time. Follow-up appointments: Make a follow-up appointment with your PCP within the next week. It is very important that you follow up with them shortly after discharge from the hospital. Medications: Your medication list has been reviewed and reconciled upon discharge to ensure accuracy and continuity of care. An updated list of all your medications is included with your hospital discharge paperwork. Please review this list closely, and make note of any changes. Take your medications as instructed; do not skip a dose of your medicines. Make sure all of your doctors know every medicine you are taking (including rrjc-wuh-cpakdty medicines, vitamins, and supplements). Call your primary care provider before taking any new medicines (including pxvc-mgu-zcfghiy medicines, vitamins, and supplements), because some of these may interact with your current medications, or may make your symptoms worse. Tell your primary care provider if you cannot afford your medications. CONTACT YOUR PRIMARY CARE PROVIDER if you experience any of the following: Burning with urination Urinating more frequently Blood in urine Foamy urine Nausea/vomiting Abdominal pain Difficulty following your treatment plan, or difficulty taking medications CALL 911 OR GO TO THE EMERGENCY DEPARTMENT if you experience any of the following: Sudden, severe abdominal pain or nausea/vomiting Severe chest pain, or chest pain that radiates (moves) to your jaw or arm Sudden, severe shortness of breath or difficulty breathing Thank you for allowing us to participate in your care. Pending Studies at Discharge: No Stand-Alone Forms: My [facility] Medications and DC Order Prescriptions: Continued zinc sulfate 50 mg zinc (220 mg) capsule 50 mg PO WK Rx Instructions: Usually takes twice a week on Mon and Fri cholecalciferol (vitamin D3) 50 mcg/drop (2, 000 unit/drop) drops 4,000 unit PO QAM levothyroxine 50 mcg tablet 50 mcg PO QAM Qty: 90 1RF multivitamin [Multiple Vitamins] tablet 2 tab PO QAM L. acidophilus/Bifid. animalis 31 billion cell capsule 1 cap PO QAM warfarin 2 mg tablet 2 mg PO DAILY cyanocobalamin (vitamin B-12) 2,500 mcg tablet,chewable 2,500 mcg PO QAM iodine 150 mcg Tablet 0 mcg PO DAILY Rx Instructions: iodine drops atenolol 25 mg tablet 25 mg PO DAILY vitamin K2 40 mcg Tablet 120 mcg PO DAILY torsemide 10 mg tablet 10 - 15 mg PO QAM Rx Instructions: depends on weight Coq-10 Gummies 50 mg PO TID Discharge Orders: Discharge Order (Routine); Ordered 02/25/22 Ordered By: Marina Tavarez Admission Data Admit Date/Time: 02/24/22 03:48 Attending Provider: Ngozi Mcmullen Admit Provider: Juan Valdes Primary Care Provider: Constantine Padilla Other Providers: Laura Jimenez Other Interventions: Discharge Summary Assessment (RN) Last Done: 02/25/22 12:03 Supervising Physician Co-Signing Physician Notes Patient seen and examined independently of PGY-2 Dr. Tavarez. Agree with history, exam findings, assessment and plan of care as outlined with the following updates: In brief, Maryellen is an 81 year old female with history of dementia, prior nephrolithiasis, pAF, anemia, tricuspid valve mass (s/p removal) and HFpEF admitted with severe L flank pain. Left sided flank pain has resolved and not recurred. VS and nursing notes reviewed. She is well appearing. Heart with regular rate and rhythm. Lungs are clear to auscultation. Abdomen is soft, nontender. No CVA tenderness. No tenderness over the left ribs or flank. Labs and imaging reviewed. 1. Left flank pain. Pain is resolved. In the setting of mild hydronephrosis, suspect that she passed a renal stone. 2. Hydronephrosis. Likely secondary to recent nephrolithiasis. 3. Dysuria. UA without bacteria. Urine culture is contaminated but no further dysuria. 4. pAF. AC with coumadin. Goal INR 1.8 to 2. Continue atenolol for rate control. 5. Anemia. Chronic. Secondary to radiation proctitis and cystitis. Follows with [facility]. Dispo: Discharge home with daughter Radha today. I personally spent 20 minutes discharge planning for this patient. Resident Activity Tracking Resident Involvement: Resident Care Provided Care Provided: Adult Hospital Medicine
[2022-02-25] MEDS ORDERED: WARFARIN SOD 2 MG TAB PO SCH (16:00)
== END 2022-02-25 14:36 | disposition home or self-care (01) ==
LOC: ED 21:03 → 3E 21:03 → SUATTDRO 02-24 03:48 → 3E 02-24 05:02

== ENCOUNTER 2024-01-12 15:21 | Observation (INO) ==
--- OUTSIDE RECORDS SUMMARY | 2024-01-12 15:26 | External Medical Summary | Summary of Care ---
Author Name Unknown Organization [facility] Address [address] [place] [address] Phone [phone] Care Team Providers Care Shift Supervisor Name Role Phone Sandra Pope MD Primary Care Provider [phone] Reason for Referral * Evaluate & Treat - Unlimited Visits (Within 10 days (routine)) - Authorized Specialty Diagnoses / Procedures Referred By George t Referred To Contact Otolaryngology Diagnoses Bilateral impacted cerumen Otalgia, right ear Laura Hernandez CRNP [address] [place] [address] [place] [id number] Referral ID Status Reason Start Date Expiration Date Visits Requested Visits Authorized [id number] Authorized Specialty Services Required 12/01/2023 999 999 Question Answer Referral Priority Within 10 days (routine) Where should this appointment be scheduled? [facility] Reason for Referral Ear Conditions Specific Condition: Cerumen (Earwax) Comments Impacted cerumen, otalgia, right ear Encounter Details Date Type Department Care Team (Late st Contact Info) Description 12/01/2023 Orders Only Access [place] [place] [address] [place] [address] Ext *DO NOT REMOVE THIS DEPARTMENT* [place] [id number] Request, External Referral Bilateral impacted cerumen*; Otalgia, right ear Allergies Active Allergy Reactions Criticality Noted Date Comments Ciprofloxacin Diarrhea Low 08/14/2013 Iodinated Contrast Media Anaphylaxis High 06/23/2008 documented as of this encounter (statuses as of 12/01/2023) Medications Medication Sig Dispensed Refills Start Date End Date Status DIGESTIVE ENZYMES PO CAPS with meals 0 04/18/2006 Active CO-ENZYME Q-10 100 MG PO CAPS Take by mouth. Pt takes 200 mg daily Active ATENOLOL 25 MG PO TABSIndications: Palpitations TAKE ONE TABLET BY MOUTH ONE TIME DAILY 90 Tab 3 04/18/2011 Active PROBIOTIC PRODUCT PO TABS one pill each day 07/02/2014 Ac tive Levothyroxine Sodium 75 MCG Oral Tablet Take 1 Tablet by mouth daily first thing in the morning. (at least 30 min prior to breakfast or other meds) 04/06/2015 Active Cholecalciferol (VITAMIN D) 1000 units Tablet Take 800 Units by mouth daily. Active Docusate Sodium 100 MG Oral Capsule Take 1 Capsule by mouth 2 times a day as needed. Active Senna 8.6 MG Oral Capsule Take by mouth 1 Capsule daily as needed . Active Quercetin 250 MG Oral Tablet Take by mouth. Active Multivitamin Adults Oral Tablet Take 2 Caps by mouth daily. Active Warfarin Sodium 2 MG Oral Tablet (Jantoven) Take 1.5 to 2 tablets daily as directed by anticoagulation clinic 180 Tablet 3 09/20/2022 Active Additional Information Patient not taking.Reported on 02/27/2023 Amoxicillin 500 MG Oral Capsule (Amoxil)Indicati ons:Mitral valve prolapse,Tricusp id valve mass TAKE 4 CAPSULES ONE HOUR PRIOR TO PROCEDURE 4 Capsule 11 10/01/2023 Active Torsemide 10 MG Oral Tablet (Demadex)Indicat ions:Chronic right-sided heart failure (HCC),Paroxysmal A-fib (HCC),Mitral valve prolapse,Tricusp id valve mass TAKE 20 MG BY MOUTH IN THE MORNING AND 10 MG BY MOUTH IN THE AFTERNOON 270 Tablet 3 10/02/2023 Active documented as of this encounter (statuses as of 12/01/2023) Active Problems Problem Noted Date Diagnosed Date Chronic right-sided heart failure 01/09/2021 History of rectal or anal cancer 02/27/2019 Tricuspid valve mass 03/24/2017 Paroxysmal A-fib 03/24/2017 Postoperative anemia due to acute blood loss 06/2016 Tricuspid valve mass 01/24/2017 Iron deficiency anemia due to chronic blood loss 12/06/2014 ADVANCE DIRECTIVE INFORMATION 08/01/2009 Overview: Pt states that she has an advanced directive for [place]. Pt encouraged to bring in a copy to be scanned into her medical record. 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 Palpitations 05/02/2002 Mitral valve prolapse 05/02/2002 documented as of this encounter (statuses as of 12/01/2023) Resolved Problems Problem Noted Date Diagnosed Date Resolved Date Encounter for antineoplastic chemotherapy 04/23/2006 10/12/2015 documented as of this encounter (statuses as of 12/01/2023) Immunizations Name Administration Dates Next Due Seasonal Influenza, Trivalen t, High Dose, No Preserve, IM 05/30/2015 documented as of this encounter Social History Tobacco Use Types Packs/Day Years Used Date Smoking Tobacco: Never Smokeless Tobacco: Never Alcohol Use Standard Drinks/Week Comments No 0 (1 standard drink = 0.6 oz pur e alcohol) Utilities Answer Date Recorded Do you have trouble paying y our heating, water, or electric bill? (Adult - for ages 18 years and over) Not on file 10/08/2023 Is your family able to pay t he heat, water, or electric bill? (Household - for ages 0-17 years) Not on file 10/08/2023 Does your family have access to good internet? (Household - for ages 0-17 years) Not on file 10/08/2023 Social Connections Answer Date Recorded How often do you feel lonely or isolated from those around you? (Adult - for ages 18 years and over) Not on file 10/08/2023 Sex and Gender Information Value Date Recorded Sex Assigned at Not on file Gender Identity Not on file Sexual Orientation Not on file Job Start Date Occupation Industry Not on file Not on file Not on file documented as of this encounter Functional Status Functional Status Response Date of Assess ment Are you deaf or do you have serious difficulty h earing? No 03/19/2017 Are you blind or do you have serious difficulty seeing, even when wearing glasses? No 03/19/2017 Do you have serious difficul ty walking or climbing stairs? (5 years old or older) No 03/19/2017 Do you have difficulty dress ing or bathing? (5 years old or older) No 03/19/2017 Because of a physical, menta l, or emotional condition, do you have difficulty doing errands alone such as visiting a doctor s office or shopping? (15 years old or older) No 03/19/20 17 Cognitive Status Response Date of Assessm ent Because of a physical, menta l, or emotional condition, do you have serious difficulty concentrating, remembering, or making decisions? (5 years old or older) No 03/19/2017 documented as of this encounter Plan of Treatment Upcoming Encounters Date Type Department Care Team (Late st Contact Info) Description 12/09/2023 7:00 AM EDT Laboratory Lab [facility] [address] [place] [address] [facility] [address] [place] [address] 02/27/2024 4:00 PM EST Office Visit Cardiology, [facility] [address] [place] [id number] Ash Bosch MD [address] [place] [id number] Scheduled Procedures Name Priority Associated Diagnoses Date/Ti me SIGMOIDOSCOPY FLEXIBLE DIAGNOSTIC Recall History of colon polyps Scheduled Referrals Name Type Priority Associated Diagnoses Order Schedule ADULT/PEDS OTOLARYNGOLOGY REFERRAL OP Referral Within 10 days (routine) Bilateral impacted cerumen Otalgia, right ear Ordered: 12/01/2023 Health Maintenance Due Date Last Done Comments DXA Scan 1940 MENINGOCOCCAL (MENACTRA/MENVEO) (1 - Risk 2-dose series) 1940 Meningitis B Vaccine (Bexsero/Trumemba) (1 of 4 - Increased Risk) 1948 Depression Screening 1950 DTaP,Tdap,and Td Vaccines (1 - Tdap) 1957 Zoster Vaccines (2 of 3) 01/25/2010 11/30/2009 COVID-19 Vaccine (1 - 2022-24 season) 2022 Influenza Vaccine (FLU shot) (#1) 2023 01/21/2019, 01/08/2018, 05/30/2015 TSH 10/13/2024 10/14/2023, 03/22, 12/06/2022, Additional history exists Pneumococcal Vaccine: 65+ Years Completed 01/06/2016, 01/13/2013 HPV (Gardasil) Vaccine Aged Out No lo nger eligible based on patient's age to complete this topic Hepatitis B Vaccine Aged Out No longe r eligible based on patient's age to complete this topic documented as of this encounter Medical Devices Implanted Type Area Loss Prevention Manager Device Identifier Shelf Expiration Date Model / Serial / Lot Ring Triad [id number] - [id number] - [id number] Implanted:Qty: 1 on 03/19/2017 by Kam [place] [facility] [place]: Heart [employer] 08/19/2021 [id number] / [id number] / Sureclip 16mm 235cm - [id number] Implanted:Qty: 1 on 02/03/2020 by Jose L Menezes MD at OR [facility] MICRO TECH ENDOSCOPY 06/10/2022 [id number] / / [id number] documented as of this encounter Visit Diagnoses Diagnosis Bilateral impacted cerumen- Primary Impacted cerumen Otalgia, right ear documented in this encounter Advance Directives * Full Code (Latest Code Status on File) Date Activated Date Inactivated Comments 03/19/2017 10:49 AM 03/27/2017 8:50 PM This order reflects the patients wishes and were consensually agreed upon. Question Answer Comments Discussion of Advance Directives occurred with: Patient Does the patient have a Living Will? No Does the patient have Health Care Power of Attor trev? No Care Teams Shift Supervisor Relationship Specialty Start Date End Date Sandra Pope MD [address] [place] [address] PCP - General Family Medicine 01/21/23 documented as of this encounter
--- OUTSIDE RECORDS SUMMARY | 2024-01-12 15:26 | External Medical Summary ---
Author Name Unknown Address Unknown Organization [id number]:LABORATORY [facility] [place] [address] [place] [id number] Laboratory Report Ordering Provider Test Date Status PATIENCE MONTANO 11/25/2023 09:54:00 Final Observation Date Value Abnormality Reference (Units ) Status Iron 11/25/2023 09:54:00 55 33-151 (ug /dL) Final Iron-binding capacity 11/25/2023 09:54:00 316 250-425 (ug/dL) Final Transferrin Sat % 11/25/2023 09:54:00 17 15 -55 (%) Final Performing Location LABORATORY [facility] [place] - [address] [place] [address]
--- OUTSIDE RECORDS SUMMARY | 2024-01-12 15:26 | External Medical Summary ---
Author Name Unknown Address Unknown Organization [id number][place] [facility] [place] [address] [place] [id number] Laboratory Report Ordering Provider Test Date Status PATIENCE MONTANO 12/09/2023 09:31:00 Final Observation Date Value Abnormality Reference (Units ) Status Iron 12/09/2023 09:31:00 60 33-151 (ug /dL) Final Iron-binding capacity 12/09/2023 09:31:00 327 250-425 (ug/dL) Final Transferrin Sat % 12/09/2023 09:31:00 18 15 -55 (%) Final Performing Location [place] [facility] [place] [address] [place] [address]
--- OUTSIDE RECORDS SUMMARY | 2024-01-12 15:26 | External Medical Summary ---
Author Name Unknown Address Unknown Organization [id number]:[place] [facility] [place] [address] [place] [address] Laboratory Report Ordering Provider Test Date Status PATIENCE MONTANO 12/09/2023 09:31:00 Final Observation Date Value Abnormality Reference (Units ) Status Ferritin 12/09/2023 09:31:00 65 13-150 (ng /mL) Final Postmenopausal women have hi gher ferritin levels than pre-menopausal women. The above reference interval is based on pre-menopausal women. Performing Location LABORATORY [facility] - [address] [place] [address]
--- OUTSIDE RECORDS SUMMARY | 2024-01-12 15:26 | External Medical Summary | Continuity of Care Document ---
Author Name Unknown Organization [facility] [address] [id number] Care Team Providers Care Parking Enforcement Manager Name Role Phone Sandra Pope Primary Care Physician [phone] Encounter [facility] [phone] Date(s): 12/05/23 - 12/05/23 [facility] [address] [id number] Encounter Diagnosis Basal cell carcinoma(Discharge Diagnosis) - 12/05/23 Seborrheic keratoses(Discharge Diagnosis) - 12/05/23 History of skin cancer(Discharge Diagnosis) - 12/05/23 Discharge Disposition: Home or Self Care Attending Physician: QUOC Alan Dawn M Allergies, Adverse Reactions, Alerts Substance Criticality Severity Reaction Reaction Severity Status ciprofloxacin diarrhea/stomach upset Active IVP dye Rash Active Assessment and Plan Extracted from: Title:Dermatology Office Visit Note Author:Daron perales PA-C, Dawn M Date:12/05/23 1.Basal cell carcinoma NEW -Discussed at length the risks and benefits of both biopsy and Mohs surgery at this stage of her life. She is dealing with CHF and has an ENT workup pending for ear pain. She also has issues with her teeth. She is nonambulatory. She and her daughter would prefer watchful waiting. They will call if they noticed enlarging of lesions, bleeding, ulcerating or have further concerns. We can then put her in a procedure time for biopsy. 2.Seborrheic keratoses - chronic and stable -SEBORRHEIC KERATOSES - discussed the likely benign and genetic nature of these lesions._ watchful waiting 3.History of skin cancer Call with questions or concerns. Follow up at least in 1 year. Patient in agreement with plan Medications atenolol 25 mg oral tablet Start: 03/06/11 12:00:00 PM EST, 1 tab, PO, Daily Start Date: 03/06/11 Status: Ordered levothyroxine 25 mcg (0.025 mg) oral tablet Start: 12/11/12 10:18:00 AM EDT, 1 tab, PO, Daily Start Date: 12/11/12 Status: Ordered torsemide 20 mg oral tablet Start: 04/11/20 3:51:00 PM EST, 1 tab, PO, Daily Start Date: 04/11/20 Status: Ordered Mental Status 12/05/23 Barriers to Learning one year None evide nt Mandatory Health Literacy Documentation Yes Health Literacy Communication Barriers N ever Primary Language Ukrainian Problem List Condition Confirmation Course Effective Dates Status Health Status Informant Actinic keratosis Confirmed Active Actinic porokeratosis Confirmed Active Arthropathy Confirmed Active Xerosis cutis Confirmed Active Back pain Confirmed Active Cancer 1 Confirmed Active Changing skin lesion Confirmed Active Dry eyes, bilateral Confirmed Active Eczema Confirmed Active FAMILY HISTORY OF OTHER SPECIFIED MALIGNANT NEOPLASM 2 Confirmed Active Folliculitis Confirmed Active Glossitis Confirmed Active Hamstring sprain Confirmed Active History of malignant basal cell neoplasm of skin Confirmed Active INFLAMED SEBORRHEIC KERATOSIS Confirmed Active Inflamed seborrheic keratosis Confirmed Active Arthritis of foot Confirmed Active Lipodermatosclerosis Confirmed Active Mitral valve prolapse Confirmed Active Actinic keratoses Confirmed Active Neoplasm of uncertain behavior of skin Confirmed Active PERSONAL HISTORY OF OTHER MALIGNANT NEOPLASM OF SKIN 3 Confirmed Active Porokeratosis Confirmed Active Raynaud disease Confirmed Active Seborrhea Confirmed Active Seborrheic keratoses Confirmed Active Skin ulcer Confirmed Active Stasis dermatitis Confirmed Active 1perianal 2father and sister had bcc. 3hx f bcc and scc Diagnosis Diagnosis Type Effective Dates Health Status Clinical Service Informant Seborrheic keratoses Discharge Diagnosis 12/05/23 History of skin cancer Discharge Diagnosis 12/05/23 Basal cell carcinoma Discharge Diagnosis 12/05/23 Procedures Procedure Date Related Diagnosis Body Site Status Shave biopsy and cauterizati on of skin 1 10/31/22 Completed Colonoscopy 01/2021 Completed Shave biopsy 2 09/14/20 Completed Colonoscopy 12/2019 Completed Shave biopsy and cauterizati on of skin 3 09/29/18 Completed Open heart surgery 03/19/17 Comple maribel Shave biopsy and cauterization of skin 08/11/15 Completed MRI 4 03/2013 Completed Cholecystectomy Completed Injection 5 Completed Laminectomy 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 Completed 1with ED&C 2central glabala 3right forehead at hairline, right upper cut lip 4abdominal and chest 5lower lumbar injections for pain control Social History Social History Type Response Smoking Status Never smoked cigaret massimo Sex Female Sex Representation Female (finding) Dermatology Outpatient Note * QUOC Alan, Bertha Polk: PERFORM Event Display: Dermatology Outpt Note Authored Date: Chief Complaint skin check with concerns of spots on the face History of Present Illness RAÚL RIVERA Vis a83 year old patient returning todaywith a chief complaint of skin check with concerns of spots on the face. The patient feels the condition is stable. She denies itching, bleeding, oozing, crusting or evolving lesions. Patient has a past personal history of skin cancer: SCC left cheek Mohs 2015, BCC right upper lip and right forehead Mohs 2019 BCC left forehead and left posterior upper arm. SCC right wrist 11/07/22 Patient usedsunscreen. Physical Exam _Constitutional: Generally well appearing, well developed. Appears stated age. Eyes: Conjunctivae and lids without noted inflammation, lesion, mass, deformity or drainage. Neurological / Psychiatric: Oriented to person, place and time. Appropriate mood and affect. No notable depression, anxiety or agitation. Complete skin exam was performed today including head, neck, chest, axillae, abdomen, buttocks, back, bilateral upper and bilateral lower extremities. Palpation of the scalp, inspection of hair of scalp, eyebrows and finger and toenails was performed. The exam was within normal limits the exception of: PATIENT DECLINED PHYSICIAN PEDIATRICIAN CENTRAL FOREHEAD - 1.1cm pink scaled patch - likely superficial BCC RIGHT ALAR CREASE - 0.4cm pink injected papule - likely bcc SCALP, NECK - hyperkeratotic plaques and papules consistent with seborrheic keratoses Images 2023-12-05 16:12:20 2023-12-05 16:12:28 2023-12-05 16:12:37 2023-12-05 16:12:51 Assessment/Plan 1.Basal cell carcinoma NEW -Discussed at length the risks and benefits of both biopsy and Mohs surgery at this stage of her life. She is dealing with CHF and has an ENT workup pending for ear pain. She also has issues with her teeth. She is nonambulatory. She and her daughter would prefer watchful waiting. They will call if they noticed enlarging of lesions, bleeding, ulcerating or have further concerns. We can then put her in a procedure time for biopsy. 2.Seborrheic keratoses - chronic and stable -SEBORRHEIC KERATOSES - discussed the likely benign and genetic nature of these lesions._ watchful waiting 3.History of skin cancer Call with questions or concerns. Follow up at least in 1 year. Patient in agreement with plan Problem List/Past Medical History Ongoing Actinic keratoses Actinic keratosis Actinic porokeratosis Arthritis of foot Arthropathy Back pain Cancer Changing skin lesion Dry eyes, bilateral Eczema FAMILY HISTORY OF OTHER SPECIFIED MALIGNANT NEOPLASM Folliculitis Glossitis Hamstring sprain History of malignant basal cell neoplasm of skin INFLAMED SEBORRHEIC KERATOSIS Inflamed seborrheic keratosis Lipodermatosclerosis Mitral valve prolapse Neoplasm of uncertain behavior of skin PERSONAL HISTORY OF OTHER MALIGNANT NEOPLASM OF SKIN Porokeratosis Raynaud disease Seborrhea Seborrheic keratoses Skin ulcer Stasis dermatitis Xerosis cutis Procedure/Surgical History Shave biopsy and cauterization of skin| Service Date: 3Colonoscopy| Service Date: have biopsy| Service Date: 09/14/2020olonoscopy| Service Date: 12/2019Shave biopsy and cauterization of skin| Service Date: 09/29/2018Open heart surgery| Service Date: 03/19/2017Shave biopsy and cauterization of skin| Service Date: 08/11/2015MRI| Service Date: 03/2013Splenectomyrectal surgery for perianal cancerLaminectomyInjectionCholecystectomy Medications atenolol(atenolol 25 mg oral tablet), 25 mg= 1 tab, PO, Daily levothyroxine(levothyroxine 25 mcg (0.025 mg) oral tablet), 25 mcg= 1 tab, PO, Daily torsemide(torsemide 20 mg oral tablet), 20 mg= 1 tab, PO, Daily Allergies IVP dyeRash ciprofloxacindiarrhea/stomach upset Social History Smoking Status Never smoked cigarettes Family History Arthritis: Mother. Liver cancer..: Mother. Stroke: Father. Health Status Family Member(s) Electronic Signature on File Electronically Reviewed/Signed by: JUANITO Demarco Author Signature Dt/Tm:12/05/2023 04:23 PM Department of Family Medicine Department of Dermatology DMS Patient Care team information Care Team Personnel Name: DO Pope Maria Position: Referring Member Role: Primary Care Provider Address: [facility] [address] [place] [address] Name: JOHN Hodges Sally Position: RN Member Role: Lifetime - never expires Address: [facility] [address] [place] [phone] [place] Care Team Related Persons Name: ANTWAN RIVERA Name: NATASHA WILKINSON"
--- OUTSIDE RECORDS SUMMARY | 2024-01-12 15:26 | External Medical Summary ---
Author Name Unknown Address Unknown Organization [id number]:[facility]ATORY [facility] [address] [place] [id number] Laboratory Report Ordering Provider Test Date Status PATIENCE MONTANO 12/09/2023 09:31:00 Final Observation Date Value Abnormality Reference (Units ) Status SYNC LEUKOCYTES IN BLOOD BY AUTOMATED COUNT 12/09/2023 09:31:00 5.59 4.00-10.80 (K/uL) Final Segs 12/09/2023 09:31:00 63.5 40.0-75.0 (%) Final Lymphs % 12/09/2023 09:31:00 15.4 Below low normal 18.0-42.0 (%) Final Monos 12/09/2023 09:31:00 16.5 Above high normal 1.0-11.0 (%) Final Eosinophils 12/09/2023 09:31:00 3.9 0.0-6.0 (%) Final Basos 12/09/2023 09:31:00 0.7 0.0-2.0 (%) Final Absolute Segs 12/09/2023 09:31:00 3.55 1.80-7.70 (K/uL) Final Lymphs, absolute 12/09/2023 09:31:00 0.86 Below low normal 1.00-4.80 (K/ul) Final Monos, Abs 12/09/2023 09:31:00 0.92 0.00-1.10 (K/uL) Final Eos, Abs 12/09/2023 09:31:00 0.22 0.00-0.70 (K/uL) Final Basos, Abs 12/09/2023 09:31:00 0.04 0.00-0.20 (K/uL) Final Performing Location LAB[facility]ATORY [facility] [address] [place] [id number]
--- OUTSIDE RECORDS SUMMARY | 2024-01-12 15:26 | External Medical Summary ---
Author Name Unknown Address Unknown Organization [id number]:[facility] [address] [place] [address] Laboratory Report Ordering Provider Test Date Status PATIENCE MONTANO 11/25/2023 09:54:00 Final Observation Date Value Abnormality Reference (Units ) Status SYNC LEUKOCYTES IN BLOOD BY AUTOMATED COUNT 11/25/2023 09:54:00 6.33 4.00-10.80 (K/uL) Final Segs 11/25/2023 09:54:00 67.1 40.0-75.0 (%) Final Lymphs % 11/25/2023 09:54:00 13.9 Below low normal 18.0-42.0 (%) Final Monos 11/25/2023 09:54:00 14.1 Above high normal 1.0-11.0 (%) Final Eosinophils 11/25/2023 09:54:00 4.3 0.0-6.0 (%) Final Basos 11/25/2023 09:54:00 0.6 0.0-2.0 (%) Final Absolute Segs 11/25/2023 09:54:00 4.25 1.80-7.70 (K/uL) Final Lymphs, absolute 11/25/2023 09:54:00 0.88 Below low normal 1.00-4.80 (K/ul) Final Monos, Abs 11/25/2023 09:54:00 0.89 0.00-1.10 (K/uL) Final Eos, Abs 11/25/2023 09:54:00 0.27 0.00-0.70 (K/uL) Final Basos, Abs 11/25/2023 09:54:00 0.04 0.00-0.20 (K/uL) Final Performing Location LAB[facility]ATORY [facility] [address] [place] [address]
--- OUTSIDE RECORDS SUMMARY | 2024-01-12 15:26 | External Medical Summary ---
Author Name Unknown Address Unknown Organization [id number]:[facility] [place] [address] [place] [address] Laboratory Report Ordering Provider Test Date Status PATIENCE MONTANO 11/25/2023 09:54:00 Final Observation Date Value Abnormality Reference (Units ) Status Ferritin 11/25/2023 09:54:00 85 13-150 (ng /mL) Final Postmenopausal women have hi gher ferritin levels than pre-menopausal women. The above reference interval is based on pre-menopausal women. Performing Location LABORATORY [facility] - [address] [place] [address]
--- OUTSIDE RECORDS SUMMARY | 2024-01-12 15:26 | External Medical Summary ---
Author Name Unknown Address Unknown Organization K0G:LABORATORY [facility] [address] [place] [id number] Laboratory Report Ordering Provider Test Date Status DEBORAH CUMMINS 11/25/2023 09:54:00 Final Observation Date Value Abnormality Reference (Units ) Status BUN 11/25/2023 09:54:00 20 6-20 (mg/dL) Final Creatinine 11/25/2023 09:54:00 1.1 Above high normal 0.5-1.0 (mg/dL) Final Glomerular filtration rate/1.73 sq M.predicted [Volume Rate/Area] in Serum, Plasma or Blood by Creatinine-based formula (CKD-EPI) 11/25/2023 09:54:00 52 Below low normal >=60 (mL/min) Final eGFR is calculated based on the CKD-EPI 2020 equation. Sodium 11/25/2023 09:54:00 136 135-146 (m mol/L) Final Potassium 11/25/2023 09:54:00 4.4 3.5-5.1 (m mol/L) Final Cl 11/25/2023 09:54:00 94 Below low normal 98- 107 (mmol/L) Final CO2 11/25/2023 09:54:00 29 22-32 (mmo l/L) Final Anion gap 11/25/2023 09:54:00 13 7-15 (mmol /L) Final Glucose 11/25/2023 09:54:00 93 70-120 (mg /dL) Final Calcium 11/25/2023 09:54:00 9.8 8.4-10.2 ( mg/dL) Final Performing Location LAB[facility]ATORY [facility] [address] [place] [id number]
--- OUTSIDE RECORDS SUMMARY | 2024-01-12 15:26 | External Medical Summary | Summary of Care ---
Author Name Unknown Organization [facility] Address [address] [place] [address] Phone [phone] Care Team Providers Care Automatic Transmission Mechanic Name Role Phone Sandra Pope MD Primary Care Provider [phone] Reason for Visit * Reason Comments NEW PATIENT Impacted cerumen * Evaluate & Treat - Unlimited Visits (Within 10 days (routine)) - Authorized Specialty Diagnoses / Procedures Referred By George gutierrez Referred To Contact Otolaryngology Diagnoses Bilateral impacted cerumen Otalgia, right ear Laura Hernandez CRNP [address] [facility] [address] Referral ID Status Reason Start Date Expiration Date Visits Requested Visits Authorized [id number] Authorized Specialty Services Required 12/01/[phone] Encounter Details Date Type Department Care Team (Latest Contact Info) Description 12/25/2023 3:00 PM EDT Office Visit Otolaryngology [facility] [address] [place] [address] Marin Anderson PA-C [address] [place] [address] Bilateral impacted cerumen*; Arthralgia of right temporomandibular joint Allergies Active Allergy Reactions Criticality Noted Date Comments Ciprofloxacin Diarrhea Low 08/14/2013 Gluten Meal 01/04/2023 Other Reaction(s): unknown Iodinated Contrast Media Anaphylaxis High 06/23/2008 documented as of this encounter (statuses as of 12/25/2023) Medications Medication Sig Dispensed Refills Start Date [...] as of this encounter (statuses as of 12/25/2023) Active Problems Problem Noted Date Diagnosed Date Chronic right-sided heart failure 01/09/2021 History of rectal or anal cancer 02/27/2019 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 Pt encouraged to bring in a copy to be scanned into her medical record. 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 Palpitations 05/02/2002 Mitral valve prolapse 05/02/2002 documented as of this encounter (statuses as of 12/25/2023) Resolved Problems Problem Noted Date Diagnosed Date Resolved Date Encounter for antineoplastic chemotherapy 04/23/2006 10/12/2015 documented as of this encounter (statuses as of 12/25/2023) Immunizations Name Administration Dates Next Due Seasonal Influenza, High Dos e, Trivalent, PF, IM (Fluzone HD) 05/30/2015 documented as of this encounter Social History Tobacco Use Types Packs/Day Years Used Date Smoking Tobacco: Never Smokeless Tobacco: Never Tobacco Cessation:Counseling Given: Not Answered Alcohol Use Standard Drinks/Week Comments No 0 [...] on file documented as of this encounter Last Filed Vital Signs Vital Sign Reading Time Taken Comments Blood Pressure - - Pulse - - Temperature 36.6 C (97.8 F) 12/25/2023 2:57 PM ED T Respiratory Rate - - Oxygen Saturation - - Inhaled Oxygen Concentration - - Weight 48.8 kg (107 lb 9.4 oz) 12/25/2023 2:57 P M EDT Height 160 cm (5' 3") 12/25/2023 2:57 PM EDT Body Mass Index 19.06 12/25/2023 2:57 PM EDT documented in this encounter Functional Status Functional Status Response [...] No 03/19/2017 documented as of this encounter Progress Notes * Marin Anderson PA-C - 12/25/2023 3:05 PM EDT 12/25/2023 HISTORY OF PRESENT ILLNESS This 83 year old YO female is seen at the request of Sandra Pope MD for the evaluation of cerumen impaction, hearing loss, R otalgia. She is here today with her daughter, Radha. Previously followed with [facility] for cerumen removal. In the last 5 years has had issues with getting appointments. The way they left it at outside ENT was that she needed to be put under anesthesia for removal. Mid September had right otalgia, they saw PCP a few times and was treated for ear infection first with antibiotic which did not help, then steroid which did improve symptoms temporarily. Symptoms returned, was placed on another steroid which helped a lot. She was seen recently at the dentist and they felt her pain was TMJ related. They have been doing some exercises and soft food diet for TMJ and feels symptoms improved. Associated symptoms include bilateral hearing loss, bilateral ear itching and right otalgia. She denies bilateral otorrhea, bilateral aural pressure, and bilateral tinnitis. No hx of otologic surgeries. Remaining ear review of symptoms reveals: Head trauma: denied Dizziness: vertigo denied Noise exposure: no occupational exposure and no firearm exposure Problem List Patient Active Problem List Diagnosis Palpitations Mitral valve prolapse Malignant neoplasm of anal canal (HCC) ADVANCE DIRECTIVE INFORMATION Iron deficiency anemia due to chronic blood loss Tricuspid valve mass Tricuspid valve mass Paroxysmal A-fib (HCC) Postoperative anemia due to acute blood loss History of rectal or anal cancer Chronic right-sided heart failure (HCC) Past Medical History: Diagnosis Date Anemia iron deficiency anemia Cancer (HCC) rectal/anal INFORMATION 2005 anal cancer INFORMATION 06/06 abdominal pain- [facility] Mitral valve prolapse 1975 Past Surgical History: Procedure Laterality Date ANORECTAL EXAM ,DIAG, REQUIRING ANESTHESIA 02/23/2014 ANORECTAL EXAM UNDER ANESTHESIA performed by Radha Singh MD at OR [facility] BIOPSY OF RECTUM 01/13/2007 Anal biopsy (benign) - at [facility] - Dr. 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/biopsies normal/COLONOSCOPY FLEXIBLE PROXIMAL DIAGNOSTIC performed by Jose L Menezes MD at OR [facility] EGD, FLEXIBLE, DIAGNOSTIC 12/16/2014 [facility] EXPLORATION OF ABDOMEN N/A 03/20/2017 EXPLORATORY LAPAROTOMY performed by Kam Motley MD at [facility] LAPAROSCOPY; CHOLECYSTECTOMY 03/07/2015 Cholecystectomy, Laproscopic REMOVAL OF SPLEEN, TOTAL 04/22/2001 REPLACE TRICUSPID VALVE, W/BYPASS N/A 03/19/2017 removal of tricuspid valve tumor performed by Kam Motley MD at [facility] SIGMOIDOSCOPY, DIAGNOSTIC radiation proctopathy, Anal canal stenosis, serrated adenomatous polyp, repeat 2 yrs / UTM SPINE SURGERY PROCEDURE NEC 04/22/1998 spinal stenosis Medications Current Outpatient Medications Medication Sig Dispense Refill DIGESTIVE ENZYMES PO CAPS with meals 0 CO-ENZYME Q-10 100 MG PO CAPS Take by mouth. Pt takes 200 mg daily ATENOLOL 25 MG PO TABS TAKE ONE TABLET BY MOUTH ONE TIME DAILY 90 Tab 3 PROBIOTIC PRODUCT PO TABS one pill each day Levothyroxine Sodium 75 MCG Oral Tablet Take 1 Tablet by mouth daily first thing in the morning. (at least 30 min prior to breakfast or other meds) Cholecalciferol (VITAMIN D) 1000 units Tablet Take 800 Units by mouth daily. Docusate Sodium 100 MG Oral Capsule Take 1 Capsule by mouth 2 times a day as needed. Senna 8.6 MG Oral Capsule Take by mouth 1 Capsule daily as needed . Quercetin 250 MG Oral Tablet Take by mouth. Multivitamin Adults Oral Tablet Take 2 Caps by mouth daily. Amoxicillin 500 MG Oral Capsule (Amoxil) TAKE 4 CAPSULES ONE HOUR PRIOR TO PROCEDURE 4 Capsule 11 Torsemide 10 MG Oral Tablet (Demadex) TAKE 20 MG BY MOUTH IN THE MORNING AND 10 MG BY MOUTH IN THE AFTERNOON 270 Tablet 3 Warfarin Sodium 2 MG Oral Tablet (Jantoven) Take 1.5 to 2 tablets daily as directed by anticoagulation clinic (Patient not taking: Reported on 02/27/2023) 180 Tablet 3 No current facility-administered medications for this visit. Allergies Review of patient's allergies indicates: Allergen Reactions Iodinated Contrast Media Anaphylaxis Gluten Meal Other Reaction(s): unknown Ciprofloxacin Diarrhea Family History Family History Problem Relation Name Age of Onset Arthritis Mother Cancer Mother colon cancer- from liver cancer. Colon cancer Mother Stroke Father from stroke Social History Social History Tobacco Use Smoking status: Never Smokeless tobacco: Never Substance Use Topics Alcohol use: No Vaping/E-Cigarette Use Vaping/E-Cigarette Use Never User Vaping/E-Cigarette Substances Vaping/E-Cigarette Devices REVIEW OF SYMPTOMS: Negative for constitutional, eyes, cardiac, pulmonary, hepatic, renal, digestive, hematologic, epileptic, syncopal, musculo-skeletal, mental health, integumentary, hypertensive, lipid, arthritic, diabetic, thyroid, or neurologic disorders (except as listed in the PMH and Problem List). PHYSICAL EXAMINATION: Vital Signs: Filed Vitals: 12/25/23 1457 Temp: 36.6 C (97.8 F) TempSrc: Tympanic Weight: 48.8 kg (107 lb 9.4 oz) Height: 1.6 m (5' 3") General: this is a healthy appearing female who appears her stated age. The patient is alert and appropriately verbally conversant without hoarseness. Neck: Visualization and palpation of the neck revealed no mass lesions, no thyromegaly or thyroid masses. No skin lesions or inflammatory processes were detected. The cervical musculature was normal to palpation. Lymphatics (cervical): There were no palpable lymph nodes in the posterior triangle, submandibular triangle, jugulodigastric region, or central neck. Lungs: normal respiratory effort Heart: normal rate IN ORDER TO BETTER EXAMINE THE EARS, THE PATIENT WAS EXAMINED USING THE OPERATING MICROSCOPE. FINDINGS ARE NOTED BELOW. Ears: Examination of the ears revealed that the auricles were normally formed with no lesions. The right external auditory canal was impacted with cerumen. It was removed using suction and forceps atraumatically by me. The right TM was WNL. The right middle ear space was WNL. The left external auditory canal was impacted with cerumen. It was removed using suction and forceps atraumatically by me. The left TM was WNL. The left middle ear space was WNL ASSESSMENT: 1. Bilateral impacted cerumen Severe impaction, removed today and will return in 6 mo, sooner PRN. Will use mineral oil leading up to next appnt. 2. Arthralgia of right temporomandibular joint Given handout for exercises. No infection noted R ear today. Plan: Return in 6 mo, sooner PRN Pt verbalized understanding and agrees with plan. Questions/Concerns addressed. Marin Anderson PA-C [facility] [address] [place] [address] 12/25/2023 3:45 PM I spent a total of 30-39 minutes (exact time 34 mins) on the date of service in preparation, delivery, and documentation of the care provided to Maryellen Flores excluding any time spent in the performance of separately billed services or time spent by another provider/QHP. documented in this encounter Nursing Notes * Arron Moya, COMMERCIAL CREDIT ANALYST - 12/25/2023 2:55 PM EDT Chief Complaint Patient presents with NEW PATIENT Impacted cerumen Maryellen Flores is a 83 year old female who presents today with impacted cerumen in both ears along with itchiness and pain in both ears. She denies tinnitus but she has some hearing loss and has difficult telling what direction a sound is coming from. documented in this encounter Plan of Treatment Upcoming Encounters Date Type Department Care Team (Late st Contact Info) Description 02/27/2024 4:00 PM EST Office Visit Cardiology, [facility] [address] [place] [address] Ash Bosch MD [address] [place] [address] 07/01/2024 2:30 PM EDT Office Visit Otolaryngology [facility] [address] [place] [address] Marin Anderson PA-C [address] [place] [address] Scheduled Procedures Name Priority Associated Diagnoses Date/Ti [...] - Increased Risk) 1950 Depression Screening 1950 DTap/Tdap Vaccines (1 - Tdap) 1957 Zoster Vaccines (2 of 3) 01/25/2010 11/30/2009 COVID-19 Vaccine (1 - 2022- season) 2023 Influenza Vaccine (FLU shot) (#1) 2023 01/21/2019, [...] this encounter Medical Devices Implanted Type Area Dispatch Lead Device Identifier Shelf Expiration Date Model / Serial / Lot Ring Triad [id number] - [id number] - [id number] Implanted:Qty: 1 on 03/19/2017 by Kam Motley MD at OR [facility] N/A: Heart [employer] 08/19/2021 [id number] / [id number] / Sureclip 16mm 235cm - [id number] Implanted:Qty: 1 on 02/03/2020 by Jose L Menezes MD at OR [facility] ENDOSCOPY 06/10/2022 [id number] / / [id number] documented as of this encounter Visit Diagnoses Diagnosis Bilateral impacted cerumen- Primary Impacted cerumen Arthralgia of right temporomandibular joint Arthralgia of temporomandibular joint documented in this encounter Advance Directives * [...] Power of Attor trev? No Care Teams Automatic Transmission Mechanic Relationship Specialty Start Date End Date Sandra Pope MD [address] [place] [address] PCP - General Family Medicine 01/21/23 documented as of this encounter
--- OUTSIDE RECORDS SUMMARY | 2024-01-12 15:26 | External Medical Summary ---
Author Name Unknown Address Unknown Organization [facility] [address] [place] [id number] Laboratory Report Ordering Provider Test Date Status PATIENCE MONTANO 11/25/2023 09:54:00 Final Observation Date Value Abnormality Reference (Units ) Status WBC, Total 11/25/2023 09:54:00 6.33 4.00-10.8 0 (K/uL) Final RBC 11/25/2023 09:54:00 3.23 3.85-5.15 (M/uL) Final Hemoglobin 11/25/2023 09:54:00 10.1 Below low normal 12 .0-15.3 (g/dL) Final HCT 11/25/2023 09:54:00 30.3 Below low normal 36. 0-45.2 (%) Final MCV 11/25/2023 09:54:00 93.8 81.5-97.5 (fL) Final MCH 11/25/2023 09:54:00 31.3 27.0-34.0 (pg) Final MCHC 11/25/2023 09:54:00 33.3 32.0-36.0 (g/dL) Final RDW 11/25/2023 09:54:00 16.9 11.5-15.5 (%) Final Platelets 11/25/2023 09:54:00 220 140-400 (K /uL) Final MPV 11/25/2023 09:54:00 9.7 6.6-11.1 ( fL) Final Performing Location [facility] [address] [place] [id number]
--- OUTSIDE RECORDS SUMMARY | 2024-01-12 15:26 | External Medical Summary ---
Author Name Unknown Address Unknown Organization [facility] [address] [place] [id number] Laboratory Report Ordering Provider Test Date Status PATIENCE MONTANO 12/09/2023 09:31:00 Final Observation Date Value Abnormality Reference (Units ) Status WBC, Total 12/09/2023 09:31:00 5.59 4.00-10.8 0 (K/uL) Final RBC 12/09/2023 09:31:00 3.19 3.85-5.15 (M/uL) Final Hemoglobin 12/09/2023 09:31:00 9.9 Below low normal 12 .0-15.3 (g/dL) Final HCT 12/09/2023 09:31:00 29.9 Below low normal 36. 0-45.2 (%) Final MCV 12/09/2023 09:31:00 93.7 81.5-97.5 (fL) Final MCH 12/09/2023 09:31:00 31.0 27.0-34.0 (pg) Final MCHC 12/09/2023 09:31:00 33.1 32.0-36.0 (g/dL) Final RDW 12/09/2023 09:31:00 15.9 11.5-15.5 (%) Final Platelets 12/09/2023 09:31:00 244 140-400 (K /uL) Final MPV 12/09/2023 09:31:00 10.3 6.6-11.1 ( fL) Final Performing Location [facility]ORY [facility] [address] [place] [id number]
[2024-01-12 15:34] VITALS: TEMP 97.7
[2024-01-12] MEDS: METOPROLOL TARTRATE 1 MG/ML VIAL IV STA (15:51)
[2024-01-12] MEDS: SODIUM CHLORIDE 0.9% 500 ML IV ONE (15:51)
--- NOTE | 2024-01-12 15:55 | Emergency Department Note ---
Impression & Plan Hypoxia, SVT (supraventricular tachycardia), Precordial chest pain, SOB (shortness of breath), Anemia ED Provider Note NAME: RAÚL RIVERA AGE: 83 SEX: F : 1940 ARRIVES VIA: Ambulance INFORMANT: [Patient][daughter] ED PROVIDER(S): [Black Moore MD] CHIEF COMPLAINT: Cardiac assessment HISTORY OF PRESENT ILLNESS: The patient is an 83-year-old female who states she has not felt well for a few days. She has been tired and fatigued. Last night, she did not sleep well at all. She kept waking up, she is not sure why. She had no palpitations. Today, she did not seem to be feeling well around 2.5 hours ago and the family checked her values on pulse ox. Her heart rate was 170. She was brought to the hospital. In route, before any medications were administered, the patient broke to a sinus rhythm. The patient's history of A-fib although, the family cannot recall the term SVT. The patient has been under some increased stress lately. She has noticed some chest pain and shortness of breath at times. As per EMS, her O2 saturation was around 88% however, she does wear oxygen at nighttime. Of note, the patient's daughter believes the patient forgot to take her atenolol last evening. Of note, EMS ECG prior to arrival showed a heart rate of 176 with what appears to be SVT. T wave inversions were noted laterally. PMHx/PSHx/Social Hx: See Below PHYSICAL EXAM: GENERAL: Patient is in no acute distress. Anxious. HEENT: No acute trauma, normocephalic atraumatic, mucous membranes dry, no nasal congestion. NECK: No stridor, no adenopathy, no meningismus, trachea is midline. LUNGS: Crackles and some decreased breath sounds on the right. The left lung is clear. HEART: 3/6 systolic murmur heard best at the left sternal border. Regular rate and rhythm. ABDOMEN: Soft, nontender, no peritonitis. EXTREMITIES: No cyanosis, full range of motion of all the joints without pain or difficulty. NEUROLOGIC: Awake and alert, no focal motor deficits. SKIN: No jaundice, no diaphoresis. DIFFERENTIAL DIAGNOSIS: SVT, A-fib or a flutter, [place], dehydration, electrolyte imbalance, UTI, viral illness, among others. EMERGENCY DEPARTMENT PROCEDURES: MEDICAL DECISION MAKING: There is no leukocytosis. A mild anemia was seen. This has been documented before. There was a normal platelet count. No coagulopathy. No renal failure or significant electrolyte abnormality. No concerning liver enzyme elevation. The patient appeared to be in a euthyroid state. ECG showed a normal sinus rhythm, no ST elevation. ECG prehospital showed what appeared to be in SVT at around 176 bpm. Chest x-ray showed some chronic change, no true CHF, no obvious focal pneumonia. The patient initially seemed a bit anxious but was able to calm down when her family arrived. She was given a 500 cc saline bolus. She was given 2.5 mg of IV Lopressor. The patient has maintained sinus rhythm. Given the history, given her hypoxia noted earlier, given the chest pain and shortness of breath complaints, I do think she requires observation/monitoring. I did speak with the patient and family, the on-call hospitalist was consulted. Prior/Outside records/notes reviewed: Today's EMS notes describing her presentation and transport to this hospital. ECG per my interpretation: Indication was tachycardia. The ECG shows a normal sinus rhythm with a rate of 76. There is T wave inversion with some ST depression laterally. There is no acute ST elevation, no PVCs. The QTc is 436. Continuous Cardiac Monitoring per my interpretation: An order was placed for continuous cardiac monitoring. The monitor shows a rate of 65 with normal sinus rhythm. Imaging/x-ray results per my interpretation: Chest x-ray shows some chronic change. There are some effusions, worse on the right. I see no focal pneumonia or pneumothorax. Chronic Medical/Social conditions affecting care: Advanced age, history of A- fib. Care/Management discussed with: Case management, the on-call hospitalist. Level of care consideration(s): After review of the information above and other included data: --I believe the patient requires escalation of care to admission DISPOSITION: Admission Past Med/Surg History Problem List (Updated 01/12/24 @ 21:21 by Black Moore MD) Anemia (Acute) SOB (shortness of breath) (Acute) Precordial chest pain (Acute) SVT (supraventricular tachycardia) (Acute) Hypoxia (Acute) Narrow complex tachycardia History of rectal cancer Sleep apnea 2lpm via n/c at HS Chronic pain syndrome Hypomagnesemia Iron deficiency anemia Thrombocytopenia Mitral regurgitation Hypothyroidism (Chronic) Impacted cerumen of both ears (Chronic) Nephrolithiasis (Chronic) Interstitial lung disease (Chronic) Cyst of kidney, acquired (Chronic) Anxiety state (Chronic) Hearing loss Hepatic cyst (Chronic) Hyperlipidemia LDL goal <100 (Chronic) HTN (hypertension) (Chronic) Lumbar spinal stenosis (Chronic) Osteoporosis, unspecified (Chronic) Paroxysmal atrial fibrillation (Chronic) family unaware, denies cardioversion. Follows with Dr Bosch. 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 Atrial fibrillation with rapid ventricular response Abscess of pulp of tooth CHF (congestive heart failure) Mild cognitive impairment with memory loss Alert and oriented x3 Anxiety Hx of basal cell carcinoma Mitral valve prolapse syndrome Weight loss Hypothyroidism H/O pericarditis (~2007) Lipodermatosclerosis Surgical History Hx of oral surgery (06/07/21) History of colonoscopy History of back surgery H/O squamous cell carcinoma excision H/O basal cell carcinoma excision History of open heart surgery (~2016) H/O cardiac catheterization S/P cholecystectomy S/P splenectomy H/O splenectomy Family History Mother Cancer Colorectal cancer Father Heart disease Stroke Son Alzheimer disease Denies family history of Ovarian cancer Prostate cancer Myocardial infarction Breast cancer Social History Smoking Status: Never smoker Tobacco Type: Cigarettes Second Hand Exposure: No; Do You Dip or Chew Tobacco: No; Hx Alcohol Use: No Hx Substance Use: No Preferred Language: Sami Communication Ability: Effective Visual Impairment: Limited Hearing Ability: Normal Kosher Dietary Service Manager Required: No Beliefs That Will Affect Care: None marital status: Current Living Situation: Spouse current occupational status: retired How many Children do You have: 3 Feels Safe at Home: Yes Childhood Exposure to Second-Hand Smoke: No Diet: gluten free caffeine: No Dental Care, Regularly: Yes Physical Activity Frequency: Does not Exercise Seatbelt Use: always Sunscreen Use: No Assistive Devices: Glasses, Oxygen - at Night and Walker Allergies Allergies Allergy/AdvReac Type Severity Reaction Status Date / Time gluten Allergy Unknown unknown Verified 01/12/24 18:30 Iodinated Contrast Media Allergy Unknown RASH TO Verified 01/12/24 18:30 "CT SCAN DYE" chlorhexidine Allergy Rash Verified 01/12/24 18:30 Cipro AdvReac Intermediate GI UPSET Verified 09/10/17 06:43 ciprofloxacin [Cipro] AdvReac Intermediate GI UPSET Verified 01/12/24 18:30 Home Meds Home Medications Medication Instructions Recorded Confirmed Lactobacillus 1 cap PO QAM 01/15/19 01/12/24 acidophilus-Bifidobac.animalis 31 billion cell capsule multivitamin (Multiple Vitamins 2 tab PO QAM 01/15/19 01/12/24 tablet) cholecalciferol (vitamin D3) 50 4,000 unit PO QAM 02/26/20 01/12/24 mcg/drop (2,000 unit/drop) oral drops vitamin K2 40 mcg tablet 120 mcg PO DAILY 10/21/21 01/12/24 Coq-10 Gummies 50 mg PO TID 02/24/22 01/12/24 torsemide 10 mg tablet 20 mg PO QAM 11/27/22 01/12/24 zinc 15 mg tablet 15 mg PO DAILY 01/12/24 01/12/24 Previous Rx's Medication Instructions Recorded levothyroxine 75 mcg tablet 75 mcg PO DAILY #90 tabs 05/21/23 atenolol 25 mg tablet 25 mg PO DAILY #90 tabs 06/06/23 fluticasone propionate 50 1 spray intranasal DAILY PRN nasal 11/01/23 mcg/actuation nasal congestion #16 grams spray,suspension Results & Data (ED) Vital Signs Vital Signs - 24 hr 01/12/24 15:31 01/12/24 15:31 01/12/24 15:51 Temperature 36.5 C Temperature Source Oral Pulse Rate 76 75 Pulse Rate [Left Finger] Pulse Rate from SpO2 Sensor Pulse Rhythm Regular Pulse Strength Normal Respiratory Rate 20 Respiratory Effort / Characteristics Short of Breath Short of Breath Respiratory Depth Retractive Retractive Respiratory Pattern Tachypnea Blood Pressure 123/71 123/71 Blood Pressure [Left Arm] Blood Pressure Mean 88 Blood Pressure Mean [Left Arm] Blood Pressure Position Sitting Blood Pressure Position [Left Arm] Pulse Oximetry 88 L Oxygen Delivery Method Room Air Oxygen Flow Rate Sepsis Recent Fever Within 48 Hours No Sepsis New/Unexplained Change in Mental Status No Sepsis Action Taken by Nursing No Action Required 01/12/24 15:55 01/12/24 16:08 01/12/24 16:32 Temperature Temperature Source Pulse Rate 76 Pulse Rate [Left Finger] 71 74 Pulse Rate from SpO2 Sensor Pulse Rhythm Pulse Strength Respiratory Rate 20 20 Respiratory Effort / Characteristics Respiratory Depth Respiratory Pattern Blood Pressure Blood Pressure [Left Arm] 99/58 L 125/69 Blood Pressure Mean Blood Pressure Mean [Left Arm] 71 87 Blood Pressure Position Blood Pressure Position [Left Arm] Sitting Pulse Oximetry 95 98 Oxygen Delivery Method Nasal Cannula Nasal Cannula Oxygen Flow Rate 2 2 Sepsis Recent Fever Within 48 Hours Sepsis New/Unexplained Change in Mental Status Sepsis Action Taken by Nursing 01/12/24 17:18 01/12/24 17:36 01/12/24 19:02 Temperature Temperature Source Pulse Rate 71 67 Pulse Rate [Left Finger] 72 Pulse Rate from SpO2 Sensor 68 68 Pulse Rhythm Pulse Strength Respiratory Rate 24 26 H 19 Respiratory Effort / Characteristics Respiratory Depth Respiratory Pattern Blood Pressure 122/70 122/70 Blood Pressure [Left Arm] 129/68 Blood Pressure Mean 87 87 Blood Pressure Mean [Left Arm] 88 Blood Pressure Position Blood Pressure Position [Left Arm] Pulse Oximetry 99 100 100 Oxygen Delivery Method Nasal Cannula Nasal Cannula Oxygen Flow Rate 2 2 Sepsis Recent Fever Within 48 Hours Sepsis New/Unexplained Change in Mental Status Sepsis Action Taken by Nursing 01/12/24 19:06 01/12/24 19:59 01/12/24 20:22 Temperature Temperature Source Pulse Rate 70 67 Pulse Rate [Left Finger] 69 Pulse Rate from SpO2 Sensor Pulse Rhythm Pulse Strength Respiratory Rate 16 Respiratory Effort / Characteristics Respiratory Depth Respiratory Pattern Blood Pressure Blood Pressure [Left Arm] 143/76 H Blood Pressure Mean Blood Pressure Mean [Left Arm] 98 Blood Pressure Position Blood Pressure Position [Left Arm] Pulse Oximetry 98 Oxygen Delivery Method Room Air Oxygen Flow Rate Sepsis Recent Fever Within 48 Hours Sepsis New/Unexplained Change in Mental Status Sepsis Action Taken by Long Term Medications Current Medication List: was personally reviewed by me Laboratory Data Attestation: I reviewed the patient's lab results. 01/12/24 15:40 01/12/24 15:40 Lab Results 01/12/24 Range/Units 15:40 WBC 7.13 (4.8-10.8) K/ul RBC 3.42 L (4.20-5.40) M/uL Hgb 10.0 L (12.0-16.0) g/dl Hct 29.1 L (37.0-47.0) % MCV 85.1 (80.0-100.0) fL MCH 29.2 (25.0-34.0) pg MCHC 34.4 (32.0-36.0) g/dL RDW Std Deviation 45.3 (36.4-46.3) fL RDW Coeff of Janet 14.7 H (11.5-14.5) % Plt Count 242 (130-400) K/uL MPV 9.9 (9.4-12.4) fL Immature Gran % (Auto) 0.4 % Neut % (Auto) 63.6 % Lymph % (Auto) 15.3 % [place] % (Auto) 16.7 % Eos % (Auto) 2.9 % Baso % (Auto) 1.1 % Neut # (Auto) 4.53 (1.40-6.50) K/uL Lymph # (Auto) 1.09 L (1.20-3.40) K/uL [place] # (Auto) 1.19 H (0.11-0.59) K/uL Eos # (Auto) 0.21 (0.00-0.50) K/uL Baso # (Auto) 0.08 (0.00-0.20) K/uL Immature Gran # (Auto) 0.03 (0.01-0.20) K/uL Absolute Nucleated RBC 0.02 (0.00-0.12) K/uL Nucleated RBC % (auto) 0.3 % PT 11.1 (9.0-12.0) Seconds INR 1.0 (0.9-1.1) APTT 29 (21-31) Seconds PTT Ratio 1.1 Sodium 139 (136-145) mmol/L Potassium 4.1 (3.5-5.1) mmol/L Chloride 99 (98-107) mmol/L Carbon Dioxide 30 (21-32) mmol/L Anion Gap 10 (3-11) BUN 22 (6-23) mg/dl Creatinine 1.13 (0.6-1.2) mg/dl Est Cr Clr Drug Dosing 25.9 ml/min Est GFR ( Amer) 51.3 ml/min Est GFR (Non-Af Amer) 44.3 ml/min BUN/Creatinine Ratio 19.5 (10-20) Glucose 99 (70-99(Fasting)) mg/dl Calcium 10.1 (8.6-10.3) mg/dl Magnesium 2.1 (1.7-2.4) mg/dl Total Bilirubin 0.5 (0.2-1.0) mg/dl AST 23 (13-39) U/L ALT 10 (7-52) U/L Alkaline Phosphatase 88 (34-104) U/L Troponin I High Sens 12.2 (0-14) pg/ml Total Protein 7.5 (6.0-8.3) gm/dl Albumin 4.0 (3.4-5.0) gm/dl Globulin 3.5 (2.5-4.0) gm/dl Albumin/Globulin Ratio 1.1 (0.9-2) TSH 2.447 (0.300-4.500) uIu/ml Administered Medications Discontinued Medications Sodium Chloride (Nss) 500 mls @ 999 mls/hr IV .Q31M ONE Stop: 01/12/24 16:16 Last Infusion: 01/12/24 17:23 Dose: Infused Documented By: Admin: 01/12/24 15:51 Dose: 999 mls/hr Documented By: NANCY Metoprolol Tartrate (Metoprolol Tartrate 1 Mg/Ml Vial) 2.5 mg IV NOW STA Stop: 01/12/24 15:47 Last Admin: 01/12/24 15:51 Dose: 2.5 mg Documented By: NANCY Torsemide (Torsemide 10 Mg Tab) 10 mg PO ONE STA Stop: 01/12/24 19:24 Last Admin: 01/12/24 20:27 Dose: 10 mg Documented By: ASW Imaging Data Radiologist's Impression: Chest X-Ray 01/12/24 15:30 XR chest 1V portable CLINICAL HISTORY: Chest pain, nonspecific COMPARISON STUDY: Chest CT June 02, 2021. Chest radiograph and left rib series February 24, 2022. FINDINGS: The patient is rotated. There are moderate right and small left pleural effusions. Cardiomegaly is unchanged. There is mild interstitial thickening. There is no pneumothorax. Bibasilar opacities favor atelectasis although an infectious process could appear similar. There is thoracic spine levoscoliosis. IMPRESSION: 1. Cardiomegaly with mild interstitial pulmonary edema. 2. Moderate right and small left pleural effusions with associated bibasilar opacities which favor atelectasis although pneumonia could appear similar. ACT 112: Negative or not required by law. Electronically signed by: Curtis Sanchez M.D. 01/12/2024 4:14 PM Discharge Plan Visit Data Chief Complaint: Cardiac Assessment ED Provider: Black Moore Discharge Problem: Hypoxia, SVT (supraventricular tachycardia), Precordial chest pain, SOB (shortness of breath), Anemia Patient Disposition: Admitted As Inpatient Condition: Fair Prescriptions Prescriptions: No Action cholecalciferol (vitamin D3) 50 mcg/drop (2, 000 unit/drop) drops 4,000 unit PO QAM levothyroxine 75 mcg tablet 75 mcg PO DAILY Qty: 90 3RF atenolol 25 mg tablet 25 mg PO DAILY Qty: 90 3RF fluticasone propionate 50 mcg/actuation spray,suspension 1 spray intranasal DAILY PRN (Reason: nasal congestion) Qty: 16 0RF Rx Instructions: administer into each nostril multivitamin [Multiple Vitamins] tablet 2 tab PO QAM L. acidophilus/Bifid. animalis 31 billion cell capsule 1 cap PO QAM vitamin K2 40 mcg Tablet 120 mcg PO DAILY Coq-10 Gummies 50 mg PO TID torsemide 10 mg tablet 20 mg PO QAM Rx Instructions: depends on weight zinc 15 mg Tablet 15 mg PO DAILY Discharge Problem: Anemia Qualifiers: Anemia type: unspecified type Qualified Code(s): D64.9 - Anemia, unspecified
[2024-01-12 15:57] LABS: Basophils # (auto) 0.08 K/uL (0.00-0.20); Basophils % (auto) 1.1 %; Eosinophils # (auto) 0.21 K/uL (0.00-0.50); Eosinophils % (auto) 2.9 %; Hematocrit (blood only) 29.1 % (37.0-47.0); Immature Granulocytes # (auto) 0.03 K/uL (0.01-0.20); Immature Granulocytes % (auto) 0.4 %; Lymphocytes # (auto) 1.09 K/uL (1.20-3.40); Lymphocytes % (auto) 15.3 %; Mean Corpuscular Hemoglobin 29.2 pg (25.0-34.0); Mean Corpuscular Hgb Conc 34.4 g/dL (32.0-36.0); Mean Corpuscular Volume 85.1 fL (80.0-100.0); Mean Platelet Volume 9.9 fL (9.4-12.4); Monocytes # (auto) 1.19 K/uL (0.11-0.59); Monocytes % (auto) 16.7 %; Neutrophils # (auto) 4.53 K/uL (1.40-6.50); Neutrophils % (auto) 63.6 %; Nucleated RBC # (auto) 0.02 K/uL (0.00-0.12); Nucleated RBC % (auto) 0.3 %; Platelet Count 242 K/uL (130-400); RDW Coefficient of Variation 14.7 % (11.5-14.5); RDW Standard Deviation 45.3 fL (36.4-46.3); Red Blood Count 3.42 M/uL (4.20-5.40); White Blood Count 7.13 K/ul (4.8-10.8)
--- NOTE | 2024-01-12 16:15 | XRay Report ---
XR chest 1V portable CLINICAL HISTORY: Chest pain, nonspecific COMPARISON STUDY: Chest CT June 02, 2021. Chest radiograph and left rib series February 24, 2022. FINDINGS: The patient is rotated. There are moderate right and small left pleural effusions. Cardiome hugo is unchanged. There is mild interstitial thickening. There is no pneumothorax. Bibasilar opaciti es favor atelectasis although an infectious process could appear similar. There is thoracic spine lev oscoliosis. IMPRESSION: 1. Cardiomegaly with mild interstitial pulmonary edema. 2. Moderate right and small left pleural effusions with associated bibasilar opacities which favor at electasis although pneumonia could appear similar. ACT 112: Negative or not required by law. Electronically signed by: Curtis Sanchez M.D. 01/12/2024 4:14 PM
[2024-01-12 16:16] LABS: Albumin Globulin Ratio 1.1 (0.9-2); BUN Creatinine Ratio 19.5 (10-20); Bilirubin,Total 0.5 mg/dl (0.2-1.0); Calcium 10.1 mg/dl (8.6-10.3); Creatinine Clr Calc Pharmacy 25.9 ml/min; Est GFR (African American) 51.3 ml/min; Est GFR (Non-African American) 44.3 ml/min; Globulin 3.5 gm/dl (2.5-4.0); Magnesium 2.1 mg/dl (1.7-2.4); Potassium 4.1 mmol/L (3.5-5.1); Total Protein 7.5 gm/dl (6.0-8.3)
[2024-01-12 16:23] LABS: Troponin I High Sensitivity 12.2 pg/ml (0-14)
[2024-01-12 16:27] LABS: Partial Thromboplastin Ratio 1.1; Partial Thromboplastin Time 29 Seconds (21-31); Prothrombin Time 11.1 Seconds (9.0-12.0)
[2024-01-12 16:33] LABS: Thyroid Stimulating Hormone 2.447 uIu/ml (0.300-4.500)
--- NOTE | 2024-01-12 18:57 | History & Physical Report ---
Date of Service January 12, 2024 Assessment & Plan (1) Narrow complex tachycardia: Plan: Suspected atrial flutter with RVR vs. SVT, will consult cardiology for review of rhythm strips however regardless she is not an anticoagulation candidate due to ongoing bloody stool (she discontinued anticoagulation in March 2023) for this reason as she was needing blood transfusions Suspect arrhythmia occurred due to missing her atenolol dose, she appears back to her normal self and no alternative underlying etiology found Plan to restart her atenolol and monitor on telemetry over night for recurrence. If not recurrence can likely go home tomorrow Consult her process design engineer (Tomer) (2) Acute on chronic heart failure with preserved ejection fraction: Plan: Likely acute worsening due to tachycardiac event. Occasionally she takes an additional torsemide therefore will give an extra 10mg PO tonight. (3) Sleep apnea: Plan: 2lpm via n/c at HS Plan VTE prophylaxis - SCD, no chemical prophylaxis due to chronic rectal bleeding Diet - gluten free, soft Disposition - observation to PCU Admission and Anticipated Discharge Date Admission Date: January 12, 2024 History of Present Illness Chief Complaint: Tachycardia Primary Care Provider: DO Maryellen Jacobo Sandra is an 83 year old female who presents to the ER with palpitations, chest pain, dizziness and generally not feeling well. Started in the middle of last night (felt fine before this) and was unable to sleep. She thinks she may have missed her atenolol as she was confused at the time whether she had already taken it and didn't want to take an extra one. She lives with her daughter who used a pulse ox to take her pulse and showed it was 170 bpm. She called EMS EKG showed a narrow complex tachycardia and on route she converted with a NSS bolus just as they were about to give her adenosine. Her symptoms were completely relieved shortly following this. She now feels back to her normal self. Allergies Allergy/AdvReac Type Severity Reaction Status Date / Time gluten Allergy Unknown unknown Verified 01/12/24 18:30 Iodinated Contrast Media Allergy Unknown RASH TO Verified 01/12/24 18:30 "CT SCAN DYE" chlorhexidine Allergy Rash Verified 01/12/24 18:30 Cipro AdvReac Intermediate GI UPSET Verified 09/10/17 06:43 ciprofloxacin [Cipro] AdvReac Intermediate GI UPSET Verified 01/12/24 18:30 Home Medications Medication Instructions Recorded Confirmed Type Lactobacillus 1 cap PO QAM 01/15/19 01/12/24 History acidophilus-Bifidobac.animalis 31 billion cell capsule multivitamin (Multiple Vitamins 2 tab PO QAM 01/15/19 01/12/24 History tablet) cholecalciferol (vitamin D3) 50 4,000 unit PO QAM 02/26/20 01/12/24 History mcg/drop (2,000 unit/drop) oral drops vitamin K2 40 mcg tablet 120 mcg PO DAILY 10/21/21 01/12/24 History Coq-10 Gummies 50 mg PO TID 02/24/22 01/12/24 History torsemide 10 mg tablet 20 mg PO QAM 11/27/22 01/12/24 History levothyroxine 75 mcg tablet 75 mcg PO DAILY #90 tabs 05/21/23 01/12/24 Rx atenolol 25 mg tablet 25 mg PO DAILY #90 tabs 06/06/23 01/12/24 Rx fluticasone propionate 50 1 spray intranasal DAILY PRN nasal 11/01/23 01/12/24 Rx mcg/actuation nasal congestion #16 grams spray,suspension zinc 15 mg tablet 15 mg PO DAILY 01/12/24 01/12/24 History Past Med/Surg History Problem List (Updated 01/13/24 @ 07:22 by Juan M Pedroza MD) Acute on chronic heart failure with preserved ejection fraction Anemia (Acute) SOB (shortness of breath) (Acute) Precordial chest pain (Acute) SVT (supraventricular tachycardia) (Acute) Hypoxia (Acute) Narrow complex tachycardia History of rectal cancer Sleep apnea 2lpm via n/c at Chronic pain syndrome Hypomagnesemia Iron deficiency anemia Thrombocytopenia Mitral regurgitation Hypothyroidism (Chronic) Impacted cerumen of both ears (Chronic) Nephrolithiasis (Chronic) Interstitial lung disease (Chronic) Cyst of kidney, acquired (Chronic) Anxiety state (Chronic) Hearing loss Hepatic cyst (Chronic) Hyperlipidemia LDL goal <100 (Chronic) HTN (hypertension) (Chronic) Lumbar spinal stenosis (Chronic) Osteoporosis, unspecified (Chronic) Paroxysmal atrial fibrillation (Chronic) family unaware, denies cardioversion. Follows with Dr Bosch. 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 Atrial fibrillation with rapid ventricular response Abscess of pulp of tooth CHF (congestive heart failure) Mild cognitive impairment with memory loss Alert and oriented x3 Anxiety Hx of basal cell carcinoma Mitral valve prolapse syndrome Weight loss Hypothyroidism H/O pericarditis (~2007) Lipodermatosclerosis Surgical History Hx of oral surgery (06/07/21) Incision and Drainage, Removal of Teeth 15 and 16 - Heath Suarez, DMD 06/07/2021 History of colonoscopy History of back surgery lumbar area H/O squamous cell carcinoma excision removed at the anus H/O basal cell carcinoma excision MOHS History of open heart surgery (~2016) removal of tricupsid valve mass ([facility]) H/O cardiac catheterization family denies (denies any stents) S/P cholecystectomy 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 Family History Mother Cancer Colorectal cancer Father Heart disease Stroke Son Alzheimer disease Denies family history of Ovarian cancer Prostate cancer Myocardial infarction Breast cancer Social History Smoking Status: Never smoker Tobacco Type: Cigarettes Second Hand Exposure: No; Do You Dip or Chew Tobacco: No; Hx Alcohol Use: No Hx Substance Use: No Preferred Language: Kazakh Communication Ability: Effective Visual Impairment: Limited Hearing Ability: Normal Heel Former Required: No Beliefs That Will Affect Care: None marital status: Current Living Situation: Family current occupational status: retired How many Children do You have: 3 Feels Safe at Home: Yes Safety Concerns: Feels Safe At This Time Childhood Exposure to Second-Hand Smoke: No Diet: gluten free caffeine: No Dental Care, Regularly: Yes Physical Activity Frequency: Does not Exercise Seatbelt Use: always Sunscreen Use: No Assistive Devices: Walker Review of Systems Review of Systems: All systems reviewed & are unremarkable except as noted in HPI & below Physical Exam Constitutional: WD/WN, vitals as above ENMT: external ear and nose normal, oropharynx normal Respiratory: normal respiratory effort; no respiratory distress Auscultation: lungs clear to auscultation bilaterally and + diminished lung sounds (bibasal); no crackles, no rales and no wheezes Cardiovascular: Rate/Rhythm: regular rate and regular rhythm Heart Sounds: + murmur (loudest apical) Gastrointestinal (Abdomen): normal bowel sounds, soft, nontender, no hepatosplenomegaly Skin: no rashes, warm and dry Neurologic: moves all extremities and awake; not confused Psychiatric: A+Ox3, euthymic affect Results & Data Results & Data Vital Signs (Past 12 Hours) Vital Signs Temp Pulse Pulse Resp BP BP Pulse Ox 01/12/24 17:36 67 26 H 122/70 100 01/12/24 17:18 71 24 122/70 99 01/12/24 16:32 76 01/12/24 16:08 74 20 125/69 98 01/12/24 15:55 71 20 99/58 L 95 01/12/24 15:51 75 123/71 01/12/24 15:31 36.5 C 76 20 123/71 88 L O2 Del Method O2 Flow Rate 01/12/24 17:36 Nasal Cannula 2 01/12/24 17:18 01/12/24 16:32 01/12/24 16:08 Nasal Cannula 2 01/12/24 15:55 Nasal Cannula 2 01/12/24 15:51 01/12/24 15:31 Room Air Laboratory Results Abnormal lab results 01/12/24 01/13/24 Range/Units 15:40 04:42 RBC 3.42 L (4.20-5.40) M/uL Hgb 10.0 L (12.0-16.0) g/dl Hct 29.1 L (37.0-47.0) % RDW Coeff of Janet 14.7 H (11.5-14.5) % Lymph # (Auto) 1.09 L (1.20-3.40) K/uL [place] # (Auto) 1.19 H (0.11-0.59) K/uL Diagnostic Findings XR chest 1V portable CLINICAL HISTORY: Chest pain, nonspecific COMPARISON STUDY: Chest CT June 02, 2021. Chest radiograph and left rib series February 24, 2022. FINDINGS: The patient is rotated. There are moderate right and small left pleural effusions. Cardiomegaly is unchanged. There is mild interstitial thickening. There is no pneumothorax. Bibasilar opacities favor atelectasis although an infectious process could appear similar. There is thoracic spine levoscoliosis. IMPRESSION: 1. Cardiomegaly with mild interstitial pulmonary edema. 2. Moderate right and small left pleural effusions with associated bibasilar opacities which favor atelectasis although pneumonia could appear similar. Medications Administered ER Medications Given: Normal saline 500ml bolus Metoprolol tartrate 2.5 mg IV ECG Rate (beats per minute): 76 Rhythm: normal sinus Findings: + nonspecific-ST abn Comparison ECG Date: from (February 23, 2022) Change: the following changes noted (TWI new in lateral leads) Code Status & VTE Plan Code Status Full VTE Prophylaxis Plan VTE Prophylaxis will be ordered: Yes PG Care Time/CCT Total # of Minutes Spent Total Time Spent with Patient: Total time spent is greater than 50% in coordination of care (as documented) at patient's floor/unit and/or counseling patient: Coding Level of Care Code 66214 INT INP/OBS CARE 3/75MIN Diagnoses Narrow complex tachycardia I47.19 Acute on chronic heart failure with preserved ejection fraction I50.33 Sleep apnea G47.30
[2024-01-12] MEDS: TORSEMIDE 10 MG TAB PO STA (20:27)
[2024-01-12] MEDS: ATENOLOL 25 MG TABLET PO SCH (22:46)
[2024-01-13 05:21] LABS: Basophils % (auto) 1.4 %; Eosinophils # (auto) 0.32 K/uL (0.00-0.50); Eosinophils % (auto) 4.4 %; Hematocrit (blood only) 27.4 % (37.0-47.0); Hemoglobin 9.4 g/dl (12.0-16.0); Immature Granulocytes # (auto) 0.02 K/uL (0.01-0.20); Immature Granulocytes % (auto) 0.3 %; Lymphocytes # (auto) 0.98 K/uL (1.20-3.40); Lymphocytes % (auto) 13.4 %; Mean Corpuscular Hemoglobin 29.1 pg (25.0-34.0); Mean Corpuscular Hgb Conc 34.3 g/dL (32.0-36.0); Mean Corpuscular Volume 84.8 fL (80.0-100.0); Monocytes % (auto) 17.8 %; Neutrophils # (auto) 4.59 K/uL (1.40-6.50); Neutrophils % (auto) 62.7 %; Platelet Count 235 K/uL (130-400); RDW Coefficient of Variation 14.7 % (11.5-14.5); RDW Standard Deviation 45.4 fL (36.4-46.3); Red Blood Count 3.23 M/uL (4.20-5.40); White Blood Count 7.31 K/ul (4.8-10.8)
[2024-01-13 05:35] LABS: BUN Creatinine Ratio 21.8 (10-20); Calcium 9.5 mg/dl (8.6-10.3); Est GFR (African American) 58.8 ml/min; Est GFR (Non-African American) 50.7 ml/min; Potassium 3.9 mmol/L (3.5-5.1)
[2024-01-13] MEDS: LEVOTHYROXINE SODIUM 75 MCG TABLET PO SCH (06:06)
[2024-01-13] MEDS: CHOLECALCIFEROL 25 MCG (1000 UNITS) TAB PO SCH (09:35)
[2024-01-13] MEDS: ADVANCED PROBIOTIC 625 MG CAPSULE PO SCH (09:35)
[2024-01-13] MEDS: TORSEMIDE 20 MG TAB PO SCH (09:35)
[2024-01-13 15:05] VITALS: BP 114/67; PULSE 67; RESP 22; O2SAT 91
--- NOTE | 2024-01-13 20:02 | Discharge Summary ---
Discharge Summary Date of Service January 13, 2024 Principal Dx & Hospital Course #1 = Principal Diagnosis (1) Narrow complex tachycardia: 83-year-old woman with a history of A-fib in the past sounds like low burden of A-fib, came to ED with an SVT rate approximately 170. Converted to normal sinus rhythm upon arrival to ED I reviewed the medic EKG and it shows probable atrial flutter. there is a possibility it is a different SVT but treatment will be the same for her she was observed overnight and had no recurrence of arrhythmia, remained in normal sinus rhythm and asymptomatic she is not an anticoagulation candidate due to ongoing bloody stool (she discontinued anticoagulation in March 2023) for this reason as she was needing blood transfusions I discussed with the [facility] egg setter on-call we both agreed to discontinue atenolol and replace with metoprolol succinate she will follow-up with Dr. Bosch her outpatient egg setter consider aspirin or DOAC if she can tolerate for stroke risk reduction (2) Acute on chronic heart failure with preserved ejection fraction: mild acute worsening due to tachycardiac event. gave an extra dose of torsemide last night appears euvolemic at the time of discharge, resume usual torsemide dosing (3) Sleep apnea: 2lpm via n/c at HS Plan there was concern by the admitting team she may have some swallowing difficulty she was evaluated by the speech therapist who recommended she take her pills in a carrier such as applesauce or pudding, however, Maryellen was very resistant to that suggestion, she recommended home health speech therapy follow-up Maryellen has generalized weakness and unsteady gait, deconditioning. plan on her most recent clinic visit was to have home health PT and OT but I do not think this has been initiated ordered home health PT OT and speech therapy Notes For Next Care Provider consider aspirin for stroke risk reduction, or DOAC though doubt she can tolerate Medication Changes From Visit atenolol discontinued and replaced with metoprolol succinate Admission HPI Per Admitting Provider Maryellen Flores is an 83 year old female who presents to the ER with pal pitations, chest pain, dizziness and generally not feeling well. Started in the middle of last night (felt fine before this) and was unable to sleep. She thinks she may have missed her atenolol as she was confused at the time whether she had already taken it and didn't want to take an extra one. She lives with her daughter who used a pulse ox to take her pulse and showed it was 170 bpm. She called EMS EKG showed a narrow complex tachycardia and on route she converted with a NSS bolus just as they were about to give her adenosine. Her symptoms were completely relieved shortly following this. She now feels back to her normal self. Discharge Exam PHYSICAL EXAMINATION Last 24h vital signs reviewed, see documentation in flowsheet General: frail elderly woman wrapped up in blankets and a hat no distress HEENT: Normocephalic, atraumatic, pupils round and equal, sclerae anicteric, no conjunctival injection, moist mucus membranes Lungs: Normal respiratory effort. Clear to auscultation bilaterally. No RRW Heart: Regular rate and rhythm, no murmurs. No JVD Abdomen: Soft, nontender, nondistended. Bowel sounds present. Extremities: Warm, dry, well-perfused. No extremity edema. Neuro: Alert and oriented x 4, face symmetric, moves 4 extremities well Psych: Normal affect and behavior Discharge Plan Discharge Items Patient Disposition: Home - Home Health Services Reason For Visit: NARROW COMPLEX TACHYCARDIA Discharge Diagnosis: Rapid atrial flutter Condition on Discharge: Fair Activity: Resume your previous activity Non-emergency contact: Primary Care Provider and Bone Char Puller Call non-emergency contact if: you have any medication questions and your symptoms worsen Follow-up/Referrals: Ash Bosch MD [Physician] - Sandra Pope DO [Primary Care Provider] - Diet: Regular Addtl Attending Provider Instructions: You had an episode of fast heart beat that stopped on its own by the time you got to the ED This was probably an episode of atrial flutter (a rhythm related to A-fib, which you've had before). There are other types of fast rhythms that look similar but the treatment is the same in your case. The [facility] egg setter recommended replacing your atenolol with a similar medication called metoprolol that will control fast heart rates better. Schedule follow up with Dr. Bosch soon. You can discuss with him whether to try blood thinner or at least aspirin again for stroke protection. You were evaluated by the speech pathologist and she recommended taking your pills with something like applesauce or pudding. I ordered home health PT OT and speech therapy It was a pleasure seeing you in the hospital, Yessi Gale MD Pending Studies at Discharge: No Stand-Alone Forms: [facility], Smoking Cessation Medications and DC Order Prescriptions: New metoprolol succinate 50 mg tablet extended release 24 hr 50 mg PO HS Qty: 30 0RF Continued cholecalciferol (vitamin D3) 50 mcg/drop (2, 000 unit/drop) drops 4,000 unit PO QAM levothyroxine 75 mcg tablet 75 mcg PO DAILY Qty: 90 3RF fluticasone propionate 50 mcg/actuation spray,suspension 1 spray intranasal DAILY PRN (Reason: nasal congestion) Qty: 16 0RF Rx Instructions: administer into each nostril multivitamin [Multiple Vitamins] tablet 2 tab PO QAM L. acidophilus/Bifid. animalis 31 billion cell capsule 1 cap PO QAM vitamin K2 40 mcg Tablet 120 mcg PO DAILY Coq-10 Gummies 50 mg PO TID torsemide 10 mg tablet 20 mg PO QAM Rx Instructions: depends on weight zinc 15 mg Tablet 15 mg PO DAILY Discontinued atenolol 25 mg tablet 25 mg PO DAILY Qty: 90 3RF Admission Data Admit Date/Time: 01/12/24 18:47 Attending Provider: Yessi Gale Admit Provider: Juan M Pedroza Primary Care Provider: Sandra Pope Other Providers: Juan M Pedroza; Jada Tomlinson; [facility],Home [facility] Other Interventions: Discharge Summary Assessment (RN) Last Done: 01/13/24 14:59 Hospital Stay Data Consultations 01/12/24 18:16 ED Decision to Admit Stat 01/13/24 07:19 Consult Cardiology Routine 01/13/24 14:45 Consult Case Management Ambulatory ONCE Pending Results Patient Have Any Pending Studies at Discharge: No Discharge Instructions Given to Patient (Per Discharging Provider) You had an episode of fast heart beat that stopped on its own by the time you got to the ED This was probably an episode of atrial flutter (a rhythm related to A-fib, which you've had before). There are other types of fast rhythms that look similar but the treatment is the same in your case. The [facility] egg setter recommended replacing your atenolol with a similar medication called metoprolol that will control fast heart rates better. Schedule follow up with Dr. Hiro orellana. You can discuss with him whether to try blood thinner or at least aspirin again for stroke protection. You were evaluated by the speech pathologist and she recommended taking your pills with something like applesauce or pudding. I ordered home health PT OT and speech therapy It was a pleasure seeing you in the hospital, Yessi Gale MD Total Time Total Time Spent Total Time Spent (In Minutes): I personally spent: 40 minutes today on clinical care activities including: reviewing chart notes and vital signs reviewing labs reviewing studies discussion with egg setter discussion with client care representative examining and counseling the patient writing orders writing prescriptions, discharge instructions documentation Coding Level of Care Code 87776 INP/OBS DISCH >30 MIN Diagnoses Narrow complex tachycardia I47.19 Acute on chronic heart failure with preserved ejection fraction I50.33 Sleep apnea G47.30
--- NOTE | 2024-01-14 06:12 | Electrocardiogram Report ---
Test Reason : Blood Pressure : */* mmHG Vent. Rate : 76 BPM Atrial Rate : 76 BPM P-R Int : 192 ms QRS Dur : 72 ms QT Int : 388 ms P-R-T Axes : 96 51 91 degrees QTcB Int : 436 ms Poor data quality, interpretation may be adversely affected Normal sinus rhythm Anterior infarct (cited on or before 23-Feb-2022) Nonspecific ST and T wave abnormality Abnormal ECG When compared with ECG of 23-Feb-2022 21:52, Premature ventricular complexes are no longer Present Questionable change in QRS axis T wave inversion now evident in Lateral leads Confirmed by Daniel Wells ([id number]) on 01/14/2024 6:12:12 AM Referred By: Confirmed By: Daniel Wells
== END 2024-01-13 14:59 | disposition home health service (06) ==
LOC: EDINP 15:21 → ED 15:21 → SUATTDRO 18:47 → EDINP 21:21